=== PATIENT | female | born 1955 | race Caucasian/White ===

== ENCOUNTER → 2018-07-20 11:04 | Outpatient (CLI) | payer OTHER, SELFPAY ==
--- NOTE | 2018-07-20 11:16 | BI_ITS ---
MAMMOGRAPHY - BILATERAL SCREENING REASON FOR EXAM: Female, 63 years old. Routine annual screening examination. PERTINENT HISTORY: FM HX 2 MAT COUSINS 40 Tamp; 50, RT AV'S AND US DONE 03-05-17 TECHNIQUE: Digital bilateral breast ryan (3D mammographic acquisition) in the CC and MLO projections. 2-D mediolateral oblique (MLO) and craniocaudad (CC) views of both breasts were obtained. CAD: Full Field Digital Mammography with Computer Added Detection was performed. COMPARISON: 02/17/2017 and 03/05/2017 FINDINGS: Breast Composition: The breasts are heterogeneously dense, which may obscure small masses. There are no dominant masses or suspicious calcifications. No other significant abnormalities are identified. BI/SCREEN MAMM (CAD) W/RYAN BILAT IMPRESSION: Stable bilateral screening mammogram. Yearly follow-up mammogram recommended. (A) ASSESSMENT CATEGORY: BIRADS Category 2: Benign. A letter regarding these results will be sent to the patient by the facility within 30 days. Approximately 10% of breast cancers are not detected by mammography. A normal mammogram should not delay biopsy of a clinically suspicious abnormality. [id number] Electronically Signed: Mariam Klein, at 17:20 EDT Tel , Service support ,
== END ==
PROVIDERS: Family Provider Family Medicine; PCP Family Medicine; Visit Provider Obstetrics & Gynecology
DX: Z12.31 Encounter for screening mammogram for malignant neoplasm of breast (principal)
CPT/HCPCS: 77063; 77067

== ENCOUNTER → 2018-08-17 17:05 | Outpatient (CLI) | payer OTHER, SELFPAY ==
[2018-08-17 10:37] VITALS: BMI 36.2
[2018-08-20 16:29] LABS: HPV APTIMA, High Risk Negative (Negative)
== END ==
PROVIDERS: Family Provider Family Medicine; Referring Provider Obstetrics & Gynecology; Visit Provider Obstetrics & Gynecology
DX: Z12.4 Encounter for screening for malignant neoplasm of cervix (principal)
CPT/HCPCS: 87624; 88175; G0145

== ENCOUNTER → 2020-02-17 11:31 | Outpatient (CLI) | payer MEDICARE, OTHER, SELFPAY ==
[2020-01-31 14:38] VITALS: BMI 36.2
--- NOTE | 2020-02-17 11:34 | BI_ITS ---
MAMMOGRAPHY - BILATERAL SCREENING REASON FOR EXAM: Female, 65 years old. Routine annual screening examination. PERTINENT HISTORY: Non-contributory. TECHNIQUE: Digital bilateral breast ryan (3D mammographic acquisition) in the CC and MLO projections. 2-D mediolateral oblique (MLO) and craniocaudad (CC) views of both breasts were obtained. CAD: Full Field Digital Mammography with Computer Added Detection was performed. COMPARISON: Comparison is made with prior examination dated 07/20/2018. FINDINGS: Breast Composition: There are scattered areas of fibroglandular density. There are no dominant masses or suspicious calcifications. No other significant abnormalities are identified. There has been no significant change since the prior study. BI/SCREEN MAMM (CAD) W/RYAN BILAT IMPRESSION: Stable bilateral screening mammogram. Yearly follow-up mammogram recommended. (A) ASSESSMENT CATEGORY: BIRADS Category 1: Negative. A letter regarding these results will be sent to the patient by the facility within 30 days. Approximately 10% of breast cancers are not detected by mammography. A normal mammogram should not delay biopsy of a clinically suspicious abnormality. [id number] Electronically Signed: Dusty Bajwa, at 12:39 EDT , Service support ,
== END ==
PROVIDERS: PCP Family Medicine; Referring Provider Obstetrics & Gynecology; Visit Provider Obstetrics & Gynecology
CPT/HCPCS: 77063; 77067

== ENCOUNTER 2020-07-11 07:41 | Outpatient (RCR) | payer MEDICARE, OTHER, SELFPAY ==
[2020-01-31 14:38] VITALS: BMI 36.2
[2020-07-11] MEDS: COVID-19 VACC, MRNA(PFIZER)/PF 30 MCG/0.3 ML SYRINGE IM (17:02)
[2020-08-01] MEDS: COVID-19 VACC, MRNA(PFIZER)/PF 30 MCG/0.3 ML SYRINGE IM (16:45)
== END 2020-10-10 23:59 ==
LOC: IMMUN 07:41
PROVIDERS: PCP Family Medicine; Visit Provider Family Medicine
DX: Z23 Encounter for immunization (principal)
CPT/HCPCS: 0001A; 0002A; 91300

== ENCOUNTER → 2021-03-19 11:25 | Outpatient (CLI) | payer MEDICARE, OTHER, SELFPAY ==
--- NOTE | 2021-03-19 11:27 | BI_ITS ---
MAMMOGRAPHY - BILATERAL SCREENING REASON FOR EXAM: Female, 66 years old. Routine annual screening examination. PERTINENT HISTORY: Non-contributory. TECHNIQUE: Digital bilateral breast ryan (3D mammographic acquisition) in the CC and MLO projections. 2-D mediolateral oblique (MLO) and craniocaudad (CC) views of both breasts were obtained. CAD: Full Field Digital Mammography with Computer Added Detection was performed. COMPARISON: Comparison is made with prior study dated 02/17/2020 and 07/20/2018. FINDINGS: Breast Composition: There are scattered areas of fibroglandular density. There are no dominant masses or suspicious calcifications. Small benign-appearing bilateral axillary lymph nodes. No other significant abnormalities are identified. There has been no significant change since the prior study. BI/SCRN MAMM (CAD)W/RYAN BILAT IMPRESSION: Stable bilateral screening mammogram. Yearly follow-up mammogram recommended. (A) ASSESSMENT CATEGORY: BIRADS Category 2: Benign. A letter regarding these results will be sent to the patient by the facility within 30 days. Approximately 10% of breast cancers are not detected by mammography. A normal mammogram should not delay biopsy of a clinically suspicious abnormality. [id number] Electronically Signed: Dusty Bajwa MD at 13:07 EST , Service support ,
== END ==
PROVIDERS: PCP Family Medicine; Visit Provider Obstetrics & Gynecology
DX: Z12.31 Encounter for screening mammogram for malignant neoplasm of breast (principal)
CPT/HCPCS: 77063; 77067

== ENCOUNTER 2024-11-26 11:31 | Observation (INO) | payer MEDICARE, OTHER, SELFPAY ==
[2024-11-26] VITALS (13 sets, daily range): BP systolic 122–168; BP diastolic 58–105; PULSE 77–87; RESP 14–24; TEMP 36.6–37.1; O2SAT 93–99; BMI 37.8
--- NOTE | 2024-11-26 11:52 | CT_ITS ---
PROCEDURE: STROKE BRAIN/HEAD WITHOUT CONT 11/26/2024 REASON FOR EXAM: NEURO DEFICIT, ACUTE, STROKE SUSPECTED TECHNIQUE: STROKE BRAIN/HEAD WITHOUT CONT Coronal and Sagittal reconstruction series were provided. One or more dose reduction techniques were used (e.g., Automated exposure control, adjustment of the mA and/or kV according to patient size, use of iterative reconstruction technique. RADIATION DOSE SUMMARY: CTDlvol: 45 mGy DLP: 815 mGycm COMPARISON: None FINDINGS: Brain: There is no evidence of hemorrhage, acute ischemia or mass. No extra- axial fluid collection, midline shift or mass effect. CSF Spaces: Mild generalized cerebral atrophy Sinuses/Mastoids: Clear Bones: No fracture CT/STROKE Brain/Head without Cont IMPRESSION: No evidence of hemorrhage or acute stroke at this time. The findings and impression were called to the ordering physician, Dr. Sondra muñoz 12:07 PM Reading Location: [id number]
--- NOTE | 2024-11-26 11:52 | EKG12_ITS ---
Test Reason : STROKE TEAM Blood Pressure : */* mmHG Vent. Rate : 78 BPM Atrial Rate : 78 BPM P-R Int : 198 ms QRS Dur : 88 ms QT Int : 406 ms P-R-T Axes : 30 9 38 degrees QTcB Int : 462 ms Normal sinus rhythm with sinus arrhythmia Normal ECG Confirmed by MELISSA ALVAREZ, ALHAJI ([id number]), editor continuity and script CECILIA ROYAL ([id number]) on 11/29/2024 8:31:08 AM Referred By: Confirmed By: ALHAJI TORRES MD
--- NOTE | 2024-11-26 11:53 | CT_ITS ---
PROCEDURE: STROKE CTA HEAD AND NECK W/CON 11/26/2024 REASON FOR EXAM: NEURO DEFICIT, ACUTE, STROKE SUSPECTED TECHNIQUE: STROKE CTA HEAD AND NECK W/CON Multiplanar Sagittal and Coronal images were obtained. 3D post processing was performed CONTRAST: Isovue 370 VOLUME: 100 mL One or more dose reduction techniques were used (e.g., Automated exposure control, adjustment of the mA and/or kV according to patient size, use of iterative reconstruction technique). RADIATION DOSE SUMMARY: CTDlvol: 32 mGy DLP: 735 mGycm COMPARISON: Head CT of the same day FINDINGS: Aortic Arch: A bovine arch is present, a normal variant. Vessels are widely patent. Brachiocephalic and Subclavians: Unremarkable RIGHT Carotid: Right CCA: Minimal mural plaque at the carotid bulb. Right ICA: Unremarkable. Maximum stenosis (NASCET): 0 % Right ECA: Unremarkable. LEFT Carotid: Left CCA: Unremarkable. Left ICA: Unremarkable. Maximum stenosis (NASCET): 0 % Left ECA: Unremarkable. Vertebrals: Codominant. Arise from the subclavians. Both vertebrals form the basilar. RIGHT Vertebral: Unremarkable. LEFT Vertebral: Unremarkable. Anatomy: origin of the posterior cerebral arteries bilaterally. Aneurysm or avm: No intracranial aneurysms or large vascular malformations are identified. Anterior cerebral arteries: Unremarkable. Middle cerebral arteries: Unremarkable. Basilar artery: Small caliber but patent. Posterior cerebral arteries: Hypoplastic/aplastic P1 segments. 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 Other major branches of the posterior circulation: Unremarkable. Major venous structures: Unremarkable. Other findings: Neck: No lymphadenopathy. Lungs: Mosaic attenuation of the lung parenchyma at the lung apices. Bones: Bones are unremarkable. Heterogeneous thyroid nodule at the isthmus. CT/STROKE CTA Head AND Neck W/Con IMPRESSION: 1. No aneurysm or stenosis seen. 2. No large vessel occlusion. 3. Incidental thyroid nodule at the isthmus. Recommend nonemergent outpatient ultrasound of the thyroid gland. Reading Location: [id number]
--- NOTE | 2024-11-26 12:07 | EDS_ITS ---
HPI History of Present Illness Chief Complaint: Dizziness Narrative Narrative: Patient is a 69-year-old female with past medical history of aortic stenosis, vertigo who presents to the emergency department the chief complaint of dizziness nausea and not feeling well. Patient states that around 10:40 AM this morning she was at [employer] and noted that while in the store she became lightheaded and dizzy feeling very unwell. She states that she left the store and noted that by the time she was out to her car she was having to hold onto the car to move around. States that she had her granddaughter with her and attempted to call her to come get them as she felt unwell to drive. Patient notes that she does have a history of vertigo however she states that this feels different than her vertigo and she states that she has never gotten nauseous and had vomiting with her vertigo previously. Patient denies any blood thinning medications [facility] Medical History Aortic stenosis Vertigo Stress incontinence in female Lichen sclerosus Heart murmur Home Medications ?Medication ?Instructions ?Recorded ?Last Taken ?Type aspirin 81 mg tablet,delayed 81 mg PO DAILY 11/26/24 U nknown History release rosuvastatin 10 mg tablet 10 mg PO QHS 11/26/24 Unknow n History Allergy/AdvReac Type Severity Reaction Status Date / Time penicillin G Allergy Mild hives Verified 11/26/24 11:34 Family History Grandmother CAD (coronary artery disease) Father CAD (coronary artery disease) Grandmother Diabetes Surgical History History of section Social History Smoking Status: Never smoker alcohol intake: current details: social substance use type: does not use caffeine: Yes what type of physical activity do you participate in: walking seatbelt use: always do you feel safe at home: Yes additional social history: Samson- both are retired ROS ROS ED ROS Narrative Constitutional: Complains dizziness as noted above as well as lightheadedness denies any fevers or chills Eyes: Denies change in vision double vision blurry vision Cardiovascular: Denies chest pain Respiratory: Denies coughing wheezing shortness of breath Abdomen: Complains of nausea and vomiting as noted above denies abdominal pain : Denies any urinary symptoms Neurological: Denies any numbness, wheeze, tingling Musculoskeletal: Denies back pain Skin: Denies any rashes or lesions EXAM Physical Exam Narrative Exam Narrative: General: Patient was lying in bed did appear to be nauseous with emesis bag in hand Head: Atraumatic, normocephalic Eyes: PERRL bilaterally, EOMI bilaterally, no conjunctival injection noted Neck: Soft, supple, trachea midline Cardiovascular: Regular rate and rhythm no murmurs gallops rubs noted Respiratory: Clear to auscultation bilaterally no rales rhonchi or wheezes noted Abdomen: Soft, nondistended, nontender to palpation Extremities: +5/5 strength noted in the bilateral upper and lower extremities, radial pulses +2/4 in the bilateral extremities, no pedal edema exam Neurological: Patient follow commands knew that she was at [facility] the year is 2024. NIH of 0 GCS 15 Skin: Warm, dry, tact no rashes lesions noted Const Vital Signs: 11/26/24 11:32 11/26/24 11:52 11/26/24 11:52 Temperature 98 F Temperature Source Oral Pulse Rate 82 78 Pulse Rate [Lying] Pulse Rate [Sitting (for 1 minute prior to obtaining)] Pulse Rate [Standing (for 1 minute prior to obtaining)] Respiratory Rate 18 15 Blood Pressure 149/63 H 135/78 H Blood Pressure [Lying] Blood Pressure [Sitting (for 1 minute prior to obtaining)] Blood Pressure [Standing (for 1 minute prior to obtaining)] Blood Pressure Mean 91 97 Blood Pressure Mean [Lying] Blood Pressure Mean [Sitting (for 1 minute prior to obtaining)] Blood Pressure Mean [Standing (for 1 minute prior to obtaining)] Pulse Ox 95 97 98 Oxygen Delivery Method Room Air Room Air Room Air 11/26/24 12:22 11/26/24 12:30 11/26/24 12:49 Temperature Temperature Source Pulse Rate 84 77 Pulse Rate [Lying] 82 Pulse Rate [Sitting (for 1 minute prior to obtaining)] 81 Pulse Rate [Standing (for 1 minute prior to obtaining)] 80 Respiratory Rate 19 H 15 Blood Pressure 157/65 H 143/75 H Blood Pressure [Lying] 143/75 H Blood Pressure [Sitting (for 1 minute prior to obtaining)] 168/90 H Blood Pressure [Standing (for 1 minute prior to obtaining)] 160/89 H Blood Pressure Mean 95 97 Blood Pressure Mean [Lying] 97 Blood Pressure Mean [Sitting (for 1 minute prior to obtaining)] 116 Blood Pressure Mean [Standing (for 1 minute prior to obtaining)] 112 Pulse Ox 98 95 Oxygen Delivery Method Room Air Room Air 11/26/24 13:00 11/26/24 13:00 11/26/24 13:30 Temperature Temperature Source Pulse Rate 79 77 77 Pulse Rate [Lying] Pulse Rate [Sitting (for 1 minute prior to obtaining)] Pulse Rate [Standing (for 1 minute prior to obtaining)] Respiratory Rate 19 H 14 19 H Blood Pressure 122/58 H 122/58 H 136/105 H Blood Pressure [Lying] Blood Pressure [Sitting (for 1 minute prior to obtaining)] Blood Pressure [Standing (for 1 minute prior to obtaining)] Blood Pressure Mean 79 79 115 Blood Pressure Mean [Lying] Blood Pressure Mean [Sitting (for 1 minute prior to obtaining)] Blood Pressure Mean [Standing (for 1 minute prior to obtaining)] Pulse Ox 98 99 96 Oxygen Delivery Method Room Air Room Air 11/26/24 14:06 Temperature 98 F Temperature Source Pulse Rate 77 Pulse Rate [Lying] Pulse Rate [Sitting (for 1 minute prior to obtaining)] Pulse Rate [Standing (for 1 minute prior to obtaining)] Respiratory Rate 19 H Blood Pressure 136/105 H Blood Pressure [Lying] Blood Pressure [Sitting (for 1 minute prior to obtaining)] Blood Pressure [Standing (for 1 minute prior to obtaining)] Blood Pressure Mean 115 Blood Pressure Mean [Lying] Blood Pressure Mean [Sitting (for 1 minute prior to obtaining)] Blood Pressure Mean [Standing (for 1 minute prior to obtaining)] Pulse Ox 96 Oxygen Delivery Method MDM MDM MDM Narrative Medical decision making narrative: Patient is a 69-year-old female who presents to the emergency department chief complaint of dizziness, nausea vomiting. On the differential diagnosis includes but limited to posterior circulation stroke, ischemic stroke, hemorrhagic stroke, near syncope secondary to dehydration her aortic stenosis, electrolyte abnormality, hypoglycemia. Once workup is obtained reviewed she will be reevaluated. Patient be given Zofran for her nausea as well as meclizine. Patient CBC reviewed showed no evidence leukocytosis white blood count normal at 10, hemoglobin 13.7, platelet count was noted to be 240. Patient INR normal at 1, PT of 13.1. Patient sodium was 137, potassium normal at 4.3, creatinine was 0.90. Patient's troponin was noted to be normal at 7 patient's EKG reviewed showed sinus rhythm with a rate of [address] head and brain without contrast showed no evidence of hemorrhage or acute stroke at this point in time. Patient CTA head and neck reviewed showed no aneurysm or stenosis seen no large vessel occlusion there is an incidental thyroid nodule noted which is recommending nonemergent outpatient ultrasound of the thyroid gland. Patient's chest x-ray reviewed by myself official read per radiology pending however no acute cardiopulmonary processes noted. Patient was evaluated by teleneurologist Dr. Bland who recommends admission for MRI he states that this seems more presyncopal to him however I reiterated to him that the patient states that she was so dizzy and felt off balance that she had to hold onto her card to maneuver. She also notes that this is very different than her typical vertigo. Per teleneurology they indicate that the patient is not a tenecteplase candidate. Will discuss case with hospitalist for admission. Patient was given 243 mg aspirin as she already takes 81 mg aspirin daily and took this this morning. Discussed case with hospitalist Dr. Tierney who accept the patient for admission. Patient is notified as well as [facility] members they are agreeable with this plan all question concerns answered. Lab Data Labs: Laboratory Results - last 24 hr 11/26/24 13:10 WBC 10.0 RBC 4.76 Hgb 13.7 Hct 41.6 MCV 87.4 MCH 28.8 MCHC 32.9 RDW Std Deviation 39.8 RDW Coeff of Viktoria 12.4 Plt Count 240 MPV 8.6 Immature Gran % (Auto) 0.400 Neut % (Auto) 79.4 H Lymph % (Auto) 12.7 L Towns % (Auto) 5.2 Eos % (Auto) 1.8 Baso % (Auto) 0.5 Absolute Neuts (auto) 8.0 H Absolute Lymphs (auto) 1.27 Nucleated RBC % 0 PT 13.1 INR 1.0 APTT 24.3 Sodium 137 Potassium 4.3 Chloride 100 Carbon Dioxide 23.5 Anion Gap 14 BUN 21 H Creatinine 0.90 Estim Creat Clear Calc 60.57 Est GFR (MDRD) Non-Af 69 BUN/Creatinine Ratio 23.3 H Glucose 97 Calcium 9.9 Troponin T High Sens 7 Radiography Diagnostic Testing: Clinical Impression(s) from Imaging Studies Brain CT 11/26/24 11:52 IMPRESSION: No evidence of hemorrhage or acute stroke at this time. The findings and impression were called to the ordering physician, Dr. Amaro at 12:07 PM Reading Location: [facility] Head/Neck CTA 11/26/24 11:53 IMPRESSION: 1. No aneurysm or stenosis seen. 2. No large vessel occlusion. 3. Incidental thyroid nodule at the isthmus. Recommend nonemergent outpatient ultrasound of the thyroid gland. Reading Location: [facility] Discharge Plan Triage Chief Complaint: Dizziness ED Provider: Sebastian Amaro Dx/Rx/DC Orders Clinical Impression: Dizziness, Nausea & vomiting, History of aortic stenosis Prescriptions: No Action rosuvastatin 10 mg tablet 10 mg PO QHS aspirin 81 mg tablet,delayed release (DR/EC) 81 mg PO DAILY Primary Care Provider: Sterling Giles Referrals: Sterling Giles MD [Primary Care Provider] - Print Language: Latvian Disposition Disposition: Acute Care Hospital [facility]
[2024-11-26 13:22] LABS: Hematocrit 41.6 % (37-47); Hemoglobin 13.7 g/dL (12.0-15.0); Immature Granulocytes Count 0.040 X10^3/uL (0.0-0.0); Mean Corp Hgb Conc 32.9 g/dL (32-36); Mean Corpuscular Volume 87.4 fL (81-99); Mean Platelet Vol. 8.6 fl (6.2-12.0); NRBC Flagged by Analyzer 0 % (0-5); Platelet Count 240 K/mm3 (150-450); RBC Distribution Width CV 12.4 % (11.6-14.6); RBC Distribution Width SD 39.8 fl (35.1-43.9); Red Blood Count 4.76 M/mm3 (4.2-5.4); White Blood Count 10.0 K/mm3 (4.4-11.0)
[2024-11-26 13:31] LABS: Prothrombin Time (Protime)PT. 13.1 SECONDS (11.7-14.9)
[2024-11-26 13:32] LABS: Partial Thromboplast Time 24.3 Seconds (24.1-36.2)
[2024-11-26] MEDS: 0.9% Normal Saline (500mL Bag) 500 ML 999 ML IV (13:51)
--- NOTE | 2024-11-26 14:04 | RAD_ITS ---
PROCEDURE: CHEST PA AND LATERAL 11/26/2024 REASON FOR EXAM: DIZZY TECHNIQUE: CHEST PA AND LATERAL COMPARISON: None FINDINGS: Hardware: EKG leads are present. Heart: Normal Mediastinum: Normal Lungs: Clear Bones: Degenerative changes are identified within the thoracic spine. RAD/Chest PA and Lateral IMPRESSION: No acute abnormality Reading Location: [id number]
[2024-11-26 14:17] LABS: Anion Gap 14 (5-15); BUN 21 mg/dL (4-19); BUN/Creat Ratio 23.3 RATIO (10-20); Calcium,Total 9.9 mg/dL (7.6-11.0); Carbon Dioxide 23.5 mmol/L (21.0-32.0); Chloride 100 mmol/L (98-108); Estimated Creatinine Clearance 60.57 ml/min (50-250); Glucose 97 mg/dL (70-99); Potassium 4.3 mmol/L (3.3-5.1); Troponin T High Sensitivity 7 ng/L (<=14)
[2024-11-26 15:56] LABS: Troponin T High Sens 2 HR 6 ng/L (<=14)
--- NOTE | 2024-11-26 16:23 | PCM.HP.STD ---
HPI - General General Date of Admission: 11/26/24 Date of Service: 11/26/24 Chief Complaint: Dizziness, nausea vomiting, lightheadedness HPI Narrative CESIA FOUNTAIN, is a 69-year-old female history of vertigo and aortic stenosis presented to [facility] ED 11/26/2024 with episode of dizziness, nausea vomiting, lightheadedness. She had been in her usual health until earlier when she was at [employer] and she became dizzy and lightheaded and nauseous around 10:0 a.m., was able to get to her car but was very off balance and unsteady on her feet had multiple episodes of vomiting ultimately prompting her to come to the ED. She has a history of vertigo previously but this does not feel like that. In the ED patient vitally stable, orthostats negative, lab work overall unrevealing chest x-ray no acute process. Patient was a stroke alert as there was concern for posterior stroke. CT brain and CTA head and neck with no acute process. Teleneurology evaluated and suspected this could have been due to symptomatic aortic stenosis versus CVA and recommended admission for cardiac and stroke workup. Hospitalist contacted for mission. Patient evaluated bedside in reported history as above, nausea is improving, no longer feeling dizzy or off-balance. [facility] Medical History Aortic stenosis Vertigo Stress incontinence in female Lichen sclerosus Heart murmur Home Medications ?Medication ?Instructions ?Recorded ?Last Taken ?Type aspirin 81 mg tablet,delayed 81 mg PO DAILY 11/26/24 11/25/24 History release rosuvastatin 10 mg tablet 10 mg PO QHS 11/26/24 11/25/24 History Allergy/AdvReac Type Severity Reaction Status Date / Time penicillin G Allergy Mild hives Verified 11/26/24 11:34 Family History Grandmother CAD (coronary artery disease) Father CAD (coronary artery disease) Grandmother Diabetes Surgical History History of section Social History Smoking Status: Never smoker alcohol intake: current details: social substance use type: does not use caffeine: Yes what type of physical activity do you participate in: walking seatbelt use: always do you feel safe at home: Yes additional social history: Alejandra millan are retired ROS ROS Narrative General: Denies fever/chills HENT: Denies headache, denies stuffy nose, denies sore throat EYES: Denies changes in vision Resp: Denies cough, denies shortness of breath Cardiac: Denies chest pain GI: Denies abdominal pain, denies changes in bowel, nausea and vomiting : Denies changes in urination Extremity: Denies swelling MSK: Some generalized weakness Neuro: Denies any numbness/tingling had some dizzy and lightheaded feeling Heme: Denies any bleeding or bruising Skin: Denies rashes Psychiatric: No complaints voiced Vital Signs Vital Signs Vital Signs: 11/26/24 11:32 11/26/24 11:52 11/26/24 11:52 Temperature 98 F Temperature Source Oral Pulse Rate 82 78 Pulse Rate [Lying] Pulse Rate [Sitting (for 1 minute prior to obtaining)] Pulse Rate [Standing (for 1 minute prior to obtaining)] Respiratory Rate 18 15 Blood Pressure 149/63 H 135/78 H Blood Pressure [Lying] Blood Pressure [Sitting (for 1 minute prior to obtaining)] Blood Pressure [Standing (for 1 minute prior to obtaining)] Blood Pressure Mean 91 97 Blood Pressure Mean [Lying] Blood Pressure Mean [Sitting (for 1 minute prior to obtaining)] Blood Pressure Mean [Standing (for 1 minute prior to obtaining)] Pulse Ox 95 97 98 Oxygen Delivery Method Room Air Room Air Room Air 11/26/24 12:22 11/26/24 12:30 11/26/24 12:49 Temperature Temperature Source Pulse Rate 84 77 Pulse Rate [Lying] 82 Pulse Rate [Sitting (for 1 minute prior to obtaining)] 81 Pulse Rate [Standing (for 1 minute prior to obtaining)] 80 Respiratory Rate 19 H 15 Blood Pressure 157/65 H 143/75 H Blood Pressure [Lying] 143/75 H Blood Pressure [Sitting (for 1 minute prior to obtaining)] 168/90 H Blood Pressure [Standing (for 1 minute prior to obtaining)] 160/89 H Blood Pressure Mean 95 97 Blood Pressure Mean [Lying] 97 Blood Pressure Mean [Sitting (for 1 minute prior to obtaining)] 116 Blood Pressure Mean [Standing (for 1 minute prior to obtaining)] 112 Pulse Ox 98 95 Oxygen Delivery Method Room Air Room Air 11/26/24 13:00 11/26/24 13:00 11/26/24 13:30 Temperature Temperature Source Pulse Rate 79 77 77 Pulse Rate [Lying] Pulse Rate [Sitting (for 1 minute prior to obtaining)] Pulse Rate [Standing (for 1 minute prior to obtaining)] Respiratory Rate 19 H 14 19 H Blood Pressure 122/58 H 122/58 H 136/105 H Blood Pressure [Lying] Blood Pressure [Sitting (for 1 minute prior to obtaining)] Blood Pressure [Standing (for 1 minute prior to obtaining)] Blood Pressure Mean 79 79 115 Blood Pressure Mean [Lying] Blood Pressure Mean [Sitting (for 1 minute prior to obtaining)] Blood Pressure Mean [Standing (for 1 minute prior to obtaining)] Pulse Ox 98 99 96 Oxygen Delivery Method Room Air Room Air 11/26/24 14:06 11/26/24 15:00 Temperature 98 F Temperature Source Pulse Rate 77 87 Pulse Rate [Lying] Pulse Rate [Sitting (for 1 minute prior to obtaining)] Pulse Rate [Standing (for 1 minute prior to obtaining)] Respiratory Rate 19 H 24 H Blood Pressure 136/105 H 149/67 H Blood Pressure [Lying] Blood Pressure [Sitting (for 1 minute prior to obtaining)] Blood Pressure [Standing (for 1 minute prior to obtaining)] Blood Pressure Mean 115 94 Blood Pressure Mean [Lying] Blood Pressure Mean [Sitting (for 1 minute prior to obtaining)] Blood Pressure Mean [Standing (for 1 minute prior to obtaining)] Pulse Ox 96 94 Oxygen Delivery Method Room Air Weight Weight: 90.9 kg Body Mass Index (BMI) 37.8 Physical Exam Narrative General: Alert, oriented, no apparent distress HEENT: Atraumatic, normocephalic Eyes: Anicteric, normal conjunctiva, extraocular movements intact, pupils equal Neck: Supple Respiratory: Clear to auscultation bilaterally, normal respiratory effort Cardiovascular: Regular rate and rhythm, systolic ejection murmur noted GI: Soft, nontender, nondistended Extremities: No edema Musculoskeletal: Strength 5 out of 5 in right upper extremity, 5 out of 5 left upper extremity, 5 out of 5 right lower extremity, 5 out of 5 left lower extremity Neuro: No overt focal neurological deficits, cranial nerves II through XII intact, [id number] without significant difficulty bilaterally Skin: No rashes appreciated Psych: Cooperative Results Lab / Micro Data 11/26/24 13:10 11/26/24 13:10 Labs: Laboratory Results - last 24 hr 11/26/24 13:10: WBC 10.0, RBC 4.76, Hgb 13.7, Hct 41.6, MCV 87.4, MCH 28.8, MCHC 32.9, RDW Std Deviation 39.8, RDW Coeff of Viktoria 12.4, Plt Count 240, MPV 8.6, Immature Gran % (Auto) 0.400, Neut % (Auto) 79.4 H, Lymph % (Auto) 12.7 L, Colbert % (Auto) 5.2, Eos % (Auto) 1.8, Baso % (Auto) 0.5, Absolute Neuts (auto) 8.0 H, Absolute Lymphs (auto) 1.27, Nucleated RBC % 0, PT 13.1, INR 1.0, APTT 24.3, Sodium 137, Potassium 4.3, Chloride 100, Carbon Dioxide 23.5, Anion Gap 14, BUN 21 H, Creatinine 0.90, Estim Creat Clear Calc 60.57, Est GFR (MDRD) Non-Af 69, BUN/Creatinine Ratio 23.3 H, Glucose 97, Calcium 9.9, Troponin T High Sens 7 11/26/24 15:20: Troponin T Hi Sens 2 Hr 6 Imaging Radiology Impression Brain CT 11/26/24 11:52 IMPRESSION: No evidence of hemorrhage or acute stroke at this time. The findings and impression were called to the ordering physician, Dr. Amaro at 12:07 PM Reading Location: [facility] Head/Neck CTA 11/26/24 11:53 IMPRESSION: 1. No aneurysm or stenosis seen. 2. No large vessel occlusion. 3. Incidental thyroid nodule at the isthmus. Recommend nonemergent outpatient ultrasound of the thyroid gland. Reading Location: [facility] Chest X-Ray 11/26/24 14:04 IMPRESSION: No acute abnormality Reading Location: [facility] Assessment & Plan Assessment/Plan (1) Dizziness: (2) Nausea & vomiting: PLAN: Plan # Dizziness/lightheadedness/nausea and vomiting -Admit to tele -CT head w no acute process -CTA head and neck no acute process -MRI ordered -NIH q4hr -asa, statin -Echo w/ bubble study -PT/OT/Speech eval -Teleneuro consult ordered -Hold BP medications to allow for permissive hypertension for 24 hours unless SBP greater than 220 or DBP greater than 120 or until stroke is ruled out # Aortic stenosis -Does have murmur -Is possible but this was presyncope as patient has difficulty describing the symptoms however it was recommended to complete cardiac and stroke workup -Orthostats negative -Echo as above # Thyroid nodule - Seen on the isthmus, recommended nonemergent outpatient ultrasound #DVT ppx: SCDs Erika Tierney MD Charges/Coding Visit Charges Inpatient E&M: 93363 Init Hosp L2
--- NOTE | 2024-11-26 17:22 | MRI_ITS ---
PROCEDURE: BRAIN WITHOUT CONTRAST 11/26/2024 REASON FOR EXAM: CONCERN FOR TIA/STROKE TECHNIQUE: Multiplanar and multisequential MRI of the brain was performed without contrast. COMPARISON: CT head/angiography earlier today 11/26/2024. FINDINGS: No regions of abnormal restricted diffusion to indicate recent infarct. The ventricular and sulcal size and configuration appear within normal limits for age. No evidence of intracranial hemorrhage, extra-axial collection, mass effect, or other significant abnormality. Scant foci of leukoaraiosis in the cerebral white matter. Preserved major intracranial vascular flow voids. Absent king salmon ocular lenses. Well-aerated paranasal sinuses and mastoid air cells. MRI/Brain without Contrast IMPRESSION: No acute infarct or other significant abnormality. Normal brain MRI for patien t's age. Reading Location: [id number]
--- NOTE | 2024-11-26 17:23 | ECHOD_ITS ---
Reason For Study Reason For Study: TIA/Stroke Procedure This was a 2D Doppler, Color Flow transthoracic echocardiogram. Exam performed portable in patient room. Left Ventricle Normal LV size. The left ventricular ejection fraction is 70 %. Stage 1 diastolic dysfunction. Right Ventricle Normal RV size. Normal systolic function. Mitral Valve Mild-Moderate (1-2+) eccentric mitral valve insufficiency. Tricuspid Valve Normal tricuspid valve. Mild (1+) tricuspid valve insufficiency. Pulmonary artery systolic pressure is 34 mmHg. Aortic Valve Trisinus/trileaflet aortic valve. Mild focal aortic valve calcification. Peak aortic valve gradient 31 mmHg. Mean aortic valve gradient 19 mmHg. Mild to moderate aortic stenosis. MMode/2D Measurements & Calculations LVIDd: 3.9 cm IVSd: 1.1 cm LVOT diam: 2.0 cm LVIDs: 2.4 cm LVPWd: 1.0 cm RVDd: 2.8 cm FS: 38.1 % LVOT area: 3.0 cm2 Ao root diam: 2.5 cm LAV(MOD-bp): 36.9 ml ACS: 1.3 cm LVAd ap4: 19.3 cm2 LAV(MOD-bp) Indexed: 19.6 ml/m2 LVLd ap4: 7.2 cm LAV(MOD-sp2): 31.7 ml EDV(MOD-sp4): 43.1 ml LAV(MOD-sp4): 41.7 ml EDV(sp4-el): 44.1 ml LVAs ap4: 9.4 cm2 LVLs ap4: 5.6 cm ESV(MOD-sp4): 13.6 ml ESV(sp4-el): 13.5 ml EF(MOD-sp4): 68.4 % EF(sp4-el): 69.3 % SV(MOD-sp4): 29.5 ml SV(sp4-el): 30.6 ml LA A4 area: 17.4 cm2 SI(MOD-sp4): 15.6 ml/m2 LA dimension(2D): 3.6 cm RA A4 area: 8.4 cm2 TAPSE: 2.5 cm Time Measurements MV dec time: 0.19 sec Doppler Measurements & Calculations MV E max jonh: 93.9 cm/sec Lat Peak E' Jonh: 8.6 cm/sec Med Peak E' Jonh: 6.9 cm/sec MV A max jonh: 100.0 cm/sec E/E' lat: 11.0 E/E' med: 13.5 MV E/A: 0.94 MV dec slope: 503.1 cm/sec2 Ao V2 max: 278.1 cm/sec LV V1 max: 147.3 cm/sec Ao max P.0 mmHg LV V1 max P.7 mmHg Ao V2 mean: 210.6 cm/sec LV V1 mean P.1 mmHg Ao mean P.3 mmHg LV V1 mean: 121.1 cm/sec Ao V2 VTI: 60.0 cm LV V1 VTI: 33.3 cm AV (velocity ratio): 0.56 LARRY(I,D): 1.7 cm2 LARRY(V,D): 1.6 cm2 SV(LVOT): 101.5 ml PA V2 max: 96.8 cm/sec TR max jonh: 280.0 cm/sec TR max P.4 mmHg ECHO/Echo Complete Interpretation Summary Normal LV size. The left ventricular ejection fraction is 70 %. Stage 1 diastolic dysfunction. Mild focal aortic valve calcification. Mild to moderate aortic stenosis. Mean aortic valve gradient 19 mmHg. Ordering Physician: Erika Tierney Referring Physician: Sterling Giles Performed By: Maryan Nixon, [place]ANN[place], RVT
--- NOTE | 2024-11-26 19:05 | CM.ED ---
Social Work Reason for visit: Stroke Alert SW met with patients family, emotional support provided. No further needs at this time. Lenore Felix, STATIONARY ENGINEER APPRENTICE, LOCOMOTIVE SUPERVISOR
--- OUTSIDE RECORDS SUMMARY | 2024-11-26 20:22 | XMS RPT_ITS | CCD ---
Author Organization [facility] Care Team Providers Care Contract Implementation Analyst Name Role Phone Mela Albrecht MD Unavailable [phone] SENDY PALACIO Unavailable Unavailable STERLING COLEMAN Unavailable Unavailable [place] ALVAREZ, Sterling Mena Primary Care Provider Sterling Coleman MD Primary Care Provider Sterling Coleman MD Primary Care Provider Kathleen GAS SCRUBBER OPERATOR.PROPOSAL MANAGER, Elenita Unavailable Suppan GAS SCRUBBER OPERATOR.PROPOSAL MANAGER, Elaine A Unavailable [phone] ASMITA BHAGAT Referring Unavailable VIRGINIA, STERLING Mena Primary Care Unavailable ELLY DONAHUE Referring Unavailable VIRGINIA, STERLING Mena Primary Care Unavailable ELLY DONAHUE Attending Unavailable VIRGINIA, STERLING Mena Primary Care Unavailable ELAINE TREVINO Referring Unavailable VIR[place], STERLING Mena Primary Care Unavailable VIRGINIA, STERLING Mena Primary Care Unavailable VIKTORIA MARQUEZ Referring Unavail able ELLY DONAHUE Attending Unavailable STERLING COLEMAN Primary Care Unavailable STERLING COLEMAN Referring Unavailable VIRGINIA, STERLING Mena Primary Care Unavailable ELAINE TREVINO Attending Unavailable VIR[place], STERLING Mena Primary Care Unavailable VIRGINIA, STERLING Mena Primary Care Unavailable ELLY DONAHUE Referring Unavailable ROWANELLY CARRILLO Referring Unavailable VIRGINIA, STERLING Mena Primary Care Unavailable VIRGINIA, STERLING Mena Attending Unavailable VIRGINIA, STERLING Mena Primary Care Unavailable VIRGINIA, STERLING Mena Primary Care Unavailable ASMITA BHAGAT Referring Unavailable Virginia , Dr. Katz Primary Care Provider [phone] Dr. Sebastian Amaro DO Emergency Provider Niall ALVAREZ, Dr. James Admit Provider Niall ALVAREZ, Dr. James Attending Provider Allergies Allergy Classification Reported Allergen(s) Allergy Type Date of Onset Reaction(s) Facility (20 sources) Penicillins; Translations: [PENICILLINS] Drug Allergy 10-17-2015 Swelling [facility] (4 sources) Penicillins Drug Allergy 10-17-2015 Swelling [facility] (1 source) Penicillin G Drug Allergy 11-26-2024 [facility] Comment on above: [facility] Medications Current Medications Medication Drug Class(es) Dates Sig (Normalized) Sig (Original) [id number] 200 actuat albuterol 0.09 mg/actuat metered dose inhaler (20 sources) beta2-Adrenergic Agonist Start: 06-16-2023 take 2 puff(s) by inhalation every four hours as needed for wheezing albuterol HFA (VENTOLIN HFA) 90 mcg/actuation inhaler Inhale 2 Puffs as instructed every 4 hours as needed for wheezing/shortnes s of breath. 1 Each 1 06/16/2023 Active Start: 03-08-2019 End: 03-26-2022 take 2 puff(s) by inhalation every six hours as needed albuterol HFA (PROAIR HFA) 90 mcg/actuation inhaler Indications: Bronchitis , Wheezing Inhale 2 Puffs as instructed every 6 hours as needed. 1 Each 03/08/2019 03/26/2022 Discontinued (Other) Comment on above: Inhale 2 Puffs as in structed every 6 hours as needed. Inhale 2 Puffs as in structed every 4 hours as needed for wheezing/shortness of breath. aspirin 81 mg delayed release oral tablet (20 sources) Platelet Aggregation Inhibitor, Nonsteroidal Anti-inflammatory Drug Start: 11-26-2024 take 1 tablet by mouth once daily Aspirin 81 mg tablet,delayed release (DR/EC) Active 81 mg PO DAILY November 26, 2024 12:00am take 1 tablet by mouth every wee k aspirin, enteric coated (ASPIRIN, ENTERIC COATED) 81 mg EC tablet Take 81 mg by mouth once each week. Active Comment on above: Take 81 mg by mouth once each week. cholecalciferol 0.05 mg oral capsule (20 sources) Vitamin D Cholecalciferol, Vitamin D3, 50 mcg (2,000 unit) cap Take by mouth. Active Cholecalciferol, Vitamin D3, (VITAMIN D-3) 2,000 unit cap Take by mouth. 0 Active Comment on above: Take by mouth. clobetasol propionate 0.5 mg/ml topical cream (6 sources) Corticosteroid Start: 06-14-2024 clobetasol (TEMOVATE) 0.05 % cream Apply 0.5 % to affected area once daily as needed. 06/14/2024 Active Start: 02-03-2020 End: 11-26-2024 Clobetasol 0.05 % ointment D iscontinued 1 NMA TOPICAL AT BEDTIME 30 February 03, 2020 12:00am November 26, 2024 12:22pm apply thin layer; massage gently into affected area nightly x 6 weeks then 1-2x weekly Fish Oil-DHA-EPA 1,200-144-2 16 mg cap (20 sources) Fish Oil-DHA-EPA 1,200-144-216 mg cap Take 2 capsules by mouth once daily. Active Fish Oil-DHA-EPA 1,200-144-216 mg cap Take 2 capsules by mouth once daily. 0 Active Comment on above: Take 2 capsules by m outh once daily. iv contrast (will be provided with radiology test) (1 source) Start: End: inject 1 dose intravenously once iv contrast (will be provided with radiology test) Indications: Aortic ectasia (HCC) CTA CHEST - No IV access, insert saline lock prior to the sedation, infusion, injection for imaging exam. Discontinue saline lock post exam. If Pt. has a central line or IVAD, may access for administration according to line specific nursing protocol. Once exam is complete flush line and de-access according to line specific nursing protocol in the CT contrast administration guidelines link. 1 Each 02/23/2024 02/24/2024 Active methocarbamol 500 mg oral tablet (5 sources) Muscle Relaxant Start: 025 End: take 1 tablet by mouth three times daily as needed methocarbamol (ROBAXIN) 500 mg tablet Indications: Chest wall pain Take 1 tablet by mouth three times a day as needed for up to 20 days. 60 tablet 06/01/2024 06/21/2024 Active MULTIVITAMIN WITH MINERALS (MULTIVITAMIN & MINERAL FORMULA ORAL) (20 sources) MULTIVITAMIN WIT H MINERALS (MULTIVITAMIN & MINERAL FORMULA ORAL) Take by mouth. Active MULTIVITAMIN WIT H MINERALS (MULTIVITAMIN & MINERAL FORMULA ORAL) Take by mouth. 0 Active Comment on above: Take by mouth. perflutren lipid microspheres 1.3 mL in NaCl (PF) 0.9% 10 mL injection (DEFINITY) (20 sources) Start: 03-26-2022 End: 06-25-2023 perflutren lipid microspheres 1.3 mL in NaCl (PF) 0.9% 10 mL injection (DEFINITY) Start: 03-15-2021 End: 06-14-2022 perflutren lipid microsphere s 1.3 mL in NaCl (PF) 0.9% 10 mL injection (DEFINITY) rosuvastatin calcium 10 mg oral tablet (20 sources) HMG-CoA Reductase Inhibitor Start: 11-26-2024 take 1 tablet by mouth at bedtime Rosuvastatin 10 mg tablet Active 10 mg PO AT BEDTIME November 26, 2024 12:00am Start: 07-29-2022 End: 03-29-2024 take 1 tablet by mouth once daily at bedtime rosuvastatin (CRESTOR) 10 mg tablet Indications: Hyperlipidemia, mixed Take 1 tablet by mouth daily at bedtime. 90 tablet 3 03/29/2024 Active Comment on above: Take 1 tablet by jarret th daily at bedtime. Vitamin B Complex (20 sources) vitamin B comple x (B COMPLEX ORAL) Take by mouth. Active vitamin B comple x (B COMPLEX ORAL) Take by mouth. 0 Active Comment on above: Take by mouth. Completed/Discontinued Medications Medication Drug Class(es) Dates Sig (Normalized) Sig (Original) B Complex With L-Yiektavrg-Ei capsule (1 source) Start: 04-03-2021 End: 11-26-2024 B Complex With I-Ciuinvgxu-Tc capsule Discontinued NMA PO April 03, 2021 1:00am November 26, 2024 12:24pm biotin 1 mg oral capsule (20 sources) Start: 04-03-2021 End: 11-26-2024 take 1 capsule by mouth once daily Biotin 1 mg capsule Discontinued 1 mg PO DAILY April 03, 2021 1:00am November 26, 2024 12:22pm BIOTIN ORAL Take by mouth. Active BIOTIN ORAL Take by mouth. 0 Active Comment on above: Take by mouth. cyclobenzaprine hydrochloride 10 mg oral tablet (4 sources) Muscle Relaxant Start: 12-28-2 023 End: take 1 tablet by mouth three times daily as needed cyclobenzaprine (FLEXERIL) 10 mg tablet Indications: Left sided sciatica Take 1 tablet by mouth three times a day as needed. 30 tablet 0 05/01/2023 08/15/2023 Discontinued Comment on above: Take [address] [facility] three times a day as needed. estradiol 0.1 mg/ml vaginal cream (1 source) Estrogen Start: 017 End: Estradiol (Estrace) 0.01 % (0.1 mg/gram) cream Discontinued 0 VAGINAL .COMPLEX 42.5 30 3 April 14, 2017 1:00am August 11, 2017 12:00am August 12, 2017 12:06am fingertip amount VAGINAL nightly x 2 weeks, then 2-3x weekly for maintenance fluocinolone acetonide 0.04160 mg/mg topical ointment (20 sources) Corticosteroid Start: End: fluocinolone (SYNALAR) 0.025 % ointment Apply to affected area as directed. apply a pea-szed amount to vulva twice weekly, use 1-2 times daily for up to 2 weeks for flairs then return to twice weekly 60 g 12/05/2023 07/26/2024 Discontinued (Changing Therapy/Dosage Form) Start: 05-29-2023 End: 08-15-2023 fluocinolone (SYNALAR) 0.025 % ointment Apply to affected area as directed. APPLY TO AFFECTED AREA THREE TIMES DAILY FOR 2 WEEKS THEN TWICE A DAY FOR TWO WEEKS THEN ONCE A DAY FOR A MONTH THEN PRN 60 g 0 05/29/2023 08/15/2023 Discontinued Comment on above: Apply to affected ar ea as directed. APPLY TO AFFECTED AREA THREE TIMES DAILY FOR 2 WEEKS THEN TWICE A DAY FOR TWO WEEKS THEN ONCE A DAY FOR A MONTH THEN PRN Apply to affected ar ea as directed. apply a pea-szed amount to vulva twice weekly, use 1-2 times daily for up to 2 weeks for flairs then return to twice weekly hydroCHLOROthiazide 25 mg oral tablet (19 sources) Thiazide Diuretic Start: 2021 End: 2022 take 1 tablet by mouth once daily as needed for edema hydroCHLOROthiazide 25 mg tablet Indications: Hyperlipidemia, mixed Take 1 tablet by mouth once daily. As needed for edema 30 tablet 5 10/30/2022 Active Start: 04-14-2017 End: 11-26-2024 take 1 tablet by mouth once daily as needed for edema hydroCHLOROthiazide (HYDRODIURIL, ESIDRIX) 25 mg tablet Indications: Hyperlipidemia, mixed Take 1 tablet by mouth once daily. As needed for edema 30 tablet 03/15/2021 05/26/2021 Discontinued Comment on above: Take 1 tablet by jarret once daily. As needed for edema meclizine hydrochloride 12.5 mg oral tablet (3 sources) Antiemetic Start: 03-15-20 End: 03-26-20 take 2 tablets by mouth every six hours as needed for dizziness meclizine (ANTIVERT) 12.5 mg tab Indications: Vertigo Take 2 tablets by mouth every 6 hours as needed (dizziness). Take 25 mg every six hours as needed for dizziness 30 tablet 03/15/2021 03/26/2022 Discontinued (Other) Comment on above: Take 2 tablets by mo [facility] every 6 hours as needed (dizziness). Take 25 mg every six hours as needed for dizziness mecobalamin 1 mg sublingual tablet (1 source) Start: 04-03-20 End: 05-14-19 Mecobalamin (Vitamin B12) 1,000 mcg tablet,disintegrati ng Discontinued 1000 ug SL DAILY April 03, 2021 1:00am May 14, 2021 11:30am place tablet under tongue and allow to dissolve for at least30 secs before swallowing meloxicam 15 mg oral tablet (2 sources) Nonsteroidal Anti-inflammatory Drug Start: 05-14-19 End: 11-27-19 take 1 tablet by mouth once daily at mealtime meloxicam (MOBIC) 15 mg tablet Indications: Left sided sciatica Take 1 tablet by mouth once daily. With food. 10 tablet 0 03/20/2023 Active Comment on above: Take 1 tablet by jarret once daily. With food. Multivitamin tablet (1 source) Start: 04-03-20 End: 05-14-19 Multivitamin tablet Discontinued 1 {tbl} PO DAILY April 03, 2021 1:00am May 14, 2021 11:30am Multivitamin,Tx-Iron- Minerals (Complete Multivitamin) tablet (1 source) Start: 08-18-19 End: 11-27-19 Multivitamin,Tx-Iro n-Minerals (Complete Multivitamin) tablet Discontinued 1 {tbl} PO DAILY August 17, 2018 12:00am November 26, 2024 12:22pm Drug Treatment Unknown - unknown (1 source) No information available. Nystatin (1 source) Polyene Antifungal Start: 04-14-20 End: 04-03-20 Nystatin (Nystop) 100,000 unit/gram powder Discontinued 1 NMA TOPICAL TWICE A DAY 45 April 14, 2017 1:00am April 03, 2021 2:10pm Radiant-3 Fatty Acids (Fish Oil Concentrate) 1,000 mg capsule (1 source) Start: 04-03-20 End: 11-27-19 take 1 capsule by mouth once daily Radiant-3 Fatty Acids (Fish Oil Concentrate) 1,000 mg capsule Discontinued 1000 mg PO DAILY April 03, 2021 1:00am November 26, 2024 12:22pm OTC NUTRITIONAL SUPPLEMENT (3 sources) End: 03-26-20 OTC NUTRITIONAL SUPPLEMENT [facility] 03/26/2022 Discontinued (Other) End: 03-26-2022 OTC NUTRITIONAL SUPPLEMENT c [facility] 0 03/26/2022 Discontinued (Other) OTC NUTRITIONAL SUPPLEMENT [facility] 0 Active Comment on above: [facility] sertraline 50 mg oral tablet (13 sources) Serotonin Reuptake Inhibitor Start: End: take 1 tablet by mouth once daily sertraline (ZOLOFT) 50 mg tablet Indications: Adjustment disorder, unspecified type Take 1 tablet by mouth once daily. 30 tablet 5 10/30/2022 11/18/2022 Discontinued Start: 03-15-2021 End: 06-21-2021 take 0.5 tablet by mouth once daily, then take 1 tablet by mouth once daily sertraline (ZOLOFT) 50 mg tablet Indications: Adjustment disorder, unspecified type Take 1/2 tab once a day orally for one week then 1 tab once a day 30 tablet 2 03/15/2021 06/21/2021 Discontinued Comment on above: Take 1 tablet by jarret once daily. 125 ml sodium chloride 9 mg/ml prefilled syringe (20 sources) Start: 03-15-20 End: 06-25-19 sodium chloride 0.9 % (flush) 10 mL (BD POSIFLUSH) tirzepatide (MOUNJARO) 2.5 mg/0.5 mL pen injector (8 sources) Start: 09-15-19 End: 06-01-19 inject 2.5 mg by subcutaneous injection every week tirzepatide (MOUNJARO) 2.5 mg/0.5 mL pen injector Indications: Elevated fasting glucose , Hyperinsulinemia , Insulin resistance Inject 2.5 mg subcutaneously one time a week. 2 mL 09/15/2023 06/01/2024 Discontinued (Cost of medication) Start: 09-15-2023 inject 2.5 mg by sub cutaneous injection every week tirzepatide (MOUNJARO) 2.5 mg/0.5 mL pen injector Indications: Elevated fasting glucose , Hyperinsulinemia , Insulin resistance Inject 2.5 mg subcutaneously one time a week. 2 mL 09/15/2023 Active Start: 09-15-2023 inject 2.5 mg by sub cutaneous injection every week tirzepatide (MOUNJARO) 2.5 mg/0.5 mL pen injector Indications: Elevated fasting glucose , Hyperinsulinemia , Insulin resistance Inject 2.5 mg subcutaneously one time a week. 2 mL 0 09/15/2023 Active Start: 09-15-2023 End: 10-15-2023 inject 2.5 mg by subcutaneous injection every week tirzepatide (MOUNJARO) 2.5 mg/0.5 mL pen injector Indications: Elevated fasting glucose , Hyperinsulinemia , Insulin resistance Inject 2.5 mg subcutaneously one time a week. 2 mL 0 09/15/2023 10/15/2023 Active Problems Active Problems Problem Classification Problem Date Documented Date Episodic/Chronic Abdominal pain (1 source) Left lower quadrant pain; Translations: [Left lower quadrant pain] 03-22-2023 Episodic Adjustment disorders (2 sources) Adjustment disorder; Translations: [Adjustment disorder, unspecified] Chronic Allergic reactions (1 source) Eczema; Translations: [Dermatitis, unspecified] 06-16-2023 Episodic Aortic; peripheral; and visceral artery aneurysms (20 sources) Ectasia of thoracic aorta; Translations: [Thoracic aortic ectasia] Onset: 11-02-2018 Resolved: 03-26-2022 05-02-2021 Chronic Cardiac dysrhythmias (3 sources) Cardiac arrhythmia; Translations: [Cardiac arrhythmia, unspecified] Onset: 08-04-2024 07-26-2024 Chronic Conditions associated with dizziness or vertigo (1 source) Dizziness; Translations: [Dizziness and giddiness] 11-26-2024 Episodic Diabetes mellitus without complication (1 source) Hyperglycemia; Translations: [Impaired fasting glucose] 09-15-2023 Episodic Disorders of lipid metabolism (20 sources) Mixed hyperlipidemia; Translations: [Mixed hyperlipidemia] Onset: 09-17-2017 Chronic Genitourinary symptoms and ill-defined conditions (20 sources) Female stress incontinence; Translations: [Stress incontinence (female) (male)] Onset: 03-26-2022 03-26-2022 Chronic Heart valve disorders (20 sources) Aortic stenosis, non-rheumatic ; Translations: [Nonrheumatic aortic (valve) stenosis] Onset: 05-02-2021 05-02-2021 Chronic Mood disorders (20 sources) Reactive depression (situational); Translations: [Major depressive disorder, single episode, unspecified] Onset: 05-02-2021 05-02-2021 Chronic Nausea and vomiting (1 source) Nausea and vomiting; Translations: [Nausea with vomiting, unspecified] 11-26-2024 Episodic Nonspecific chest pain (1 source) Chest wall pain; Translations: [Other chest pain] 06-01-2024 Episodic Osteoarthritis (1 source) Osteoarthritis of right knee joint; Translations: [Unilateral primary osteoarthritis, right knee] 05-14-2021 Chronic Other circulatory disease (1 source) H/O: heart disorder; Translations: [Personal history of other diseases of the circulatory system] 11-26-2024 Episodic Other connective tissue disease (1 source) Pes anserinus bursitis of right knee; Translations: [Other bursitis of knee, right knee] 05-14-2021 Episodic Other diseases of kidney and ureters (1 source) Abnormal renal function; Translations: [Disorder of kidney and ureter, unspecified] 06-16-2023 Episodic Other endocrine disorders (1 source) Hyperinsulinism; Translations: [Other hypoglycemia] 09-15-2023 Chronic Other female genital disorders (20 sources) Dyspareunia; Translations: [Dyspareunia] Onset: 03-26-2022 Resolved: 03-26-2022 03-26-2022 Chronic Other female genital disorders (1 source) Vaginal irritation; Translations: [Other specified noninflammatory disorders of vagina] 08-15-2023 Episodic Other female genital disorders (20 sources) Disorder of female genital system; Translations: [Unspecified condition associated with female genital organs and menstrual cycle] Onset: 03-26-2022 Resolved: 03-26-2022 03-26-2022 Episodic Other inflammatory condition of skin (20 sources) Psoriasis; Translations: [Psoriasis, unspecified] 01-09-2017 Chronic Other lower respiratory disease (1 source) Dyspnea on exertion; Translations: [Other forms of dyspnea] 01-17-2023 Episodic Other lower respiratory disease (1 source) Snoring; Translations: [Snoring] 09-10-2023 Episodic Other non-traumatic joint disorders (1 source) Joint pain; Translations: [Pain in unspecified joint] 09-10-2023 Episodic Other non-traumatic joint disorders (1 source) Pain in right knee; Translations: [Pain in joint, lower leg] 04-20-2021 Episodic Other nutritional; endocrine; and metabolic disorders (1 source) Severe obesity; Translations: [Morbid (severe) obesity due to excess calories] 09-10-2023 Chronic Other nutritional; endocrine; and metabolic disorders (1 source) Body mass index 30+ - obesity; Translations: [Body mass index (BMI) 36.0-36.9, adult] 09-10-2023 Chronic Other nutritional; endocrine; and metabolic disorders (1 source) Insulin resistance; Translations: [Insulin resistance] 09-15-2023 Chronic Other nutritional; endocrine; and metabolic disorders (6 sources) Obese class II; Translations: [Obesity, Class II, BMI 35-39.9] Onset: 07-26-2024 07-26-2024 Chronic Other nutritional; endocrine; and metabolic disorders (1 source) Morbid (severe) obesity due to excess calories; Translations: [Class 2 severe obesity with serious comorbidity and body mass index (BMI) of 36.0 to 36.9 in adult, unspecified obesity type (HCC)] Onset: 12-25-2023 Chronic Other nutritional; endocrine; and metabolic disorders (1 source) Body mass index (BMI) 36.0-36.9, adult; Translations: [Class 2 severe obesity with serious comorbidity and body mass index (BMI) of 36.0 to 36.9 in adult, unspecified obesity type (HCC)] Onset: 12-25-2023 Chronic Other skin disorders (2 sources) Lichen sclerosus et atrophicus; Translations: [Circumscribed scleroderma] 08-15-2023 Chronic Comment on above: clobetasol, biopsy a t previous physican, fu 3-4 weeks if persistent right lesion recommend biopsy. Other skin disorders (1 source) Hyperhidrosis; Translations: [Generalized hyperhidrosis] 11-18-2022 Episodic Other upper respiratory infections (2 sources) Acute upper respiratory infection, unspecified; Translations: [Acute upper respiratory infection] Onset: 07-19-2017 06-16-2023 Episodic Residual codes; unclassified (1 source) Hypersomnia; Translations: [Hypersomnia, unspecified] 09-10-2023 Chronic Residual codes; unclassified (1 source) Hypersomnia, unspecified; Translations: [Hypersomnia, unspecified] Onset: 12-25-2023 Chronic Residual codes; unclassified (1 source) Menopause present; Translations: [Asymptomatic menopausal state] Episodic Residual codes; unclassified (1 source) Edema of lower extremity; Translations: [Localized edema] 01-09-2017 Episodic Residual codes; unclassified (20 sources) Bilateral lower limb edema; Translations: [Localized edema] Episodic Unclassified (1 source) No current problems or disability 04-17-2017 Unclassified (1 source) Acute upper respiratory infection, unspecified / J06.9(ICD-10) Onset: 07-19-2017 Unclassified (1 source) Elevated blood-pressure reading, without diagnosis of hypertension / R03.0(ICD-10) Onset: 07-19-2017 Past or Other Problems Problem Classification Problem Date Documented Da te Episodic/Chronic Genitourinary symptoms and ill-defined conditions (2 sources) Dysuria; Translations: [Dysuria] Onset: 06-01-2024 06-01-2024 Episodic Malaise and fatigue (3 sources) Malaise and fatigue; Translations: [Other malaise] Onset: 12-25-2023 09-10-2023 Episodic Other circulatory disease (1 source) Elevated blood-pressure reading without diagnosis of hypertension; Translations: [Elevated blood-pressure reading, without diagnosis of hypertension] Onset: 07-19-2017 Episodic Other connective tissue disease (20 sources) Dupuytren's contracture; Translations: [Palmar fascial fibromatosis [Dupuytren]] Onset: 01-09-2017 01-09-2017 Episodic Other lower respiratory disease (1 source) Snoring; Translations: [Snoring] Onset: 12-25-2023 Episodic Other screening for suspected conditions (not mental disorders or infectious disease) (20 sources) Patient encounter status; Translations: [Encounter for screening for osteoporosis] Onset: 06-07-2024 Episodic Other skin disorders (20 sources) Excessive sweating; Translations: [Generalized hyperhidrosis] Onset: 08-03-2022 04-30-2023 Episodic Monica-; endo-; and myocarditis; cardiomyopathy (except that caused by tuberculosis or sexually transmitted disease) (20 sources) Heart valve disorder; Translations: [Endocarditis, valve unspecified] Onset: 01-09-2017 Resolved: 05-02-2021 05-02-2021 Chronic Spondylosis; intervertebral disc disorders; other back problems (20 sources) Sciatica; Translations: [Sciatica, left side] Onset: 05-07-2023 05-07-2023 Episodic Sprains and strains (3 sources) Strain of muscle of chest wall; Translations: [Strain of muscle and tendon of front wall of thorax, initial encounter] Onset: 06-01-2024 06-01-2024 Episodic Results Test Name Value Interpretation Reference Range Facility Absolute lymphocyte countOrd ered By: Sebastian Amaro on 11-26-2024 Lymphocytes Auto (Unsp spec) [#/Vol] 1.27 10*3/uL 0.83-4.51 [facility] Absolute neutrophil countOrd ered By: Sebastian Amaro on 11-26-2024 Neutrophils (Bld) [#/Vol] 8.0 10*3/uL High 2.0-7.7 [facility] Activated partial thrombopla stin time (aPTT) in platelet poor plasma by coagulation aOrdered By: Sebastian Amaro on 11-26-2024 aPTT Coag (PPP) [Time] 24.3 s 24.1-36.2 [facility] Anion gap in Serum or Plasma Ordered By: Sebastian Amaro on 11-26-2024 Anion gap [Moles/Vol] 14 mmol/L 5-15 [facility] Automated lymphocyte count a s percentage of total leukocytesOrdered By: Sebastian Amaro on 11-26-2024 Lymphocytes/100 WBC Auto (Unsp spec) 12.7 % Low 19-41 [facility] BUN/creatinine ratioOrdered By: Sebastian Amaro on 11-26-2024 Urea nitrogen/Creatinine [Mass ratio] 23.3 mg/mg High 10-20 [facility] Basophil percentageOrdered B y: Sebastian Amaro on 11-26-2024 Basophils/100 WBC (Bld) 0.5 % 0-1 [facility] Carbon dioxide, total [Moles /volume] in Central venous bloodOrdered By: Sebastian Amaro on 11-26-2024 CO2 [Moles/Vol] 23.5 mmol/L 21.0-32.0 [facility] Chloride assayOrdered By: Rolando Amaro on 11-26-2024 Chloride [Moles/Vol] 100 mmol/L 98-108 [facility] Eosinophil percentageOrdered By: Sebastian Amaro on 11-26-2024 Eosinophils/100 WBC (Bld) 1.8 % 0-5 [facility] Erythrocyte distribution wid th ratioOrdered By: Sebastian Amaro on 11-26-2024 Erythrocyte distribution width (RBC) [Ratio] 12.4 % 11.6-14.6 [facility] Erythrocyte distribution wid th standard deviationOrdered By: Sebastian Amaro on 11-26-2024 Erythrocyte distribution width (RBC) [Ratio] 39.8 fl 35.1-43.9 [facility] Glomerular filtration rate ( GFR) estimation/1.73 sq m using serum, plasma, or whole bOrdered By: Sebastian Amaro on 11-26-2024 GFR/1.73 sq M.predicted among non-blacks MDRD (S/P/Bld) [Vol rate/Area] 69 mL/min/{1.73_m2} >60 [facility] Comment on above: mL/min/1.73m2 CKD-EP I Creatinine Equation (2020) Hematocrit Auto (Bld) [Volum e fraction]Ordered By: Sebastian Amaro on 11-26-2024 Hematocrit (Bld) [Volume fraction] 41.6 % 37-47 [facility] Hemoglobin measurementOrdere d By: Sebastian Amaro on 11-26-2024 Hemoglobin (Bld) [Mass/Vol] 13.7 g/dL 12.0-15.0 [facility] Immature granulocytes/100 WB C Auto (Bld)Ordered By: Sebastian Amaro on 11-26-2024 Immature granulocytes/100 WBC (Bld) 0.400 % 0.0-0.9 [facility] Comment on above: IG% - Immature Granu locytes (promyelocytes, myelocytes and metamyelocytes) > 1% indicates that a LEFT SHIFT is Present. International normalized rat io (INR) calculationOrdered By: Sebastian Amaro on 11-26-2024 INR Coag (Bld) [Relative time] 1.0 {INR} [facility] MCV (mean corpuscular volume ) determinationOrdered By: Sebastian Amaro on 11-26-2024 MCV (RBC) [Entitic vol] 87.4 fL 81-99 [facility] Mean corpuscular hemoglobin (MCH) determinationOrdered By: Sebastian Amaro on 11-26-2024 MCH (RBC) [Entitic mass] 28.8 pg 27.0-32.0 [facility] Mean corpuscular hemoglobin concentration (MCHC) determinationOrdered By: Sebastian Amaro on 11-26-2024 MCHC (RBC) [Mass/Vol] 32.9 g/dL 32-36 [facility] Mean platelet volume determi nationOrdered By: Sebastian Amaro on 11-26-2024 Platelet mean volume (Bld) [Entitic vol] 8.6 fL 6.2-12.0 [facility] Monocyte percentageOrdered B y: Sebastian Amaro on 11-26-2024 Monocytes/100 WBC (Bld) 5.2 % 0-10 [facility] Neutrophil percentageOrdered By: Sebastian Amaro on 11-26-2024 Neutrophils/100 WBC (Bld) 79.4 % High 47-70 [facility] Nucleated red blood cell per centageOrdered By: Sebastian Amaro on 11-26-2024 Nucleated RBC/100 WBC (Bld) [Ratio] 0 % 0-5 [facility] Platelet countOrdered By: Rolando Amaro on 11-26-2024 Platelets (Bld) [#/Vol] 240 10*3/uL 150-450 [facility] Potassium measurement (mass/ volume)Ordered By: Sebastian Amaro on 11-26-2024 Potassium (Unsp spec) [Mass/Vol] 4.3 mmol/L 3.3-5.1 [facility] Prothrombin timeOrdered By: Sebastian Amaro on 11-26-2024 PT Coag (PPP) [Time] 13.1 s 11.7-14.9 [facility] RBC Auto (Bld) [#/Vol]Ordere d By: Sebastian Amaro on 11-26-2024 RBC (Bld) [#/Vol] 4.76 10*6/uL 4.2-5.4 [facility] Serum creatinine measurement (mass/volume)Ordered By: Sebastian Amaro on 11-26-2024 Creatinine [Mass/Vol] 0.90 mg/dL 0.70-1.20 [facility] Serum glucose measurement (m ass/volume)Ordered By: Sebastian Amaro on 11-26-2024 Glucose [Mass/Vol] 97 mg/dL 70-99 [facility] Serum or plasma calcium jose urement (mass/volume)Ordered By: Sebastian Amaro on 11-26-2024 Calcium [Mass/Vol] 9.9 mg/dL 7.6-11.0 [facility] Serum or plasma urea nitroge n measurement (mass/volume)Ordered By: Sebastian Amaro on 11-26-2024 Urea nitrogen [Mass/Vol] 21 mg/dL High 4-19 [facility] Sodium levelOrdered By: Rody Amaro on 11-26-2024 Sodium [Moles/Vol] 137 mmol/L 133-145 [facility] Troponin T.cardiac [Mass/vol ume] in Serum or Plasma by High sensitivity methodOrdered By: Sebastian Amaro on 11-26-2024 Troponin T.cardiac High sensitivity method [Mass/Vol] 6 ng/L <14 [facility] Troponin T.cardiac High sensitivity method [Mass/Vol] 7 ng/L <14 [facility] White blood cell (WBC) count Ordered By: Sebastian Amaro on 11-26-2024 WBC (Bld) [#/Vol] 10.0 10*3/uL 4.4-[facility].0 [facility] M[facility]HE FOUNTAIN ([id number]) 1955 F Date Time Provider Department 11/01/24 STERLING COLEMAN [facility] During your visit today, we recorded the following information about you: Ariana Lennon LPN 11/01/2024 8:40 AM Signed Patient/Family calling with additional questions regarding financials and billing. Patient/Family directed in the following manner: For financial questions about an upcoming service, contact Patient Public Events Facilities Rental Manager by calling toll-free at [phone] and request to speak with a paint roller covers supervisor. For questions regarding a medical bill for a past / post service, contact a Private Duty Aide by calling toll-free at [phone] and request to speak with a paint roller covers supervisor. Patient/Family verbalized understanding. Allergies As of Date: 11/01/2024 Noted Allergy Reaction PENICILLINS 10/17/2015 7 - Swelling Date Reviewed: 09/20/2024 Reviewed by: Elly Donahue MD - Fully Assessed Reason for Visit: billing issues from July 26/2025 visit [Other] Prescriptions as of 11/01/2024 - clobetasol (TEMOVATE) 0.05 % cream Apply 0.5 % to affected area once daily as needed. - rosuvastatin (CRESTOR) 10 mg tablet Take 1 tablet by mouth daily at bedtime. - albuterol HFA (VENTOLIN HFA) 90 mcg/actuation inhaler Inhale 2 Puffs as instructed every 4 hours as needed for wheezing/shortness of breath. - Fish Oil-DHA-EPA 1,200-144-216 mg cap Take 2 capsules by mouth once daily. - Cholecalciferol, Vitamin D3, 50 mcg (2,000 unit) cap Take by mouth. - BIOTIN ORAL Take by mouth. - vitamin B complex (B COMPLEX ORAL) Take by mouth. - MULTIVITAMIN WITH MINERALS (MULTIVITAMIN AND MINERAL FORMULA ORAL) Take by mouth. - aspirin, enteric coated (ASPIRIN, ENTERIC COATED) 81 mg EC tablet Take 81 mg by mouth once each week. 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] 11/02/2018 Nonrheumatic aortic valve stenosis [I35.0] 05/02/2021 Reactive depression [F32.9] 05/02/2021 Dyspareunia [EYH4153] 03/26/2022 03/26/2022 Gynecological disease [N94.9] 03/26/2022 03/26/2022 Stress incontinence in female [N39.3] 03/26/2022 Perspiration-excessi ve [R61] 08/03/2022 Diagnosed: 04/30/2023 Left sided sciatica [M54.32] 05/07/2023 Obesity, Class II, BMI 35-39.9 [E66.812] 07/26/2024 Encounter Status:Closed by ARIANA LENNON on 11/01/24 [facility] CNOVon 09-20-2024 CNOV Office Visit ([facility]) MECHE FOUNTAIN ([id number]) 1955 F Date Time Provider Department 09/20/24 10:40 AM ELLY DONAHUE During your visit today, we recorded the following information about you: Pulse Respiration Blood pressure Weight 81/minute 14/minute 138/60 89.9 kg Height 1.549 m Elly Donahue MD 09/20/2024 12:06 PM Signed [facility] Cardiology (Melchor Guerrerotowconstanza Riley) [address] [facility] [id number] OUTPATIENT VISIT DATE 09/19/2024 PRIMARY CARE PHYSICIAN: Sterling Coleman [address] [place] [address] REFERRING PHYSICIAN: Sterling Coleman [address] [facility] [address] HISTORY OF PRESENT ILLNESS: Ms. Fountain is a 69 year old woman moderately severe aortic valve stenosis who presents for follow-up. Patient has noticed a slight increase in her shortness of breath. She only is symptomatic with higher levels of exertion such as working in her garden or running up a flight of stairs. She has not had resting symptoms. She denies symptoms of chest pain or chest pressure. She has not had symptoms concerning for congestive heart failure including PND, orthopnea, or lower extremity edema. PAST MEDICAL HISTORY Diagnosis Date Bronchitis Diverticulitis Edema leg Heart murmur Psoriasis Snoring Vertigo PAST SURGICAL HISTORY Procedure Laterality Date CHG DELIVERY x 3 COLONOSCOPY 2007 COLONOSCOPY FLX DX W/COLLJ SPEC WHEN PFRMD 07/24/2018 Colonoscopy TONSILLECTOMY HX SOCIAL HISTORY Social History Tobacco Use Smoking status: Never Smokeless tobacco: Never Vaping Use Vaping status: Never Used Substance Use Topics Alcohol use: Yes Comment: occasional Drug use: No FAMILY HISTORY Problem Relation Age of Onset Clotting Disorder Mother age 88 COPD Father smoker, age 80 No Known Problems Brother Heart Failure Maternal Grandmother No Known Problems Maternal Grandfather Diabetes Paternal Grandmother No Known Problems Paternal Grandfather Colon Cancer Maternal Aunt ALLERGIES: ALLERGIES Allergen Reactions Penicillins Swelling MEDICATIONS: clobetasol (TEMOVATE) 0.05 % cream Apply 0.5 % to affected area once daily as needed. rosuvastatin (CRESTOR) 10 mg tablet Take 1 tablet by mouth daily at bedtime. Fish Oil-DHA-EPA 1,200-144-216 mg cap Take 2 capsules by mouth once daily. Cholecalciferol, Vitamin D3, 50 mcg (2,000 unit) cap Take by mouth. BIOTIN ORAL Take by mouth. vitamin B complex (B COMPLEX ORAL) Take by mouth. MULTIVITAMIN WITH MINERALS (MULTIVITAMIN AND MINERAL FORMULA ORAL) Take by mouth. aspirin, enteric coated (ASPIRIN, ENTERIC COATED) 81 mg EC tablet Take 81 mg by mouth once each week. albuterol HFA (VENTOLIN HFA) 90 mcg/actuation inhaler Inhale 2 Puffs as instructed every 4 hours as needed for wheezing/shortness of breath. (Patient not taking: Reported on 07/26/2024) REVIEW OF SYSTEMS: Review of Systems Constitutional: Negative for chills, fever, malaise/fatigue and weight loss. HENT: Negative for hearing loss and sore throat. Eyes: Negative for blurred vision and double vision. Respiratory: Negative. Cardiovascular: Negative. Genitourinary: Negative for dysuria, frequency, hematuria and urgency. Musculoskeletal: Negative. Skin: Negative. Neurological: Negative for dizziness, seizures, loss of consciousness, weakness and headaches. Endo/Heme/Allergies: Negative for environmental allergies. Does not bruise/bleed easily. Psychiatric/Behavior al: Negative for depression. PHYSICAL EXAMINATION: BP 138/60 Pulse 81 Resp 14 Ht 5' 1 (1.55m) Wt 198 lb 3.2 oz (89.9kg) SpO2 98% BMI 37.47 kg/(m2). General: Pleasant woman sitting appears comfortable no apparent distress. She is alert and oriented x3 HEENT: Carotid upstrokes are brisk bilaterally without bruits. No JVD Pulmonary: Lungs are clear no rales, wheezes, rhonchi Cardiovascular: Normal S1, S2 with regular rate and rhythm. Mid to late peaking crescendo decrescendo murmur right sternal border 3/6. A2 component second heart sound is well appreciated. Extremities: Warm, well-perfused, no lower extremity edema. 2+ distal pulses CARDIOVASCULAR MEDICINE TESTING: ECG in the office July 29, 2022: Normal sinus rhythm normal axis and intervals. No significant ST or T wave changes Coronary Artery Calcium Score 11/02/2018 LM: 0 LAD: 0 LCx: 0 RCA: 0 Echocardiogram 02/09/2024: - Technically difficult exam due to body habitus. - Exam indication: Routine surveillance of moderate or severe valvular stenosis (>1yr) - The left ventricle is normal in size. Left ventricular systolic function is normal. EF = 65 ? 5% (2D biplane) Grade I left ventricular diastolic dysfunction. - The right ventricle (more content not included)... [facility] MECHE FOUNTAIN ([id number]) 1955 F Date Time Provider Department 08/30/24 [facility] During your visit today, we recorded the following information about you: Allergies As of Date: 08/30/2024 Noted Allergy Reaction PENICILLINS 10/17/2015 7 - Swelling Date Reviewed: 07/26/2024 Reviewed by: Sterling Coleman MD - Fully Assessed Reason for Visit: Results [95] Prescriptions as of 09/02/2024 - clobetasol (TEMOVATE) 0.05 % cream Apply 0.5 % to affected area once daily as needed. - rosuvastatin (CRESTOR) 10 mg tablet Take 1 tablet by mouth daily at bedtime. - albuterol HFA (VENTOLIN HFA) 90 mcg/actuation inhaler Inhale 2 Puffs as instructed every 4 hours as needed for wheezing/shortness of breath. - Fish Oil-DHA-EPA 1,200-144-216 mg cap Take 2 capsules by mouth once daily. - Cholecalciferol, Vitamin D3, 50 mcg (2,000 unit) cap Take by mouth. - BIOTIN ORAL Take by mouth. - vitamin B complex (B COMPLEX ORAL) Take by mouth. - MULTIVITAMIN WITH MINERALS (MULTIVITAMIN AND MINERAL FORMULA ORAL) Take by mouth. - aspirin, enteric coated (ASPIRIN, ENTERIC COATED) 81 mg EC tablet Take 81 mg by mouth once each week. 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] 11/02/2018 Nonrheumatic aortic valve stenosis [I35.0] 05/02/2021 Reactive depression [F32.9] 05/02/2021 Dyspareunia [GAA1473] 03/26/2022 03/26/2022 Gynecological disease [N94.9] 03/26/2022 03/26/2022 Stress incontinence in female [N39.3] 03/26/2022 Perspiration-excessi ve [R61] 08/03/2022 Diagnosed: 04/30/2023 Left sided sciatica [M54.32] 05/07/2023 Obesity, Class II, BMI 35-39.9 [E66.812] 07/26/2024 Encounter Status:Closed by STERLING COLEMAN on 09/02/24 Normal [place] CBC W Auto Differential pane l (Bld)on 08-04-2024 Basophils (Bld) [#/Vol] 0.11 10*3/uL High <0.11 [facility] Comment on above: Order Comment: Speci men Type: BLOOD SPECIMENOrdering Facility: [facility] Address: [address] [place] [address] Performed By: #### 5 7021-8 ####[facility] LABIA [id number] [place] [address] [place] Basophils/100 WBC (Bld) 1.3 % Normal C [facility] Comment on above: Order Comment: Speci men Type: BLOOD SPECIMENOrdering Facility: [facility] Address: [address] [place] [address] Performed By: #### 5 7021-8 ####[facility] LABIA [id number] [place] [address] [place] Differential cell count method Nom (Bld) Auto Normal [facility] Comment on above: Order Comment: Speci men Type: BLOOD SPECIMENOrdering Facility: [facility] Address: [address] [place] [address] Performed By: #### 5 7021-8 ####[facility] LABCLIA [id number] [address], [facility] [place] Eosinophils (Bld) [#/Vol] 0.26 10*3/uL Normal <0.46 [facility] Comment on above: Order Comment: Speci men Type: BLOOD SPECIMENOrdering Facility: [facility] Address: [address] [place] [address] Performed By: #### 5 7021-8 ####[facility] LABCLIA [id number] [facility] [address], [place] [address] [place] Eosinophils/100 WBC (Bld) 3.1 % Normal [place] Comment on above: Order Comment: Speci men Type: BLOOD SPECIMENOrdering Facility: [facility] Address: [address] [place] [address] Performed By: #### 5 7021-8 ####[facility] LABCLIA [id number] [facility] [address], [facility] [place] Erythrocyte distribution width (RBC) [Ratio] 12.5 % Normal 11.5-15.0 [place] Comment on above: Order Comment: Speci men Type: BLOOD SPECIMENOrdering Facility: [facility] Address: [address] [place] [address] Performed By: #### 5 7021-8 ####[facility] LABCLIA [id number] [facility] [address] [place] [address] [place] Hematocrit (Bld) [Volume fraction] 43.6 % Normal 36.0-46.0 [place] Comment on above: Order Comment: Speci men Type: BLOOD SPECIMENOrdering Facility: [facility] Address: [address] [place] [address] Performed By: #### 5 7021-8 ####[facility] LABCLIA [id number] [place] [address] [place] Hemoglobin (Bld) [Mass/Vol] 14.4 g/dL Normal 11.5-15.5 [place] Comment on above: Order Comment: Speci men Type: BLOOD SPECIMENOrdering Facility: [facility] Address: [address] [place] [address] Performed By: #### 5 7021-8 ####[facility] LABCLIA [id number] [place] [address] [place] Immature granulocytes (Bld) [#/Vol] 0.03 10*3/uL Normal <0.10 [place] Comment on above: Order Comment: Speci men Type: BLOOD SPECIMENOrdering Facility: [facility] Address: [address] [place] [address] Performed By: #### 5 7021-8 ####[facility] LABCLIA [id number] [place] [address] [place] Immature granulocytes/100 WBC (Bld) 0.4 % Normal [place] Comment on above: Order Comment: Speci men Type: BLOOD SPECIMENOrdering Facility: [facility] Address: [address] [place] [address] Performed By: #### 5 7021-8 ####[facility] LABCLIA [id number] [place] [address] [place] Lymphocytes (Bld) [#/Vol] 2.34 10*3/uL Normal 1.00-4.00 [place] Comment on above: Order Comment: Speci men Type: BLOOD SPECIMENOrdering Facility: [facility] Address: [address] [place] [address] Performed By: #### 5 7021-8 ####[facility] LABCLIA [id number] [place] [address] [place] Lymphocytes/100 WBC (Bld) 28.1 % Normal [place] Comment on above: Order Comment: Speci men Type: BLOOD SPECIMENOrdering Facility: [facility] Address: [address] [place] [address] Performed By: #### 5 7021-8 ####[facility] LABCLIA [id number] [place] [address] [place] [facility] MCH (RBC) [Entitic mass] 29.6 pg Normal 26.0-34.0 [place] Comment on above: Order Comment: Speci men Type: BLOOD SPECIMENOrdering Facility: [facility] Address: [address] [place] [address] Performed By: #### 5 7021-8 ####[facility] LABIA [id number] [place] [address] [place] MCHC (RBC) [Mass/Vol] 33.0 g/dL Normal 30.5-36.0 [facility] Comment on above: Order Comment: Speci men Type: BLOOD SPECIMENOrdering Facility: [facility] Address: [address] [place] [address] Performed By: #### 5 7021-8 ####[facility] LABIA [id number] [place] [address] [place] MCV (RBC) [Entitic vol] 89.7 fL Normal 80.0-100.0 C [facility] Comment on above: Order Comment: Speci men Type: BLOOD SPECIMENOrdering Facility: [facility] Address: [address] [place] [address] Performed By: #### 5 7021-8 ####[facility] LABCLIA [id number] [place] [address] [place] Monocytes (Bld) [#/Vol] 0.56 10*3/uL Normal <0.87 [place] Comment on above: Order Comment: Speci men Type: BLOOD SPECIMENOrdering Facility: [facility] Address: [address] [place] [address] Performed By: #### 5 7021-8 ####[facility] LABCLIA [id number] [place] [address] [place] Monocytes/100 WBC (Bld) 6.7 % Normal [facility] Comment on above: Order Comment: Speci men Type: BLOOD SPECIMENOrdering Facility: [facility] Address: [address] [place] [address] Performed By: #### 5 7021-8 ####[facility] LABCLIA [id number] [place] [address] [place] Neutrophils (Bld) [#/Vol] 5.02 10*3/uL Normal 1.45-7.50 [place] Comment on above: Order Comment: Speci men Type: BLOOD SPECIMENOrdering Facility: [facility] Address: [address] [place] [address] Performed By: #### 5 7021-8 ####[facility] LABCLIA [id number] [place] [address] [place] Neutrophils/100 WBC (Bld) 60.4 % Normal [place] Comment on above: Order Comment: Speci men Type: BLOOD SPECIMENOrdering Facility: [facility] Address: [address] [place] [address] Performed By: #### 5 7021-8 ####[facility] LABCLIA [id number] [place] [address] [place] Nucleated RBC (Bld) [#/Vol] 10*3/uL Normal <0.01 [place] Comment on above: Order Comment: Speci men Type: BLOOD SPECIMENOrdering Facility: [facility] Address: [address] [place] [address] Performed By: #### 5 7021-8 ####[facility] LABCLIA [id number] [place] [address] [place] Nucleated RBC/100 WBC (Bld) [Ratio] 0.0 /100 WBC Normal [place] Comment on above: Order Comment: Speci men Type: BLOOD SPECIMENOrdering Facility: [facility] Address: [address] [place] [address] Performed By: #### 5 7021-8 ####[facility] LABIA [id number] [address] [address] [place] Platelet mean volume (Bld) [Entitic vol] 9.2 fL Normal 9.0-12.7 [place] Comment on above: Order Comment: Speci men Type: BLOOD SPECIMENOrdering Facility: [facility] Address: [address] [place] [address] Performed By: #### 5 7021-8 ####[facility] LABIA [id number] [place] [address] [place] Platelets (Bld) [#/Vol] 297 10*3/uL Normal 150-400 [place] Comment on above: Order Comment: Speci men Type: BLOOD SPECIMENOrdering Facility: [facility] Address: [address] [place] [address] Performed By: #### 5 7021-8 ####[facility] LABIA [id number] [place] [address] [place] RBC (Bld) [#/Vol] 4.86 10*6/uL Normal 3.90-5.20 [facility] Comment on above: Order Comment: Speci men Type: BLOOD SPECIMENOrdering Facility: [facility] Address: [address] [place] [address] Performed By: #### 5 7021-8 ####[facility] LABIA [id number] [address] [address] [place] WBC (Bld) [#/Vol] 8.32 10*3/uL Normal 3.70-11.00 [facility] Comment on above: Order Comment: Speci men Type: BLOOD SPECIMENOrdering Facility: [facility] Address: [address] [place] [address] Performed By: #### 5 7021-8 ####[facility] LABCLIA [id number] [address] [address] [place] Comprehensive metabolic 2000 panelon 08-04-2024 Albumin [Mass/Vol] 4.6 g/dL Normal 3.9-4.9 [facility] Comment on above: Order Comment: Speci men Type: BLOOD SPECIMENOrdering Facility: [facility] Address: [address] [place] [address] Performed By: #### 3 016-3, 05524-4, 41922-2 ####[facility] LABCLIA [id number] [place] [id number] [place] ALP [Catalytic activity/Vol] 75 U/L Normal 34-123 [place] Comment on above: Order Comment: Speci men Type: BLOOD SPECIMENOrdering Facility: [facility] Address: [address] [place] [address] Performed By: #### 3 016-3, 91054-2, 23280-5 ####[facility] LABCLIA [id number] [place] [id number] [place] ALT [Catalytic activity/Vol] 17 U/L Normal 7-38 [place] Comment on above: Order Comment: Speci men Type: BLOOD SPECIMENOrdering Facility: [facility] Address: [address] [place] [address] Performed By: #### 3 016-3, 53998-3, 16530-6 ####[facility] LABCLIA [id number] [address] [address] [place] Anion gap [Moles/Vol] 10 mmol/L Normal 8-15 [facility] Comment on above: Order Comment: Speci men Type: BLOOD SPECIMENOrdering Facility: [facility] Address: [address] [place], [place] [address] Performed By: #### 3 016-3, 48744-3, 70788-7 ####[facility] LABCLIA [id number] [address] [place] [address] [place] AST [Catalytic activity/Vol] 22 U/L Normal 13-35 [place] Comment on above: Order Comment: Speci men Type: BLOOD SPECIMENOrdering Facility: [facility] Address: [address] [place] [address] Performed By: #### 3 016-3, 85902-3, 69745-7 ####[facility] LABCLIA [id number] [address] [address] [place] Bilirubin [Mass/Vol] 0.5 mg/dL Normal 0.2-1.3 [facility] Comment on above: Order Comment: Speci men Type: BLOOD SPECIMENOrdering Facility: [facility] Address: [address] [place] [address] Performed By: #### 3 016-3, 28140-7, 86515-1 ####[facility] LABCLIA [id number] [place] [id number] [place] Calcium [Mass/Vol] 9.8 mg/dL Normal 8.5-10.2 [facility] Comment on above: Order Comment: Speci men Type: BLOOD SPECIMENOrdering Facility: [facility] Address: [address] [place] [address] Performed By: #### 3 016-3, 07233-9, 57043-8 ####[facility] LABCLIA [id number] [address] [address] [place] Chloride [Moles/Vol] 104 mmol/L Normal 98-107 [facility] Comment on above: Order Comment: Speci men Type: BLOOD SPECIMENOrdering Facility: [facility] Address: [address] [place] [address] Performed By: #### 3 016-3, 75888-4, 69893-9 ####[facility] LABCLIA [id number] [place] [address] [place] CO2 [Moles/Vol] 26 mmol/L Normal 22-30 [place] Comment on above: Order Comment: Tachoi men Type: BLOOD SPECIMENOrdering Facility: [facility] Address: [address] [place] [address] Performed By: #### 3 016-3, 20994-5, 70607-4 ####[facility] LABCLIA [id number] [place] [id number] [place] Creatinine [Mass/Vol] 0.90 mg/dL Normal 0.58-0.96 [facility] Comment on above: Order Comment: Speci men Type: BLOOD SPECIMENOrdering Facility: [facility] Address: [address] [place] [address] Performed By: #### 3 016-3, 24083-6, ####[facility]IA [id number] [place] [address] [place] [facility] Creatinine and Glomerular filtration rate.predicted panel (S/P/Bld) 69 mL/min/1.73m??? Normal >=60 [place] Comment on above: Order Comment: Bhakti lim Type: BLOOD SPECIMENOrdering Facility: [facility] Address: [address] [place] [address] Result Comment: Latisha mated Glomerular Filtration Rate (eGFR) is calculated using the 2020 CKD-EPI creatinine equation. This equation utilizes serum creatinine, sex, and age as parameters. The creatinine assay has traceable calibration to isotope dilution-mass spectrometry. Refer to KDIGO guidelines for clinical interpretation. In patients with unstable renal function, e.g. those with acute kidney injury, the eGFR may not accurately reflect actual GFR. Performed By: #### 3 016-3, 22143-2, ####[facility] LABCLIA [id number] [place] [id number] [place] Glucose [Mass/Vol] 92 mg/dL Normal 74-99 [facility] Comment on above: Order Comment: Speci men Type: BLOOD SPECIMENOrdering Facility: [facility] Address: [address] [place] [address] Result Comment: The [place] Diabetes Association (ADA) provides guidance for cutoff values for fasting glucose and random glucose. The ADA defines fasting as no caloric intake for at least 8 hours. Fasting plasma glucose results between 100 to 125 mg/dL indicate increased risk for diabetes (prediabetes). Fasting plasma glucose results greater than or equal to 126 mg/dL meet the criteria for diagnosis of diabetes. In the absence of unequivocal hyperglycemia, results should be confirmed by repeat testing. In a patient with classic symptoms of hyperglycemia or hyperglycemic crisis, random plasma glucose results greater than or equal to 200 mg/dL meet the criteria for diagnosis of diabetes. Reference: Standards of Medical Care in Diabetes 2016, [place] Diabetes Association. Diabetes Care. 2016.39(Suppl 1). Performed By: #### 3 016-3, 06064-9, 62056-8 ####[facility] LABCLIA [id number] [place] [address] [place] Potassium [Moles/Vol] 4.8 mmol/L Normal 3.7-5.1 [facility] Comment on above: Order Comment: Bhakti lim Type: BLOOD SPECIMENOrdering Facility: [facility] Address: [address] [place] [address] Performed By: #### 3 016-3, 53416-3, ####[facility] LABCLIA [id number] [place] [id number] [place] Protein [Mass/Vol] 7.4 g/dL Normal 6.3-8.0 [facility] Comment on above: Order Comment: Bhakti carina Type: BLOOD SPECIMENOrdering Facility: [facility] Address: [address] [place] [address] Performed By: #### 3 016-3, 01697-1, 19106-2 ####[facility] LABCLIA [id number] [address] [address] [place] Sodium [Moles/Vol] 140 mmol/L Normal 136-144 [facility] Comment on above: Order Comment: Speci men Type: BLOOD SPECIMENOrdering Facility: [facility] Address: [address] [place] [address] Performed By: #### 3 016-3, 38590-1, 24449-5 ####[facility] LABCLIA [id number] [address] [address] [place] Urea nitrogen [Mass/Vol] 17 mg/dL Normal 7-21 [place] Comment on above: Order Comment: Speci men Type: BLOOD SPECIMENOrdering Facility: [facility] Address: [address] [place] [address] Performed By: #### 3 016-3, 00083-6, 94120-4 ####[facility] LABCLIA [id number] [address] [address] [place] Lipid 1996 panelon 5 Cholesterol [Mass/Vol] 175 mg/dL Normal <200 [facility] Comment on above: Order Comment: Speci men Type: BLOOD SPECIMENOrdering Facility: [facility] Address: [address] [place] [address] Result Comment: <200 mg/dL, Desirable 200-239 mg/dL, Borderline high >239 mg/dL, High Performed By: #### 3 016-3, 48874-3, 49773-7 ####[facility] LABCLIA [id number] [address] [address] [place] Cholesterol in HDL [Mass/Vol] 51 mg/dL Normal >39 [place] Comment on above: Order Comment: Speci men Type: BLOOD SPECIMENOrdering Facility: [facility] Address: [address] [place] [address] Result Comment: 40-5 9 mg/dL, Acceptable >59 mg/dL, High: Negative risk factor for coronary heart disease <40 mg/dL, Low: Positive risk factor for coronary heart disease Performed By: #### 3 016-3, 88934-6, 83660-4 ####[facility] LABCLIA [id number] [place] [address] [place] Cholesterol in LDL [Mass/Vol] 99 mg/dL Normal <100 [place] Comment on above: Order Comment: Speci men Type: BLOOD SPECIMENOrdering Facility: [facility] Address: [address] [place] [address] Result Comment: <100 mg/dL, Optimal 100-129 mg/dL, Near optimal/above optimal 130-159 mg/dL, Borderline high 160-189 mg/dL, High >189 mg/dL, Very high Secondary prevention optimal LDL Cholesterol levels are recommended to be < 70 mg/dL Performed By: #### 3 016-3, 99296-3, 36467-3 ####[facility] LABIA [id number] [address] [place] Cholesterol in LDL/Cholesterol in HDL [Mass ratio] 1.94 {ratio} Normal <2.54 [place] Comment on above: Order Comment: Speci men Type: BLOOD SPECIMENOrdering Facility: [facility] Address: [address] [place] [address] Result Comment: Refe rence: 1. National Cholesterol Education Program ATP III Guideline At-A-Glance Quick Desk Reference: National Heart, Lung, and Blood [place]. National Institutes of Health. 2001: NIH Publication No. 01-3305. 2. An International Atherosclerosis Society position paper: global recommendations for the management of dyslipidemia: executive summary, Atherosclerosis. 2014: 232(2):410-413. Performed By: #### 3 016-3, 60115-9, 83915-9 ####[facility] LABIA [id number] [place] [address] [place] Cholesterol in VLDL [Mass/Vol] 25 mg/dL Normal <30 [place] Comment on above: Order Comment: Tachoi men Type: BLOOD SPECIMENOrdering Facility: [facility] Address: [address] [place] [address] Performed By: #### 3 016-3, 27307-6, 08206-5 ####[facility] LABCLIA [id number] [place] [id number] [place] Cholesterol non HDL [Mass/Vol] 124 mg/dL Normal <130 [place] Comment on above: Order Comment: Speci men Type: BLOOD SPECIMENOrdering Facility: [facility] Address: [address] [place] [address] Result Comment: <130 mg/dL, Optimal 130-159 mg/dL, Near optimal/above optimal 160-189 mg/dL, Borderline high 190-219 mg/dL, High >219 mg/dL, Very high Secondary prevention optimal non HDL Cholesterol levels are recommended to be <100 mg/dL Performed By: #### 3 016-3, 39385-6, 75052-5 ####[facility] LABCLIA [id number] [place] [address] [place] Cholesterol.total/Choles terol in HDL [Mass ratio] 3.43 {ratio} Normal <5.10 [place] Comment on above: Order Comment: Speci men Type: BLOOD SPECIMENOrdering Facility: [facility] Address: [address] [place] [address] Performed By: #### 3 016-3, 73776-5, 81047-8 ####[facility] LABCLIA [id number] [address] [place] FASTING TIME 13 hrs Normal [place] Comment on above: Order Comment: Speci men Type: BLOOD SPECIMENOrdering Facility: [facility] Address: [address] [place] [address] Performed By: #### 3 016-3, 50482-7, 54836-8 ####[facility] LABIA [id number] [place] [address] [place] Triglyceride [Mass/Vol] 126 mg/dL Normal <150 [facility] Comment on above: Order Comment: Speci men Type: BLOOD SPECIMENOrdering Facility: [facility] Address: [address] [place] [address] Result Comment: <150 mg/dL, Normal 150-199 mg/dL, Borderline high 200-499 mg/dL, High >499 mg/dL, Very high Performed By: #### 3 016-3, 03603-0, 08051-5 ####[facility] LABCLIA [id number] [place] [id number] [facility] TSH SerPl-aCncon 08-04-2024 TSH Qn 2.410 m[IU]/L Normal 0.270-4.200 [place] Comment on above: Order Comment: Speci men Type: BLOOD SPECIMENOrdering Facility: [facility] Address: [address] [place] [address] Performed By: #### 3 016-3, 92352-3, 69693-2 ####[facility] LABCLIA [id number] [address] CNOVon 07-26-2024 CNOV Office Visit (FAMPWS) MECHE FOUNTAIN ([id number]) 1955 Date Time Provider Department 07/26/24 1:00 PM STERLING COLEMAN FAMPWS During your visit today, we recorded the following information about you: Pulse Blood pressure Weight 87/minute 122/60 89.8 kg Sterling Coleman MD 07/26/2024 4:19 PM Signed Meche Fountain is a 69 year old female here for a Medicare wellness visit. Medicare Health Risk Assessment General Health Good Exercise: Minutes/Day 30 min-walk her dogs. Exercise: Days/Week 2 days Alcohol: Daily Use Monthly or less Alcohol: Drinks/Day 1 or 2 Alcohol: 6 or more drinks Never Feel off balance No Concerns: Teeth/Dentures No Concerns: Sexual function No Troubled by feelings Anxious; Stressed-worries about her 's angiosarcoma and treatment. Feels she is doing ok with things. Red flags for re-assessment reviewed with patient in detail. Frequency: Eating healthy diet Nearly every day ADLs requiring help None of the above Safety precautions in home/vehicle Yes. Smoke, vape, chews tobacco No Difficulty hearing No Difficulty seeing No, wears readers. Current Providers Specialists: I have reviewed specialist-related care of the patient in the medical record. Current care team: Patient Care Team: Sterling Coleman MD as PCP - General (Family Medicine) Elenita Wang APRN.ALISA as Leather Roller (Family Medicine) Elaine Trevino APRN.ALISA as Leather Roller (Family Medicine) Outside specialists seen: Dr Donahue, cardiology. [facility]. Luciano Oneill, Dermatology Dr Holley, can pusher. Medical/Family history review Reviewed and updated problem list, medical/surgical/fam zeyad/social history, medications, and allergies. Opioid use review Opioid Medications (last 90 days) No data to display Anxiety/Depression screening PHQ-9 Score: 8 (Mild Depression) YONY-7 Score: 11 (Moderate Anxiety) Recommendation: continuing current treatment plan Cognitive screening Mini Cog Score: 5 Cognitive screening reviewed and No further action needed (score 3-5). Functional Observation Was the patient's Timed Up AND Go test unsteady or >= 12 seconds? No Advance Care Planning Surrogate decision maker and/or advance care plan documented REVIEW OF SYSTEMS PAIN ASSESSMENT: Negative for pain, history of chronic pain, or current treatment for a chronic pain condition. HEENT: Negative for frequent or significant headaches, No changes in hearing or vision, no nose bleeds or other nasal problems NECK: Negative for lumps, goiter, pain and significant neck swelling RESPIRATORY: Negative for cough, hemoptysis, wheezing, COPD, dyspnea or shortness of breath CARDIOVASCULAR: no syncope. As above. GI: No nausea, vomiting, or diarrhea : No history of dysuria, frequency or incontinence SKIN: Negative for lesions, rash, and itching HEMATOLOGY/LYMPHOLOG Y: Negative for prolonged bleeding, bruising easily or swollen nodes NEURO: No history of headaches, syncope, paralysis, seizures or tremors Measurements BP 122/60 Pulse 87 Wt 89.8 kg (198 lb) SpO2 98% BMI 37.41 kg/m? Vision Screening: Follows with optometry/ophthalmol ogy Assessment/Plan Medicare annual wellness visit, subsequent (Z00.00) - Counseled on healthy diet and regular exercise - Fall avoidance information provided - Personalized prevention plan provided MD Virginia So William J, MD 07/26/2024 1:18 PM Signed Screening schedule The following prevention plan is recommended: Anxiety Screening Never done Advance Directive Discussion due on 05/05/2024 WHAT YOU CAN DO TO PREVENT FALLS Many falls can be prevented. By making some changes, you can lower your chances of falling. Four things YOU can do to prevent falls for you* and your caregiver 1. Begin a regular exercise program Exercise is one of the most important ways to lower your chances of falling. It makes you stronger and helps you feel better. Exercises that improve balance and coordination (like Samm Chi) are the most helpful. Lack of exercise leads to weakness and increases your chances of falling. Ask your doctor or health care provider about the best type of exercise program for you. 2. Have your health care provider review your medicines Have your doctor or pharmacist review all the medicines you take, even fiju-eno-wjiohsp medicines. As you get older, the way medicines work in your body can change. Some medicines, or combinations of medicines, can make you sleepy or dizzy and can cause you to fall. 3. Have your vision checked Have your eyes checked by an eye doctor at least once a year. You may be wearing the wrong glasses or have a condition like glaucoma or cataracts that limits your vision. Poor vision can increase your chances of falling. 4. Make your home safer About half of all falls happen at home. To make yo (more content not included)... Normal [place] ECG COMPLETEon 07-26-2024 ECG COMPLETE Ventricular Rate : 79 BPM Atrial Rate : 79 BPM P-R Interval : 192 ms QRS Duration : 88 ms Q-T Interval : 394 ms QTC Calculation(Bazett) : 451 ms Calculated P Bristol : 54 degrees Calculated R Bristol : 16 degrees Calculated T Bristol : 31 degrees NORMAL SINUS RHYTHM NORMAL ECG Confirmed by FARHANA EVANS M.D. ([id number]) on 07/27/2024 12:53:30 PM NAME : MECHE FOUNTAIN PID : [id number] : 1955 Gender : Female Race : ORD : [id number] Procedure Date : Jul 26 2024 13:51:01 Edit Date : Jul 27 2024 12:53:32 Diagnosis: NORMAL SINUS RHYTHM NORMAL ECG Confirmed by FARHANA EVANS M.D. ([id number]) on 07/27/2024 12:53:30 PM Test Reason : I49.9 Cardiac arrhythmia, unspecified cardiac arrhythmia type Location : 185 : [facility] Overread By : FARHANA EVANS M.D. Edited By : FARHANA EVANS M.D. Referred By : , Acquired by : Edy CAMPO [place] DBT Breast - left diagnostic for implanton 06-12-2024 IMPRESSION: There is no mammographic or sonographic evidence of malignancy. Return to annual screening mammogram is recommended. Annual mammogram will be due in 1 year. BI-RADS Category 2: Benign RISK: Based on the Tyrer-Cuzick (TC) risk assessment model, this patient has a 5.3% lifetime risk of developing breast cancer, meaning they are at average risk for developing breast cancer. However, this is only an estimate based on available history provided on the patient's questionnaire. We encourage all patients to talk with their providers about these results, further recommendations for managing breast health, and appropriate supplemental screening options if the patient has dense breast tissue. Interpreting Radiologist: Keila Rea M.D. Electronically signed on: 06/12/2024 Wool Spotter: SURESH Transcribe Date/Time: Jun 12 2024 8:12A Dictated by : KEILA REA MD This examination was interpreted and the report reviewed and electronically signed by: KEILA REA MD on Jun 12 2024 9:26AM [facility] * * *Final Report* * * DATE OF EXAM: Jun 12 2024 8:20AM [facility] 0628 - RADHA JOSÉ MIGUEL W RYAN LT / PROCEDURE REASON: R92.8-Abnormal mammogram * * * * Physician Interpretation * * * * [place] [address] [place] [id number] #[id number] - [facility] BRIANNAG W RYAN LT #[id number] - [facility] US BREAST LTD LT HISTORY: 69-year-old woman recalled from screening mammogram for further evaluation of possible architectural distortion in the left breast best seen in the cc view. Patient states no personal history of breast cancer. Patient states no personal history of ovarian cancer. COMPARISON STUDIES: The present examination has been compared to prior imaging studies dated 02/17/2017 (mammogram), 04/18/2022 (mammogram), 05/22/2023 (mammogram) and 06/07/2024 (mammogram). MAMMOGRAM TECHNIQUE: The study was acquired using full field digital technology and interpreted from soft copy. Digital Breast Tomosynthesis (DBT) images were obtained and used to assist in the interpretation of this examination. MAMMOGRAM FINDINGS: There are scattered areas of fibroglandular density. Additional views including spot Tomosynthesis imaging demonstrate the questioned area of distortion to efface indicating it is most consistent with superimposition of breast tissue. Incidentally noted in the upper outer quadrant is an oval asymmetry which is mammographically stable dating back to 2017 exam. No suspicious masses, calcifications or other abnormalities are seen in the left breast. ULTRASOUND TECHNIQUE: Targeted ultrasound of the indicated area was performed. Jones scale images were saved. ULTRASOUND FINDINGS: Targeted sonographic evaluation performed of the upper outer and upper central left breast demonstrates no suspicious sonographic findings. Small cyst is noted in the 2:00 position. There are no suspicious findings in the imaged area. [facility] Provider, [facility] [place] - 06/12/2024 * * *Final Report* * * DATE OF EXAM: Jun 12 2024 8:20AM [facility] 0628 - [facility] DIAG W RYAN LT / PROCEDURE REASON: R92.8-Abnormal mammogram * * * * Physician Interpretation * * * * [place] [address] #[id number] - [facility] DIAG W RYAN LT #[id number] - [facility] US BREAST LTD LT HISTORY: 69-year-old woman recalled from screening mammogram for further evaluation of possible architectural distortion in the left breast best seen in the cc view. Patient states no personal history of breast cancer. Patient states no personal history of ovarian cancer. COMPARISON STUDIES: The present examination has been compared to prior imaging studies dated 02/17/2017 (mammogram), 04/18/2022 (mammogram), 05/22/2023 (mammogram) and 06/07/2024 (mammogram). MAMMOGRAM TECHNIQUE: The study was acquired using full field digital technology and interpreted from soft copy. Digital Breast Tomosynthesis (DBT) images were obtained and used to assist in the interpretation of this examination. MAMMOGRAM FINDINGS: There are scattered areas of fibroglandular density. Additional views including spot Tomosynthesis imaging demonstrate the questioned area of distortion to efface indicating it is most consistent with superimposition of breast tissue. Incidentally noted in the upper outer quadrant is an oval asymmetry which is mammographically stable dating back to 2017 exam. No suspicious masses, calcifications or other abnormalities are seen in the left breast. ULTRASOUND TECHNIQUE: Targeted ultrasound of the indicated area was performed. Jones scale images were saved. ULTRASOUND FINDINGS: Targeted sonographic evaluation performed of the upper outer and upper central left breast demonstrates no suspicious sonographic findings. Small cyst is noted in the 2:00 position. There are no suspicious findings in the imaged area. IMPRESSION IMPRESSION: There is no mammographic or sonographic evidence of malignancy. Return to annual screening mammogram is recommended. Annual mammogram will be due in 1 year. BI-RADS Category 2: Benign RISK: Based on the Tyrer-Cuzick (TC) risk assessment model, this patient has a 5.3% lifetime risk of developing breast cancer, meaning they are at average risk for developing breast cancer. However, this is only an estimate based on available history provided on the patient's questionnaire. We encourage all patients to talk with their providers about these results, further recommendations for managing breast health, and appropriate supplemental screening options if the patient has dense breast tissue. Interpreting Radiologist: Keila Rea M.D. Electronically signed on: 06/12/2024 Wool Spotter: SURESH Transcriluis Date/Time: Jun 12 2024 8:12A Dictated by : KEILA REA MD This examination was interpreted and the report reviewed and electronically signed by: KEILA REA MD on Jun 12 2024 9:26AM [facility] Study observation (narrative) [facility] RADHA DAVIS LTon 025 RADHA DAVIS LT * * *Final Report* * * DATE OF EXAM: Jun 12 2024 8:20AM V[facility] 0628 - RADHA DAVIS LT / PROCEDURE REASON: R92.8-Abnormal mammogram * * * * Physician Interpretation * * * * [place] [address] #[id number] - [facility] JOSÉ MIGUEL DAVIS LT #[id number] - [facility] US BREAST LTD LT HISTORY: 69-year-old woman recalled from screening mammogram for further evaluation of possible architectural distortion in the left breast best seen in the cc view. Patient states no personal history of breast cancer. Patient states no personal history of ovarian cancer. COMPARISON STUDIES: The present examination has been compared to prior imaging studies dated 02/17/2017 (mammogram), 04/18/2022 (mammogram), 05/22/2023 (mammogram) and 06/07/2024 (mammogram). MAMMOGRAM TECHNIQUE: The study was acquired using full field digital technology and interpreted from soft copy. Digital Breast Tomosynthesis (DBT) images were obtained and used to assist in the interpretation of this examination. MAMMOGRAM FINDINGS: There are scattered areas of fibroglandular density. Additional views including spot Tomosynthesis imaging demonstrate the questioned area of distortion to efface indicating it is most consistent with superimposition of breast tissue. Incidentally noted in the upper outer quadrant is an oval asymmetry which is mammographically stable dating back to 2017 exam. No suspicious masses, calcifications or other abnormalities are seen in the left breast. ULTRASOUND TECHNIQUE: Targeted ultrasound of the indicated area was performed. Jones scale images were saved. ULTRASOUND FINDINGS: Targeted sonographic evaluation performed of the upper outer and upper central left breast demonstrates no suspicious sonographic findings. Small cyst is noted in the 2:00 position. There are no suspicious findings in the imaged area. IMPRESSION: There is no mammographic or sonographic evidence of malignancy. Return to annual screening mammogram is recommended. Annual mammogram will be due in 1 year. BI-RADS Category 2: Benign RISK: Based on the Tyrer-Cuzick (TC) risk assessment model, this patient has a 5.3% lifetime risk of developing breast cancer, meaning they are at average risk for developing breast cancer. However, this is only an estimate based on available history provided on the patient's questionnaire. We encourage all patients to talk with their providers about these results, further recommendations for managing breast health, and appropriate supplemental screening options if the patient has dense breast tissue. Interpreting Radiologist: Keila Rea M.D. Electronically signed on: 06/12/2024 Wool Spotter: SURESH Transcribe Date/Time: Jun 12 2024 8:12A Dictated by : KEILA REA MD This examination was interpreted and the report reviewed and electronically signed by: KEILA REA MD on Jun 12 2024 9:26AM EST [id number] CN Normal [facility] US BREAST LTD LTon 06-12 [facility] US BREAST LTD LT * * *Final Report* * * DATE OF EXAM: Jun 12 2024 8:57AM MDU 0593 - [facility] US BREAST LTD LT / PROCEDURE REASON: R92.8-Abnormal mammogram * * * * Physician Interpretation * * * * [place] [id number] #[id number] - [facility] DIAG W RYAN LT #[id number] - [facility] [employer] BREAST LTD LT HISTORY: 69-year-old woman recalled from screening mammogram for further evaluation of possible architectural distortion in the left breast best seen in the cc view. Patient states no personal history of breast cancer. Patient states no personal history of ovarian cancer. COMPARISON STUDIES: The present examination has been compared to prior imaging studies dated 02/17/2017 (mammogram), 04/18/2022 (mammogram), 05/22/2023 (mammogram) and 06/07/2024 (mammogram). MAMMOGRAM TECHNIQUE: The study was acquired using full field digital technology and interpreted from soft copy. Digital Breast Tomosynthesis (DBT) images were obtained and used to assist in the interpretation of this examination. MAMMOGRAM FINDINGS: There are scattered areas of fibroglandular density. Additional views including spot Tomosynthesis imaging demonstrate the questioned area of distortion to efface indicating it is most consistent with superimposition of breast tissue. Incidentally noted in the upper outer quadrant is an oval asymmetry which is mammographically stable dating back to 2017 exam. No suspicious masses, calcifications or other abnormalities are seen in the left breast. ULTRASOUND TECHNIQUE: Targeted ultrasound of the indicated area was performed. Jones scale images were saved. ULTRASOUND FINDINGS: Targeted sonographic evaluation performed of the upper outer and upper central left breast demonstrates no suspicious sonographic findings. Small cyst is noted in the 2:00 position. There are no suspicious findings in the imaged area. IMPRESSION: There is no mammographic or sonographic evidence of malignancy. Return to annual screening mammogram is recommended. Annual mammogram will be due in 1 year. BI-RADS Category 2: Benign RISK: Based on the Tyrer-Cuzick (TC) risk assessment model, this patient has a 5.3% lifetime risk of developing breast cancer, meaning they are at average risk for developing breast cancer. However, this is only an estimate based on available history provided on the patient's questionnaire. We encourage all patients to talk with their providers about these results, further recommendations for managing breast health, and appropriate supplemental screening options if the patient has dense breast tissue. Interpreting Radiologist: Keila Rea M.D. Electronically signed on: 06/12/2024 Wool Spotter: SURESH Transcriluis Date/Time: Jun 12 2024 8:47A Dictated by : KEILA REA MD This examination was interpreted and the report reviewed and electronically signed by: KEILA REA MD on Jun 12 2024 9:26AM EST [id number] [facility] No Panel InformationOrdered By: Cc Provider on 06-12-2024 [facility] Breast - left limitedon 0 06-12-2024 IMPRESSION: There is no mammographic or sonographic evidence of malignancy. Return to annual screening mammogram is recommended. Annual mammogram will be due in 1 year. BI-RADS Category 2: Benign RISK: Based on the Tyrer-Cuzick (TC) risk assessment model, this patient has a 5.3% lifetime risk of developing breast cancer, meaning they are at average risk for developing breast cancer. However, this is only an estimate based on available history provided on the patient's questionnaire. We encourage all patients to talk with their providers about these results, further recommendations for managing breast health, and appropriate supplemental screening options if the patient has dense breast tissue. Interpreting Radiologist: Keila Rea M.D. Electronically signed on: 06/12/2024 Wool Spotter: SURESH Transcriluis Date/Time: Jun 12 2024 8:47A Dictated by : KEILA REA MD This examination was interpreted and the report reviewed and electronically signed by: KEILA REA MD on Jun 12 2024 9:26AM [facility] * * *Final Report* * * DATE OF EXAM: Jun 12 2024 8:57AM 0593 - [facility] [employer] BREAST LTD LT / PROCEDURE REASON: R92.8-Abnormal mammogram * * * * Physician Interpretation * * * * [place] [address] #[id number] - [facility] JOSÉ MIGUEL DAVIS LT #[id number] - [facility] [employer] BREAST LTD LT HISTORY: 69-year-old woman recalled from screening mammogram for further evaluation of possible architectural distortion in the left breast best seen in the cc view. Patient states no personal history of breast cancer. Patient states no personal history of ovarian cancer. COMPARISON STUDIES: The present examination has been compared to prior imaging studies dated 02/17/2017 (mammogram), 04/18/2022 (mammogram), 05/22/2023 (mammogram) and 06/07/2024 (mammogram). MAMMOGRAM TECHNIQUE: The study was acquired using full field digital technology and interpreted from soft copy. Digital Breast Tomosynthesis (DBT) images were obtained and used to assist in the interpretation of this examination. MAMMOGRAM FINDINGS: There are scattered areas of fibroglandular density. Additional views including spot Tomosynthesis imaging demonstrate the questioned area of distortion to efface indicating it is most consistent with superimposition of breast tissue. Incidentally noted in the upper outer quadrant is an oval asymmetry which is mammographically stable dating back to 2017 exam. No suspicious masses, calcifications or other abnormalities are seen in the left breast. ULTRASOUND TECHNIQUE: Targeted ultrasound of the indicated area was performed. Jones scale images were saved. ULTRASOUND FINDINGS: Targeted sonographic evaluation performed of the upper outer and upper central left breast demonstrates no suspicious sonographic findings. Small cyst is noted in the 2:00 position. There are no suspicious findings in the imaged area. [facility] Provider, [facility] [place] - 06/12/2024 * * *Final Report* * * DATE OF EXAM: Jun 12 2024 8:57AM [facility] [place] [place] - [facility] [employer] BREAST LTD LT / PROCEDURE REASON: R92.8-Abnormal mammogram * * * * Physician Interpretation * * * * [place] [id number] #[id number] - [facility] JOSÉ MIGUEL MARTINO LT #[id number] - [facility] US BREAST LTD LT HISTORY: 69-year-old woman recalled from screening mammogram for further evaluation of possible architectural distortion in the left breast best seen in the cc view. Patient states no personal history of breast cancer. Patient states no personal history of ovarian cancer. COMPARISON STUDIES: The present examination has been compared to prior imaging studies dated 02/17/2017 (mammogram), 04/18/2022 (mammogram), 05/22/2023 (mammogram) and 06/07/2024 (mammogram). MAMMOGRAM TECHNIQUE: The study was acquired using full field digital technology and interpreted from soft copy. Digital Breast Tomosynthesis (DBT) images were obtained and used to assist in the interpretation of this examination. MAMMOGRAM FINDINGS: There are scattered areas of fibroglandular density. Additional views including spot Tomosynthesis imaging demonstrate the questioned area of distortion to efface indicating it is most consistent with superimposition of breast tissue. Incidentally noted in the upper outer quadrant is an oval asymmetry which is mammographically stable dating back to 2017 exam. No suspicious masses, calcifications or other abnormalities are seen in the left breast. ULTRASOUND TECHNIQUE: Targeted ultrasound of the indicated area was performed. Jones scale images were saved. ULTRASOUND FINDINGS: Targeted sonographic evaluation performed of the upper outer and upper central left breast demonstrates no suspicious sonographic findings. Small cyst is noted in the 2:00 position. There are no suspicious findings in the imaged area. IMPRESSION IMPRESSION: There is no mammographic or sonographic evidence of malignancy. Return to annual screening mammogram is recommended. Annual mammogram will be due in 1 year. BI-RADS Category 2: Benign RISK: Based on the Tyrer-Cuzick (TC) risk assessment model, this patient has a 5.3% lifetime risk of developing breast cancer, meaning they are at average risk for developing breast cancer. However, this is only an estimate based on available history provided on the patient's questionnaire. We encourage all patients to talk with their providers about these results, further recommendations for managing breast health, and appropriate supplemental screening options if the patient has dense breast tissue. Interpreting Radiologist: Keila Rea M.D. Electronically signed on: 06/12/2024 Wool Spotter: SURESH Transcribe Date/Time: Jun 12 2024 8:47A Dictated by : KEILA REA MD This examination was interpreted and the report reviewed and electronically signed by: KEILA REA MD on Jun 12 2024 9:26AM [facility] Rad[facility]narrative[facility] - bilateral scree berenicen [facility]-07-2024 IMPRESSION: The possible architectural distortion in the left breast requires additional evaluation. Diagnostic mammogram is recommended. BI-RADS Category 0: Incomplete: Needs Additional Imaging Evaluation RISK: Based on the Tyrer-Cuzick (TC) risk assessment model, this patient has a 5.3% lifetime risk of developing breast cancer, meaning they are at average risk for developing breast cancer. However, this is only an estimate based on available history provided on the patient's questionnaire. We encourage all patients to talk with their providers about these results, further recommendations for managing breast health, and appropriate supplemental screening options if the patient has dense breast tissue. Interpreting Radiologist: Lizzy Crum M.D. Electronically signed on: 06/07/2024 Wool Spotter: SURESH Transcriluis Date/Time: Jun 07 2024 8:23A Dictated by: LIZZY CRUM MD This examination was interpreted and the report reviewed and electronically signed by: LIZZY CRUM MD on Jun 07 2024 12:55PM [facility] DIVISION OF RADIOLOGY * * *Final Report* * * DATE OF EXAM: Jun 07 2024 8:50AM [facility] 0582 - RADHA SCREENING W RYAN / PROCEDURE REASON: Encounter for screening mammogram for breast cancer * * * * Physician Interpretation * * * * RESULT: [place] [address] [place] [address] #[id number] - [facility] SCREENING W RYAN HISTORY: 69 year-old patient seen for screening and is asymptomatic in both breasts. Patient states no personal history of breast cancer. Patient states no personal history of other cancers. COMPARISON STUDIES: The present examination has been compared to prior imaging studies dated 02/17/2017 (mammogram), 03/05/2017 (ultrasound), 03/05/2017 (mammogram), 04/18/2022 (mammogram), 05/01/2022 (mammogram) and 05/22/2023 (mammogram). MAMMOGRAM TECHNIQUE: The study was acquired using full field digital technology and interpreted from soft copy. Digital Breast Tomosynthesis (DBT) images were obtained and used to assist in the interpretation of this examination. MAMMOGRAM FINDINGS: There are scattered areas of fibroglandular density. There is possible architectural distortion in the left breast. This is best visualized on tomosynthesis CC view slice # 30. No suspicious masses, calcifications or other abnormalities are seen in the right breast. DIVISION OF RADIOLOGY Provider, [facility] [place] - 06/07/2024 * * *Final Report* * * DATE OF EXAM: Jun 07 2024 8:50AM [facility]W 0582 - [facility] SCREENING W RYAN / PROCEDURE REASON: Encounter for screening mammogram for breast cancer * * * * Physician Interpretation * * * * RESULT: [place] [address] #[id number] - [facility] SCREENING W RYAN HISTORY: 69 year-old patient seen for screening and is asymptomatic in both breasts. Patient states no personal history of breast cancer. Patient states no personal history of other cancers. COMPARISON STUDIES: The present examination has been compared to prior imaging studies dated 02/17/2017 (mammogram), 03/05/2017 (ultrasound), 03/05/2017 (mammogram), 04/18/2022 (mammogram), 05/01/2022 (mammogram) and 05/22/2023 (mammogram). MAMMOGRAM TECHNIQUE: The study was acquired using full field digital technology and interpreted from soft copy. Digital Breast Tomosynthesis (DBT) images were obtained and used to assist in the interpretation of this examination. MAMMOGRAM FINDINGS: There are scattered areas of fibroglandular density. There is possible architectural distortion in the left breast. This is best visualized on tomosynthesis CC view slice # 30. No suspicious masses, calcifications or other abnormalities are seen in the right breast. IMPRESSION IMPRESSION: The possible architectural distortion in the left breast requires additional evaluation. Diagnostic mammogram is recommended. BI-RADS Category 0: Incomplete: Needs Additional Imaging Evaluation RISK: Based on the Tyrer-Cuzick (TC) risk assessment model, this patient has a 5.3% lifetime risk of developing breast cancer, meaning they are at average risk for developing breast cancer. However, this is only an estimate based on available history provided on the patient's questionnaire. We encourage all patients to talk with their providers about these results, further recommendations for managing breast health, and appropriate supplemental screening options if the patient has dense breast tissue. Interpreting Radiologist: Lizzy Crum M.D. Electronically signed on: 06/07/2024 Wool Spotter: SURESH Transcribe Date/Time: Jun 07 2024 8:23A Dictated by: LIZZY CRUM MD This examination was interpreted and the report reviewed and electronically signed by: LIZZY CRUM MD on Jun 07 2024 12:55PM EST [facility] Radiology Study observation (narrative) [facility] DBT Breast - bilateral scree ningOrdered By: Ccf Provider on 06-07-2024 [facility] RADHA SCREENING W TOMOon 06-07 RAD[facility] SCREENING W RYAN * * *Final Report* * * DATE OF EXAM: Jun 07 2024 8:50AM WRW 0582 - RADHA SCREENING W RYAN / PROCEDURE REASON: Encounter for screening mammogram for breast cancer * * * * Physician Interpretation * * * * RESULT: [place] [address] #[id number] - [facility] SCREENING W RYAN HISTORY: 69 year-old patient seen for screening and is asymptomatic in both breasts. Patient states no personal history of breast cancer. Patient states no personal history of other cancers. COMPARISON STUDIES: The present examination has been compared to prior imaging studies dated 02/17/2017 (mammogram), 03/05/2017 (ultrasound), 03/05/2017 (mammogram), 04/18/2022 (mammogram), 05/01/2022 (mammogram) and 05/22/2023 (mammogram). MAMMOGRAM TECHNIQUE: The study was acquired using full field digital technology and interpreted from soft copy. Digital Breast Tomosynthesis (DBT) images were obtained and used to assist in the interpretation of this examination. MAMMOGRAM FINDINGS: There are scattered areas of fibroglandular density. There is possible architectural distortion in the left breast. This is best visualized on tomosynthesis CC view slice # 30. No suspicious masses, calcifications or other abnormalities are seen in the right breast. IMPRESSION: The possible architectural distortion in the left breast requires additional evaluation. Diagnostic mammogram is recommended. BI-RADS Category 0: Incomplete: Needs Additional Imaging Evaluation RISK: Based on the Tyrer-Cuzick (TC) risk assessment model, this patient has a 5.3% lifetime risk of developing breast cancer, meaning they are at average risk for developing breast cancer. However, this is only an estimate based on available history provided on the patient's questionnaire. We encourage all patients to talk with their providers about these results, further recommendations for managing breast health, and appropriate supplemental screening options if the patient has dense breast tissue. Interpreting Radiologist: Lizzy Crum M.D. Electronically signed on: 06/07/2024 Wool Spotter: SURESH Transcribe Date/Time: Jun 07 2024 8:23A Dictated by: LIZZY CRUM MD This examination was interpreted and the report reviewed and electronically signed by: LIZZY CRUM MD on Jun 07 2024 12:55PM EST [id number] CN Normal [place] CNOVon 06-01-2024 CNOV Office Visit (FAMPWS) MECHE FOUNTAIN ([id number]) 1955 F Date Time Provider Department 06/01/24 1:20 PM [facility] During your visit today, we recorded the following information about you: Pulse Blood pressure Weight 94/minute 122/68 89.4 kg Elaine Trevino APRN.CNP 06/01/2024 2:55 PM Addendum This is a 69 year old female who presents today with: Patient presents with: Back Pain HISTORY OF PRESENT ILLNESS: Meche Fountain is a 69 year old female. Patient presents with: Back Pain Did get alerted that she had Afib on 05/25/24. Cannot see rhythm. Asymptomatic Hx of low back pain. A week ago, she felt a knot in low back. Using heat and massager. Biofreeze Moved up her back and got better. Then in left scapula. Now knot has moved around under left breast. Hurts to move. Can get SOB but that is from aortic stenosis. Hurts to move. Hurts a little to take a deep breath. In chest now for 3 days No fever or chills Tendency to cough, no change PAST MEDICAL HISTORY: PAST MEDICAL HISTORY Diagnosis Date Bronchitis Diverticulitis Edema leg Heart murmur Psoriasis Snoring Vertigo PAST SURGICAL HISTORY Procedure Laterality Date CHG DELIVERY x 3 COLONOSCOPY 2006 COLONOSCOPY FLX DX W/COLLJ SPEC WHEN PFRMD 07/24/2018 Colonoscopy TONSILLECTOMY HX ALLERGIES Penicillins MEDICATIONS Current Outpatient Medications Medication Sig rosuvastatin (CRESTOR) 10 mg tablet Take 1 tablet by mouth daily at bedtime. fluocinolone (SYNALAR) 0.025 % ointment Apply to affected area as directed. apply a pea-szed amount to vulva twice weekly, use 1-2 times daily for up to 2 weeks for flairs then return to twice weekly albuterol HFA (VENTOLIN HFA) 90 mcg/actuation inhaler Inhale 2 Puffs as instructed every 4 hours as needed for wheezing/shortness of breath. Fish Oil-DHA-EPA 1,200-144-216 mg cap Take 2 capsules by mouth once daily. Cholecalciferol, Vitamin D3, 50 mcg (2,000 unit) cap Take by mouth. BIOTIN ORAL Take by mouth. vitamin B complex (B COMPLEX ORAL) Take by mouth. MULTIVITAMIN WITH MINERALS (MULTIVITAMIN AND MINERAL FORMULA ORAL) Take by mouth. aspirin, enteric coated (ASPIRIN, ENTERIC COATED) 81 mg EC tablet Take 81 mg by mouth once each week. tirzepatide (MOUNJARO) 2.5 mg/0.5 mL pen injector Inject 2.5 mg subcutaneously one time a week. (Patient not taking: Reported on 02/23/2024) No current facility-administere d medications for this visit. FAMILY HISTORY Problem Relation Age of Onset Clotting Disorder Mother age 88 COPD Father smoker, age 80 No Known Problems Brother Heart Failure Maternal Grandmother No Known Problems Maternal Grandfather Diabetes Paternal Grandmother No Known Problems Paternal Grandfather Colon Cancer Maternal Aunt Social History Tobacco Use Smoking status: Never Smokeless tobacco: Never Vaping Use Vaping status: Never Used Substance Use Topics Alcohol use: Yes Comment: occasional Drug use: No EXAM: BP 122/68 Pulse 94 Wt 89.4 kg (197 lb) SpO2 95% BMI 37.22 kg/m? PHYSICAL EXAM: Physical Exam Vitals reviewed. Constitutional: Appearance: Normal appearance. HENT: Head: Normocephalic. Cardiovascular: Rate and Rhythm: Normal rate and regular rhythm. Pulses: Normal pulses. Heart sounds: Murmur heard. Pulmonary: Effort: Pulmonary effort is normal. Breath sounds: Normal breath sounds. Abdominal: General: Bowel sounds are normal. Palpations: Abdomen is soft. Tenderness: There is no abdominal tenderness. There is no guarding. Musculoskeletal: General: Normal range of motion. Comments: Walks w/o assistive device No palpable chest wall nodules, tender as stated Skin: General: Skin is warm and dry. Neurological: Mental Status: She is alert and oriented to person, place, and time. Psychiatric: Mood and Affect: Mood normal. Behavior: Behavior normal. LABS: ASSESSMENT/PLAN: 1. Muscle strain of chest wall, initial encounter - ICD9: 848.8, ICD10: S29.011A Uncertain of etiology - XR CHEST 2V FRONTAL/LAT stat 2. Dysuria - ICD9: 788.1, ICD10: R30.0 recurrent - Patient education for prevention given - URINALYSIS, WITH MICROSCOPIC- DIP negative nitrates and leukocytes Discussed treatment plan and patient voices understanding. Patient's questions answered appropriately. Medications and potential side effects were discussed and patient voices understanding. Return to the office as scheduled or as needed for worsening/no improvement. DARÍO Acevedo Jacqueline A, APRN.CNP 06/01/2024 1:46 PM Addendum 1) Urinalysis today- Provider collect 2) Chest xray 3) Follow up in 2 weeks Eliane Trevino APRN.CNP 06/01/2024 2:42 PM Signed Addended by: ELAINE TREVINO on: 06/01/2024 02:42 PM Modules accepted: Orders Allergies As of (more content not included)... Normal [facility] 06-01-2024 CNPN Telephone ([facility]) MECHE FOUNTAIN ([id number]) 1955 F Date Time Provider Department 06/01/24 [facility] During your visit today, we recorded the following information about you: Elaine Trevino, KESHA.PROPOSAL MANAGER 06/01/2024 2:54 PM Signed Please let pt. Know that chest xray was normal.. I am sending methocarbamol (mild muscle relaxant) in to her pharmacy to help with the knots. May take up to 3 x day as needed. Sandra Love MA 06/01/2024 3:11 PM Signed Pt informed Sandra Love MA Allergies As of Date: 06/01/2024 Noted Allergy Reaction PENICILLINS 10/17/2015 7 - Swelling Date Reviewed: 02/23/2024 Reviewed by: Elly Donahue MD - Fully Assessed Primary Visit Diagnosis:Chest wall pain [R07.89] Order(s):methocarbam ol (ROBAXIN) 500 mg tabletTake 1 tablet by mouth three times a day as needed for up to 20 days.Disp: 60 tabletRfl: 0 Prescriptions as of 06/01/2024 - methocarbamol (ROBAXIN) 500 mg tablet Take 1 tablet by mouth three times a day as needed for up to 20 days. - rosuvastatin (CRESTOR) 10 mg tablet Take 1 tablet by mouth daily at bedtime. - fluocinolone (SYNALAR) 0.025 % ointment Apply to affected area as directed. apply a pea-szed amount to vulva twice weekly, use 1-2 times daily for up to 2 weeks for flairs then return to twice weekly - albuterol HFA (VENTOLIN HFA) 90 mcg/actuation inhaler Inhale 2 Puffs as instructed every 4 hours as needed for wheezing/shortness of breath. - Fish Oil-DHA-EPA 1,200-144-216 mg cap Take 2 capsules by mouth once daily. - Cholecalciferol, Vitamin D3, 50 mcg (2,000 unit) cap Take by mouth. - BIOTIN ORAL Take by mouth. - vitamin B complex (B COMPLEX ORAL) Take by mouth. - MULTIVITAMIN WITH MINERALS (MULTIVITAMIN AND MINERAL FORMULA ORAL) Take by mouth. - aspirin, enteric coated (ASPIRIN, ENTERIC COATED) 81 mg EC tablet Take 81 mg by mouth once each week. 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 Encounter Status:Closed by SANDRA LOVE on 06/01/24 Normal [place] UA DIP, URINE (POC)on 2024 BILIRUBIN UA (POCT) Negative Negative [facility] CLARITY UA (POCT) Clear [facility] COLOR UA (POCT) Yellow [facility] GLUCOSE UA (POCT) Negative Negative mg/dL [facility] Hemoglobin Ql (U) Negative Negative [facility] KETONE UA (POCT) Negative Negative mg/dL [facility] LEUKOCYTES UA (POCT) Negative Negative [facility] NITRITE UA (POCT) Negative Negative [facility] PH UA (POCT) 5.0 4.5 - 8.0 [facility] Protein Ql (U) Negative Negative mg/dL [facility] SPECIFIC GRAVITY UA (POCT) >=1.030 1.005 - 1.030 [facility] UROBILINOGEN UA (POCT) 0.2 Hillary l E.U./dL [facility] Location:[facility], [address] [place] [address], [place], [place], [id number] [place] [address] POINT OF CARE [facility] XR CHEST 2V FRONTAL/LATon XR CHEST 2V FRONTAL/LAT * * *Final Repor t* * * DATE OF EXAM: Jun 01 2024 2:12PM WOX [id number] - XR CHEST 2V FRONTAL/LAT / PROCEDURE REASON: Muscle strain of chest wall, initial encounter * * * * Physician Interpretation * * * * EXAMINATION: CHEST RADIOGRAPH (2 VIEW FRONTAL and LATERAL) CLINICAL HISTORY: Muscle strain of chest wall, initial encounter MQ: XC2_6 EXAM DATE/TIME: 06/01/2024 2:12 PM COMPARISON: Chest x-ray on 03/08/2019 RESULT: Lines, tubes, and devices: None. Lungs and pleura: No consolidation. No lung mass. No pleural effusion. No pneumothorax. Cardiomediastinal silhouette: Normal cardiomediastinal silhouette. Bones and soft tissues: Unremarkable. IMPRESSION: No acute radiographic abnormality. Wool Spotter: [employer] Transcribe Date/Time: Jun 01 2024 2:14P Dictated by : JUAN FERNANDEZ MD This examination was interpreted and the report reviewed and electronically signed by: JUAN FERNANDEZ MD on Jun 01 2024 2:14PM EST [id number] Normal [place] XR Chest PA and Lateralon IMPRESSION: No acute radiographic abnormality. Wool Spotter: CHAGO Transcribe Date/Time: Jun 01 2024 2:14P Dictated by : JUAN FERNANDEZ MD This examination was interpreted and the report reviewed and electronically signed by: JUAN FERNANDEZ MD on Jun 01 2024 2:14PM [facility] DIVISION OF RADIOLOGY * * *Final Report* * * DATE OF EXAM: Jun 01 2024 2:12PM WOX [id number] - XR CHEST 2V FRONTAL/LAT / PROCEDURE REASON: Muscle strain of chest wall, initial encounter * * * * Physician Interpretation * * * * EXAMINATION: CHEST RADIOGRAPH (2 VIEW FRONTAL & LATERAL) CLINICAL HISTORY: Muscle strain of chest wall, initial encounter MQ: XC2_6 EXAM DATE/TIME: 06/01/2024 2:12 PM COMPARISON: Chest x-ray on 03/08/2019 RESULT: Lines, tubes, and devices: None. Lungs and pleura: No consolidation. No lung mass. No pleural effusion. No pneumothorax. Cardiomediastinal silhouette: Normal cardiomediastinal silhouette. Bones and soft tissues: Unremarkable. DIVISION OF RADIOLOGY Provider, [employer] [place] - 06/01/2024 * * *Final Report* * * DATE OF EXAM: Jun 01 2024 2:12PM WOX [id number] - XR CHEST 2V FRONTAL/LAT / PROCEDURE REASON: Muscle strain of chest wall, initial encounter * * * * Physician Interpretation * * * * EXAMINATION: CHEST RADIOGRAPH (2 VIEW FRONTAL & LATERAL) CLINICAL HISTORY: Muscle strain of chest wall, initial encounter MQ: XC2_6 EXAM DATE/TIME: 06/01/2024 2:12 PM COMPARISON: Chest x-ray on 03/08/2019 RESULT: Lines, tubes, and devices: None. Lungs and pleura: No consolidation. No lung mass. No pleural effusion. No pneumothorax. Cardiomediastinal silhouette: Normal cardiomediastinal silhouette. Bones and soft tissues: Unremarkable. IMPRESSION IMPRESSION: No acute radiographic abnormality. Wool Spotter: [employer] Transcribe Date/Time: Jun 01 2024 2:14P Dictated by : JUAN FERNANDEZ MD This examination was interpreted and the report reviewed and electronically signed by: JUAN FERNANDEZ MD on Jun 01 2024 2:14PM EST [facility] Radiology Study observation (narrative) Cal white [facility] XR Chest PA and LateralOrder ed By: Ccf Provider on 06-01-2024 [facility] CTA CHEST (GATED) W IVCONon 11-08-2024 CTA CHEST (GATED) W IVCON * * *Final Report* * * DATE OF EXAM: Mar 12 2024 4:23PM [facility] 0125 - CTA CHEST (GATED) W IVCON / PROCEDURE REASON: I77.819-Aortic ectasia (HCC) * * * * Physician Interpretation * * * * CTA Aorta chest Direct Image Comparison: None HISTORY: 69 years old Female with h/o suspected aortic disease Evaluation for interval change. There is request to define thoracic and aortic anatomy TECHNIQUE: SCANNER: Multi-detector scanner PROTOCOL: Prospectively triggered helical high-pitch acquisitions (triggered Flash-mode) was performed following the intravenous administration of contrast material. Scan Range: thoracic inlet to the diaphragm CT Dose-Length Product (DLP): 263 mGy*cm CT Dose Reduction Employed: Automated exposure control(AEC) and iterative recon CONTRAST: IV administration of 90 ml Omnipaque 350 Scan acquisition: uncomplicated Macro Version: [id number]:CCTW_5 For optimization of anatomic evaluation, advanced 3-D off-line postprocessing was performed on a dedicated workstation by the interpreting physician. STUDY LIMITATIONS: Step artifact.. RESULT: LINES, TUBES and DEVICES: None CHEST: Chest wall anatomy: unremarkable. LUNGS: unremarkable. MEDIASTINUM: unremarkable. PERICARDIUM: unremarkable CENTRAL PULMONARY ARTERY: normal dimensions. Assessment is limited due to limited contrast enhancement. CARDIAC CHAMBERS: LEFT VENTRICLE: normal size. RIGHT VENTRICLE: normal size Left atrium: normal size. DANIELLE: normal Right atrium: normal size CENTRAL VENOUS and PULMONARY VENOUS RETURN: normal. Coronary Sinus: normal size MITRAL VALVE: assessment is limited in the current study - no leaflet calcification. No annular calcification TRICUSPID and PULMONIC VALVE: appear unremarkable. CORONARY ANATOMY: normal origin of the coronary arteries. No definitive evidence of calcified atherosclerotic changes of the coronary arteries. AORTIC VALVE: appears trileaflet. Mild calcification at the commissures. AORTA: Pathology: No acute aortic pathology. Intervention: None Complications: n/a Aortic Size: Normal size thoracic aorta. STJ: maintained. Minimal calcification. Wall Changes: no evidence of wall changes. Arch Branch Vessels: Common origin of the innominate and left carotid artery. AORTIC DIMENSIONS: AORTIC ROOT: 2.6 cm measured [id number] mid ASCENDING THORACIC AORTA: 3.2 cm mid AORTIC ARCH: 2.7 cm mid DESCENDING THORACIC AORTA: 2.3 cm limited upper ABDOMEN: unremarkable BONES and SOFT TISSUES: unremarkable, within limitations of the current study Relay Associate (topogram) images: No additional findings. IMPRESSION: STUDY LIMITATIONS: Step artifact.. The thoracic aorta is normal in course, caliber, and contours. Wool Spotter: CHAGO Transcribe Date/Time: Mar 12 2024 4:29P Dictated by : MARINO PEREZ, This examination was interpreted and the report reviewed and electronically signed by: MARINO PEREZ, on Mar 12 2024 4:42PM EST [id number] CN Normal [facility] CTA Chest vessels W contrast Briana 03-12-2024 IMPRESSION: STUDY LIMITATIONS: Step artifact.. The thoracic aorta is normal in course, caliber, and contours. 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 There is request to define thoracic and aortic anatomy TECHNIQUE: SCANNER: Multi-detector scanner PROTOCOL: Prospectively triggered helical high-pitch acquisitions (triggered Flash-mode) was performed following the intravenous administration of contrast material. Scan Range: thoracic inlet to the diaphragm CT Dose-Length Product (DLP): 263 mGy*cm CT Dose Reduction Employed: Automated exposure control(AEC) and iterative recon CONTRAST: IV administration of 90 ml Omnipaque 350 Scan acquisition: uncomplicated Macro Version: [id number]:CCTW_5 For optimization of anatomic evaluation, advanced 3-D off-line postprocessing was performed on a dedicated workstation by the interpreting physician. STUDY LIMITATIONS: Step artifact.. RESULT: LINES, TUBES and DEVICES: None CHEST: Chest wall anatomy: unremarkable. LUNGS: unremarkable. MEDIASTINUM: unremarkable. PERICARDIUM: unremarkable CENTRAL PULMONARY ARTERY: normal dimensions. Assessment is limited due to limited contrast enhancement. CARDIAC CHAMBERS: LEFT VENTRICLE: normal size. RIGHT VENTRICLE: normal size Left atrium: normal size. DANIELLE: normal Right atrium: normal size CENTRAL VENOUS and PULMONARY VENOUS RETURN: normal. Coronary Sinus: normal size MITRAL VALVE: assessment is limited in the current study - no leaflet calcification. No annular calcification TRICUSPID and PULMONIC VALVE: appear unremarkable. CORONARY ANATOMY: normal origin of the coronary arteries. No definitive evidence of calcified atherosclerotic changes of the coronary arteries. AORTIC VALVE: appears trileaflet. Mild calcification at the commissures. AORTA: Pathology: No acute aortic pathology. Intervention: None Complications: n/a Aortic Size: Normal size thoracic aorta. STJ: maintained. Minimal calcification. Wall Changes: no evidence of wall changes. Arch Branch Vessels: Common origin of the innominate and left carotid artery. AORTIC DIMENSIONS: AORTIC ROOT: 2.6 cm measured [id number]-ej-jaeim mid ASCENDING THORACIC AORTA: 3.2 cm mid AORTIC ARCH: 2.7 cm mid DESCENDING THORACIC AORTA: 2.3 cm limited upper ABDOMEN: unremarkable BONES and SOFT TISSUES: unremarkable, within limitations of the current study Relay Associate (topogram) images: No additional findings. 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 There is request to define thoracic and aortic anatomy TECHNIQUE: SCANNER: Multi-detector scanner PROTOCOL: Prospectively triggered helical high-pitch acquisitions (triggered Flash-mode) was performed following the intravenous administration of contrast material. Scan Range: thoracic inlet to the diaphragm CT Dose-Length Product (DLP): 263 mGy*cm CT Dose Reduction Employed: Automated exposure control(AEC) and iterative recon CONTRAST: IV administration of 90 ml Omnipaque 350 Scan acquisition: uncomplicated Macro Version: [id number]:CCTW_5 For optimization of anatomic evaluation, advanced 3-D off-line postprocessing was performed on a dedicated workstation by the interpreting physician. STUDY LIMITATIONS: Step artifact.. RESULT: LINES, TUBES and DEVICES: None CHEST: Chest wall anatomy: unremarkable. LUNGS: unremarkable. MEDIASTINUM: unremarkable. PERICARDIUM: unremarkable CENTRAL PULMONARY ARTERY: normal dimensions. Assessment is limited due to limited contrast enhancement. CARDIAC CHAMBERS: LEFT VENTRICLE: normal size. RIGHT VENTRICLE: normal size Left atrium: normal size. DANIELLE: normal Right atrium: normal size CENTRAL VENOUS and PULMONARY VENOUS RETURN: normal. Coronary Sinus: normal size MITRAL VALVE: assessment is limited in the current study - no leaflet calcification. No annular calcification TRICUSPID and PULMONIC VALVE: appear unremarkable. CORONARY ANATOMY: normal origin of the coronary arteries. No definitive evidence of calcified atherosclerotic changes of the coronary arteries. AORTIC VALVE: appears trileaflet. Mild calcification at the commissures. AORTA: Pathology: No acute aortic pathology. Intervention: None Complications: n/a Aortic Size: Normal size thoracic aorta. STJ: maintained. Minimal calcification. Wall Changes: no evidence of wall changes. Arch Branch Vessels: Common origin of the innominate and left carotid artery. AORTIC DIMENSIONS: AORTIC ROOT: 2.6 cm measured [id number] mid ASCENDING THORACIC AORTA: 3.2 cm mid AORTIC ARCH: 2.7 cm mid DESCENDING THORACIC AORTA: 2.3 cm limited upper ABDOMEN: unremarkable BONES and SOFT TISSUES: unremarkable, within limitations of the current study Relay Associate (topogram) images: No additional findings. IMPRESSION IMPRESSION: STUDY LIMITATIONS: Step artifact.. The thoracic aorta is normal in course, caliber, and contours. Wool Spotter: CH[place]O Transcribe Date/Time: Mar 12 2024 4:29P Dictated by : MARINO PEREZ, This examination was interpreted and the report reviewed and electronically signed by: MARINO PEREZ, on Mar 12 2024 4:42PM [facility] Radiology Study observation (narrative) Cal white [facility] CTA Chest vessels W contrast IVOrdered By: Ccf Provider on 03-12-2024 [facility] NURSING PROGon 03-12-2024 NURSING PROG HNO ID: [id number] Author: LUCAS MARR RN Service: Nursing Author Type: Registered Nurse Type: Nursing Progress Note Filed: 03/12/2024 16:08 Note Text: Radiology Service Progress Note DATE OF SERVICE: March 12, 2024 TIME: 4:08 PM PATIENT WEIGHT: 198 LBS PATIENT IDENTITY VERIFICATION COMPLETED USING TWO (2) STANDARD IDENTIFIERS: Name and Date of confirmed by patient verbally and Name and Date of confirmed by identification band. FALL SCREENING: Has the patient had 2 falls in the last year or 1 fall with injury or currently using an Ambulatory Assistive Device (Walker, Cane, Wheelchair, Crutches, etc.)? No PATIENT GENDER DATA: Female. status: : No status: NO. ALLERGIES: Reviewed and unchanged CONTRAST ALLERGY: No EXAM: CT -CONTRAST INDUCED NEPHROPATHY RISK FACTORS: Patient age > 60 years CREATININE: Creatinine Date Value Ref Range Status 03/01/2024 0.85 0.58 - 0.96 mg/dL Final 09/12/2023 0.80 0.58 - 0.96 mg/dL Final 05/22/2023 0.90 0.58 - 0.96 mg/dL Final Estimated Glomerular Filtration Rate Date Value Ref Range Status 03/01/2024 74 >=60 mL/min/1.73m? Final Comment: Estimated Glomerular Filtration Rate (eGFR) is calculated using the 2020 CKD-EPI creatinine equation. This equation utilizes serum creatinine, sex, and age as parameters. The creatinine assay has traceable calibration to isotope dilution-mass spectrometry. Refer to KDIGO guidelines for clinical interpretation. In patients with unstable renal function, e.g. those with acute kidney injury, the eGFR may not accurately reflect actual GFR. eGFR- Date Value Ref Range Status 03/16/2021 >60 Final P.O.C.T. RESULTS: N/A March 12, 2024 TREATMENT: N/A IV SITE: Ambulatory: A peripheral IV was started in the Left with a Angio cath: 20 gauge. IV SITE APPEARANCE: Clean,Dry and Intact SIGNATURE: Lucas Marr RN PATIENT NAME: Meche Fountain DATE: March 12, 2024 TIME: 4:08 PM Normal [facility] CREATININE BLDon 03-01-2024 Creatinine [Mass/Vol] 0.85 mg/dL Normal 0.58-0.96 [facility] Comment on above: Order Comment: Speci men Type: BLOOD SPECIMENOrdering Facility: [facility] Address: [address] [place] [address] Performed By: #### C RET1 ####[facility] LABCLIA [id number] [place] [address] [place] Creatinine and Glomerular filtration rate.predicted panel (S/P/Bld) 74 mL/min/1.73m??? Normal >=60 [place] Comment on above: Order Comment: Speci men Type: BLOOD SPECIMENOrdering Facility: [facility] Address: [address] [place] [address] Result Comment: Latisha mated Glomerular Filtration Rate (eGFR) is calculated using the 2020 CKD-EPI creatinine equation. This equation utilizes serum creatinine, sex, and age as parameters. The creatinine assay has traceable calibration to isotope dilution-mass spectrometry. Refer to KDIGO guidelines for clinical interpretation. In patients with unstable renal function, e.g. those with acute kidney injury, the eGFR may not accurately reflect actual GFR. Performed By: #### C RET1 ####[facility] LABCLIA [id number] [facility] [id number] [place] [address] [place] CNOVon 02-23-2024 CNOV Office Visit (CAWSTR) MECHE FOUNTAIN ([id number]) 1955 F Date Time Provider Department 02/23/24 11:00 AM ELLY DONAHUE During your visit today, we recorded the following information about you: Temperature Pulse Blood pressure Weight 98.1 degrees 88/minute 122/77 89.8 kg Elly Donahue MD 02/23/2024 11:37 AM Signed [facility] Cardiology ([address]) [address] [facility] [id number] OUTPATIENT VISIT DATE 06/16/2023 PRIMARY CARE PHYSICIAN: [place] [address] REFERRING PHYSICIAN: Sterling Roca [facility] [address] HISTORY OF PRESENT ILLNESS: Ms. Fountain is a 69 year old woman moderately severe aortic valve stenosis who presents for follow-up. Patient continues to have episodes of shortness of breath after prolonged exertion. She has had no escalation symptoms since her last visit. She did have 1 episode of dizziness that occurred when she was sitting. Lasted a few seconds and resolved. She has not had symptoms concerning for congestive heart failure including PND, orthopnea, or lower extremity edema. She denies palpitations, near-syncope, or syncope. PAST MEDICAL HISTORY Diagnosis Date Bronchitis Diverticulitis Edema leg Heart murmur Psoriasis Snoring Vertigo PAST SURGICAL HISTORY Procedure Laterality Date CHG DELIVERY x 3 COLONOSCOPY 2006 COLONOSCOPY FLX DX W/COLLJ SPEC WHEN PFRMD 07/24/2018 Colonoscopy TONSILLECTOMY HX SOCIAL HISTORY Social History Tobacco Use Smoking status: Never Smokeless tobacco: Never Vaping Use Vaping status: Never Used Substance Use Topics Alcohol use: Yes Comment: occasional Drug use: No FAMILY HISTORY Problem Relation Age of Onset Clotting Disorder Mother age 88 COPD Father smoker, age 80 No Known Problems Brother Heart Failure Maternal Grandmother No Known Problems Maternal Grandfather Diabetes Paternal Grandmother No Known Problems Paternal Grandfather Colon Cancer Maternal Aunt ALLERGIES: ALLERGIES Allergen Reactions Penicillins Swelling MEDICATIONS: iv contrast (will be provided with radiology test) CTA CHEST - No IV access, insert saline lock prior to the sedation, infusion, injection for imaging exam. Discontinue saline lock post exam. If Pt. has a central line or IVAD, may access for administration according to line specific nursing protocol. Once exam is complete flush line and de-access according to line specific nursing protocol in the CT contrast administration guidelines link. fluocinolone (SYNALAR) 0.025 % ointment Apply to affected area as directed. apply a pea-szed amount to vulva twice weekly, use 1-2 times daily for up to 2 weeks for flairs then return to twice weekly albuterol HFA (VENTOLIN HFA) 90 mcg/actuation inhaler Inhale 2 Puffs as instructed every 4 hours as needed for wheezing/shortness of breath. rosuvastatin (CRESTOR) 10 mg tablet Take 1 tablet by mouth daily at bedtime. Fish Oil-DHA-EPA 1,200-144-216 mg cap Take 2 capsules by mouth once daily. Cholecalciferol, Vitamin D3, 50 mcg (2,000 unit) cap Take by mouth. BIOTIN ORAL Take by mouth. vitamin B complex (B COMPLEX ORAL) Take by mouth. MULTIVITAMIN WITH MINERALS (MULTIVITAMIN AND MINERAL FORMULA ORAL) Take by mouth. aspirin, enteric coated (ASPIRIN, ENTERIC COATED) 81 mg EC tablet Take 81 mg by mouth once each week. tirzepatide (MOUNJARO) 2.5 mg/0.5 mL pen injector Inject 2.5 mg subcutaneously one time a week. (Patient not taking: Reported on 02/23/2024) REVIEW OF SYSTEMS: Review of Systems Constitutional: Negative for chills, fever, malaise/fatigue and weight loss. HENT: Negative for hearing loss and sore throat. Eyes: Negative for blurred vision and double vision. Respiratory: Negative. Cardiovascular: Negative. Genitourinary: Negative for dysuria, frequency, hematuria and urgency. Musculoskeletal: Negative. Skin: Negative. Neurological: Negative for dizziness, seizures, loss of consciousness, weakness and headaches. Endo/Heme/Allergies: Negative for environmental allergies. Does not bruise/bleed easily. Psychiatric/Behavior al: Negative for depression. PHYSICAL EXAMINATION: BP 122/77 Pulse 88 Temp (Src) 98.1 (Oral) SpO2 100% General: Pleasant woman sitting appears comfortable no apparent distress. She is alert and oriented x3 HEENT: Carotid upstrokes are brisk bilaterally without bruits. No JVD Pulmonary: Lungs are clear no rales, wheezes, rhonchi Cardiovascular: Normal S1, S2 with regular rate and rhythm. Mid to late peaking crescendo decrescendo murmur right sternal border 3/6. A2 component second heart sound is well appreciated. Extremities: Warm, well-perfused, no lo (more content not included)... Normal [place] ECHOon 02-09-2024 Echocardiography Echocardiography Report: Transthoracic Echo [facility] Date of service: 02/09/2024 1:03:31 PM COLOR TESTER Ordering physician: ELLY DONAHUE Indication: Routine surveillance of moderate or severe valvular stenosis (>1yr) Technologist: Liya Benavides [facility] Interpreting physician: Malcolm Valdes DO PATIENT: Name: MRS. MECHE FOUNTAIN : 1955 Age: 69 years Gender: F History of dyslipidemia and valvular heart disease. Primary rhythm: sinus. Height: 154.90 cm BSA: 1.95 m Weight: 88.45 kg BMI: 36.9 kg/m Heart rate 88 bpm Technically difficult exam due to body habitus. Color Doppler was utilized to interrogate the cardiac valves assessed and spectral Doppler was utilized to determine the flow velocities and pressure gradients reported in this exam. Myocardial strain analysis was performed in this exam to aid in the assessment of cardiac function. MEASUREMENTS: Value Indexed Normal Max aortic dimension 3.4 cm Ao < 3.8 Left atrial volume 46 ml (biplane A-L) 24 ml/m Bernardo <= 34 LV ID (diastole) 3.2 cm (2D) 1.62 cm/m LV ID (systole) 2.5 cm (2D) 1.29 cm/m IVS, leaflet tips 1.0 cm (2D) Posterior wall thickness 1.1 cm (2D) Left ventricular mass 96 g (2D) 49 g/m Global peak long strain -20.8 % LV stroke volume 40 ml (2D biplane) LVOT stroke volume 64 ml 34 ml/m LV end diastolic volume 62 ml (2D biplane) 31.8 ml/m 29<=EDVi<62 LV end systolic volume 22 ml (2D biplane) 11.2 ml/m Ejection Fraction 65 % (2D biplane) EF > 54 FINDINGS: LEFT VENTRICLE The left ventricle is normal in size. Left ventricular systolic function is normal. Global LV myocardial strain is normal. Grade I left ventricular diastolic dysfunction. Mitral annular lateral E/e': 10.0. Mitral annular septal E/e': 11.3. Wall Motion: All scored segments are normal. RIGHT VENTRICLE The right ventricle is normal in size. Right ventricular systolic function is normal. RV systolic tissue Doppler velocity is 12.0 cm/s. Tricuspid annular displacement is 1.7 cm. Estimated right ventricular systolic pressure is likely underestimated due to a weak or incomplete tricuspid regurgitation signal and is, at least, 28 mmHg consistent with normal pulmonary artery pressures. Estimated right atrial pressure is 3 mmHg (although IVC not seen). LEFT ATRIUM The left atrial cavity is normal in size. RIGHT ATRIUM The right atrial cavity is normal in size. Inferior Vena Cava: The inferior vena cava appears normal measuring 1.0 cm. MITRAL VALVE The mitral valve leaflets are structurally normal. There is trace (trace - 1+) mitral valve regurgitation. The pressure half time is 36 msec. The peak mitral E/A ratio is 0.80. The average mitral E/e' ratio is 10.6. The mitral flow deceleration time is 126 msec. TRICUSPID VALVE The tricuspid valve leaflets are structurally normal. There is trace tricuspid valve regurgitation. AORTIC VALVE There is moderate aortic valve stenosis. There is no aortic valve regurgitation. There is moderate thickening. The peak gradient is 38 mmHg (peak velocity = 309.3 cm/s). The mean gradient is 22 mmHg. The LVOT mean velocity is 88.4 cm/s. The LVOT diameter is 1.9 cm. The aortic VTI is 59.0 cm. The mean velocity in the aortic valve is 222.9 cm/s. The dimensionless valve index is 0.40. AV area is 1.08 cm (0.55 cm /m ) by continuity, VTI. The LVOT stroke volume index is 34 ml/m . PULMONIC VALVE The pulmonic valve cusps are structurally normal. There is no pulmonic valve regurgitation. AORTA The visualized aorta is normal in size. Measurements - Mid ascending aorta 3.0 cm. Distal ascending aorta 3.4 cm. PERICARDIUM There is no pericardial effusion. There is an epicardial fat pad. CONCLUSIONS: - Technically difficult exam due to body habitus. - Exam indication: Routine surveillance of moderate or severe valvular stenosis (>1yr) - The left ventricle is normal in size. Left ventricular systolic function is normal. EF = 65 5% (2D biplane) Grade I left ventricular diastolic dysfunction. - The right ventricle is normal in size. Right ventricular systolic function is normal. - There is moderate aortic valve stenosis. AV area is 1.08 cm (0.55 cm /m ) by continuity, VTI. The peak gradient is 38 mmHg, the mean gradient is 22 mmHg and the dimensionless valve index is 0.40. Prior pk/mn gradients were 38/21 mmHg. - Exam was compared with the prior CC echocardiographic exam performed on 01/21/2023, no significant change. * * * Final * * * CC [facility] : [id number]. [id number] DynamicsSISUID Normal [place] POLYSOMNOGRAM (PSG)/HOME SLE EP APNEA TEST (HSAT)on 12-26-2023 POLYSOMNOGRAM (PSG)/HOME SLEEP APNEA TEST (HSAT) [facility] at [address], [address], [place] [address] ; Home Sleep Apnea Test (HSAT) Study Report Name: MECHE FOUNTAIN Date of Study: 12/26/2023 CC#: [id number] Age: 68 (: 1955) ESS: 10/26 Neck Circ. (cm): 36.0 Height (cm): 154.9 Weight (kg): 88.5 BMI: 36.9 Referring Provider: VIKTORIA GUDINO Mailcode: Sleep history: The patient is a 68 year old female with a history of fatigue, daytime napping, snoring, snorting, and waking up with dry mouth/sore throat. The patient is here for assessment of obstructive sleep apnea. The patient endorses being a habitual side sleeper. Pertinent medical history: Obesity, Heart murmur, Bronchitis Medications: Crestor Sleep procedure: PSG unattended Type III, minimum of 4 parameters ([id number]) Procedure: This study was performed using a Type III ambulatory PSG device and was unattended. The patient was instructed on proper use of the device by a registered vascular ultrasound technologist. The monitored parameters included heart rate, oxygen saturation, continuous airflow with thermistor and nasal pressure transducer, snoring via nasal pressure transducer, chest and abdominal effort, and body position. KAYA definition: Respiratory event index (KAYA), calculated as respiratory events x 60 / TRT (total recording time in minutes). Note: the apnea hypopnea index has been replaced by the respiratory event index for home sleep apnea test. Since the home sleep apnea test does not measure sleep, the KAYA is most accurate index of respiratory events. The KAYA is a surrogate of the AHI per the AASM Manual for Scoring of Sleep and Associated Events version 3. Apnea definition: The peak signal excursions drop by >90% of pre-event baseline using an oronasal thermal sensor (diagnostic study), PAP device flow (titration study) or an alternative apnea sensor (diagnostic study). The duration of the >90% drop in signal excursion is >=10 seconds. Hypopnea definition: The peak signal excursions drop by >= 30% of pre-event baseline using nasal pressure (diagnostic study), PAP device flow (titration study) or an alternative hypopnea sensor (diagnostic study). The duration of the >= 30% drop in signal excursion is >=10 seconds. There is a greater than or equal to 4% oxygen desaturation from pre-event baseline. RESPIRATORY DATA: The study started at 00:04:42 and ended at 04:59:38 and the total recording time was 294 minutes. By convention, sleep is assumed for the whole recording. Snoring was noted. There was a total of 27 respiratory events. Of these events, the total number of apneas was 0 (0 obstructive, 0 mixed, and 0 central (0.0%)) and 27 hypopneas. The central apnea index (FREDDY) was 0.0. The respiratory event index (KAYA) was 5.5 events per hour of study time. The mean oxygen saturation during the study was 94.0%, with a minimum oxygen saturation of 88.0%. The patient spent 1.1 minutes at oxygen saturation measured less than 90% (0.4% of recording time) and 0.3 minutes at oxygen saturation measured at or less than 88% (0.1% of recording time). Time KAYA/AHI Supine 53.5 min 14.6 Off-Supine 241.0 min 3.5 Total 294.5 min 5.5 ECG DATA: The average heart rate was 72 bpm with a range of 65 bpm to 86 bpm. ICSD DIAGNOSIS: Obstructive Sleep Apnea Syndrome [G47.33] IMPRESSION/RECOMMEND ATIONS: 1. This study confirms a diagnosis of at least mild obstructive sleep apnea. 2. The results of this study may represent an underestimation of the degree of obstructive sleep apnea, especially hypopneas, because of the known limitations of HSAT, such as inability to record arousals because EEG is not recorded. 3. Treatment of mild sleep apnea can include weight loss, positional therapy, treatment of allergies, oral appliance therapy or ENT evaluation of any airway abnormalities. PAP therapy may be considered in patients with documented symptoms of daytime sleepiness, impaired cognition, mood disorder, insomnia, or documented hypertension, ischemic heart disease, or history of stroke. INTERPRETING PHYSICIAN: MG Floyd DO, JOSEPHM ABSM I attest that I have performed epoch by epoch review of the entire raw data and find this study to be technically adequate. Report Digitally Signed By: Darvin Barrientos (01/01/2024 3:04:49 PM) Normal [place] RADHA SCREENINGon 05-22-2023 [facility] XR Lumbar spine 3 Viewson IMPRESSION: 1. Mild to moderate lumbar spondylosis. Wool Spotter: PSCB Transcribe Date/Time: Mar 22 2023 11:51A Dictated by : FABIAN THOMPSON MD This examination was interpreted and the report reviewed and electronically signed by: FABIAN THOMPSON MD on Mar 22 2023 11:51AM [facility] DIVISION OF RADIOLOGY * * *Final Report* * * DATE OF EXAM: Mar 20 2023 1:02PM WOX 5228 - XR LUMBAR 3V AP/LAT/L5-S1 / PROCEDURE REASON: Left sided sciatica * * * * Physician Interpretation * * * * LUMBAR SPINE RADIOGRAPHS HISTORY: Left sided sciatica TECHNOLOGIST PROVIDED HISTORY (if applicable): Left sided low back pain with left sided sciatica TECHNIQUE: XR LUMBAR 3V AP/LAT/L5-S1 COMPARISON: None available RESULT: Counting reference: Lumbosacral junction. For the purposes of this report, L5-S1 is considered the last lumbar type disc space and L4-L5 is considered the level of the iliac crest. S1 appears transitional Vertebral bodies have normal height and contour. There is no compression deformity or acute bony abnormality identified. No scoliosis. The is grade I retrolisthesis at L2-3 and L3-4. The is grade I anterolisthesis at L5-S1. Mild to moderate multilevel lumbar disc space narrowing Moderate multilevel lumbar facet arthrosis . DIVISION OF RADIOLOGY Provider, [facility] [place] - 03/22/2023 * * *Final Report* * * DATE OF EXAM: Mar 20 2023 1:02PM WOX 5228 - XR LUMBAR 3V AP/LAT/L5-S1 / PROCEDURE REASON: Left sided sciatica * * * * Physician Interpretation * * * * LUMBAR SPINE RADIOGRAPHS HISTORY: Left sided sciatica TECHNOLOGIST PROVIDED HISTORY (if applicable): Left sided low back pain with left sided sciatica TECHNIQUE: XR LUMBAR 3V AP/LAT/L5-S1 COMPARISON: None available RESULT: Counting reference: Lumbosacral junction. For the purposes of this report, L5-S1 is considered the last lumbar type disc space and L4-L5 is considered the level of the iliac crest. S1 appears transitional Vertebral bodies have normal height and contour. There is no compression deformity or acute bony abnormality identified. No scoliosis. The is grade I retrolisthesis at L2-3 and L3-4. The is grade I anterolisthesis at L5-S1. Mild to moderate multilevel lumbar disc space narrowing Moderate multilevel lumbar facet arthrosis . IMPRESSION IMPRESSION: 1. Mild to moderate lumbar spondylosis. Wool Spotter: CHAGO Transcribe Date/Time: Mar 22 2023 11:51A Dictated by : FABIAN THOMPSON MD This examination was interpreted and the report reviewed and electronically signed by: FABIAN THOMPSON MD on Mar 22 2023 11:51AM EST [facility] XR Lumbar spine 3 ViewsOrder ed By: [facility] Provider on 03-22-2023 [facility] XR Lumbar spine 3 Viewson Radiology Study observation (narrative) [facility] ECHOon 01-21-2023 [facility] Orthopedic Visit Reporton Orthopedic Visit Report [facility] Orthopaedics Sports Medicine [address] [place] [address] OFFICE VISIT Date of Service: 05/14/21 MR#: [id number] Acct: [id number] Name: АЛЕКСАНДРMECHE Shelbie Rep #: [id number] : 1955 Provider: ANA Merirtt Age/Sex: 66/F Location: [facility] [place].LUIS FERNANDO Status: Signed Intake Intake Visit Reasons: RIGHT KNEE Chief Complaint: est annual Allergies penicillin G Allergy (Mild, Verified 04/03/21 13:10) hives Medications hydrochlorothiazide 25 mg tablet 25 mg PO QDAY 04/14/17 [History Confirmed 05/14/21] multivitamin,tx-iron -minerals 1 tab PO DAILY 08/17/18 [History Confirmed 05/14/21] clobetasol 0.05 % topical ointment 1 applic TOPICAL QHS #30 g 02/03/20 [Rx Confirmed 05/14/21] B complex with vitamin X-ahszgfwct-bhiy capsule cap PO 04/03/21 [History Confirmed 05/14/21] biotin 1 mg capsule 1 mg PO DAILY 04/03/21 [History Confirmed 05/14/21] omega-3 fatty acids 1,000 mg capsule 1,000 mg PO DAILY 04/03/21 [History Confirmed 05/14/21] sertraline 50 mg tablet 50 mg PO DAILY 04/03/21 [History Confirmed 05/14/21] meloxicam 15 mg tablet 15 mg PO DAILY #21 tab 05/14/21 [Rx Confirmed 05/14/21] [facility] Medical History (Updated 05/14/21 @ 13:01 by Justin PEREZ, PA) Heart murmur Lichen sclerosus Stress incontinence in female Surgical History History of section Family History Grandmother CAD (coronary artery disease) Father CAD (coronary artery disease) Grandmother Diabetes Social History Smoking Status: Never smoker alcohol intake: current details: social substance use type: does not use caffeine: Yes what type of physical activity do you participate in: walking seatbelt use: always do you feel safe at home: Yes additional social history: Samson- both are retired HPI RIGHT KNEE Details: Parts of this documentation were recorded by a scribe, this documentation accurately reflects the service provided and the decisions made by me, ANA Slater 05/14/21 1021. MECHE FOUNTAIN is a 66 year old F NEW patient here today for right knee pain that she has had since 03/2021. She states that she was doing yard work at her sons house and was kneeling and had some increased pain after this and then a few days later she did some work at her house and then has increased knee pain and swelling. She was then seen at urgent care and had xrays and was given prednisone which was effective and after this treatment the pain returned. SHe states that most of her pain is posterior lateral knee pain. She has increased pain with asending stairs. SHe does report having some clicking in the knee which was painful but none recently. Denies any injections or surgery of the right knee in the past. She does occasionally take OTC NSAIDs for the pain. Denies any PT. She larry shave a knee sleeve that she wears. She also uses ice and heat as needed. Ortho Exam General General: Yes no acute distress Right Knee Skin/Wound: No erythema, No ecchymosis and No swelling Contralateral Normal: Yes Homans Sign: No Knee ROM: Yes ROM-Extension -20 to 0 and No ROM-Flexion 0-140 Examination: Yes Med jt line tenderness, Yes Lat jt line tenderness, No TTP inf pole patella, Yes Crepitus, No Pain with flexion, No Pain with extention, No Hola's Test, No TTP Patellar tendon, Yes TTP Pes Anserine and No Illiotibial band tenderness Stability: NML: Anterior Drawer, NML: Posterior Drawer and NML: Varus 0 and 1+: Valgus 0 (veyr minor gapping likely secondary to joint space narrowing) KNEE: Inspection of the right knee shows no acute abnormalities. She has no localized or generalized swelling and no evident effusions. There is no ecchymosis/bruising, erythema, or other skin changes. Patient has some minor decrease 5 maybe 10 degrees of flexion compared to left. This is not mechanical but rather she is just hesitant as it did cause some discomfort previously. Normal extension. She is a very minor medial lateral joint line tenderness. Some more moderate localized tenderness to the Pez anserine which is where she states she experiences most pain. Ligamentous structures appear intact with only very minimal medial joint line gapping with valgus stress. ACL and PCL appear intact without laxity or discomfort. No acute signs of meniscal involvement today. She has soft compartments of the lower extremity and no calf tenderness. Normal sensation to light touch. Coding Level of Care Code Off vis,new,level 3 Diagnoses Pes anserinus bursitis of right knee M70.51 Osteoarthritis of right knee M17.11 Assessment and Plan Assessment and Plan (1) Pes anserinus bursitis of right knee: Status: Acute (2) Osteoarthritis of right knee: Sta (more content not included)... Normal [facility] XR Knee - right 4 Viewson * * *Final Report* * * DATE OF EXAM: Apr 20 2021 2:30PM WOX 5203 - XR KNEE 4V AP/PA BOTH+LAT/ANIRUDH RT / PROCEDURE REASON: Right knee pain, unspecified chronicity * * * * Physician Interpretation * * * * Indication: Right knee pain Comparison: None AP, PA, lateral and merchant views of the right knee are obtained. AP, PA and merchant views of the left knee are included. There is no acute fracture or dislocation. Joint spaces are maintained. Impression: 1. No acute fracture or dislocation. Wool Spotter: [facility] Transcribe Date/Time: Apr 20 2021 2:33P Dictated by : USMAN TAYLOR MD This examination was interpreted and the report reviewed and electronically signed by: USMAN TAYLOR MD on Apr 20 2021 2:35PM EST DIVISION OF RADIOLOGY Provider, [facility] [place] - 04/20/2021 * * *Final Report* * * DATE OF EXAM: Apr 20 2021 2:30PM WOX 5203 - XR KNEE 4V AP/PA BOTH+LAT/ANIRUDH RT / PROCEDURE REASON: Right knee pain, unspecified chronicity * * * * Physician Interpretation * * * * Indication: Right knee pain Comparison: None AP, PA, lateral and merchant views of the right knee are obtained. AP, PA and merchant views of the left knee are included. There is no acute fracture or dislocation. Joint spaces are maintained. Impression: 1. No acute fracture or dislocation. Wool Spotter: [facility] Transcribe Date/Time: Apr 20 2021 2:33P Dictated by : USMAN TAYLOR MD This examination was interpreted and the report reviewed and electronically signed by: USMAN TAYLOR MD on Apr 20 2021 2:35PM EST [facility] Radiology Study observation (narrative) [facility] XR Knee - right 4 ViewsOrder ed By: [facility] Provider on 04-20-2021 [facility] Sales Representative Meats Office Visit Reporton 04-03-2021 Sales Representative Meats Office Visit Report [facility] [address] [place] [address] OFFICE VISIT Date of Service: 04/03/21 MR#: [id number] Acct: [id number] Name: MECHE FOUNTAIN Rep #: [id number] : 1955 Provider: Dr. 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 Writing Instructor Required: No Is patient in pain?: No Allergies penicillin G Allergy (Mild, Verified 04/03/21 13:10) hives Medications hydrochlorothiazide 25 mg tablet 25 mg PO QDAY 04/14/17 [History Confirmed 04/03/21] multivitamin,tx-iron -minerals 1 tab PO DAILY 08/17/18 [History Confirmed 04/03/21] clobetasol 0.05 % topical ointment 1 applic TOPICAL QHS #30 g 02/03/20 [Rx Confirmed 04/03/21] B complex with vitamin O-yxegbaqha-nftg capsule cap PO 04/03/21 [History Confirmed 04/03/21] biotin 1 mg capsule 1 mg PO DAILY 04/03/21 [History Confirmed 04/03/21] mecobalamin (vitamin B12) 1,000 mcg disintegrating tablet,sublingual 1,000 mcg SUBLINGUAL DAILY 04/03/21 [History Confirmed 04/03/21] multivitamin 1 tab PO DAILY 04/03/21 [History Confirmed 04/03/21] omega-3 fatty acids 1,000 mg capsule 1,000 mg PO DAILY 04/03/21 [History Confirmed 04/03/21] sertraline 50 mg tablet 50 mg PO DAILY 04/03/21 [History Confirmed 04/03/21] Is last menstrual period known: No Post menopausal: Yes Patient : No : No PFSH Medical History Heart murmur Lichen sclerosus Stress incontinence in female Surgical History History of section Family History Grandmother CAD (coronary artery disease) Father CAD (coronary artery disease) Grandmother Diabetes Social History Smoking Status: Never smoker alcohol intake: current details: social substance use type: does not use caffeine: Yes what type of physical activity do you participate in: walking seatbelt use: always do you feel safe at home: Yes additional social history: Samson- both are retired Pregancy History 3 Elective abortions Hx Para 3 Spontaneous abortions Hx # Term Pregnancies Ectopic pregnancies Hx # Pregnancies Multiple births # of living children Past Pregnancies Del. Date Name GA/Weeks Outcome Route Bth Weight Gen Labor Lgth Anesthesia Del Locatn Provider FOB Unknown Donnell 1979 Unknown Mamadou 1981 Unknown javi 1984 HPI Encounter for routine gynecological examination: Details: MECHE FOUNTAIN is a 66 year old who presents for annual exam. Last PAP: 2018- normal with neg hpv History of abnormal PAP: none Last mammogram: march- bilateral lymphadenopathy (mild) History of abnormal mammogram: none Colon cancer screening: up to date Other preventative health care screenings: dexa due Details: MECHE FOUNTAIN is a 66 year old who presents for annual exam. Last PAP: [] History of abnormal PAP: [] Last mammogram: [] History of abnormal mammogram: [] Colon cancer screening: [] Other preventative health care screenings: [] Female Reproductive History Questions: metorrhagia: No, sexually active: Yes, dyspareunia: No and PCB: No Menopausal Symptoms: No hot flashes, No night sweats, No weight change, No mood changes, No difficulty concentrating, No sleep problems and No change in libido ROS Const Constitutional: Reports as per HPI; Denies fatigue, increased appetite, poor appetite, night sweats, weight gain or weight loss Cardio Card: Denies chest pain Resp Resp: Denies cough or dyspnea GI GI: Reports as per HPI; Denies abdominal pain, bloating, constipation, nausea or vomiting : Reports as per HPI and other; Denies difficulty voiding, dysuria, hematuria, hot flashes, nipple discharge, pelvic pain, prolapse symptoms, urinary frequency, urinary incontinence, urinary urgency, vaginal discharge, vaginal dryness, vaginal odor or vaginal pruritus Skin Skin/Breast: Denies changing lesions, breast mass, breast pain, breast skin changes or nipple discharge Psych Psych: Denies anxiety, change in libido, depression or difficulty concentrating Exam Const General: cooperative, healthy appearing, comfortable, no acute distress, well developed and well groomed HENAK Head: normal to inspection and normocephalic Ears: hearing grossly normal bilaterally and external ears normal Nose: external nose normal Face and sinus: normal facial exam Neck Neck: normal visual inspection, full ROM and no lymphadenopathy Thyroid: thyroid normal Chest Chest palpat (more content not included)... Normal [facility] SCRN MAMM (CAD)W/RYAN BILATo n 03-19-2021 SCRN MAMM (CAD)W/RYAN BILAT [facility] Imaging Services [address] [place] [address] SCRN MAMM (CAD)W/RYAN BILAT MR#: [id number] Acct: [id number] Name: MECHE FOUNTAIN Rep #: [id number] : 1955 F 66 From: Dusty olivier MD PCP: Dr. Sterling Coleman MD Status: REG [facility] Study: SCRN MAMM (CAD)W/RYAN BILAT Date of Exam: 03/05 09/22 Exam# [id number] Ordering Dr: Mela Albrecht MAMMOGRAPHY - BILATERAL SCREENING REASON FOR EXAM: Female, 66 years old. Routine annual screening examination. PERTINENT HISTORY: Non-contributory. TECHNIQUE: Digital bilateral breast ryan (3D mammographic acquisition) in the CC and MLO projections. 2-D mediolateral oblique (MLO) and craniocaudad (CC) views of both breasts were obtained. CAD: Full Field Digital Mammography with Computer Added Detection was performed. COMPARISON: Comparison is made with prior study dated 02/17/2020 and 07/20/2018. FINDINGS: Breast Composition: There are scattered areas of fibroglandular density. There are no dominant masses or suspicious calcifications. Small benign-appearing bilateral axillary lymph nodes. No other significant abnormalities are identified. There has been no significant change since the prior study. BI/SCRN MAMM (CAD)W/RYAN BILAT IMPRESSION: Stable bilateral screening mammogram. Yearly follow-up mammogram recommended. (A) ASSESSMENT CATEGORY: BIRADS Category 2: Benign. A letter regarding these results will be sent to the patient by the facility within 30 days. Approximately 10% of breast cancers are not detected by mammography. A normal mammogram should not delay biopsy of a clinically suspicious abnormality. [id number] Electronically Signed: Dusty Bajwa MD at 13:07 EST , Service support , CC: Dr. Mela Albrecht MD; Dr. Sterling Coleman MD Wool Spotter: Signed [facility] ED PROVIDERon 07-19-2017 [facility] Coding OP/ED Report Normal [facility] 07-19-2017 [facility] HIM CAC Encounter Summary Report [facility] Microbiology: Culture, Urine on 04-16-2017 GE use only - for LinkLogic import when terms are not otherwise specified . Invalid Interpretation Code [facility] Vital Signs Date Time Vital Sign Value Performing Clinician Odalys rowley 11-26-2024 15:00-0400 Diastolic blood pressure 67 mm[Hg] Dr. Sterling Coleman MD Work Phone: [facility] 11-26-2024 15:00-0400 Heart rate 87 /min Dr. Sterling Coleman MD Work Phone: [facility] 11-26-2024 15:00-0400 Respiratory rate 24 /min Dr. Sterling Coleman MD Work Phone: [facility] 11-26-2024 15:00-0400 SaO2% (BldA) [Mass fraction] 94 % Dr. Sterling Coleman MD Work Phone: [facility] 11-26-2024 15:00-0400 Systolic blood pressure 149 mm[Hg] Dr. Sterling Coleman MD Work Phone: [facility] [facility] 11-26-2024 14:06-0400 Body temperature 98 [degF] Dr. Sterling Coleman MD Work Phone: [facility] 11-26-2024 11:52-0400 Body mass index (BMI) [Ratio] 37.8 kg/m2 Dr. Sterling Coleman MD Work Phone: [facility] 11-26-2024 11:34-0400 Body weight 90.[address] Sterling Coleman MD Work Phone: [facility] 11-26-2024 11:32-0400 Body height 154.[address] Sterling Coleman MD Work Phone: [facility] 09-20-2024 10:42-0400 Body height 154.9 cm Elly Donahue MD Work Phone: [facility] 09-20-2024 10:42-0400 Body mass index (BMI) [Ratio] 37.45 kg/m2 Elly Donahue MD Work Phone: [facility] 09-20-2024 10:42-0400 Body weight 89.9 kg Elly Donahue MD Work Phone: [facility] 09-20-2024 10:42-0400 Diastolic blood pressure 60 mm[Hg] Elly Donahue MD Work Phone: [facility] 09-20-2024 10:42-0400 Heart rate 81 /min Elly Donahue MD Work Phone: [facility] 09-20-2024 10:42-0400 Respiratory rate 14 /min Elly Donahue MD Work Phone: [facility] 09-20-2024 10:42-0400 SaO2% (BldA) [Mass fraction] 98 % Elly Donahue MD Work Phone: [facility] 09-20-2024 10:42-0400 Systolic blood pressure 138 mm[Hg] Elly Donahue MD Work Phone: [facility] 07-26-2024 13:13-0400 Body mass index (BMI) [Ratio] 37.41 kg/m2 Sterling Coleman MD Work Phone: [facility] 07-26-2024 13:13-0400 Body weight 89.81 kg Sterling Coleman MD Work Phone: [facility] 07-26-2024 13:13-0400 Diastolic blood pressure 60 mm[Hg] Sterling Coleman MD Work Phone: [facility] 07-26-2024 13:13-0400 Heart rate 87 /min Sterling Coleman MD Work Phone: [facility] 07-26-2024 13:13-0400 SaO2% (BldA) [Mass fraction] 98 % Sterling Coleman MD Work Phone: [facility] 07-26-2024 13:13-0400 Systolic blood pressure 122 mm[Hg] Sterling Coleman MD Work Phone: [facility] 06-01-2024 13:16-0500 Body mass index (BMI) [Ratio] 37.22 kg/m2 Elanie Suppan GAS SCRUBBER OPERATOR.PROPOSAL MANAGER Work Phone: [facility] 06-01-2024 13:16-0500 Body weight 89.36 kg Elaine Suppan GAS SCRUBBER OPERATOR.PROPOSAL MANAGER Work Phone: [facility] 06-01-2024 13:16-0500 Diastolic blood pressure 68 mm[Hg] Elaine Suppan GAS SCRUBBER OPERATOR.PROPOSAL MANAGER Work Phone: [facility] 06-01-2024 13:16-0500 Heart rate 94 /min Elaine Suppan GAS SCRUBBER OPERATOR.PROPOSAL MANAGER Work Phone: [facility] 06-01-2024 13:16-0500 SaO2% (BldA) [Mass fraction] 95 % Elaine Suppan GAS SCRUBBER OPERATOR.PROPOSAL MANAGER Work Phone: [facility] 06-01-2024 13:16-0500 Systolic blood pressure 122 mm[Hg] Elaine Suppan GAS SCRUBBER OPERATOR.PROPOSAL MANAGER Work Phone: [facility] 02-23-2024 11:29-0400 Body mass index (BMI) [Ratio] 37.41 kg/m2 Elly Donahue MD Work Phone: [facility] 02-23-2024 11:29-0400 Body temperature 98.1 [degF] Elly Donahue MD Work Phone: [facility] 02-23-2024 11:290400 Body weight 89.81 kg Elly Donahue MD Work Phone: [facility] 02-23-2024 11:290400 Diastolic blood pressure 77 mm[Hg] Elly Donahue MD Work Phone: [facility] 02-23-2024 11:29-0400 Heart rate 88 /min Elly Donahue MD Work Phone: [facility] 02-23-2024 11:29-0400 SaO2% (BldA) [Mass fraction] 100 % Elly Donahue MD Work Phone: [facility] 02-23-2024 11:290400 Systolic blood pressure 122 mm[Hg] Elly Donahue MD Work Phone: [facility] 09-10-2023 10:06-0400 Body height 154.9 cm Viktoria Gudino MD Work Phone: [facility] 09-10-2023 10:06-0400 Body mass index (BMI) [Ratio] 36.84 kg/m2 Viktoria Gudino MD Work Phone: [facility] 09-10-2023 10:06-0400 Body weight 88.45 kg Viktoria Gudino MD Work Phone: [facility] 09-10-2023 10:06-0400 Diastolic blood pressure 72 mm[Hg] Viktoria Gudino MD Work Phone: [facility] 09-10-2023 10:06-0400 Heart rate 84 /min Viktoria Gudino MD Work Phone: [facility] 09-10-2023 10:06-0400 SaO2% (BldA) [Mass fraction] 96 % Viktoria Gudino MD Work Phone: [facility] 09-10-2023 10:06-0400 Systolic blood pressure 124 mm[Hg] Viktoria Gudino MD Work Phone: [facility] 08-15-2023 11:10-0400 Body weight 89.36 kg Asmita Bhagat MD Work Phone: [facility] 08-15-2023 11:10-0400 Diastolic blood pressure 68 mm[Hg] Asmita Bhagat MD Work Phone: [facility] 08-15-2023 11:10-0400 Systolic blood pressure 122 mm[Hg] Amsita Bhagat MD Work Phone: [facility] 06-16-2023 16:27-0500 Body weight 89.81 kg Elly Donahue MD Work Phone: [facility] 06-16-2023 16:27-0500 Diastolic blood pressure 82 mm[Hg] Elly Donahue MD Work Phone: [facility] 06-16-2023 16:27-0500 Heart rate 85 /min Elly Donahue MD Work Phone: [facility] 06-16-2023 16:27-0500 Respiratory rate 16 /min Elly Donahue MD Work Phone: [facility] 06-16-2023 16:27-0500 SaO2% (BldA) [Mass fraction] 95 % Elly Donahue MD Work Phone: [facility] 06-16-2023 16:27-0500 Systolic blood pressure 128 mm[Hg] Elly Donahue MD Work Phone: [facility] 06-16-2023 10:40-0500 Diastolic blood pressure 82 mm[Hg] Elenita Wang GAS SCRUBBER OPERATOR.PROPOSAL MANAGER Work Phone: [facility] 06-16-2023 10:40-0500 Heart rate 85 /min Elenita Wang GAS SCRUBBER OPERATOR.PROPOSAL MANAGER Work Phone: [facility] 06-16-2023 10:40-0500 Respiratory rate 16 /min Elenita Wang GAS SCRUBBER OPERATOR.PROPOSAL MANAGER Work Phone: [facility] 06-16-2023 10:40-0500 SaO2% (BldA) [Mass fraction] 95 % Elenita Wang GAS SCRUBBER OPERATOR.PROPOSAL MANAGER Work Phone: [facility] 06-16-2023 10:40-0500 Systolic blood pressure 128 mm[Hg] Elenita Wang GAS SCRUBBER OPERATOR.PROPOSAL MANAGER Work Phone: [facility] 03-22-2023 14:58-0500 Body temperature 97.7 [degF] Lexie Emmanuel APRN.PROPOSAL MANAGER Work Phone: [facility] 03-22-2023 14:58-0500 Body weight 89.81 kg Lexie Emmanuel APRN.PROPOSAL MANAGER Work Phone: [facility] 03-22-2023 14:58-0500 Diastolic blood pressure 80 mm[Hg] Lexie Emmanuel APRN.PROPOSAL MANAGER Work Phone: [facility] 03-22-2023 14:58-0500 Heart rate 87 /min Lexie Emmanuel APRN.PROPOSAL MANAGER Work Phone: [facility] 03-22-2023 14:58-0500 Respiratory rate 18 /min Lexie Emmanuel APRN.PROPOSAL MANAGER Work Phone: [facility] 03-22-2023 14:58-0500 SaO2% (BldA) [Mass fraction] 96 % Lexie Emmanuel APRN.PROPOSAL MANAGER Work Phone: [facility] 03-22-2023 14:58-0500 Systolic blood pressure 142 mm[Hg] Lexie Emmanuel APRN.PROPOSAL MANAGER Work Phone: [facility] 07-29-2022 10:40-0400 Body weight 87.54 kg Elly Donahue MD Work Phone: [facility] 07-29-2022 10:40-0400 Diastolic blood pressure 70 mm[Hg] Elly Donahue MD Work Phone: [facility] 07-29-2022 10:40-0400 Heart rate 86 /min Elly Donahue MD Work Phone: [facility] 07-29-2022 10:40-0400 SaO2% (BldA) [Mass fraction] 94 % Elly Donahue MD Work Phone: [facility] 07-29-2022 10:40-0400 Systolic blood pressure 120 mm[Hg] Elly Donahue MD Work Phone: [facility] 03-26-2022 13:01-0500 Body height 154.9 cm Sterling Coleman MD Work Phone: [facility] 03-26-2022 13:01-0500 Body weight 88.72 kg Sterling Coleman MD Work Phone: [facility] 03-26-2022 13:01-0500 Diastolic blood pressure 86 mm[Hg] Sterling Coleman MD Work Phone: [facility] 03-26-2022 13:01-0500 Heart rate 82 /min Sterling Coleman MD Work Phone: [facility] 03-26-2022 13:01-0500 SaO2% (BldA) [Mass fraction] 97 % Sterling Coleman MD Work Phone: [facility] 03-26-2022 13:01-0500 Systolic blood pressure 138 mm[Hg] Sterling Coleman MD Work Phone: [facility] Encounters Encounter Date Encounter Type Care Provider Facility Start: 11-26-2024 Evaluation and management of inpatient Dr. Erika Tierney MD -Progressive Care Unit Work Phone: Start: 11-26-[address] Manjinder Coleman MD Work Phone: -[facility] Start: 11-01-2024 End: 11-01-2024 Telephone encounter Sterling Coleman MD Work Phone: [facility] Comment on above: billing issues from July 26/2025 visit Start: 09-20-2024 End: 09-20-2024 Patient encounter procedure Elly Donahue MD Work Phone: Cardiology Comment on above: Nonrheumatic aortic valve stenosis (Primary Dx); Hyperlipidemia, mixed Start: 09-20-2024 End: 09-20-2024 ambulatory ELLY DONAHUE Facility:[facility] Start: 08-30-2024 End: 09-02-2024 Telephone encounter Sterling Coleman MD Work Phone: [facility] Comment on above: Results Start: 08-05-2024 End: 10-05-2024 Follow-up encounter Sterling Coleman MD Work Phone: Pulmonology [facility] Start: 08-04-2024 End: 08-04-2024 ambulatory STERLING COLEMAN Facility:[facility] Start: 07-26-2024 End: 07-26-2024 ambulatory STERLING COLEMAN Facility:[facility] Start: 07-26-2024 End: 07-26-2024 Patient encounter procedure Sterling Coleman MD Work Phone: [facility] Comment on above: Medicare annual well ness visit, subsequent (Primary Dx); Cardiac arrhythmia, unspecified cardiac arrhythmia type; Obesity, Class II, BMI 35-39.9; Hyperlipidemia, mixed; Aortic ectasia (HCC); Nonrheumatic aortic valve stenosis; Psoriasis; Reactive depression; Encounter for screening examination for other mental health and behavioral disorders Start: 06-16-2024 End: 06-16-2024 ambulatory Taylor Mendiola MA [facility] [employer] Start: 06-16-2024 End: 06-16-2024 Patient encounter procedure [facility] Comment on above: Population Health Na vigation Outreach (BRENDON ROCHE [facility]) Start: 06-12-2024 ambulatory ASMITA Mckenzie ity:[facility] Start: 06-12-2024 End: 06-12-2024 Subsequent hospital visit by physician Screen/Diagnostic Mammo [facility] Work Phone: Mammography Comment on above: Abnormal mammogram [ R92.8] Start: 06-07-2024 End: 06-07-2024 Orders Only Asmita Bhagat MD Work Phone: Mammogram Comment on above: Abnormal mammogram ( Primary Dx) Encounter for screen ing mammogram for breast cancer [Z12.31] Start: 06-01-2024 End: 06-01-2024 ambulatory ELAINE A SUPPAN Facility:[facility] Start: 06-01-2024 End: 06-01-2024 Subsequent hospital visit by physician Xr [facility] Work Phone: Radiology Comment on above: Muscle strain of elida st wall, initial encounter [S29.011A] Start: 06-01-2024 End: 06-01-2024 Telephone encounter Elaine A Suppan GAS SCRUBBER OPERATOR.PROPOSAL MANAGER Work Phone: [facility] [place] Start: 06-01-2024 End: 06-01-2024 Office outpatient visit 15 minutes Elaine A Suppan GAS SCRUBBER OPERATOR.PROPOSAL MANAGER Work Phone: [facility] Comment on above: Muscle strain of elida st wall, initial encounter (Primary Dx); Dysuria Start: 06-01-2024 End: 06-01-2024 ambulatory ELAINE A SUPPAN Facility:[facility] Start: 03-29-2024 End: 03-29-2024 Refill Elly Donahue MD Work Phone: Cardiology Comment on above: Refill Request Start: 03-12-2024 ambulatory ELLY DONAHUE [facility] Start: 03-12-2024 End: 03-12-2024 Subsequent hospital visit by physician Ct [facility] Radiology Start: 03-01-2024 End: 03-01-2024 ambulatory STERLING COLEMAN Facility:[facility] Start: 02-23-2024 End: 02-23-2024 ambulatory ELLY DONAHUE Facility:[facility] Start: 02-23-2024 End: 02-23-2024 Patient encounter procedure Elly Donahue MD Work Phone: Cardiology Comment on above: Nonrheumatic aortic valve stenosis (Primary Dx); Hyperlipidemia, mixed; Aortic ectasia (HCC) Start: 02-09-2024 End: 02-09-2024 ambulatory ELLY DONAHUE Facility:[facility] Start: 12-25-2023 End: 12-26-2023 ambulatory STERLING COLEMAN Facility:[facility] Start: 12-05-2023 Refill Asmita bose MD Work Phone: OB/Gynecology Comment on above: Refill Request Start: 09-19-2023 [facility] Work Phone: Neurology Start: 09-16-2023 ambulatory Viktoria (Hist) Tracey Work Phone: OB/Gynecology Comment on above: Mounjaro prior autho rization Start: 09-16-2023 E-mail encounter fro m caregiver Viktoria (Hist) Tracey Work Phone: OB/Gynecology Start: 09-15-2023 Telephone encounter Viktoria Gudino MD Work Phone: OB/Gynecology Start: 09-10-2023 End: 09-10-2023 Patient encounter procedure Viktoria Gudino MD Work Phone: OB/Gynecology Comment on above: Malaise and fatigue (Primary Dx); Hypersomnia, unspecified; Hyperlipidemia, mixed; Arthralgia, unspecified joint; Snoring; Nonrheumatic aortic valve stenosis; Class 2 severe obesity with serious comorbidity and body mass index (BMI) of 36.0 to 36.9 in adult, unspecified obesity type (HCC); Body mass index (BMI) 36.0-36.9, adult; Screening cholesterol level; Screening for deficiency anemia; Screening for diabetes mellitus; Screening for metabolic disorder; Screening for thyroid disorder; Encounter for vitamin deficiency screening Start: 08-15-2023 End: 08-15-2023 Patient encounter procedure Asmita Bhagat MD Work Phone: OB/Gynecology Comment on above: Vaginal irritation ( Primary Dx); Lichen sclerosus et atrophicus Start: 06-16-2023 End: 06-16-2023 Patient encounter procedure Elly Donahue MD Work Phone: Cardiology Comment on above: Nonrheumatic aortic valve stenosis (Primary Dx); Hyperlipidemia, mixed Start: 06-16-2023 End: 02-12-2024 Office outpatient visit 15 minutes Elenita Wang APRN.PROPOSAL MANAGER Work Phone: [facility] [place] Comment on above: Function kidney decr eased (Primary Dx); Eczema, unspecified type; URI, acute Start: 05-21-2023 ambulatory Sterling Coleman MD Work Phone: Internal Medicine [facility] [place] Start: 03-22-2023 End: 03-22-2023 Patient encounter procedure Lexie Emmanuel APRN.PROPOSAL MANAGER Work Phone: [facility] Comment on above: Left lower quadrant abdominal pain (Primary Dx) Start: 03-20-2023 Telephone encounter Sterling Coleman MD Work Phone: [facility] Comment on above: Appointment Start: 03-20-2023 End: 03-20-2023 Subsequent hospital visit by physician Xr [facility] Work Phone: Radiology Comment on above: Left sided sciatica [M54.32] Start: 01-22-2023 Telephone encounter Tatum Dotson APRN.PROPOSAL MANAGER Work Phone: Cardiology Comment on above: Results Start: 01-21-2023 End: 01-21-2023 Patient encounter procedure Echocardiogram [facility] Work Phone: Cardiology Comment on above: Nonrheumatic aortic valve stenosis Start: 01-17-2023 Telephone encounter Tatum Dotson APRN.PROPOSAL MANAGER Work Phone: Cardiology Comment on above: Orders Start: 01-15-2023 ambulatory Elly carrillo MD Work Phone: Cardiology Comment on above: Shortness of breath Start: 11-18-2022 End: 11-18-2022 ambulatory Sterling Coleman MD Work Phone: [facility] [place] Comment on above: Hyperhidrosis (Prima ry Dx); Hyperlipidemia, mixed; Reactive depression Start: 11-18-2022 End: 11-18-2022 Telemedicine consultation with patient Sterling Coleman MD Work Phone: [facility] Start: 10-30-2022 Refill Sterling Coleman MD Work Phone: [facility] Comment on above: Refill Request Start: 07-29-2022 End: 07-29-2022 Patient encounter procedure Elly Donahue MD Work Phone: Cardiology Comment on above: Screening for ischem ic heart disease (Primary Dx); Nonrheumatic aortic valve stenosis; Hyperlipidemia, mixed Start: 04-20-2022 Telephone encounter M Malcolm Lin PA-C Work Phone: [facility] [place] Comment on above: Results Start: 04-02-2022 Telephone encounter Sterling Coleman MD Work Phone: [facility] [place] Comment on above: Results Start: 03-29-2022 Telephone encounter Sterling Coleman MD Work Phone: [facility] Comment on above: Results Start: 03-27-2022 ambulatory Sterling Coleman MD Work Phone: [facility] Comment on above: labs Start: 03-27-2022 E-mail encounter fro m caregiver Sterling Coleman MD Work Phone: [facility] Start: 03-26-2022 End: 03-26-2022 Patient encounter procedure Sterling Coleman MD Work Phone: [facility] Comment on above: Nonrheumatic aortic valve stenosis (Primary Dx); Encounter for immunization; Bilateral leg edema; Hyperlipidemia, mixed; Ectatic thoracic aorta (HCC); Psoriasis; Reactive depression; Adjustment disorder, unspecified type Start: 02-28-2022 Patient encounter status Sterling Coleman MD Work Phone: [facility] Start: 02-28-2022 Telephone encounter Sterling Coleman MD Work Phone: [address] [place] [address] Comment on above: Orders Start: 04-20-2021 End: 04-20-2021 Subsequent hospital visit by physician [facility] Work Phone: Radiology Comment on above: Right knee pain, uns pecified chronicity [M25.561] Start: 07-19-2017 End: 07-19-2017 [facility] Date Procedure Procedure Detail Performing Clinician Start: 11-26-2024 X-ray of chest, PA a nd lateral views Dr. Sterling Coleman MD Work Phone: Start: 11-26-[address] Sterling Coleman MD Work Phone: Start: 11-26-2024 CT angiography of he ad and neck Dr. Sterling Coleman MD Work Phone: Start: 11-26-2024 CT of head without contrast Dr. Sterling Coleman MD Work Phone: Start: 08-04-2024 Lipid 1996 panel - S jg or Plasma Sterling Coleman MD Work Phone: Start: 07-26-2024 Ecg routine ecg w/le ast 12 lds i&r only Sterling Coleman MD Work Phone: Start: 06-12-2024 Us breast uni real t barrett with image limited Asmita Bhagat MD Work Phone: Start: 06-12-2024 Digital breast tomosynthesis unilateral Asmita Bhagat MD Work Phone: Start: 06-07-2024 Screening digital br east tomosynthesis bi Asmita Bhagat MD Work Phone: Start: 06-01-2024 Radiologic exam ches t 2 views Elaine Trevino GAS SCRUBBER OPERATOR.PROPOSAL MANAGER Work Phone: Start: 06-01-2024 Urnls dip stick/tabl et rgnt auto w/o microscopy Elaine Trevino GAS SCRUBBER OPERATOR.PROPOSAL MANAGER Work Phone: Start: 03-12-2024 Ct angiography chest w/contrast/noncontrast Elly Donahue MD Work Phone: Start: 09-12-2023 Lipid 1996 panel - S jg or Plasma Viktoria Gudino MD Work Phone: Start: 03-20-2023 Radex spine lumbosac ral 2/3 views Sterling Coleman MD Work Phone: Start: 01-21-2023 Echo tthrc r-t 2d w/wom-mode compl spec&colr d Tatum E Nila GAS SCRUBBER OPERATOR.PROPOSAL MANAGER Work Phone: Start: 01-17-2023 Lipid 1996 panel - S jg or Plasma Echocardiogram [facility] Work Phone: Start: 04-18-2022 Mammography RAFY Lin PA-C Work Phone: Start: 03-26-2022 INFLUENZA SEASONAL QUADRIVALENT HIGH DOSE AGE 65+ Sterling Coleman MD Work Phone: Start: 03-26-2022 Lipid 1996 panel - S jg or Plasma Elly Donahue MD Work Phone: Start: 04-20-2021 Radiologic exam knee complete 4/more views Lexie Emmanuel APRN.PROPOSAL MANAGER Work Phone: Start: 03-19-2021 Mammography Sterling Cameron MD Work Phone: Start: 07-24-2018 Colonoscopy Sterling Cameron MD Work Phone: Plan of Treatment Date Care Activity Detail Author Start: 2030 RSV Vaccine (1 - 1-d ose 75+ series) RSV Vaccine (1 - 1-dose 75+ series) [facility] Start: 08-04-2029 Lipid panel Lipid Screening [facility] Start: 09-11-2028 Lipid panel Lipid Screening [facility] Start: 07-24-2028 Colonoscopy COLONOSCOPY [facility] Start: 07-24-2028 COLORECTAL CANCER SCREENING COLORECTAL CANCER SCREENING [facility] Start: 07-24-2028 Screening for malign ant neoplasm of colon [facility] Start: 01-18-2028 Lipid 1996 panel - S jg or Plasma Lipid Screening [facility] Start: 01-18-2028 Lipid panel Lipid Screening [facility] Start: 08-05-2027 Diabetes Screening Diabetes Screenin [facility] Start: 03-26-2027 Lipid 1996 panel - S jg or Plasma Lipid Screening [facility] Start: 03-26-2027 LIPID SCREEN LIPID SCREEN [facility] Start: 09-11-2026 Diabetes Screening Diabetes Screenin g [facility] Start: 08-29-2026 Urine microalbumin profile [facility] Start: 05-22-2026 Diabetes Screening Diabetes Screenin g [facility] Start: 03-16-2026 LIPID SCREEN LIPID SCREEN [facility] Start: 12-16-2025 Diabetes Screening Diabetes Screenin g [facility] Start: 08-01-2025 End: 08-01-2025 Patient encounter procedure 08/01/2025 10:00 AM EDT Office Visit [facility] [place] [address] [place] [address] Sterling Coleman MD [address] [place] [address] wellness [facility] Comment on above: wellness Start: 07-26-2025 Anxiety Screening Anxiety Screening [facility] Start: 07-26-2025 Covid-19 Vaccine () Covid-19 Vaccine () [facility] Comment on above: Postponed from 01/03 (Declined at this time) Start: 07-26-2025 Medicare Annual Well ness Visit Medicare Annual Wellness Visit [facility] Start: 06-12-2025 Pneumococcal Vaccine : 50+ (3 of 3 - PCV20 or PCV21) Pneumococcal Vaccine: 50+ (3 of 3 - PCV20 or PCV21) [facility] Start: 06-12-2025 Pneumococcal Vaccine : 65+ (3 - PPSV23 or PCV20) Pneumococcal Vaccine: 65+ (3 - PPSV23 or PCV20) [facility] Start: 06-12-2025 Pneumococcal Vaccine : 65+ (3 of 3 - PPSV23 or PCV20) Pneumococcal Vaccine: 65+ (3 of 3 - PPSV23 or PCV20) [facility] Start: 06-07-2025 Screening for malign ant neoplasm of breast Mammogram Screening [facility] Start: 05-16-2025 End: 05-16-2025 Patient encounter procedure 05/16/2025 10:40 AM EST Office Visit Cardiology [address] [place] [address] Elly Donahue MD [address] [place] [address] 6 month follow up Cardiology Comment on above: 6 month follow up Start: 03-26-2025 DIABETES SCREEN DIABETES SCREEN [facility] Start: 01-28-2025 End: 01-28-2025 Patient encounter procedure 01/28/2025 9:40 AM EDT Office Visit Cardiology [address] [place] [address] Nonrheumatic aortic valve stenosis [I35.0] Cardiology Comment on above: Nonrheumatic aortic valve stenosis [I35.0] Start: 01-03-2025 End: 09-20-2025 Echocardiography ECHO Cardiology Routine Nonrheumatic aortic valve stenosis Expected: 01/03/2025, Expires: 09/20/2025 [facility] Work Phone: Comment on above: Expected: 01/03/2025 , Expires: 09/20/2025 Start: 01-03-2025 Influenza vaccination Influenz a Vaccine (Season Ended) [facility] Start: 11-26-2024 Admission procedure [facility] Start: 11-26-2024 Hospital admission, emergency, from emergency room, medical nature [facility] Start: 11-26-2024 Oxygen therapy [facility] Start: 11-26-2024 [facility] Start: 11-16-2024 Pneumococcal Vaccine : 65+ (3 - PPSV23 or PCV20) Pneumococcal Vaccine: 65+ (3 - PPSV23 or PCV20) [facility] Start: 11-16-2024 PNEUMOCOCCAL: 65+ (#3) PNEUMOCOCCAL: 65+ (#3) [facility] Start: 11-16-2024 PNEUMOCOCCAL: 65+ (3 - PPSV23 if available, else PCV20) PNEUMOCOCCAL: 65+ (3 - PPSV23 if available, else PCV20) [facility] Start: 11-16-2024 PNEUMOCOCCAL: 65+ (3 - PPSV23 or PCV20) PNEUMOCOCCAL: 65+ (3 - PPSV23 or PCV20) [facility] Start: 11-01-2024 Influenza vaccination Influenza Vacc ine (#1) [facility] Comment on above: Postponed from 01/03 (Declined at this time) Start: 09-20-2024 End: 09-20-2024 Patient encounter procedure Cardiology Comment on above: Follow up Start: 07-26-2024 End: 10-25-2024 CBC W Auto Differential panel - Blood COMPLETE BLOOD COUNT AND DIFFERENTIAL Lab Routine Hyperlipidemia, mixed Cardiac arrhythmia, unspecified cardiac arrhythmia type Expected: 07/26/2024, Expires: 10/25/2024 [facility] Comment on above: Expected: 07/26/2024 , Expires: 10/25/2024 Start: 07-26-2024 End: 10-25-2024 Comprehensive metabolic 2000 panel - Serum or Plasma COMPREHENSIVE METABOLIC PANEL Lab Routine Hyperlipidemia, mixed Cardiac arrhythmia, unspecified cardiac arrhythmia type Expected: 07/26/2024, Expires: 10/25/2024 [facility] Comment on above: Expected: 07/26/2024 , Expires: 10/25/2024 Start: 07-26-2024 End: 10-25-2024 Lipid 1996 panel - Serum or Plasma LIPID PANEL, FASTING Lab Routine Hyperlipidemia, mixed Expected: 07/26/2024, Expires: 10/25/2024 [facility] Comment on above: Expected: 07/26/2024 , Expires: 10/25/2024 Start: 07-26-2024 End: 10-25-2024 Thyrotropin [Units/volume] in Serum or Plasma THYROID STIMULATING HORMONE Lab Routine Hyperlipidemia, mixed Cardiac arrhythmia, unspecified cardiac arrhythmia type Expected: 07/26/2024, Expires: 10/25/2024 [facility] Comment on above: Expected: 07/26/2024 , Expires: 10/25/2024 Start: 07-26-2024 End: 07-26-2024 Patient encounter procedure 07/26/2024 1:00 PM EDT Office Visit Family [facility] [place] [address] [facility] [place] [id number] Sterling Coleman MD [address] [facility] [place] [id number] MEDICARE WELLNESS Family [facility] [place] Comment on above: MEDICARE WELLNESS Start: 06-15-2024 End: 06-15-2024 Patient encounter procedure 06/15/2024 3:20 PM EST Office Visit Family [facility] [place] [address] [facility] [place] [id number] Elaine Trevino APRN.PROPOSAL MANAGER [address] [facility] [place] [id number] 2 week chest pain f/u [facility] [place] Comment on above: 2 week chest pain f/ u Start: 06-07-2024 End: 06-07-2024 Patient encounter procedure 06/07/2024 8:30 AM EST Appointment Mammogram [address] [place] [address] MAMMO W RYAN Mammogram Comment on above: MAMMO W RYAN Start: 05-31-2024 End: 05-31-2024 Patient encounter procedure 05/31/2024 11:10 AM EST Office Visit OB/Gynecology [address] [place] [address] Asmita Bhagat MD [address] [place] [address] F/ u Lichen Sclerosis OB/Gynecology Comment on above: F/ u Lichen Sclerosi s Start: 05-31-2024 End: 05-31-2024 Patient encounter procedure 05/31/2024 9:10 AM EST Appointment Mammogram [address] [place] [address] MAMMO W RYAN Mammogram Comment on above: MAMMO W RYAN Start: 05-22-2024 Screening for malign ant neoplasm of breast Mammogram Screening [facility] Start: 05-05-2024 Advance Directive Discussion Advance Directive Discussion [facility] Start: 04-30-2024 Screening for malign ant neoplasm of colon Fecal Occult Blood [facility] Start: 03-16-2024 DIABETES SCREEN DIABETES SCREEN [facility] Start: 03-08-2024 End: 03-08-2024 Patient encounter procedure 03/08/2024 3:00 PM EST Appointment Cat Scan [address] [place] [address] Aortic ectasia (HCC) [I77.819] Cat Scan Comment on above: Aortic ectasia (HCC) [I77.819] Start: 03-01-2024 End: 03-01-2024 ambulatory 03/01/2024 9:00 AM EDT Results Only [place] [facility] Draw Station [address] [place] [address] [facility] Start: 02-23-2024 End: 05-24-2024 CREATININE BLD CREATININE BLD Lab Routine Aortic ectasia (HCC) Expected: 02/23/2024, Expires: 05/24/2024 [facility] Comment on above: Expected: 02/23/2024 , Expires: 05/24/2024 Start: 02-23-2024 End: 02-23-2024 Patient encounter procedure 02/23/2024 11:00 AM EDT Office Visit Cardiology [address] [place] [id number] Elly Donahue MD [address] [place], [place] [id number] Follow up Cardiology Comment on above: Follow up Start: 02-09-2024 End: 02-09-2024 Patient encounter procedure 02/09/2024 1:00 PM EDT Office Visit Cardiology [address] [place], [place] [id number] echo Cardiology Comment on above: echo Start: 01-26-2024 End: 06-16-2024 Echocardiography ECHO Cardiology Routine Nonrheumatic aortic valve stenosis Expected: 01/26/2024, Expires: 06/16/2024 [facility] Work Phone: Comment on above: Expected: 01/26/2024 , Expires: 06/16/2024 Start: 01-04-2024 Covid-19 Vaccine ( season) Covid-19 Vaccine () [facility] Start: 01-04-2024 Covid-19 Vaccine ( season) Covid-19 Vaccine ( season) [facility] Start: 01-04-2024 Influenza vaccination [facility] Start: 12-12-2023 End: 12-12-2023 Patient encounter procedure 12/12/2023 10:00 AM EDT Office Visit Neurology [address] [place] [address] [employer] - Redeployment confirmed 10/29 [facility] Comment on above: [employer] - Redeployment confirmed 10/29 [facility] Start: 10-20-2023 End: 10-20-2023 Patient encounter procedure 10/20/2023 8:10 AM EDT Office Visit OB/Gynecology [address] [place] [address] Viktoria Marquez MD [address] [place] [address] weight management follow up OB/Gynecology Comment on above: weight management fo llow up Start: 09-26-2023 End: 09-26-2023 Patient encounter procedure 09/26/2023 10:00 AM EDT Office Visit Neurology [address] [place] [address] [facility] Neurology Comment on above: hsat Start: 09-12-2023 End: 09-12-2023 ambulatory 09/12/2023 9:15 AM EDT Results Only [place] [facility] Draw Station [address] [place] [address] Encounter for vitamin deficiency screening [Z13.21] [facility] Comment on above: Encounter for vitami n deficiency screening [Z13.21] Start: 09-10-2023 End: 12-10-2023 25-hydroxyvitamin D3 [Mass/volume] in Serum or Plasma VITAMIN D 25 HYDROXY Lab Routine Encounter for vitamin deficiency screening Body mass index (BMI) 36.0-36.9, adult Expected: 09/10/2023, Expires: 12/10/2023 [facility] Work Phone: Comment on above: Expected: 09/10/2023 , Expires: 12/10/2023 Start: 09-10-2023 End: 12-10-2023 CBC panel - Blood by Automated count COMPLETE BLOOD COUNT Lab Routine Screening for deficiency anemia Expected: 09/10/2023, Expires: 12/10/2023 [facility] Comment on above: Expected: 09/10/2023 , Expires: 12/10/2023 Start: 09-10-2023 End: 12-10-2023 Comprehensive metabolic 2000 panel - Serum or Plasma COMPREHENSIVE METABOLIC PANEL Lab Routine Screening for diabetes mellitus Screening for metabolic disorder Expected: 09/10/2023, Expires: 12/10/2023 [facility] Comment on above: Expected: 09/10/2023 , Expires: 12/10/2023 Start: 09-10-2023 End: 12-10-2023 Hemoglobin A1c in Blood HEMOGLOBIN A1C Lab Routine Screening for diabetes mellitus Expected: 09/10/2023, Expires: 12/10/2023 [facility] Comment on above: Expected: 09/10/2023 , Expires: 12/10/2023 Start: 09-10-2023 End: 12-10-2023 Insulin [Units/volume] in Serum or Plasma INSULIN ASSAY BLOOD Lab Routine Screening for diabetes mellitus Expected: 09/10/2023, Expires: 12/10/2023 [facility] Comment on above: Expected: 09/10/2023 , Expires: 12/10/2023 Start: 09-10-2023 End: 12-10-2023 Lipid 1996 panel - Serum or Plasma LIPID PANEL BASIC Lab Routine Screening cholesterol level Expected: 09/10/2023, Expires: 12/10/2023 [facility] Comment on above: Expected: 09/10/2023 , Expires: 12/10/2023 Start: 09-10-2023 End: 12-10-2023 Thyrotropin [Units/volume] in Serum or Plasma THYROID STIMULATING HORMONE Lab Routine Screening for thyroid disorder Expected: 09/10/2023, Expires: 12/10/2023 [facility] Comment on above: Expected: 09/10/2023 , Expires: 12/10/2023 Start: 05-21-2023 End: 07-21-2023 Lipid 1996 panel - Serum or Plasma LIPID PANEL BASIC Lab Routine Hyperlipidemia, mixed Expected: 05/21/2023, Expires: 07/21/2023 [facility] Work Phone: Comment on above: Expected: 05/21/2023 , Expires: 07/21/2023 Start: 05-05-2023 Advance Directive Discussion Advance Directive Discussion [facility] Start: 04-18-2023 Mammography [facility] Start: 01-17-2023 End: 03-19-2023 Natriuretic peptide.B prohormone N-Terminal [Mass/volume] in Serum or Plasma [facility] Work Phone: Comment on above: Expected: 01/17/2023 , Expires: 03/19/2023 Start: 01-03-2023 Covid-19 Vaccine () Covid-19 Vaccine () [facility] Start: 01-03-2023 Influenza vaccination [facility] Start: 11-18-2022 End: 01-18-2023 CBC W Auto Differential panel - Blood CBC + DIFF Lab Routine Reactive depression Expected: 11/18/2022, Expires: 01/18/2023 [facility] Work Phone: Comment on above: Expected: 11/18/2022 , Expires: 01/18/2023 Start: 11-18-2022 End: 01-18-2023 Comprehensive metabolic 2000 panel - Serum or Plasma COMP METABOLIC PANEL Lab Routine Reactive depression Expected: 11/18/2022, Expires: 01/18/2023 [facility] Work Phone: Comment on above: Expected: 11/18/2022 , Expires: 01/18/2023 Start: 11-18-2022 End: 01-18-2023 T4/FTI/T4U T4/FTI/T4U Lab Routine Hyperhidrosis Expected: 11/18/2022, Expires: 01/18/2023 [facility] Work Phone: Comment on above: Expected: 11/18/2022 , Expires: 01/18/2023 Start: 11-18-2022 End: 01-18-2023 Thyrotropin [Units/volume] in Serum or Plasma TSH BLD Lab Routine Hyperhidrosis Expected: 11/18/2022, Expires: 01/18/2023 [facility] Work Phone: Comment on above: Expected: 11/18/2022 , Expires: 01/18/2023 Start: 06-29-2022 End: 08-29-2022 Lipid 1996 panel - Serum or Plasma LIPID PANEL BASIC Lab Routine Hyperlipidemia, mixed Expected: 06/29/2022, Expires: 08/29/2022 [facility] Work Phone: Comment on above: Expected: 06/29/2022 , Expires: 08/29/2022 Start: 05-05-2022 ADVANCE DIRECTIVE DISCUSSION ADVANCE DIRECTIVE DISCUSSION [facility] Start: 03-19-2022 Mammography MAMMOGRAM [facility] Start: 03-04-2022 End: 03-04-2023 CBC W Auto Differential panel - Blood CBC + DIFF Lab Routine Hyperlipidemia, mixed Expected: 03/04/2022, Expires: 03/04/2023 [facility] Work Phone: Comment on above: Expected: 03/04/2022 , Expires: 03/04/2023 Start: 03-04-2022 End: 03-04-2023 Comprehensive metabolic 2000 panel - Serum or Plasma COMP METABOLIC PANEL Lab Routine Hyperlipidemia, mixed Expected: 03/04/2022, Expires: 03/04/2023 [facility] Work Phone: Comment on above: Expected: 03/04/2022 , Expires: 03/04/2023 Start: 03-04-2022 End: 03-04-2023 Lipid 1996 panel - Serum or Plasma LIPID PANEL BASIC Lab Routine Hyperlipidemia, mixed Expected: 03/04/2022, Expires: 03/04/2023 [facility] Work Phone: Comment on above: Expected: 03/04/2022 , Expires: 03/04/2023 Start: 01-03-2022 Influenza vaccination INFLUENZA (#1) [facility] Start: 05-05-2021 ADVANCE DIRECTIVE DISCUSSION ADVANCE DIRECTIVE DISCUSSION [facility] Start: 04-17-2021 COVID-19 VACCINE (4 - Booster for Pfizer series) COVID-19 VACCINE (4 - Booster for Pfizer series) [facility] Start: 04-17-2021 COVID-19 VACCINE (4 - Pfizer series) COVID-19 VACCINE (4 - Pfizer series) [facility] Start: 01-24-2020 BONE DENSITY BONE DENSITY [facility] Start: 2015 RSV Vaccine (1 - 1-d ose 60+ series) RSV Vaccine (1 - 1-dose 60+ series) [facility] Start: 01-24-2000 COLOGUARD (FIT-DNA) COLOGUARD (FIT-D NA) [facility] Start: 01-24-[address] COLONOGRAPHY [facility] Start: 01-24-2000 FECAL OCCULT BLOOD FECAL OCCULT BLOO D [facility] Start: 01-24-2000 Screening for malign ant neoplasm of colon [facility] Start: 01-24-2000 SIGMOIDOSCOPY SIGMOIDOSCOPY [facility] Start: 1973 Anxiety Screening Anxiety Screening [facility] End: 03-24-2025 CTA Chest vessels W contrast IV CTA CHEST (NONGATED) W IVCON Radiology Routine Aortic ectasia (HCC) 1 Occurrences starting 02/23/2024 until 03/24/2025 [facility] Work Phone: Comment on above: 1 Occurrences starti ng 02/23/2024 until 03/24/2025 End: 05-20-2023 Diagnostic mammography computer-aided detcj uni RADHA DIAGNOSTIC RT Radiology Routine Inconclusive mammography 1 Occurrences starting 04/20/2022 until 05/20/2023 [facility] Work Phone: Comment on above: 1 Occurrences starti ng 04/20/2022 until 05/20/2023 End: 03-30-2023 Dxa bone density study 1/> sites axial skel DXA-AXIAL SKELETON Radiology Routine Screening for osteoporosis Asymptomatic menopause 1 Occurrences starting 03/01/2022 until 03/30/2023 [facility] Work Phone: Comment on above: 1 Occurrences starti ng 03/01/2022 until 03/30/2023 End: 07-25-2023 ECG COMPLETE ECG COMPLETE ECG Routine Screening for ischemic heart disease 1 Occurrences starting 07/24/2022 until 07/25/2023 [facility] Work Phone: Comment on above: 1 Occurrences starti ng 07/24/2022 until 07/25/2023 ECG COMPLETE ECG COMPLETE ECG Routine Cardiac arrhythmia, unspecified cardiac arrhythmia type 07/26/2024 1:51 PM EDT [facility] End: 03-26-2023 Echocardiography ECHO Cardiology Routine Ectatic thoracic aorta (HCC) Nonrheumatic aortic valve stenosis 1 Occurrences starting 03/26/2022 until 03/26/2023 [facility] Work Phone: Comment on above: 1 Occurrences starti ng 03/26/2022 until 03/26/2023 End: 01-18-2024 Echocardiography ECHO Cardiology Routine Nonrheumatic aortic valve stenosis 1 Occurrences starting 01/17/2023 until 01/18/2024 [facility] Work Phone: Comment on above: 1 Occurrences starti ng 01/17/2023 until 01/18/2024 End: 09-09-2024 HOME SLEEP APNEA TEST (HSAT) HOME SLEEP APNEA TEST (HSAT) Procedures Routine Malaise and fatigue Snoring Class 2 severe obesity with serious comorbidity and body mass index (BMI) of 36.0 to 36.9 in adult, unspecified obesity type (HCC) Hypersomnia, unspecified 1 Occurrences starting 09/10/2023 until 09/09/2024 [facility] Comment on above: 1 Occurrences starti ng 09/10/2023 until 09/09/2024 End: 03-30-2023 RADHA SCREENING W RYAN RADHA SCREENING W RYAN Radiology Routine Screening for osteoporosis Asymptomatic menopause Encounter for screening for osteoporosis Encounter for screening mammogram for malignant neoplasm of breast 1 Occurrences starting 03/01/2022 until 03/30/2023 [facility] Work Phone: Comment on above: 1 Occurrences starti ng 03/01/2022 until 03/30/2023 End: 07-07-2025 MG Breast - left Diagnostic for implant RADHA DIAGNOSTIC LEFT Radiology Routine Abnormal mammogram 1 Occurrences starting 06/07/2024 until 07/07/2025 [facility] Work Phone: Comment on above: 1 Occurrences starti ng 06/07/2024 until 07/07/2025 OUTSIDE VENDOR CARDI AC OUTPATIENT EXTENDED RHYTHM RECORDING (WITHOUT TELEMETRY) OUTSIDE VENDOR CARDIAC OUTPATIENT EXTENDED RHYTHM RECORDING (WITHOUT TELEMETRY) Holter Routine Cardiac arrhythmia, unspecified cardiac arrhythmia type Ordered: 07/26/2024 [facility] Work Phone: Comment on above: Ordered: 07/26/2024 Troponin T.cardiac [Mass/volume] in Serum or Plasma by High sensitivity method [facility] UA DIP, URINE (POC) UA DIP, URIN E (POC) Lab Routine Dysuria Ordered: 06/01/2024 [facility] Comment on above: Ordered: 06/01/2024 Urinalysis complete panel - Urine URINALYSIS, WITH MICROSCOPIC Lab Routine Dysuria Ordered: 06/01/2024 [facility] Work Phone: Comment on above: Ordered: 06/01/2024 End: 07-07-2025 US Breast - left limited US BREAST LTD LEFT Radiology Routine Abnormal mammogram 1 Occurrences starting 06/07/2024 until 07/07/2025 [facility] Comment on above: 1 Occurrences starti ng 06/07/2024 until 07/07/2025 End: 05-20-2023 Us breast uni real time with image limited US BREAST LTD RT Radiology Routine Inconclusive mammography 1 Occurrences starting 04/20/2022 until 05/20/2023 [facility] Work Phone: Comment on above: 1 Occurrences starti ng 04/20/2022 until 05/20/2023 [facility] Immunizations Immunization Date Immunization Notes Care Provider [facility] 03-26-2022 influenza, high-dose , quadrivalent vaccine (FLUZONE HIGH DOSE QUADRIVALENT) Sterling Coleman MD Work Phone: [facility] 03-26-2022 influenza virus vacc ine, unspecified formulation Elly Donahue MD Work Phone: [facility] 03-15-2021 influenza, high-dose , quadrivalent vaccine (FLUZONE HIGH DOSE QUADRIVALENT) Sterling Coleman MD Work Phone: [facility] 02-20-2021 COVID-19 original vaccine, age 12+ yr, monovalent (QuantaSol-sabio labsNTEd4U - PURPLE TOP) Sterling Coleman MD Work Phone: [facility] 08-01-2020 Covid (Pfizer) Dr. Sterling winter MD Work Phone: [facility] 07-11-2020 Covid (Pfizer) Dr. Sterling winter MD Work Phone: [facility] 06-12-2020 pneumococcal conjuga te vaccine, 13 valent Sterling Coleman MD Work Phone: [facility] 06-12-2020 zoster vaccine recombinant Sterling Coleman MD Work Phone: [facility] 01-03-2020 influenza, injectabl e, quadrivalent, preservative free Sterling Coleman MD Work Phone: [facility] 01-03-2020 influenza, seasonal, injectable Sterling Coleman MD Work Phone: [facility] Work Phone: 01-03-2020 zoster vaccine recombinant Sterling Coleman MD Work Phone: [facility] Work Phone: 11-17-2019 pneumococcal polysaccharide vaccine, 23 valent Sterling Coleman MD Work Phone: [facility] 11-17-2019 zoster vaccine recombinant Sterling Coleman MD Work Phone: [facility] 12-28-2016 influenza, injectabl e, quadrivalent, contains preservative Sterling Coleman MD Work Phone: [facility] 12-28-2016 influenza, injectabl e, quadrivalent, preservative free Sterling Coleman MD Work Phone: [facility] 12-28-2016 zoster vaccine, live Sterling Coleman MD Work Phone: [facility] 08-29-2016 tetanus toxoid, redu jason diphtheria toxoid, and acellular pertussis vaccine, adsorbed Sterling Coleman MD Work Phone: [facility] Work Phone: 03-23-2015 influenza, seasonal, injectable Sterling Coleman MD Work Phone: [facility] 09-07-2008 tetanus toxoid, redu jason diphtheria toxoid, and acellular pertussis vaccine, adsorbed Sterling Coleman MD Work Phone: [facility] Work Phone: Payers Date Payer Category Payer Medicare [id number] 2020 Private Health Insurance MMO MED ICARE SUPPLEMENT [id number] 2020 Unknown MMO MMO MEDICARE SUPPLEMENT [id number] 2020-Present [phone] [address] [place] [address] Indemnity [id number] 2020 Medicare [id number] 2020 Unknown [id number] Social History Date Type Detail Facility Start: 10-17-2015 End: 11-26-2024 Tobacco smoking status NHIS Never smoked tobacco [facility] Start: 10-17-2015 End: 03-26-2022 Tobacco use and exposure Smokeless tobacco non-user [facility] Start: 04-20-2021 End: 09-20-2024 Alcohol intake Current drinker of alcohol (finding) [facility] Start: 01-09-2017 Alcohol Comment [facility] Start: 1955 Sex Assigned At Female [facility] Start: 03-21-2021 End: 03-26-2022 Exposure to SARS-CoV-2 (event) Not sure [facility] Start: 11-18-2022 End: 07-26-2024 History of Social function [facility] Start: 11-18-2022 End: 07-26-2024 Social connection and isolation panel [facility] Do you belong to any clubs or organizations such as adventism groups, unions, fraternal or athletic groups, or school groups? No [facility] Are you now , , , , never or living with a partner? [facility] How often to you hav e a drink containing alcohol? Monthly or less [facility] How many standard dr inks containing alcohol do you have on a typical day? 1 or 2 [facility] How often do you hav e 6 or more drinks on 1 occasion? Never [facility] How hard is it for y ou to pay for the very basics like food, housing, medical care, and heating Not hard at all [facility] Do you feel stress - tense, restless, nervous, or anxious, or unable to sleep at night because your mind is troubled all the time - these days [OSQ] To some extent [facility] (I/We) worried wheth er (my/our) food would run out before (I/we) got money to buy more. Never true [facility] Start: 05-10-2021 Gender identity Identifies as female gender (finding) [facility] Do you feel stress - tense, restless, nervous, or anxious, or unable to sleep at night because your mind is troubled all the time - these days [OSQ] Rather much [facility] Functional Status Date Assessment Result Facility 07-26-2024 Total score [AUDIT-C] 1 07/27/19 11:10 AM EDT UserKelly [facility] 07-26-2024 Within the last year , have you been humiliated or emotionally abused in other ways by your partner or ex-partner? No 07/26/2024 11:10 AM EDT [facility] 07-26-2024 Within the last year , have you been afraid of your partner or ex-partner? No 07/26/2024 11:10 AM EDT [facility] 07-26-2024 Within the last year , have you been raped or forced to have any kind of sexual activity by your partner or ex-partner? No 07/26/2024 11:10 AM EDT [facility] 07-26-2024 Within the last year , have you been kicked, hit, slapped, or otherwise physically hurt by your partner or ex-partner? No 07/26/2024 11:10 AM EDT User, Mychart No [facility] 07-26-2024 How often to you hav e a drink containing alcohol? Monthly or less 07/26/2024 11:10 AM EDT User, Mychart Monthly or less [facility] 07-26-[address] inks containing alcohol do you have on a typical day? 1 or 2 07/26/2024 11:10 AM EDT User, Mychart 1 or 2 [facility] 07-26-2024 How often do you hav e 6 or more drinks on 1 occasion? Never 07/26/2024 11:10 AM EDT User, Mychart Never [facility] Mental Status Date Assessment Result Facility 11-26-2024 Cognitive function Voice/Name [facility] Work Phone: Clinical Notes 01-09-2017 to 11-26-2024 Note Date & Type Note Facility 11-26-2024 Radiology Diagnostic study note [facility] Imaging Services [address] [place] [address] Chest PA and Lateral MR#: [id number] Acct: [id number] Name: MECHE FOUNTAIN Rep #: [id number] : 1955 F 69 From: Melia Poe MD PCP: Dr. Sterling Coleman MD Status: REG E R Study:Chest PA and Lateral Date of Exam: 11/26/24 Exam# [id number] Ordering Dr: Cristo Amaro DO PROCEDURE: CHEST PA AND LATERAL 11/26/2024 REASON FOR EXAM: DIZZY TECHNIQUE: CHEST PA AND LATERAL COMPARISON: None FINDINGS: Hardware: EKG leads are present. Heart: Normal Mediastinum: Normal Lungs: Clear Bones: Degenerative changes are identified within the thoracic spine. RAD/Chest PA and Lateral IMPRESSION: No acute abnormality Reading Location: [id number] CC: Dr. Sebastian Amaro DO; Dr. Sterling Coleman MD ~ [employer]: Signed [facility] 11-26-2024 Discharge summary [facility] 11-26-2024 Discharge summary Note Date/Time November 26, 2024 2:57pm [facility] Medical Records Department [address] [place] [address] Emergency Department Summary 11/26/24 MR#: [id number] Acct: [id number] Name: MECHE FOUNTAIN Rep #:[id number] : [id number] 69 From: Sebastian Amaro DO PCP: Dr. Sterling Coleman MD Status:REG E R Location: ED HPI History of Present Illness Chief Complaint: Dizziness Narrative Narrative: Patient is a 69-year-old female with past medical history of aortic stenosis, vertigo who presents to the emergency department the chief complaint of dizziness nausea and not feeling well. Patient states that around 10:40 AM thismorning she was at [employer] and noted that while in the store she became lightheaded and dizzy feeling very unwell. She states that she left the store and noted that by the time she was out to her car she was having to hold onto the car to move around. States that she had her granddaughter with her and attempted to call her to come get them as she felt unwell to drive. Patient notes that she does have a history of vertigo however she states that this feels different than her vertigo and she states that she has never gotten nauseous and had vomiting with her vertigo previously. Patient denies any bloodthinning medications PFSH PFS Medical History Aortic stenosis Vertigo Stress incontinence in female Lichen sclerosus Heart murmur Home Medications ?Medication ?Instructions ?Recorded ?Last Taken ?Type aspirin 81 mg tablet,delayed 81 mg PO DAILY 11/26/24 U nknown History release rosuvastatin 10 mg tablet 10 mg PO QHS 11/26/24 Unknow n History Allergy/AdvReac Type Severity Reaction Status Date / Time penicillin G Allergy Mild hives Verified 11/26/24 11:34 Family History Grandmother CAD (coronary artery disease) Father CAD (coronary artery disease) Grandmother Diabetes Surgical History History of section Social History Smoking Status: Never smoker alcohol intake: current details: social substance use type: does not use caffeine: Yes what type of physical activity do you participate in: walking seatbelt use: always do you feel safe at home: Yes additional social history: Samson- both are retired ROS ROS ED ROS Narrative Constitutional: Complains dizziness as noted above as well as lightheadedness denies any fevers or chills Eyes: Denies change in vision double vision blurry vision Cardiovascular: Denies chest pain Respiratory: Denies coughing wheezing shortness of breath Abdomen: Complains of nausea and vomiting as noted above denies abdominal pain : Denies any urinary symptoms Neurological: Denies any numbness, wheeze, tingling Musculoskeletal: Denies back pain Skin: Denies any rashes or lesions EXAM Physical Exam Narrative Exam Narrative: General: Patient was lying in bed did appear to be nauseous with emesis bag in hand Head: Atraumatic, normocephalic Eyes: PERRL bilaterally, EOMI bilaterally, no conjunctival injection noted Neck: Soft, supple, trachea midline Cardiovascular: Regular rate and rhythm no murmurs gallops rubs noted Respiratory: Clear to auscultation bilaterally no rales rhonchi or wheezes noted Abdomen: Soft, nondistended, nontender to palpation Extremities: +5/5 strength noted in the bilateral upper and lower extremities, radial pulses +2/4 in the bilateral extremities, no pedal edema exam Neurological: Patient follow commands knew that she was at [facility] the year is 2024. NIH of 0 GCS 15 Skin: Warm, dry, tact no rashes lesions noted Const Vital Signs: 11/26/24 11:32 11/26/24 11:52 11/26/24 11:52 Temperature 98 F Temperature Source Oral Pulse Rate 82 78 Pulse Rate [Lying] Pulse Rate [Sitting (for 1 minute prior to obtaining)] Pulse Rate [Standing (for 1 minute prior to obtaining)] Respiratory Rate 18 15 Blood Pressure 149/63 H 135/78 H Blood Pressure [Lying] Blood Pressure [Sitting (for 1 minute prior to obtaining)] Blood Pressure [Standing (for 1 minute prior to obtaining)] Blood Pressure Mean 91 97 Blood Pressure Mean [Lying] Blood Pressure Mean [Sitting (for 1 minute prior to obtaining)] Blood Pressure Mean [Standing (for 1 minute prior to obtaining)] Pulse Ox 95 97 98 Oxygen Delivery Method Room Air Room Air Room Air 11/26/24 12:22 11/26/24 12:30 11/26/24 12:49 Temperature Temperature Source Pulse Rate 84 77 Pulse Rate [Lying] 82 Pulse Rate [Sitting (for 1 minute prior to obtaining)] 81 Pulse Rate [Standing (for 1 minute prior to obtaining)] 80 Respiratory Rate 19 H 15 Blood Pressure 157/65 H 143/75 H Blood Pressure [Lying] 143/75 H Blood Pressure [Sitting (for 1 minute prior to obtaining)] 168/90 H Blood Pressure [Standing (for 1 minute prior to obtaining)] 160/89 H Blood Pressure Mean 95 97 Blood Pressure Mean [Lying] 97 Blood Pressure Mean [Sitting (for 1 minute prior to obtaining)] 116 Blood Pressure Mean [Standing (for 1 minute prior to obtaining)] 112 Pulse Ox 98 95 Oxygen Delivery Method Room Air Room Air 11/26/24 13:00 11/26/24 13:00 11/26/24 13:30 Temperature Temperature Source Pulse Rate 79 77 77 Pulse Rate [Lying] Pulse Rate [Sitting (for 1 minute prior to obtaining)] Pulse Rate [Standing (for 1 minute prior to obtaining)] Respiratory Rate 19 H 14 19 H Blood Pressure 122/58 H 122/58 H 136/105 H Blood Pressure [Lying] Blood Pressure [Sitting (for 1 minute prior to obtaining)] Blood Pressure [Standing (for 1 minute prior to obtaining)] Blood Pressure Mean 79 79 115 Blood Pressure Mean [Lying] Blood Pressure Mean [Sitting (for 1 minute prior to obtaining)] Blood Pressure Mean [Standing (for 1 minute prior to obtaining)] Pulse Ox 98 99 96 Oxygen Delivery Method Room Air Room Air 11/26/24 14:06 Temperature 98 F Temperature Source Pulse Rate 77 Pulse Rate [Lying] Pulse Rate [Sitting (for 1 minute prior to obtaining)] Pulse Rate [Standing (for 1 minute prior to obtaining)] Respiratory Rate 19 H Blood Pressure 136/105 H Blood Pressure [Lying] Blood Pressure [Sitting (for 1 minute prior to obtaining)] Blood Pressure [Standing (for 1 minute prior to obtaining)] Blood Pressure Mean 115 Blood Pressure Mean [Lying] Blood Pressure Mean [Sitting (for 1 minute prior to obtaining)] Blood Pressure Mean [Standing (for 1 minute prior to obtaining)] Pulse Ox 96 Oxygen Delivery Method MDM MDM MDM Narrative Medical decision making narrative: Patient is a 69-year-old female who presents to the emergency department chief complaint of dizziness, nausea vomiting. On the differential diagnosis includesbut limited to posterior circulation stroke, ischemic stroke, hemorrhagic stroke, near syncope secondary to dehydration her aortic stenosis, electrolyte abnormality, hypoglycemia. Once workup is obtained reviewed she will be reevaluated. Patient be given Zofran for her nausea as well as meclizine. Patient CBC reviewed showed no evidence leukocytosis white blood count normal at10, hemoglobin 13.7, platelet count was noted to be 240. Patient INR normal at 1, PT of 13.1. Patient sodium was 137, potassium normal at 4.3, creatinine was 0.90. Patient's troponin was noted to be normal at 7 patient's EKG reviewed showed sinus rhythm with a rate of [address] head and brain without contrast showed no evidence of hemorrhage or acute stroke at this point in time. Patient CTA head and neck reviewed showed no aneurysm or stenosis seen no largevessel occlusion there is an incidental thyroid nodule noted which is recommending nonemergent outpatient ultrasound of the thyroid gland. Patient's chest x-ray reviewed by myself official read per radiology pending however no acute cardiopulmonary processes noted. Patient was evaluated by teleneurologist Dr. Bland who recommends admission for MRI he states that this seems more presyncopal to him however I reiterated to him that the patient states that she was so dizzy and felt off balance that she had to hold onto her card to maneuver. She also notes that this is very different than her typical vertigo. Per teleneurology they indicate that the patient is not a tenecteplase candidate. Will discuss case with hospitalist for admission. Patient was given 243 mg aspirin as she already takes 81 mg aspirin daily and took this this morning. Discussed case with hospitalist Dr. Tierney who accept the patient for admission. Patient is notified as well as [facility] members they are agreeable with this plan all question concerns answered. Lab Data Labs: Laboratory Results - last 24 hr 11/26/24 13:10 WBC 10.0 RBC 4.76 Hgb 13.7 Hct 41.6 MCV 87.4 MCH 28.8 MCHC 32.9 RDW Std Deviation 39.8 RDW Coeff of Viktoria 12.4 Plt Count 240 MPV 8.6 Immature Gran % (Auto) 0.400 Neut % (Auto) 79.4 H Lymph % (Auto) 12.7 L [place] % (Auto) 5.2 Eos % (Auto) 1.8 Baso % (Auto) 0.5 Absolute Neuts (auto) 8.0 H Absolute Lymphs (auto) 1.27 Nucleated RBC % 0 PT 13.1 INR 1.0 APTT 24.3 Sodium 137 Potassium 4.3 Chloride 100 Carbon Dioxide 23.5 Anion Gap 14 BUN 21 H Creatinine 0.90 Estim Creat Clear Calc 60.57 Est GFR (MDRD) Non-Af 69 BUN/Creatinine Ratio 23.3 H Glucose 97 Calcium 9.9 Troponin T High Sens 7 Radiography Diagnostic Testing: Clinical Impression(s) from Imaging Studies Brain CT 11/26/24 11:52 IMPRESSION: No evidence of hemorrhage or acute stroke at this time. The findings and impression were called to the ordering physician, Dr. Amaro at12:07 PM Reading Location: [facility] Head/Neck CTA 11/26/24 11:53 IMPRESSION: 1. No aneurysm or stenosis seen. 2. No large vessel occlusion. 3. Incidental thyroid nodule at the isthmus. Recommend nonemergent outpatient ultrasound of the thyroid gland. Reading Location: [facility] Discharge Plan Triage Chief Complaint: Dizziness ED Provider: Sebastian Amaro Dx/Rx/DC Orders Clinical Impression: Dizziness, Nausea & vomiting, History of aortic stenosis Prescriptions: No Action rosuvastatin 10 mg tablet 10 mg PO QHS aspirin 81 mg tablet,delayed release (DR/EC) 81 mg PO DAILY Primary Care Provider: Sterling Coleman Referrals: Sterling Coleman MD [Primary Care Provider] - Print Language: Eritrean Disposition Disposition: Acute Care Hospital [facility] What to do if you have Problems For any increased pain, shortness of breath, bleeding, nausea or vomiting, chestpain, or any unexpected problems, contact your Primary Care Provider. Call [facility] ([phone]) or report to the closest Emergency Room. Call 911 if necessary. 11/26/24 1508 <Electronically signed by Sebastian Amaro DO> Cosigner Signature (if applicable): CC: Dr. Sterling Coleman MD ~ Signed [facility] Work Phone: [phone] 358-927307-25-2025 Radiology Diagnostic study note [facility] Imaging Services [address] [address] STROKE CTA Head AND Neck W/Con MR#: [id number] Acct: [id number] Name: MECHE FOUNTAIN Rep #: [id number] : 1955 F 69 From: Melia Poe MD PCP: Dr. Sterling Coleman MD Status: REG E R Study:STROKE CTA Head AND Neck W/Con Date of Exam: 11/26/24 Exam# [id number] Ordering Dr: Cristo Amaro DO PROCEDURE: STROKE CTA HEAD AND NECK W/CON 11/26/2024 REASON FOR EXAM: NEURO DEFICIT, ACUTE, STROKE SUSPECTED TECHNIQUE: STROKE CTA HEAD AND NECK W/CON Multiplanar Sagittal and Coronal images were obtained. 3D post processing was performed CONTRAST: Isovue 370 VOLUME: 100 mL One or more dose reduction techniques were used (e.g., Automated exposure control, adjustment of the mA and/or kV according to patient size, use of iterative reconstruction technique). RADIATION DOSE SUMMARY: CTDlvol: 32 mGy DLP: 735 mGycm COMPARISON: Head CT of the same day FINDINGS: Aortic Arch: A bovine arch is present, a normal variant. Vessels are widely patent. Brachiocephalic and Subclavians: Unremarkable RIGHT Carotid: Right CCA: Minimal mural plaque at the carotid bulb. Right ICA: Unremarkable. Maximum stenosis (NASCET): 0 % Right ECA: Unremarkable. LEFT Carotid: Left CCA: Unremarkable. Left ICA: Unremarkable. Maximum stenosis (NASCET): 0 % Left ECA: Unremarkable. Vertebrals: Codominant. Arise from the subclavians. Both vertebrals form the basilar. RIGHT Vertebral: Unremarkable. LEFT Vertebral: Unremarkable. Anatomy: origin of the posterior cerebral arteries bilaterally. Aneurysm or avm: No intracranial aneurysms or large vascular malformations are identified. Anterior cerebral arteries: Unremarkable. Middle cerebral arteries: Unremarkable. Basilar artery: Small caliber but patent. Posterior cerebral arteries: Hypoplastic/aplastic P1 segments. origin outsole rounder. Other major branches of the posterior circulation: Unremarkable. Major venous structures: Unremarkable. Other findings: Neck: No lymphadenopathy. Lungs: Mosaic attenuation of the lung parenchyma at the lung apices. Bones: Bones are unremarkable. Heterogeneous thyroid nodule at the isthmus. CT/STROKE CTA Head AND Neck W/Con IMPRESSION: 1. No aneurysm or stenosis seen. 2. No large vessel occlusion. 3. Incidental thyroid nodule at the isthmus. Recommend nonemergent outpatient ultrasound of the thyroid gland. Reading Location: [id number] CC: Dr. Sebastian Amaro DO; Dr. Sterling Coleman MD ~ Wool Spotter: Signed [facility]07-25-2025 Radiology Diagnostic study note [facility] Imaging Services [address] [place] [address] [id number] STROKE Brain/Head without Cont MR#: [id number] Acct: [id number] Name: MECHE FOUNTAIN Rep #: [id number] : 1955 F 69 From: Melia Poe MD PCP: Dr. Sterling Coleman MD Status: REG E R Study:STROKE Brain/Head without Cont Date of Exam: 11/26/24 Exam# [id number] Ordering Dr: Cristo Amaro DO PROCEDURE: STROKE BRAIN/HEAD WITHOUT CONT 11/26/2024 REASON FOR EXAM: NEURO DEFICIT, ACUTE, STROKE SUSPECTED TECHNIQUE: STROKE BRAIN/HEAD WITHOUT CONT Coronal and Sagittal reconstruction series were provided. One or more dose reduction techniques were used (e.g., Automated exposure control, adjustment of the mA and/or kV according to patient size, use of iterative reconstruction technique. RADIATION DOSE SUMMARY: CTDlvol: 45 mGy DLP: 815 mGycm COMPARISON: None FINDINGS: Brain: There is no evidence of hemorrhage, acute ischemia or mass. No extra- axial fluid collection,midline shift or mass effect. CSF Spaces: Mild generalized cerebral atrophy Sinuses/Mastoids: Clear Bones: No fracture CT/STROKE Brain/Head without Cont IMPRESSION: No evidence of hemorrhage or acute stroke at this time. The findings and impression were called to the ordering physician, Dr. Amaro at12:07 PM Reading Location: [id number] CC: Dr. Sebastian Amaro DO; Dr. Sterling Coleman MD ~ Wool Spotter: Signed [facility]06-30-2025 Telephone encounter Note* Telephone Encounter - Ariana Lennon LPN - 11/01/2024 8:36 AM EDT Patient/Family calling with additional questions regarding financials and billing. Patient/Family directed in the following manner: For financial questions about an upcoming service, contact Patient Public Events Facilities Rental Manager by calling toll-free at [phone] and request to speak with a paint roller covers supervisor. For questions regarding a medical bill for a past / post service, contact a Private Duty Aide by calling toll-free at [phone] and request to speak with a paint roller covers supervisor. Patient/Family verbalized understanding. [facility]06-30-2025 Miscellaneous Notes* Telephone Encounter - Ariana Lennon LPN - 11/01/2024 8:36 AM EDT Patient/Family calling with additional questions regarding financials and billing. Patient/Family directed in the following manner: For financial questions about an upcoming service, contact Patient Public Events Facilities Rental Manager by calling toll-free at [phone] and request to speak with a paint roller covers supervisor. For questions regarding a medical bill for a past / post service, contact a Private Duty Aide by calling toll-free at [phone] and request to speak with a paint roller covers supervisor. Patient/Family verbalized understanding. documented in this encounterAden[facility]05-[facility] Instructions* Patient Instructions* Elly Donahue MD - 09/20/2024 11:00 AM EDT We will repeat an echocardiogram in Sept documented in this encounterAdena [facility]05-[facility] History of Present illness Narrative* Elly Donahue MD - 09/20/2024 10:40 AM EDT Images from the original note were not included. [facility] SECTION [facility] REGIONAL CARDIOLOGY Cardiology ([facility]) [address] [facility] [id number] OUTPATIENT VISIT DATE 09/19/2024 PRIMARY CARE PHYSICIAN: [place] [address] REFERRING PHYSICIAN: Sterling Roca [facility] [address] HISTORY OF PRESENT ILLNESS: Ms. Fountain is a 69 year old woman moderately severe aortic valve stenosis who presents for follow-up. Patient has noticed a slight increase in her shortness of breath. She only is symptomatic with higher levels of exertion such as working in her garden or running up a flight of stairs. She has nothad resting symptoms. She denies symptoms of chest pain or chest pressure. She has not had symptomsconcerning for congestive heart failure including PND, orthopnea, or lower extremity edema. PAST MEDICAL HISTORY Diagnosis Date Bronchitis Diverticulitis Edema leg Heart murmur Psoriasis Snoring Vertigo PAST SURGICAL HISTORY Procedure Laterality Date CHG DELIVERY x 3 COLONOSCOPY 2006 COLONOSCOPY FLX DX W/COLLJ SPEC WHEN PFRMD 07/24/2018 Colonoscopy TONSILLECTOMY HX SOCIAL HISTORY Social History Tobacco Use Smoking status: Never Smokeless tobacco: Never Vaping Use Vaping status: Never Used Substance Use Topics Alcohol use: Yes Comment: occasional Drug use: No FAMILY HISTORY Problem Relation Age of Onset Clotting Disorder Mother age 88 COPD Father smoker, age 80 No Known Problems Brother Heart Failure Maternal Grandmother No Known Problems Maternal Grandfather Diabetes Paternal Grandmother No Known Problems Paternal Grandfather Colon Cancer Maternal Aunt ALLERGIES: ALLERGIES Allergen Reactions Penicillins Swelling MEDICATIONS: clobetasol (TEMOVATE) 0.05 % cream Apply 0.5 % to affected area once daily as needed. rosuvastatin (CRESTOR) 10 mg tablet Take 1 tablet by mouth daily at bedtime. Fish Oil-DHA-EPA 1,200-651-216 mg cap Take 2 capsules by mouth once daily. Cholecalciferol, Vitamin D3, 50 mcg (2,000 unit) cap Take by mouth. BIOTIN ORAL Take by mouth. vitamin B complex (B COMPLEX ORAL) Take by mouth. MULTIVITAMIN WITH MINERALS (MULTIVITAMIN & MINERAL FORMULA ORAL) Take by mouth. aspirin, enteric coated (ASPIRIN, ENTERIC COATED) 81 mg EC tablet Take 81 mg by mouth once each week. albuterol HFA (VENTOLIN HFA) 90 mcg/actuation inhaler Inhale 2 Puffs as instructed every 4 hours asneeded for wheezing/shortness of breath. (Patient not taking: Reported on 07/26/2024) REVIEW OF SYSTEMS: Review of Systems Constitutional: Negative for chills, fever, malaise/fatigue and weight loss. HENT: Negative for hearing loss and sore throat. Eyes: Negative for blurred vision and double vision. Respiratory: Negative. Cardiovascular: Negative. Genitourinary: Negative for dysuria, frequency, hematuria and urgency. Musculoskeletal: Negative. Skin: Negative. Neurological: Negative for dizziness, seizures, loss of consciousness, weakness and headaches. Endo/Heme/Allergies: Negative for environmental allergies. Does not bruise/bleed easily. Psychiatric/Behavioral: Negative for depression. PHYSICAL EXAMINATION: BP 138/60 Pulse 81 Resp 14 Ht 5' 1 (1.55m) Wt 198 lb 3.2 oz (89.9kg) SpO2 98% BMI 37.47 kg/(m^2). General: Pleasant woman sitting appears comfortable no apparent distress. She is alert and orientedx3 HEENT: Carotid upstrokes are brisk bilaterally without bruits. No JVD Pulmonary: Lungs are clear no rales, wheezes, rhonchi Cardiovascular: Normal S1, S2 with regular rate and rhythm. Mid to late peaking crescendo decrescendo murmur right sternal border 3/6. A2 component second heart sound is well appreciated. Extremities: Warm, well-perfused, no lower extremity edema. 2+ distal pulses CARDIOVASCULAR MEDICINE TESTING: ECG in the office July 29, 2022: Normal sinus rhythm normal axis and intervals. No significant ST or T wave changes Coronary Artery Calcium Score 11/02/2018 LM: 0 LAD: 0 LCx: 0 RCA: 0 Echocardiogram 02/09/2024: - Technically difficult exam due to body habitus. - Exam indication: Routine surveillance of moderate or severe valvular stenosis (>1yr) - The left ventricle is normal in size. Left ventricular systolic function is normal. EF = 65 5% (2D biplane) Grade I left ventricular diastolic dysfunction. - The right ventricle is normal in size. Right ventricular systolic function is normal. - There is moderate aortic valve stenosis. AV area is 1.08 cm (0.55 cm /m ) by continuity, VTI. Thepeak gradient is 38 mmHg, the mean gradient is 22 mmHg and the dimensionless valve index is 0.40. Prior pk/mn gradients were 38/21 mmHg. - Exam was compared with the prior CC echocardiographic exam performed on 01/21/2023, no significant change. Echocardiogram 01/21/2023: - The left ventricle is normal in size. Left ventricular systolic function is normal. EF = 70 5% (2D biplane) Grade I left ventricular diastolic dysfunction. - The right ventricle is normal in size. Right ventricular systolic function is normal. - There is moderate aortic valve stenosis. AV area is 1.03 cm (0.54 cm /m ) by continuity, VTI. Thepeak gradient is 38 mmHg, the mean gradient is 21 mmHg and the dimensionless valve index is 0.38. Prior pk/mn gradients were 30/17 mmHg. - Exam was compared with the prior CC echocardiographic exam performed on 04/02/2022, the peak Aortic valve gradient has increased from 30 mm Hg to 38 mm Hg now. Echocardiogram 04/02/2022 - The left ventricle is small. Left ventricular systolic function is normal. EF = 71 5% (2D biplane) Normal left ventricular diastolic function. - The right ventricle is normal in size. Right ventricular systolic function is normal. - There is moderate aortic valve stenosis. AV area is 0.87 cm (0.44 cm /m ) by continuity, VTI. Thepeak gradient is 30 mmHg, the mean gradient is 17 mmHg and the dimensionless valve index is 0.32. Prior pk/mn gradients were 28/16 mmHg. - Exam was compared with the prior CC echocardiographic exam performed on 04/17/2021, no significant change. CTA Chest 03/12/2024: IMPRESSION: STUDY LIMITATIONS: Step artifact.. The thoracic aorta is normal in course, caliber, and contours. Extended Monitoring-[employer] Patch Enrollment Dates: 07/31/2024-08/14/2024 IRHYTHM FINDINGS: Patient had a min HR of 27 bpm, max HR of 150 bpm, and avg HR of 80 bpm. Predominant underlying rhythm was Sinus Rhythm. First Degree AV Block was present. 1 run of Ventricular Tachycardia occurred lasting 5 beats with a max rate of 150 bpm (avg 114 bpm). 17 Supraventricular Tachycardia runs occurred, the run with the fastest interval lasting 5 beats with a max rate of 143 bpm, the longest lasting 11 beats with an avg rate of 100 bpm. Second Degree AVBlock-Mobitz I (Wenckebach) was present. Isolated SVEs were rare (<1.0%), SVE Couplets were rare (<1.0%), and SVE Triplets were rare (<1.0%). Isolated VEs were rare (<1.0%), VE Couplets were rare (<1.0%), and no VE Triplets were present. Ventricular Bigeminy and Trigeminy were present. I have personally reviewed the Electrocardiogram, Laboratory Testing, and Echocardiogram. IMPRESSION: Ms. Fountain is a 69 year old woman with a history of hyperlipidemia and moderate aortic stenosis who presents for routine follow-up PLAN AND RECOMMENDATIONS: 1. Nonrheumatic aortic valve stenosis - ICD9: 424.1, ICD10: I35.0 (primary diagnosis) Gradual worsening of her gradients noted on echocardiogram. Applied to repeat echocardiogram beforenext office visit. If symptoms worsen may consider a sooner appointment for echocardiogram. - ECHO 2. Hyperlipidemia, mixed - ICD9: 272.2, ICD10: E78.2 Maintained on rosuvastatin 10 mg daily. Fasting blood work from August 2024 was reviewed. LDL cholesterol 99 mg/dL Elly Donahue MD documented in this encounterAdena [facility]05-[facility] NoteHNO ID: [id number] Author: ELLY DONAHUE MD Service: ? Author Type: Physician Type: Progress Notes Filed: 09/20/2024 12:06 Note Text: [facility] SECTION [facility] REGIONAL CARDIOLOGY Cardiology ([address]) [address] [facility] [address] OUTPATIENT VISIT DATE 09/19/2024 PRIMARY CARE PHYSICIAN: [place] [address] REFERRING PHYSICIAN: Sterling Roca [place] [facility] [address] HISTORY OF PRESENT ILLNESS: Ms. Fountain is a 69 year old woman moderately severe aortic valve stenosis who presents for follow-up. Patient has noticed a slight increase in her shortness of breath. She only is symptomatic with higher levels of exertion such as working in her garden or running up a flight of stairs. She has not had resting symptoms. She denies symptoms of chest pain or chest pressure. She has not had symptoms concerning for congestive heart failure including PND, orthopnea, or lower extremity edema. PAST MEDICAL HISTORY Diagnosis Date Bronchitis Diverticulitis Edema leg Heart murmur Psoriasis Snoring Vertigo PAST SURGICAL HISTORY Procedure Laterality Date CHG DELIVERY x 3 COLONOSCOPY 2006 COLONOSCOPY FLX DX W/COLLJ SPEC WHEN PFRMD 07/24/2018 Colonoscopy TONSILLECTOMY HX SOCIAL HISTORY Social History Tobacco Use Smoking status: Never Smokeless tobacco: Never Vaping Use Vaping status: Never Used Substance Use Topics Alcohol use: Yes Comment: occasional Drug use: No FAMILY HISTORY Problem Relation Age of Onset Clotting Disorder Mother age 88 COPD Father smoker, age 80 No Known Problems Brother Heart Failure Maternal Grandmother No Known Problems Maternal Grandfather Diabetes Paternal Grandmother No Known Problems Paternal Grandfather Colon Cancer Maternal Aunt ALLERGIES: ALLERGIES Allergen Reactions Penicillins Swelling MEDICATIONS: clobetasol (TEMOVATE) 0.05 % cream Apply 0.5 % to affected area once daily as needed. rosuvastatin (CRESTOR) 10 mg tablet Take 1 tablet by mouth daily at bedtime. Fish Oil-DHA-EPA 1,200-144-216 mg cap Take 2 capsules by mouth once daily. Cholecalciferol, Vitamin D3, 50 mcg (2,000 unit) cap Take by mouth. BIOTIN ORAL Take by mouth. vitamin B complex (B COMPLEX ORAL) Take by mouth. MULTIVITAMIN WITH MINERALS (MULTIVITAMIN AND MINERAL FORMULA ORAL) Take by mouth. aspirin, enteric coated (ASPIRIN, ENTERIC COATED) 81 mg EC tablet Take 81 mg by mouth once each week. albuterol HFA (VENTOLIN HFA) 90 mcg/actuation inhaler Inhale 2 Puffs as instructed every 4 hours as needed for wheezing/shortness of breath. (Patient not taking: Reported on 07/26/2024) REVIEW OF SYSTEMS: Review of Systems Constitutional: Negative for chills, fever, malaise/fatigue and weight loss. HENT: Negative for hearing loss and sore throat. Eyes: Negative for blurred vision and double vision. Respiratory: Negative. Cardiovascular: Negative. Genitourinary: Negative for dysuria, frequency, hematuria and urgency. Musculoskeletal: Negative. Skin: Negative. Neurological: Negative for dizziness, seizures, loss of consciousness, weakness and headaches. Endo/Heme/Allergies: Negative for environmental allergies. Does not bruise/bleed easily. Psychiatric/Behavioral: Negative for depression. PHYSICAL EXAMINATION: BP 138/60 Pulse 81 Resp 14 Ht 5' 1 (1.55m) Wt 198 lb 3.2 oz (89.9kg) SpO2 98% BMI 37.47 kg/(m2). General: Pleasant woman sitting appears comfortable no apparent distress. She is alert and oriented x3 HEENT: Carotid upstrokes are brisk bilaterally without bruits. No JVD Pulmonary: Lungs are clear no rales, wheezes, rhonchi Cardiovascular: Normal S1, S2 with regular rate and rhythm. Mid to late peaking crescendo decrescendo murmur right sternal border 3/6. A2 component second heart sound is well appreciated. Extremities: Warm, well-perfused, no lower extremity edema. 2+ distal pulses CARDIOVASCULAR MEDICINE TESTING: ECG in the office July 29, 2022: Normal sinus rhythm normal axis and intervals. No significant ST or T wave changes Coronary Artery Calcium Score 11/02/2018 LM: 0 LAD: 0 LCx: 0 RCA: 0 Echocardiogram 02/09/2024: - Technically difficult exam due to body habitus. - Exam indication: Routine surveillance of moderate or severe valvular stenosis (>1yr) - The left ventricle is normal in size. Left ventricular systolic function is normal. EF = 65 ? 5% (2D biplane) Grade I left ventricular diastolic dysfunction. - The right ventricle is normal in size. Right ventricular systolic function is normal. - There is moderate aortic valve stenosis. AV area is 1.08 cm? (0.55 cm?/m?) by continuity, VTI. The peak gradient is 38 mmHg, the mean gradient is 22 mmHg and the dimensionless valve index is 0.40. Prior pk/mn gradients were (more content not included)...[place]03-24-2025 NoteHNO ID: [id number] Author: STERLING COLEMAN MD Service: ? Author Type: Physician Type: Progress Notes Filed: 07/26/2024 16:19 Note Text: Has had two dates in May and Jun with her apple watch showing multiple episodes of a fib. No chest pain or new shortness of breath. No dizziness. No palpitaitons. No edema. PHYSICAL EXAM: GEN: pleasant, no acute distress, alert HEENT: PERRL, EOMI, MMM NECK: supple, no lymphadenopathy, no thyromegaly HEART: regular rate, regular rhythm, no murmurs LUNGS: clear to auscultation, no wheezes or crackles, no increased WOB ABD: soft, non-distended, no masses palpated, non-tender EXT: no clubbing, no cyanosis, no edema 1. Cardiac arrhythmia, unspecified cardiac arrhythmia type - ICD9: 427.9, ICD10: I49.9 - Red flags for re-assessment reviewed with patient in detail. - ECG COMPLETE-nsr - OUTSIDE VENDOR CARDIAC OUTPATIENT EXTENDED RHYTHM RECORDING (WITHOUT TELEMETRY) - COMPLETE BLOOD COUNT AND DIFFERENTIAL - COMPREHENSIVE METABOLIC PANEL - THYROID STIMULATING HORMONE 2. Obesity, Class II, BMI 35-39.9 - ICD9: 278.00, ICD10: E66.812 - work on diet. 3. Hyperlipidemia, mixed - ICD9: 272.2, ICD10: E78.2 - Control undetermined, due for labs - Counseled on healthy diet and regular exercise - COMPLETE BLOOD COUNT AND DIFFERENTIAL - COMPREHENSIVE METABOLIC PANEL - LIPID PANEL, FASTING - THYROID STIMULATING HORMONE 4. 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 Nonrheumatic aortic valve stenosis - ICD9: 424.1, ICD10: I35.0 - per cardiology 6. Psoriasis - ICD9: 696.1, ICD10: L40.9 - per derm. 7. Reactive depression - ICD9: 300.4, ICD10: F32.9 - call if worsens. 8. Encounter for screening examination for other mental health and behavioral disorders - ICD9: V79.8, ICD10: Z13.39 - ANXIETY SCREENING Sterling Coleman, [facility]03-24-2025 History of Present illness Narrative* Sterling Coleman MD - 07/26/2024 1:30 PM EDT Has had two dates in May and Jun with her apple watch showing multiple episodes of a fib. No chest pain or new shortness of breath. No dizziness. No palpitaitons. No edema. PHYSICAL EXAM: GEN: pleasant, no acute distress, alert HEENT: PERRL, EOMI, MMM NECK: supple, no lymphadenopathy, no thyromegaly HEART: regular rate, regular rhythm, no murmurs LUNGS: clear to auscultation, no wheezes or crackles, no increased WOB ABD: soft, non-distended, no masses palpated, non-tender EXT: no clubbing, no cyanosis, no edema 1. Cardiac arrhythmia, unspecified cardiac arrhythmia type - ICD9: 427.9, ICD10: I49.9 - Red flags for re-assessment reviewed with patient in detail. - ECG COMPLETE-nsr - OUTSIDE VENDOR CARDIAC OUTPATIENT EXTENDED RHYTHM RECORDING (WITHOUT TELEMETRY) - COMPLETE BLOOD COUNT AND DIFFERENTIAL - COMPREHENSIVE METABOLIC PANEL - THYROID STIMULATING HORMONE 2. Obesity, Class II, BMI 35-39.9 - ICD9: 278.00, ICD10: E66.812 - work on diet. 3. Hyperlipidemia, mixed - ICD9: 272.2, ICD10: E78.2 - Control undetermined, due for labs - Counseled on healthy diet and regular exercise - COMPLETE BLOOD COUNT AND DIFFERENTIAL - COMPREHENSIVE METABOLIC PANEL - LIPID PANEL, FASTING - THYROID STIMULATING HORMONE 4. 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 Nonrheumatic aortic valve stenosis - ICD9: 424.1, ICD10: I35.0 - per cardiology 6. Psoriasis - ICD9: 696.1, ICD10: L40.9 - per derm. 7. Reactive depression - ICD9: 300.4, ICD10: F32.9 - call if worsens. 8. Encounter for screening examination for other mental health and behavioral disorders - ICD9: V79.8, ICD10: Z13.39 - ANXIETY SCREENING Sterling Coleman MD * Sterling Coleman MD - 07/26/2024 1:18 PM EDT Images from the original note were not included. Meche Fountain is a 69 year old female here for a Medicare wellness visit. Medicare Health Risk Assessment General Health Good Exercise: Minutes/Day 30 min-walk her dogs. Exercise: Days/Week 2 days Alcohol: Daily Use Monthly or less Alcohol: Drinks/Day 1 or 2 Alcohol: 6 or more drinks Never Feel off balance No Concerns: Teeth/Dentures No Concerns: Sexual function No Troubled by feelings Anxious; Stressed-worries about her 's angiosarcoma and treatment. Feels she is doing ok with things. Red flags for re-assessment reviewed with patient in detail. Frequency: Eating healthy diet Nearly every day ADLs requiring help None of the above Safety precautions in home/vehicle Yes. Smoke, vape, chews tobacco No Difficulty hearing No Difficulty seeing No, wears readers. Current Providers Specialists: I have reviewed specialist-related care of the patient in the medical record. Current care team: Patient Care Team: Sterling Coleman MD as PCP - General (Family Medicine) Elenita Wang APRN.PROPOSAL MANAGER as Leather Roller (Family Medicine) Elaine Trevino APRN.CNP as Leather Roller (Family Medicine) Outside specialists seen: Dr Donahue, cardiology. [facility]. [facility] Dermatology Dr Holley, can pusher. Medical/Family history review Reviewed and updated problem list, medical/surgical/family/social history, medications, and allergies. Opioid use review Opioid Medications (last 90 days) No data to display Anxiety/Depression screening PHQ-9 Score: 8 (Mild Depression) YONY-7 Score: 11 (Moderate Anxiety) Recommendation: continuing current treatment plan Cognitive screening Mini Cog Score: 5 Cognitive screening reviewed and No further action needed (score 3-5). Functional Observation Was the patient's Timed Up & Go test unsteady or >= 12 seconds? No Advance Care Planning Surrogate decision maker and/or advance care plan documented REVIEW OF SYSTEMS PAIN ASSESSMENT: Negative for pain, history of chronic pain, or current treatment for a chronic pain condition. HEENT: Negative for frequent or significant headaches, No changes in hearing or vision, no nose bleeds or other nasal problems NECK: Negative for lumps, goiter, pain and significant neck swelling RESPIRATORY: Negative for cough, hemoptysis, wheezing, COPD, dyspnea or shortness of breath CARDIOVASCULAR: no syncope. As above. GI: No nausea, vomiting, or diarrhea : No history of dysuria, frequency or incontinence SKIN: Negative for lesions, rash, and itching HEMATOLOGY/LYMPHOLOGY: Negative for prolonged bleeding, bruising easily or swollen nodes NEURO: No history of headaches, syncope, paralysis, seizures or tremors Measurements BP 122/60 Pulse 87 Wt 89.8 kg (198 lb) SpO2 98% BMI 37.41 kg/m Vision Screening: Follows with optometry/ophthalmology Assessment/Plan Medicare annual wellness visit, subsequent (Z00.00) - Counseled on healthy diet and regular exercise - Fall avoidance information provided - Personalized prevention plan provided Sterling Coleman MD [facility] NoteHNO ID: [id number] Author: STERLING COLEMAN MD Service: ? Author Type: Physician Type: Progress Notes Filed: 07/26/2024 16:19 Note Text: Meche Fountain is a 69 year old female here for a Medicare wellness visit. Medicare Health Risk Assessment General Health Good Exercise: Minutes/Day 30 min-walk her dogs. Exercise: Days/Week 2 days Alcohol: Daily Use Monthly or less Alcohol: Drinks/Day 1 or 2 Alcohol: 6 or more drinks Never Feel off balance No Concerns: Teeth/Dentures No Concerns: Sexual function No Troubled by feelings Anxious; Stressed-worries about her 's angiosarcoma and treatment. Feels she is doing ok with things. Red flags for re-assessment reviewed with patient in detail. Frequency: Eating healthy diet Nearly every day ADLs requiring help None of the above Safety precautions in home/vehicle Yes. Smoke, vape, chews tobacco No Difficulty hearing No Difficulty seeing No, wears readers. Current Providers Specialists: I have reviewed specialist-related care of the patient in the medical record. Current care team: Patient Care Team: Sterling Coleman MD as PCP - General (Family Medicine) Elenita Wang, KESHA.PROPOSAL MANAGER as Leather Roller (Family Medicine) Elaine Trevino APRN.CNP as Leather Roller (Family Medicine) Outside specialists seen: Dr Donahue, cardiology. [facility]. Luciano Oneill, Dermatology Dr Holley, can pusher. Medical/Family history review Reviewed and updated problem list, medical/surgical/family/social history, medications, and allergies. Opioid use review Opioid Medications (last 90 days) No data to display Anxiety/Depression screening PHQ-9 Score: 8 (Mild Depression) YONY-7 Score: 11 (Moderate Anxiety) Recommendation: continuing current treatment plan Cognitive screening Mini Cog Score: 5 Cognitive screening reviewed and No further action needed (score 3-5). Functional Observation Was the patient's Timed Up AND Go test unsteady or >= 12 seconds? No Advance Care Planning Surrogate decision maker and/or advance care plan documented REVIEW OF SYSTEMS PAIN ASSESSMENT: Negative for pain, history of chronic pain, or current treatment for a chronic pain condition. HEENT: Negative for frequent or significant headaches, No changes in hearing or vision, no nose bleeds or other nasal problems NECK: Negative for lumps, goiter, pain and significant neck swelling RESPIRATORY: Negative for cough, hemoptysis, wheezing, COPD, dyspnea or shortness of breath CARDIOVASCULAR: no syncope. As above. GI: No nausea, vomiting, or diarrhea : No history of dysuria, frequency or incontinence SKIN: Negative for lesions, rash, and itching HEMATOLOGY/LYMPHOLOGY: Negative for prolonged bleeding, bruising easily or swollen nodes NEURO: No history of headaches, syncope, paralysis, seizures or tremors Measurements BP 122/60 Pulse 87 Wt 89.8 kg (198 lb) SpO2 98% BMI 37.41 kg/m? Vision Screening: Follows with optometry/ophthalmology Assessment/Plan Medicare annual wellness visit, subsequent (Z00.00) - Counseled on healthy diet and regular exercise - Fall avoidance information provided - Personalized prevention plan provided Sterling Coleman [facility]03-24-2025 Instructions* Patient Instructions* Sterling Coleman MD - 07/26/2024 1:18 PM EDT Screening schedule The following prevention plan is recommended: Anxiety Screening Never done Advance Directive Discussion due on 05/05/2024 WHAT YOU CAN DO TO PREVENT FALLS Many falls can be prevented. By making some changes, you can lower your chances of falling. Four things YOU can do to prevent falls for you* and your caregiver 1. Begin a regular exercise program Exercise is one of the most important ways to lower your chances of falling. It makes you stronger and helps you feel better. Exercises that improve balance and coordination (like Samm Chi) are the most helpful. Lack of exercise leads to weakness and increases your chances of falling. Ask your doctor or health care provider about the best type of exercise program for you. 2. Have your health care provider review your medicines Have your doctor or pharmacist review all the medicines you take, even [id number] medicines. As you get older, the way medicines work in your body can change. Some medicines, or combinations of medicines, can make you sleepy or dizzy andcan cause you to fall. 3. Have your vision checked Have your eyes checked by an eye doctor at least once a year. You may be wearing the wrong glasses or have a condition like glaucoma or cataracts that limits your vision. Poor vision can increase your chances of falling. 4. Make your home safer About half of all falls happen at home. To make your home safer: Remove things you can trip over (like papers, books, clothes, and shoes) from stairs and places where you walk. Remove small throw rugs or use double-sided tape to keep the rugs from slipping. Keep items you use often in cabinets you can reach easily without using a step stool. Have grab bars put in next to your toilet and in the tub or shower. Use non-slip mats in the bathtub and on shower floors. Improve the lighting in your home. As you get older, you need brighter lights to see well. Hang light-weight curtains or shades to reduce glare. Have handrails and lights put in on all staircases. Wear shoes both inside and outside the house. Avoid going barefoot or wearing slippers. For more information, contact: Centers for Disease Control and Prevention www.cdc.gov/injury * This information may not apply if you have certain medical conditions. documented in this encounterAdena [facility]03-24-2025 NoteHNO ID: [id number] Author: LIBORIO WILSON MD Service: ? Author Type: Physician Type: Procedures Filed: 08/28/2024 09:31 Note Text: Patient Name: Meche Fountain : 1955 Ordering Provider: Sterling Coleman Indication: I49.9 Cardiac arrhythmia, unspecified Type of Monitor: Extended Monitoring-Zio Patch Enrollment Dates: 07/31/2024-08/14/2024 IRHYTHM FINDINGS: Patient had a min HR of 27 bpm, max HR of 150 bpm, and avg HR of 80 bpm. Predominant underlying rhythm was Sinus Rhythm. First Degree AV Block was present. 1 run of Ventricular Tachycardia occurred lasting 5 beats with a max rate of 150 bpm (avg 114 bpm). 17 Supraventricular Tachycardia runs occurred, the run with the fastest interval lasting 5 beats with a max rate of 143 bpm, the longest lasting 11 beats with an avg rate of 100 bpm. Second Degree AV Block-Mobitz I (Wenckebach) was present. Isolated SVEs were rare (<1.0%), SVE Couplets were rare (<1.0%), and SVE Triplets were rare (<1.0%). Isolated VEs were rare (<1.0%), VE Couplets were rare (<1.0%), and no VE Triplets were present. Ventricular Bigeminy and Trigeminy were present.[place]02-12-2025 NoteHNO ID: [id number] Author: TAYLOR MENDIOLA MA Service: ? Author Type: Manager Market Development Type: Progress Notes Filed: 06/16/2024 13:03 Note Text: POPULATION HEALTH NAVIGATION OUTREACH Action/FYI Spoke with Meche. Scheduled appt HCC Topic Due (Y or N) Comments Medicare Wellness Y PCP Follow up Colorectal Cancer Screening Controlling Blood Pressure A1C HCC Y Flu Vaccine Y Care Everywhere Reviewed MyChart Activation Updated Appointment Note Reason for Outreach Care Gap/HCC or Scheduling Wellness Visits Care Gaps due: Medicare Annual Wellness Visit Flu Vaccine Patient Contacted: Spoke to patient/parent/or legal guardian Patient identified by name and : Yes Care Gap/HCC/Scheduling Wellness actions taken: Patient scheduled/pended orders: Medicare Annual Wellness Visit Flu Vaccine 07/26/2024 in [facility] with [place], STERLING J - MEDICARE WELLNESS 09/20/2024 in [facility] with ELLY DONAHUE - Follow up HCC related Navigation Signature: Taylor Mendiola MA June 16, 2024 12:56 [facility]02-12-2025 History of Present illness Narrative* Taylor Mendiola MA - 06/16/2024 12:56 PM EST POPULATION HEALTH NAVIGATION OUTREACH Action/FYI Spoke with Meche. Scheduled appt HCC Topic Due (Y or N) Comments Medicare Wellness Y PCP Follow up Colorectal Cancer Screening Controlling Blood Pressure A1C HCC Y Flu Vaccine Y Care Everywhere Reviewed MyChart Activation Updated Appointment Note Reason for Outreach Care Gap/HCC or Scheduling Wellness Visits Care Gaps due: Medicare Annual Wellness Visit Flu Vaccine Patient Contacted: Spoke to patient/parent/or legal guardian Patient identified by name and : Yes Care Gap/HCC/Scheduling Wellness actions taken: Patient scheduled/pended orders: Medicare Annual Wellness Visit Flu Vaccine 07/26/2024 in [facility] with STERLING COLEMAN - MEDICARE WELLNESS 09/20/2024 in [facility] with ELLY DONAHUE - Follow up HCC related Navigation Signature: Taylor Mendiola MA June 16, 2024 12:56 PM documented in this encounterAdena [facility]02-12-2025 NotePatient Outreach (NETNAV) MECHE FOUNTAIN ([id number]) 1955 F Date Time Provider Department 06/16/24 TAYLOR MENDIOLA NETYAMILKA During your visit today, we recorded the following information about you: Taylor Mendiola MA 06/16/2024 1:03 PM Signed POPULATION HEALTH NAVIGATION OUTREACH Action/FYI Spoke with Meche. Scheduled appt HCC Topic Due (Y or N) Comments Medicare Wellness Y PCP Follow up Colorectal Cancer Screening Controlling Blood Pressure A1C HCC Y Flu Vaccine Y Care Everywhere Reviewed MyChart Activation Updated Appointment Note Reason for Outreach Care Gap/HCC or Scheduling Wellness Visits Care Gaps due: Medicare Annual Wellness Visit Flu Vaccine Patient Contacted: Spoke to patient/parent/or legal guardian Patient identified by name and : Yes Care Gap/HCC/Scheduling Wellness actions taken: Patient scheduled/pended orders: Medicare Annual Wellness Visit Flu Vaccine 07/26/2024 in [facility] with STERLING COLEMAN - MEDICARE WELLNESS 09/20/2024 in [facility] with ELLY DONAHUE - Follow up HCC related Navigation Signature: Taylor Mendiola MA June 16, 2024 12:56 PM Allergies As of Date: 06/16/2024 Noted Allergy Reaction PENICILLINS 10/17/2015 7 - Swelling Date Reviewed: 02/23/2024 Reviewed by: Elly Donahue MD - Fully Assessed Reason for Visit: Population Health Navigation Outreach [3910] Cmt: BRENDON ROCHE PCSA Prescriptions as of 06/16/2024 - methocarbamol (ROBAXIN) 500 mg tablet Take 1 tablet by mouth three times a day as needed for up to 20 days. - rosuvastatin (CRESTOR) 10 mg tablet Take 1 tablet by mouth daily at bedtime. - fluocinolone (SYNALAR) 0.025 % ointment Apply to affected area as directed. apply a pea-szed amount to vulva twice weekly, use 1-2 times daily for up to 2 weeks for flairs then return to twice weekly - albuterol HFA (VENTOLIN HFA) 90 mcg/actuation inhaler Inhale 2 Puffs as instructed every 4 hours as needed for wheezing/shortness of breath. - Fish Oil-DHA-EPA 1,200-144-216 mg cap Take 2 capsules by mouth once daily. - Cholecalciferol, Vitamin D3, 50 mcg (2,000 unit) cap Take by mouth. - BIOTIN ORAL Take by mouth. - vitamin B complex (B COMPLEX ORAL) Take by mouth. - MULTIVITAMIN WITH MINERALS (MULTIVITAMIN AND MINERAL FORMULA ORAL) Take by mouth. - aspirin, enteric coated (ASPIRIN, ENTERIC COATED) 81 mg EC tablet Take 81 mg by mouth once each week. 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] 11/02/2018 Nonrheumatic aortic valve stenosis [I35.0] 05/02/2021 Reactive depression [F32.9] 05/02/2021 Dyspareunia [KAR1400] 03/26/2022 03/26/2022 Gynecological disease [N94.9] 03/26/2022 03/26/2022 Stress incontinence in female [N39.3] 03/26/2022 Perspiration-excessive [R61] 08/03/2022 Diagnosed: 04/30/2023 Left sided sciatica [M54.32] 05/07/2023 Encounter Status:Closed by TAYLOR MENDIOLA on 06/16/24[place]02-08-2025 History of Present illness Narrative* Raymond Mckeon RT(R) - 06/12/2024 8:00 AM EST Radiology Service Progress Note PATIENT NAME: Meche Fountain DATE OF SERVICE: June 12, 2024 TIME: 8:21 AM PATIENT IDENTITY VERIFICATION COMPLETED USING TWO (2) IDENTIFIERS: Name and Date of confirmedby patient verbally. FALL SCREENING: Has the patient had 2 falls in the last year or 1 fall with injury or currently using an Ambulatory Assistive Device (Walker, Cane, Wheelchair, Crutches, etc.)? No PATIENT GENDER DATA: Assigned female at . status: : No status:NO. PATIENT RELEVANT IMPLANT DATA REVIEWED: Not Applicable PATIENT PRESENTS WITH AN IMPLANTABLE OR ATTACHED TIRE REPAIR MECHANIC: No RADIOLOGY DEPARTMENT: Mammography PERIPHERAL IV DATA: Not applicable SIGNED BY: Yeu CAICEDO June 12, 2024 8:21 AM * Chase Romeo CT - 06/12/2024 8:00 AM EST Radiology Service Progress Note PATIENT NAME: Meche Fountain DATE OF SERVICE: June 12, 2024 TIME: 8:57 AM PATIENT IDENTITY VERIFICATION COMPLETED USING TWO (2) IDENTIFIERS: Name and Date of confirmedby patient verbally and Name and Date of confirmed by identification band. FALL SCREENING: Has the patient had 2 falls in the last year or 1 fall with injury or currently using an Ambulatory Assistive Device (Walker, Cane, Wheelchair, Crutches, etc.)? No PATIENT GENDER DATA: Assigned female at . status: : No status:NO. PATIENT RELEVANT IMPLANT DATA REVIEWED: Not Applicable PATIENT PRESENTS WITH AN IMPLANTABLE OR ATTACHED TIRE REPAIR MECHANIC: No RADIOLOGY DEPARTMENT: Ultrasound PERIPHERAL IV DATA: Not applicable SIGNED BY: FRANCIA Mendoza June 12, 2024 8:57 AM documented in this encounterAdena [facility]02-08-2025 NoteHNO ID: [id number] Author: CHASE ROMEO CT Service: Radiology Author Type: Technologist Type: Progress Notes Filed: 06/12/2024 08:57 Note Text: Radiology Service Progress Note PATIENT NAME: Meche Fountain DATE OF SERVICE: June 12, 2024 TIME: 8:57 AM PATIENT IDENTITY VERIFICATION COMPLETED USING TWO (2) IDENTIFIERS: Name and Date of confirmed by patient verbally and Name and Date of confirmed by identification band. FALL SCREENING: Has the patient had 2 falls in the last year or 1 fall with injury or currently using an Ambulatory Assistive Device (Walker, Cane, Wheelchair, Crutches, etc.)? No PATIENT GENDER DATA: Assigned female at . status: : No status: NO. PATIENT RELEVANT IMPLANT DATA REVIEWED: Not Applicable PATIENT PRESENTS WITH AN IMPLANTABLE OR ATTACHED TIRE REPAIR MECHANIC: No RADIOLOGY DEPARTMENT: Ultrasound PERIPHERAL IV DATA: Not applicable SIGNED BY: FRANCIA Mendoza June 12, 2024 8:57 AMSelect [facility], [id number] NoteHNO ID: [id number] Author: RAYMOND MCKEON RT(R) Service: Radiology Author Type: Technologist Type: Progress Notes Filed: 06/12/2024 08:21 Note Text: Radiology Service Progress Note PATIENT NAME: Meche Fountain DATE OF SERVICE: June 12, 2024 TIME: 8:21 AM PATIENT IDENTITY VERIFICATION COMPLETED USING TWO (2) IDENTIFIERS: Name and Date of confirmed by patient verbally. FALL SCREENING: Has the patient had 2 falls in the last year or 1 fall with injury or currently using an Ambulatory Assistive Device (Walker, Cane, Wheelchair, Crutches, etc.)? No PATIENT GENDER DATA: Assigned female at . status: : No status: NO. PATIENT RELEVANT IMPLANT DATA REVIEWED: Not Applicable PATIENT PRESENTS WITH AN IMPLANTABLE OR ATTACHED TIRE REPAIR MECHANIC: No RADIOLOGY DEPARTMENT: Mammography PERIPHERAL IV DATA: Not applicable SIGNED BY: Yue CAICEDO June 12, 2024 8:21 AMSelect [facility], [id number] History of Present illness Narrative* Eliseo Campos Mammo Tech - 06/07/2024 8:30 AM EST Radiology Service Progress Note PATIENT NAME: Meche Fountain DATE OF SERVICE: June 07, 2024 TIME: 8:51 AM PATIENT IDENTITY VERIFICATION COMPLETED USING TWO (2) IDENTIFIERS: Name and Date of confirmedby patient verbally. FALL SCREENING: Has the patient had 2 falls in the last year or 1 fall with injury or currently using an Ambulatory Assistive Device (Walker, Cane, Wheelchair, Crutches, etc.)? No PATIENT GENDER DATA: Assigned female at . status: : No status:NO. PATIENT RELEVANT IMPLANT DATA REVIEWED: Not Applicable PATIENT PRESENTS WITH AN IMPLANTABLE OR ATTACHED TIRE REPAIR MECHANIC: No RADIOLOGY DEPARTMENT: Mammography PERIPHERAL IV DATA: Not applicable SIGNED BY: Judd Lynch June 07, 2024 8:51 AM documented in this encounterAdena [facility]02-03-2025 NoteHNO ID: [id number] Author: ELISEO CAMPOS Mammo Tech Service: ? Author Type: Technologist Type: Progress Notes Filed: 06/07/2024 08:51 Note Text: Radiology Service Progress Note PATIENT NAME: Meche Fountain DATE OF SERVICE: June 07, 2024 TIME: 8:51 AM PATIENT IDENTITY VERIFICATION COMPLETED USING TWO (2) IDENTIFIERS: Name and Date of confirmed by patient verbally. FALL SCREENING: Has the patient had 2 falls in the last year or 1 fall with injury or currently using an Ambulatory Assistive Device (Walker, Cane, Wheelchair, Crutches, etc.)? No PATIENT GENDER DATA: Assigned female at . status: : No status: NO. PATIENT RELEVANT IMPLANT DATA REVIEWED: Not Applicable PATIENT PRESENTS WITH AN IMPLANTABLE OR ATTACHED TIRE REPAIR MECHANIC: No RADIOLOGY DEPARTMENT: Mammography PERIPHERAL IV DATA: Not applicable SIGNED BY: Judd Lynch Pinger June 07, 2024 8:51 [facility]01-28-2025 Telephone encounter Note* Telephone Encounter - Sandra Love MA - 06/01/2024 3:10 PM EST Pt informed Sandra Love MA [facility]01-28-2025 Miscellaneous Notes* Telephone Encounter - Sandra Love MA - 06/01/2024 3:10 PM EST Pt informed Sandra Love MA * Telephone Encounter - Elaine Trevino APRN.CNP - 06/01/2024 2:52 PM EST Please let pt. Know that chest xray was normal.. I am sending methocarbamol (mild muscle relaxant) in to her pharmacy to help with the knots. May take up to 3 x day as needed. documented in this encounterAdena [facility]01-28-2025 Telephone encounter Note * Telephone Encounter - Elaine Trevino APRN.CNP - 06/01/2024 2:52 PM EST Please let pt. Know that chest xray was normal.. I am sending methocarbamol (mild muscle relaxant) in to her pharmacy to help with the knots. May take up to 3 x day as needed. [facility]01-28-2025 Note* Addendum Note - Elaine Trevino APRN.CNP - 06/01/2024 2:42 PM ESTAddended by: ELAINE TREVINO on: 06/01/2024 02:42 PM Modules accepted: Orders [facility]01-28-2025 Miscellaneous Notes* Addendum Note - Elaine Trevino APRN.CNP - 06/01/2024 2:42 PM ESTAddended by: ELAINE TREVINO on: 06/01/2024 02:42 PM Modules accepted: Orders documented in this encounterAdena Fayette [facility] Center01-28-2025 History of Present illness Narrative* Eunice Amador Tech - 06/01/2024 2:10 PM EST Radiology Service Progress Note PATIENT NAME: Meche Fountain DATE OF SERVICE: June 01, 2024 TIME: 2:04 PM PATIENT IDENTITY VERIFICATION COMPLETED USING TWO (2) IDENTIFIERS: Name and Date of confirmedby patient verbally. FALL SCREENING: Has the patient had 2 falls in the last year or 1 fall with injury or currently using an Ambulatory Assistive Device (Walker, Cane, Wheelchair, Crutches, etc.)? No PATIENT GENDER DATA: Assigned female at . status: : No status:NO. PATIENT RELEVANT IMPLANT DATA REVIEWED: Not Applicable PATIENT PRESENTS WITH AN IMPLANTABLE OR ATTACHED TIRE REPAIR MECHANIC: No RADIOLOGY DEPARTMENT: General X-ray: Exam(s) Completed: Chest X-Ray PERIPHERAL IV DATA: Not applicable SIGNED BY: Chitra Dupree June 01, 2024 2:04 PM documented in this encounterAdena Fayette [facility] Center01-28-2025 NoteHNO ID: [id number] Author: EUNICE AMADOR Tech Service: ? Author Type: Technologist Type: Progress Notes Filed: 06/01/2024 14:13 Note Text: Radiology Service Progress Note PATIENT NAME: Meche Fountain DATE OF SERVICE: June 01, 2024 TIME: 2:04 PM PATIENT IDENTITY VERIFICATION COMPLETED USING TWO (2) IDENTIFIERS: Name and Date of confirmed by patient verbally. FALL SCREENING: Has the patient had 2 falls in the last year or 1 fall with injury or currently using an Ambulatory Assistive Device (Walker, Cane, Wheelchair, Crutches, etc.)? No PATIENT GENDER DATA: Assigned female at . status: : No status: NO. PATIENT RELEVANT IMPLANT DATA REVIEWED: Not Applicable PATIENT PRESENTS WITH AN IMPLANTABLE OR ATTACHED TIRE REPAIR MECHANIC: No RADIOLOGY DEPARTMENT: General X-ray: Exam(s) Completed: Chest X-Ray PERIPHERAL IV DATA: Not applicable SIGNED BY: Chitra Dupree June 01, 2024 2:04 [facility]01-28-2025 Instructions* Patient Instructions* Elaine Trevino APRN.CNP - 06/01/2024 1:45 PM EST 1) Urinalysis today- Provider collect 2) Chest xray 3) Follow up in 2 weeks documented in this encounterAdena Fayette Medical Center01-28-2025 NoteHNO ID: [id number] Author: ELAINE TREVINO APRN.CNP Service: ? Author Type: Nurse Practitioner Type: Progress Notes Filed: 06/01/2024 14:55 Note Text: This is a 69 year old female who presents today with: Patient presents with: Back Pain HISTORY OF PRESENT ILLNESS: Meche Fountain is a 69 year old female. Patient presents with: Back Pain Did get alerted that she had Afib on 05/25/24. Cannot see rhythm. Asymptomatic Hx of low back pain. A week ago, she felt a knot in low back. Using heat and massager. Biofreeze Moved up her back and got better. Then in left scapula. Now knot has moved around under left breast. Hurts to move. Can get SOB but that is from aortic stenosis. Hurts to move. Hurts a little to take a deep breath. In chest now for 3 days No fever or chills Tendency to cough, no change PAST MEDICAL HISTORY: PAST MEDICAL HISTORY Diagnosis Date Bronchitis Diverticulitis Edema leg Heart murmur Psoriasis Snoring Vertigo PAST SURGICAL HISTORY Procedure Laterality Date CHG DELIVERY x 3 COLONOSCOPY 2006 COLONOSCOPY FLX DX W/COLLJ SPEC WHEN PFRMD 07/24/2018 Colonoscopy TONSILLECTOMY HX ALLERGIES Penicillins MEDICATIONS Current Outpatient Medications Medication Sig rosuvastatin (CRESTOR) 10 mg tablet Take 1 tablet by mouth daily at bedtime. fluocinolone (SYNALAR) 0.025 % ointment Apply to affected area as directed. apply a pea-szed amount to vulva twice weekly, use 1-2 times daily for up to 2 weeks for flairs then return to twice weekly albuterol HFA (VENTOLIN HFA) 90 mcg/actuation inhaler Inhale 2 Puffs as instructed every 4 hours as needed for wheezing/shortness of breath. Fish Oil-DHA-EPA 1,200-144-216 mg cap Take 2 capsules by mouth once daily. Cholecalciferol, Vitamin D3, 50 mcg (2,000 unit) cap Take by mouth. BIOTIN ORAL Take by mouth. vitamin B complex (B COMPLEX ORAL) Take by mouth. MULTIVITAMIN WITH MINERALS (MULTIVITAMIN AND MINERAL FORMULA ORAL) Take by mouth. aspirin, enteric coated (ASPIRIN, ENTERIC COATED) 81 mg EC tablet Take 81 mg by mouth once each week. tirzepatide (MOUNJARO) 2.5 mg/0.5 mL pen injector Inject 2.5 mg subcutaneously one time a week. (Patient not taking: Reported on 02/23/2024) No current facility-administered medications for this visit. FAMILY HISTORY Problem Relation Age of Onset Clotting Disorder Mother age 88 COPD Father smoker, age 80 No Known Problems Brother Heart Failure Maternal Grandmother No Known Problems Maternal Grandfather Diabetes Paternal Grandmother No Known Problems Paternal Grandfather Colon Cancer Maternal Aunt Social History Tobacco Use Smoking status: Never Smokeless tobacco: Never Vaping Use Vaping status: Never Used Substance Use Topics Alcohol use: Yes Comment: occasional Drug use: No EXAM: BP 122/68 Pulse 94 Wt 89.4 kg (197 lb) SpO2 95% BMI 37.22 kg/m? PHYSICAL EXAM: Physical Exam Vitals reviewed. Constitutional: Appearance: Normal appearance. HENT: Head: Normocephalic. Cardiovascular: Rate and Rhythm: Normal rate and regular rhythm. Pulses: Normal pulses. Heart sounds: Murmur heard. Pulmonary: Effort: Pulmonary effort is normal. Breath sounds: Normal breath sounds. Abdominal: General: Bowel sounds are normal. Palpations: Abdomen is soft. Tenderness: There is no abdominal tenderness. There is no guarding. Musculoskeletal: General: Normal range of motion. Comments: Walks w/o assistive device No palpable chest wall nodules, tender as stated Skin: General: Skin is warm and dry. Neurological: Mental Status: She is alert and oriented to person, place, and time. Psychiatric: Mood and Affect: Mood normal. Behavior: Behavior normal. LABS: ASSESSMENT/PLAN: 1. Muscle strain of chest wall, initial encounter - ICD9: 848.8, ICD10: S29.011A Uncertain of etiology - XR CHEST 2V FRONTAL/LAT stat 2. Dysuria - ICD9: 788.1, ICD10: R30.0 recurrent - Patient education for prevention given - URINALYSIS, WITH MICROSCOPIC- DIP negative nitrates and leukocytes Discussed treatment plan and patient voices understanding. Patient's questions answered appropriately. Medications and potential side effects were discussed and patient voices understanding. Return to the office as scheduled or as needed for worsening/no improvement. Elaine Trevino APRN.[place]ISACenterville01-28-2025 History of Present illness Narrative* Elaine Trevino APRN.ALISA - 06/01/2024 1:22 PM EST This is a 69 year old female who presents today with: Patient presents with: Back Pain HISTORY OF PRESENT ILLNESS: Meche Fountain is a 69 year old female. Patient presents with: Back Pain Did get alerted that she had Afib on 05/25/24. Cannot see rhythm. Asymptomatic Hx of low back pain. A week ago, she felt a knot in low back. Using heat and massager. Biofreeze Moved up her back and got better. Then in left scapula. Now knot has moved around under left breast. Hurts to move. Can get SOB but that is from aortic stenosis. Hurts to move. Hurts a little to take a deep breath. In chest now for 3 days No fever or chills Tendency to cough, no change PAST MEDICAL HISTORY: PAST MEDICAL HISTORY Diagnosis Date Bronchitis Diverticulitis Edema leg Heart murmur Psoriasis Snoring Vertigo PAST SURGICAL HISTORY Procedure Laterality Date CHG DELIVERY x 3 COLONOSCOPY 2006 COLONOSCOPY FLX DX W/COLLJ SPEC WHEN PFRMD 07/24/2018 Colonoscopy TONSILLECTOMY HX ALLERGIES Penicillins MEDICATIONS Current Outpatient Medications Medication Sig rosuvastatin (CRESTOR) 10 mg tablet Take 1 tablet by mouth daily at bedtime. fluocinolone (SYNALAR) 0.025 % ointment Apply to affected area as directed. apply a pea-szed amountto vulva twice weekly, use 1-2 times daily for up to 2 weeks for flairs then return to twice weekly albuterol HFA (VENTOLIN HFA) 90 mcg/actuation inhaler Inhale 2 Puffs as instructed every 4 hours asneeded for wheezing/shortness of breath. Fish Oil-DHA-EPA 1,200-144-216 mg cap Take 2 capsules by mouth once daily. Cholecalciferol, Vitamin D3, 50 mcg (2,000 unit) cap Take by mouth. BIOTIN ORAL Take by mouth. vitamin B complex (B COMPLEX ORAL) Take by mouth. MULTIVITAMIN WITH MINERALS (MULTIVITAMIN & MINERAL FORMULA ORAL) Take by mouth. aspirin, enteric coated (ASPIRIN, ENTERIC COATED) 81 mg EC tablet Take 81 mg by mouth once each week. tirzepatide (MOUNJARO) 2.5 mg/0.5 mL pen injector Inject 2.5 mg subcutaneously one time a week. (Patient not taking: Reported on 02/23/2024) No current facility-administered medications for this visit. FAMILY HISTORY Problem Relation Age of Onset Clotting Disorder Mother age 88 COPD Father smoker, age 80 No Known Problems Brother Heart Failure Maternal Grandmother No Known Problems Maternal Grandfather Diabetes Paternal Grandmother No Known Problems Paternal Grandfather Colon Cancer Maternal Aunt Social History Tobacco Use Smoking status: Never Smokeless tobacco: Never Vaping Use Vaping status: Never Used Substance Use Topics Alcohol use: Yes Comment: occasional Drug use: No EXAM: BP 122/68 Pulse 94 Wt 89.4 kg (197 lb) SpO2 95% BMI 37.22 kg/m PHYSICAL EXAM: Physical Exam Vitals reviewed. Constitutional: Appearance: Normal appearance. HENT: Head: Normocephalic. Cardiovascular: Rate and Rhythm: Normal rate and regular rhythm. Pulses: Normal pulses. Heart sounds: Murmur heard. Pulmonary: Effort: Pulmonary effort is normal. Breath sounds: Normal breath sounds. Abdominal: General: Bowel sounds are normal. Palpations: Abdomen is soft. Tenderness: There is no abdominal tenderness. There is no guarding. Musculoskeletal: General: Normal range of motion. Comments: Walks w/o assistive device No palpable chest wall nodules, tender as stated Skin: General: Skin is warm and dry. Neurological: Mental Status: She is alert and oriented to person, place, and time. Psychiatric: Mood and Affect: Mood normal. Behavior: Behavior normal. LABS: ASSESSMENT/PLAN: 1. Muscle strain of chest wall, initial encounter - ICD9: 848.8, ICD10: S29.011A Uncertain of etiology - XR CHEST 2V FRONTAL/LAT stat 2. Dysuria - ICD9: 788.1, ICD10: R30.0 recurrent - Patient education for prevention given - URINALYSIS, WITH MICROSCOPIC- DIP negative nitrates and leukocytes Discussed treatment plan and patient voices understanding. Patient's questions answered appropriately. Medications and potential side effects were discussed and patient voices understanding. Return to the office as scheduled or as needed for worsening/no improvement. Elaine Trevino APRN.ALISA documented in this encounterAdena [facility]11-08-2024 History of Present illness Narrative* Laurence Drew, TECHNOLOGIST - 03/12/2024 4:00 PM EST Radiology Service Progress Note PATIENT NAME: Meche Fountain DATE OF SERVICE: March 12, 2024 TIME: 4:19 PM PATIENT IDENTITY VERIFICATION COMPLETED USING TWO (2) IDENTIFIERS: Name and Date of confirmedby patient verbally and Name and Date of confirmed by identification band. FALL SCREENING: Has the patient had 2 falls in the last year or 1 fall with injury or currently using an Ambulatory Assistive Device (Walker, Cane, Wheelchair, Crutches, etc.)? No PATIENT GENDER DATA: Female. status: : No status: NO. PATIENT RELEVANT IMPLANT DATA REVIEWED: Yes PATIENT PRESENTS WITH AN IMPLANTABLE OR ATTACHED TIRE REPAIR MECHANIC: No RADIOLOGY DEPARTMENT: CT; Exam(s) Completed: Cardiac PERIPHERAL IV DATA: Site assessment: Clean,Dry and Intact, Site disposition Discontinued SIGNED BY: TECHNOLOGIST Dinorah March 12, 2024 4:19 PM documented in this encounterAdena Fayette [facility] Center11-08-2024 NoteHNO ID: [id number] Author: LAURENCE DREW TECHNOLOGIST Service: Radiology Author Type: Technologist Type: Progress Notes Filed: 03/12/2024 16:20 Note Text: Radiology Service Progress Note PATIENT NAME: Meche Fountain DATE OF SERVICE: March 12, 2024 TIME: 4:19 PM PATIENT IDENTITY VERIFICATION COMPLETED USING TWO (2) IDENTIFIERS: Name and Date of confirmed by patient verbally and Name and Date of confirmed by identification band. FALL SCREENING: Has the patient had 2 falls in the last year or 1 fall with injury or currently using an Ambulatory Assistive Device (Walker, Cane, Wheelchair, Crutches, etc.)? No PATIENT GENDER DATA: Female. status: : No status: NO. PATIENT RELEVANT IMPLANT DATA REVIEWED: Yes PATIENT PRESENTS WITH AN IMPLANTABLE OR ATTACHED TIRE REPAIR MECHANIC: No RADIOLOGY DEPARTMENT: CT; Exam(s) Completed: Cardiac PERIPHERAL IV DATA: Site assessment: Clean,Dry and Intact, Site disposition Discontinued SIGNED BY: TECHNOLOGIST Dinorah March 12, 2024 4:19 PMSelect [facility], [id number] Nurse Note* Lucas Marr RN - 03/12/2024 4:00 PM EST Radiology Service Progress Note DATE OF SERVICE: March 12, 2024 TIME: 4:08 PM PATIENT WEIGHT: 198 LBS PATIENT IDENTITY VERIFICATION COMPLETED USING TWO (2) STANDARD IDENTIFIERS: Name and Date of confirmed by patient verbally and Name and Date of confirmed by identification band. FALL SCREENING: Has the patient had 2 falls in the last year or 1 fall with injury or currently using an Ambulatory Assistive Device (Walker, Cane, Wheelchair, Crutches, etc.)? No PATIENT GENDER DATA: Female. status: : No status: NO. ALLERGIES: Reviewed and unchanged CONTRAST ALLERGY: No EXAM: CT -CONTRAST INDUCED NEPHROPATHY RISK FACTORS: Patient age > 60 years CREATININE: Creatinine Date Value Ref Range Status 03/01/2024 0.85 0.58 - 0.96 mg/dL Final 09/12/2023 0.80 0.58 - 0.96 mg/dL Final 05/22/2023 0.90 0.58 - 0.96 mg/dL Final Estimated Glomerular Filtration Rate Date Value Ref Range Status 03/01/2024 74 >=60 mL/min/1.73m Final Comment: Estimated Glomerular Filtration Rate (eGFR) is calculated using the 2020 CKD-EPI creatinine equation. This equation utilizes serum creatinine, sex, and age as parameters. The creatinine assay has traceable calibration to isotope dilution- mass spectrometry. Refer to KDIGO guidelines for clinical interpretation. In patients with unstable renal function, e.g. those with acute kidney injury, the eGFRmay not accurately reflect actual GFR. eGFR- Date Value Ref Range Status 03/16/2021 >60 Final P.O.C.T. RESULTS: N/A March 12, 2024 TREATMENT: N/A IV SITE: Ambulatory: A peripheral IV was started in the Left with a Angio cath: 20 gauge. IV SITE APPEARANCE: Clean,Dry and Intact SIGNATURE: Lucas Marr RN PATIENT NAME: Meche Fountain DATE: March 12, 2024 TIME: 4:08 PM [facility]11-08-[facility] Nurse Note* Lucas Marr RN - 03/12/2024 4:00 PM EST Radiology Service Progress Note DATE OF SERVICE: March 12, 2024 TIME: 4:08 PM PATIENT WEIGHT: 198 LBS PATIENT IDENTITY VERIFICATION COMPLETED USING TWO (2) STANDARD IDENTIFIERS: Name and Date of confirmed by patient verbally and Name and Date of confirmed by identification band. FALL SCREENING: Has the patient had 2 falls in the last year or 1 fall with injury or currently using an Ambulatory Assistive Device (Walker, Cane, Wheelchair, Crutches, etc.)? No PATIENT GENDER DATA: Female. status: : No status: NO. ALLERGIES: Reviewed and unchanged CONTRAST ALLERGY: No EXAM: CT -CONTRAST INDUCED NEPHROPATHY RISK FACTORS: Patient age > 60 years CREATININE: Creatinine Date Value Ref Range Status 03/01/2024 0.85 0.58 - 0.96 mg/dL Final 09/12/2023 0.80 0.58 - 0.96 mg/dL Final 05/22/2023 0.90 0.58 - 0.96 mg/dL Final Estimated Glomerular Filtration Rate Date Value Ref Range Status 03/01/2024 74 >=60 mL/min/1.73m Final Comment: Estimated Glomerular Filtration Rate (eGFR) is calculated using the 2020 CKD-EPI creatinine equation. This equation utilizes serum creatinine, sex, and age as parameters. The creatinine assay has traceable calibration to isotope dilution- mass spectrometry. Refer to KDIGO guidelines for clinical interpretation. In patients with unstable renal function, e.g. those with acute kidney injury, the eGFRmay not accurately reflect actual GFR. eGFR- Date Value Ref Range Status 03/16/2021 >60 Final P.O.C.T. RESULTS: N/A March 12, 2024 TREATMENT: N/A IV SITE: Ambulatory: A peripheral IV was started in the Left with a Angio cath: 20 gauge. IV SITE APPEARANCE: Clean,Dry and Intact SIGNATURE: Lucas Marr RN PATIENT NAME: Meche Fountain DATE: March 12, 2024 TIME: 4:08 PM documented in this encounterAdena Fayette [facility] Center10-21-2024 Instructions* Patient Instructions* Elly Donahue MD - 02/23/2024 11:24 AM EDT We are going to repeat a CT scan You need blood work the week prior documented in this encounterAdena Fayette [facility] Center10-21-2024 History of Present illness Narrative* Elly Donahue MD - 02/23/2024 11:00 AM EDT Images from the original note were not included. [facility] Cardiology ([place] ) [address] [facility] [id number] OUTPATIENT VISIT DATE 06/16/2023 PRIMARY CARE PHYSICIAN: Sterling Coleman [address] [place] [address] REFERRING PHYSICIAN: Sterling Coleman [address] [facility] [id number] HISTORY OF PRESENT ILLNESS: Ms. Fountain is a 69 year old woman moderately severe aortic valve stenosis who presents for follow-up. Patient continues to have episodes of shortness of breath after prolonged exertion. She has had no escalation symptoms since her last visit. She did have 1 episode of dizziness that occurred when she was sitting. Lasted a few seconds and resolved. She has not had symptoms concerning for congestive heart failure including PND, orthopnea, or lower extremity edema. She denies palpitations, near-syncope, or syncope. PAST MEDICAL HISTORY Diagnosis Date Bronchitis Diverticulitis Edema leg Heart murmur Psoriasis Snoring Vertigo PAST SURGICAL HISTORY Procedure Laterality Date CHG DELIVERY x 3 COLONOSCOPY 2006 COLONOSCOPY FLX DX W/COLLJ SPEC WHEN PFRMD 07/24/2018 Colonoscopy TONSILLECTOMY HX SOCIAL HISTORY Social History Tobacco Use Smoking status: Never Smokeless tobacco: Never Vaping Use Vaping status: Never Used Substance Use Topics Alcohol use: Yes Comment: occasional Drug use: No FAMILY HISTORY Problem Relation Age of Onset Clotting Disorder Mother age 88 COPD Father smoker, age 80 No Known Problems Brother Heart Failure Maternal Grandmother No Known Problems Maternal Grandfather Diabetes Paternal Grandmother No Known Problems Paternal Grandfather Colon Cancer Maternal Aunt ALLERGIES: ALLERGIES Allergen Reactions Penicillins Swelling MEDICATIONS: iv contrast (will be provided with radiology test) CTA CHEST - No IV access, insert saline lock prior to the sedation, infusion, injection for imaging exam. Discontinue saline lock post exam. If Pt. has a central line or IVAD, may access for administration according to line specific nursing protocol. Once exam is complete flush line and de-access according to line specific nursing protocol in theCT contrast administration guidelines link. fluocinolone (SYNALAR) 0.025 % ointment Apply to affected area as directed. apply a pea-szed amountto vulva twice weekly, use 1-2 times daily for up to 2 weeks for flairs then return to twice weekly albuterol HFA (VENTOLIN HFA) 90 mcg/actuation inhaler Inhale 2 Puffs as instructed every 4 hours asneeded for wheezing/shortness of breath. rosuvastatin (CRESTOR) 10 mg tablet Take 1 tablet by mouth daily at bedtime. Fish Oil-DHA-EPA 1,200-144-216 mg cap Take 2 capsules by mouth once daily. Cholecalciferol, Vitamin D3, 50 mcg (2,000 unit) cap Take by mouth. BIOTIN ORAL Take by mouth. vitamin B complex (B COMPLEX ORAL) Take by mouth. MULTIVITAMIN WITH MINERALS (MULTIVITAMIN & MINERAL FORMULA ORAL) Take by mouth. aspirin, enteric coated (ASPIRIN, ENTERIC COATED) 81 mg EC tablet Take 81 mg by mouth once each week. tirzepatide (MOUNJARO) 2.5 mg/0.5 mL pen injector Inject 2.5 mg subcutaneously one time a week. (Patient not taking: Reported on 02/23/2024) REVIEW OF SYSTEMS: Review of Systems Constitutional: Negative for chills, fever, malaise/fatigue and weight loss. HENT: Negative for hearing loss and sore throat. Eyes: Negative for blurred vision and double vision. Respiratory: Negative. Cardiovascular: Negative. Genitourinary: Negative for dysuria, frequency, hematuria and urgency. Musculoskeletal: Negative. Skin: Negative. Neurological: Negative for dizziness, seizures, loss of consciousness, weakness and headaches. Endo/Heme/Allergies: Negative for environmental allergies. Does not bruise/bleed easily. Psychiatric/Behavioral: Negative for depression. PHYSICAL EXAMINATION: BP 122/77 Pulse 88 Temp (Src) 98.1 (Oral) SpO2 100% General: Pleasant woman sitting appears comfortable no apparent distress. She is alert and orientedx3 HEENT: Carotid upstrokes are brisk bilaterally without bruits. No JVD Pulmonary: Lungs are clear no rales, wheezes, rhonchi Cardiovascular: Normal S1, S2 with regular rate and rhythm. Mid to late peaking crescendo decrescendo murmur right sternal border 3/6. A2 component second heart sound is well appreciated. Extremities: Warm, well-perfused, no lower extremity edema. 2+ distal pulses CARDIOVASCULAR MEDICINE TESTING: ECG in the office July 29, 2022: Normal sinus rhythm normal axis and intervals. No significant ST or T wave changes Coronary Artery Calcium Score 11/02/2018 LM: 0 LAD: 0 LCx: 0 RCA: 0 Echocardiogram 02/09/2024: - Technically difficult exam due to body habitus. - Exam indication: Routine surveillance of moderate or severe valvular stenosis (>1yr) - The left ventricle is normal in size. Left ventricular systolic function is normal. EF = 65 5% (2D biplane) Grade I left ventricular diastolic dysfunction. - The right ventricle is normal in size. Right ventricular systolic function is normal. - There is moderate aortic valve stenosis. AV area is 1.08 cm (0.55 cm /m ) by continuity, VTI. Thepeak gradient is 38 mmHg, the mean gradient is 22 mmHg and the dimensionless valve index is 0.40. Prior pk/mn gradients were 38/21 mmHg. - Exam was compared with the prior CC echocardiographic exam performed on 01/21/2023, no significant change. Echocardiogram 01/21/2023: - The left ventricle is normal in size. Left ventricular systolic function is normal. EF = 70 5% (2D biplane) Grade I left ventricular diastolic dysfunction. - The right ventricle is normal in size. Right ventricular systolic function is normal. - There is moderate aortic valve stenosis. AV area is 1.03 cm (0.54 cm /m ) by continuity, VTI. Thepeak gradient is 38 mmHg, the mean gradient is 21 mmHg and the dimensionless valve index is 0.38. Prior pk/mn gradients were 30/17 mmHg. - Exam was compared with the prior CC echocardiographic exam performed on 04/02/2022, the peak Aortic valve gradient has increased from 30 mm Hg to 38 mm Hg now. Echocardiogram 04/02/2022 - The left ventricle is small. Left ventricular systolic function is normal. EF = 71 5% (2D biplane) Normal left ventricular diastolic function. - The right ventricle is normal in size. Right ventricular systolic function is normal. - There is moderate aortic valve stenosis. AV area is 0.87 cm (0.44 cm /m ) by continuity, VTI. Thepeak gradient is 30 mmHg, the mean gradient is 17 mmHg and the dimensionless valve index is 0.32. Prior pk/mn gradients were 28/16 mmHg. - Exam was compared with the prior CC echocardiographic exam performed on 04/17/2021, no significant change. I have personally reviewed the Electrocardiogram, Laboratory Testing, and Echocardiogram. IMPRESSION: Ms. Fountain is a 69 year old woman with a history of hyperlipidemia and moderate aortic stenosis who presents for routine follow-up PLAN AND RECOMMENDATIONS: 1. Nonrheumatic aortic valve stenosis - ICD9: 424.1, ICD10: I35.0 (primary diagnosis) I reviewed her echocardiogram with her during the office visit. Indices are unchanged from last year. Will continue yearly screening. 2. Hyperlipidemia, mixed - ICD9: 272.2, ICD10: E78.2 Maintained on Crestor 10 mg daily. Fasting blood work from September 2023 was reviewed. LDL cholesterol 102 mg/dL. Could consider increasing the dose of her statin therapy. 3. 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 Will repeat CT angiogram - CTA CHEST (NONGATED) W IVCON - IV CONTRAST (RADIOLOGY PROCEDURE) - CREATININE BLD Elly Donahue MD documented in this encounterA[facility] NoteHNO ID: [id number] Author: ELLY DONAHUE MD Service: ? Author Type: Physician Type: Progress Notes Filed: 02/23/2024 11:37 Note Text: [facility] Cardiology ([address]) [address] [facility] [id number] OUTPATIENT VISIT DATE 06/16/2023 PRIMARY CARE PHYSICIAN: [place] [address] REFERRING PHYSICIAN: Sterling Roca [facility] [id number] HISTORY OF PRESENT ILLNESS: Ms. Fountain is a 69 year old woman moderately severe aortic valve stenosis who presents for follow-up. Patient continues to have episodes of shortness of breath after prolonged exertion. She has had no escalation symptoms since her last visit. She did have 1 episode of dizziness that occurred when she was sitting. Lasted a few seconds and resolved. She has not had symptoms concerning for congestive heart failure including PND, orthopnea, or lower extremity edema. She denies palpitations, near-syncope, or syncope. PAST MEDICAL HISTORY Diagnosis Date Bronchitis Diverticulitis Edema leg Heart murmur Psoriasis Snoring Vertigo PAST SURGICAL HISTORY Procedure Laterality Date CHG DELIVERY x 3 COLONOSCOPY 2006 COLONOSCOPY FLX DX W/COLLJ SPEC WHEN PFRMD 07/24/2018 Colonoscopy TONSILLECTOMY HX SOCIAL HISTORY Social History Tobacco Use Smoking status: Never Smokeless tobacco: Never Vaping Use Vaping status: Never Used Substance Use Topics Alcohol use: Yes Comment: occasional Drug use: No FAMILY HISTORY Problem Relation Age of Onset Clotting Disorder Mother age 88 COPD Father smoker, age 80 No Known Problems Brother Heart Failure Maternal Grandmother No Known Problems Maternal Grandfather Diabetes Paternal Grandmother No Known Problems Paternal Grandfather Colon Cancer Maternal Aunt ALLERGIES: ALLERGIES Allergen Reactions Penicillins Swelling MEDICATIONS: iv contrast (will be provided with radiology test) CTA CHEST - No IV access, insert saline lock prior to the sedation, infusion, injection for imaging exam. Discontinue saline lock post exam. If Pt. has a central line or IVAD, may access for administration according to line specific nursing protocol. Once exam is complete flush line and de-access according to line specific nursing protocol in the CT contrast administration guidelines link. fluocinolone (SYNALAR) 0.025 % ointment Apply to affected area as directed. apply a pea-szed amount to vulva twice weekly, use 1-2 times daily for up to 2 weeks for flairs then return to twice weekly albuterol HFA (VENTOLIN HFA) 90 mcg/actuation inhaler Inhale 2 Puffs as instructed every 4 hours as needed for wheezing/shortness of breath. rosuvastatin (CRESTOR) 10 mg tablet Take 1 tablet by mouth daily at bedtime. Fish Oil-DHA-EPA 1,200-144-216 mg cap Take 2 capsules by mouth once daily. Cholecalciferol, Vitamin D3, 50 mcg (2,000 unit) cap Take by mouth. BIOTIN ORAL Take by mouth. vitamin B complex (B COMPLEX ORAL) Take by mouth. MULTIVITAMIN WITH MINERALS (MULTIVITAMIN AND MINERAL FORMULA ORAL) Take by mouth. aspirin, enteric coated (ASPIRIN, ENTERIC COATED) 81 mg EC tablet Take 81 mg by mouth once each week. tirzepatide (MOUNJARO) 2.5 mg/0.5 mL pen injector Inject 2.5 mg subcutaneously one time a week. (Patient not taking: Reported on 02/23/2024) REVIEW OF SYSTEMS: Review of Systems Constitutional: Negative for chills, fever, malaise/fatigue and weight loss. HENT: Negative for hearing loss and sore throat. Eyes: Negative for blurred vision and double vision. Respiratory: Negative. Cardiovascular: Negative. Genitourinary: Negative for dysuria, frequency, hematuria and urgency. Musculoskeletal: Negative. Skin: Negative. Neurological: Negative for dizziness, seizures, loss of consciousness, weakness and headaches. Endo/Heme/Allergies: Negative for environmental allergies. Does not bruise/bleed easily. Psychiatric/Behavioral: Negative for depression. PHYSICAL EXAMINATION: BP 122/77 Pulse 88 Temp (Src) 98.1 (Oral) SpO2 100% General: Pleasant woman sitting appears comfortable no apparent distress. She is alert and oriented x3 HEENT: Carotid upstrokes are brisk bilaterally without bruits. No JVD Pulmonary: Lungs are clear no rales, wheezes, rhonchi Cardiovascular: Normal S1, S2 with regular rate and rhythm. Mid to late peaking crescendo decrescendo murmur right sternal border 3/6. A2 component second heart sound is well appreciated. Extremities: Warm, well-perfused, no lower extremity edema. 2+ distal pulses CARDIOVASCULAR MEDICINE TESTING: ECG in the office July 29, 2022: Normal sinus rhythm normal axis and intervals. No significant ST or T wave changes Coronary Artery Calcium Score 11/02/2018 LM: 0 LAD: 0 LCx: 0 RCA: 0 Echocardiogram (more content not included)...[place] 12-29-2023 NoteHNO ID: [id number] Author: ?, ?, ? Service: ? Author Type: ? Type: Progress Notes Filed: 12/29/2023 09:50 Note Text: Sleep Study Check-In Documentation Date: December 29, 2023 Name: Meche Fountain Comments: HST was returned in working order with all sleep questionnaires Leila EliCenterville08-22-2024 NoteHNO ID: [id number] Author: ?, ?, ? Service: ? Author Type: ? Type: Progress Notes Filed: 12/25/2023 17:18 Note Text: Nomad# , date shipped out 12/25/23 [employer] Tracking mailout: [id number] Tracking return: [id number] Telephone encounter Note* Telephone Encounter - Beverley Archer RN - 12/05/2023 9:41 AM EDT Last annual 05/29/23. Upcoming annual 05/31/24. Requested Prescriptions Pending Prescriptions Disp Refills fluocinolone (SYNALAR) 0.025 % ointment 60 g 0 Sig: Apply to affected area as directed. apply a pea-szed amount to vulva twice weekly, use 1-2 times daily for up to 2 weeks for flairs then return to twice weekly Beverley Archer RN [facility]08-02-2024 Miscellaneous Notes* Telephone Encounter - Beverley Archer RN - 12/05/2023 9:41 AM EDT Last annual 05/29/23. Upcoming annual 05/31/24. Requested Prescriptions Pending Prescriptions Disp Refills fluocinolone (SYNALAR) 0.025 % ointment 60 g 0 Sig: Apply to affected area as directed. apply a pea-szed amount to vulva twice weekly, use 1-2 times daily for up to 2 weeks for flairs then return to twice weekly Beverley Archer RN documented in this encounterAdena [facility]05-28-2024 History of Present illness Narrative* Betty Akins - 09/30/2023 4:27 PM EDT Sleep Study Check-In Documentation Date: September 30, 2023 Name: Meche Fountain Comments: HST was returned in working order with all sleep questionnaires Betty Akins * Betty Akins - 09/25/2023 4:45 PM EDT Nomad # [id number] , date shipped out 09-25-23 [employer] only Tracking mailout: [id number] Tracking return: [id number] * Vikas Humphries III, PhD - 09/19/2023 3:02 PM EDT September 19, 2023 Standing PSG Orders signed in the last 90 days None Future PSG Orders signed in the last 90 days Ordered Auth. provider CONSULT TO SLEEP MEDICINE - ADULT [[id number]] 09/10/23 Viktoria Marquez MD Assoc. diagnoses: Malaise and fatigue [R53.81, R53.83], Snoring [R06.83], Body mass index (BMI) 36.0-36.9, adult [Z68.36], Class 2 severe obesity with serious comorbidity and body mass index (BMI) of36.0 to 36.9 in adult, unspecified obesity type (HCC) [E66.01, Z68.36] Q: Does consulting provider have [facility] access?: A: Yes HOME SLEEP APNEA TEST (HSAT) [[id number]] 09/10/23 Viktoria Marquez MD Assoc. diagnoses: Malaise and fatigue [R53.81, R53.83], Snoring [R06.83], Class 2 severe obesity with serious comorbidity and body mass index (BMI) of 36.0 to 36.9 in adult, unspecified obesity type (HCC) [E66.01, Z68.36], Hypersomnia, unspecified [G47.10] Q: Indications: A: Obstructive sleep apnea Q: STOP-BANG conditions - Select All That Apply: A: BMI > 35 kg/m2 A2: AGE > 50 A3: SNORING that is loud or disruptive A4: TIREDNESS, fatigue or sleepiness during the day A5: OBSERVED sleep apnea Q: Current use of supplemental oxygen during sleep period?: A: No All Prior Sleep Studies (past 365 days) 09/10/2023 Sleep Studies HOME SLEEP APNEA TEST (HSAT) HOME SLEEP APNEA TEST (HSAT) Order Status: Ordered, Future Expires: 09/09/24 CONSULT TO SLEEP MEDICINE - ADULT CONSULT TO SLEEP MEDICINE - ADULT Order Status: Ordered, Future Expires: 09/09/24 BMI Readings from Last 2 Encounters: 09/10/23 : 36.84 kg/m 08/15/23 : 37.22 kg/m PAST MEDICAL HISTORY Diagnosis Date Bronchitis Diverticulitis Edema leg Heart murmur Psoriasis Snoring Vertigo The medical record was reviewed to determine if the proposed sleep study conforms to the [facility] Practice Parameters for the Indications for Polysomnography and Related Procedures, or if the sleep studyis indicated for other reasons. Indications for study: BOOGIE suspected without comorbid medical or sleep disorders Sleep study to be performed: Home Sleep Apnea Test (HSAT) Special instructions: None-follow laboratory protocol [facility] Staff Note: I have read the above protocol, edited as needed, and agree to the plan. Vikas Humphries III, PhD 7:48 PM, 09/19/2023 * Luli Barraza - 09/19/2023 12:29 PM EDT September 19, 2023 An order has been received for Home Sleep Apnea Test (HSAT) from Viktoria Price MD , a B. [facility] Staff. Visit prep complete. Comments :No The sleep study is scheduled for 09/24. Insurance: Payor: MEDICARE / Plan: MEDICARE A AND B / Product Type: Medicare / Payer/Plan Subscr Sex Relation Sub. Ins. ID Effective Group Num 1. MEDICARE - ID* MECHE FOUNTAIN 1955 Female Self [id number] 01/04/20 [address] [address] 2. MMO - MMO MED* MECHE FOUNTAIN 1955 Female Self [id number] 01/04/20 [address] Luli Barraza documented in this encounterAdena [facility]05-14-2024 Telephone encounter Note * Telephone Encounter - Savi Geiger LPN - 09/16/2023 4:46 PM EDT Pt sent Storwize message re: current insurance information to submit PA for Mounjaro. Will await further response from pt. Savi Geiger LPN' [facility]05-14-2024 Miscellaneous Notes* Telephone Encounter - Savi Geiger LPN - 09/16/2023 4:46 PM EDT Pt sent Storw[employer] message re: current insurance information to submit PA for Mounjaro. Will await further response from pt. Savi Geiger LPN' documented in this encounterAdena [facility]05-13-2024 Telephone encounter Note * Telephone Encounter - Heide Meléndez RN - 09/15/2023 9:51 AM EDT Patient notified. Heide Meléndez RN [facility]05-13-2024 Miscellaneous Notes* Telephone Encounter - Heide Meléndez RN - 09/15/2023 9:51 AM EDT Patient notified. Heide Meléndez RN * Telephone Encounter - NeViktoria Mora MD - 09/15/2023 8:05 AM EDT Please call and notify patient that she has elevated fasting glucose as well as significantly elevate insulin level. I would like to try to get Injectable medication covered- will try mounjaro. Very important that she decrease her carbohydrates as we discussed at appointment. Sent to rosemarie documented in this encounterAdena [facility]05-13-2024 Telephone encounter Note * Telephone Encounter - Viktoria Marquez MD - 09/15/2023 8:05 AM EDT Please call and notify patient that she has elevated fasting glucose as well as significantly elevate insulin level. I would like to try to get Injectable medication covered- will try mounjaro. Very important that she decrease her carbohydrates as we discussed at appointment. Sent to rosemarie [facility]05-08-2024 History of Present illness Narrative* Viktoria Marquez MD - 09/10/2023 10:06 AM EDT Images from the original note were not included. Patient Summary: Meche Fountain is a 68 year old female with obesity who presents for an initial evaluation of overweight/obesity to treat and prevent co-morbidities and is interested in combination of behavioral and pharmacological. Motivation for seeking treatment for the disease of overweight/obesity : wants to overall feel better and wants to be healthier Goal weight: 140 lb Lowest recall weight: 117 lb Highest recall weight: 198 lb Patient identified barriers to weight loss: emotional eating Weight History: She reports no family history of obesity and late adulthood weight gain. 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 - Last Wt 09/10/23 : 195 lb (88.5 kg) 5% weight loss = 185 lbs, 10% weight loss = 176 lbs WEIGHT GRAPH: Wakes up 8am 2 cups Coffee- black B- Protein shake- 30g 150cal, almost everymorning- if not then light and fit yogurt with almonds and blueberries S- Banana L- Leftovers- chicken strips, steamed cauliflower, klondik bars D- hamburgers, always steamed vegetables or salad, mashed potato, pork chop, baked potato S- oatmeal cookies, lemon cakes, pretzels, Diet/Nutrition overview: Fluids: coffee, water (80oz), 2-3 diet soda per day stopped last year. , occasional wine or OJ , occasional Milk Quality of diet: 24hr recall suggests in between diet. Characterization of diet:unhealthy snacking, excessive cravings, and evening snacking. Wire Inserter of impaired eating habits:mindlessness , emotion, and stress Eating Disorder no Preferred foods: likes healthy foods but has sweet tooth Cravings: sweet Sleep: Duration: 6-7 hours pretty solid sleep- to sleep by 11pm. BOOGIE NO ; CPAP NO but states she snores loudly and has apnea episodes Stress: Stress:yes , Cause:Personal - health and brother Obesity Related Comorbidities: Prior Weight Loss Surgery:No PAST MEDICAL HISTORY Diagnosis Date Bronchitis Diverticulitis Edema leg Heart murmur Psoriasis Snoring Vertigo PAST SURGICAL HISTORY Procedure Laterality Date CHG DELIVERY x 3 COLONOSCOPY 2006 COLONOSCOPY FLX DX W/COLLJ SPEC WHEN PFRMD 07/24/2018 Colonoscopy TONSILLECTOMY HX FAMILY HISTORY Problem Relation Age of Onset Clotting Disorder Mother age 88 COPD Father smoker, age 80 No Known Problems Brother Heart Failure Maternal Grandmother No Known Problems Maternal Grandfather Diabetes Paternal Grandmother No Known Problems Paternal Grandfather Colon Cancer Maternal Aunt Social History Tobacco Use Smoking status: Never Smokeless tobacco: Never Vaping Use Vaping Use: Never used Substance Use Topics Alcohol use: Yes Comment: occasional Drug use: No Medications: Weight Promoting Medications: Diet/weight loss History: Past weight loss attempts? anti-obesity medications phen? It was 2 pillls . Low Carbohydrate diet, Weight watchers, and the diet workshop, dexatrim - under 20lbs, low carb 15lbs- kept weight off for a little bit but was also walking. Exercise: Regular exercise: no Strength/resistance exercise:no Barriers to regular exercise? no Work-related activity:Active. 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5 Neck Circumference: 14.75 GENERAL: Female in NAD. Mixed central and gluteofemoral adiposity. SKIN: acanthosis nigricans no, Skin tags: no Hirsutism: no HEENT: PERRL, No supraclavicular adiposity. No dorsal adiposity. ABDOMEN: Large pannus; EXTREMITIES: peripheral edema: no Results: reviewed with the patient No visits with results within 3 Month(s) from this visit. Latest known visit with results is: Appointment on 05/22/2023 Component Date Value Ref Range Status Glucose 05/22/2023 89 74 - 99 mg/dL Final BUN 05/22/2023 15 7 - 21 mg/dL Final Creatinine 05/22/2023 0.90 0.58 - 0.96 mg/dL Final Sodium 05/22/2023 141 136 - 144 mmol/L Final Potassium 05/22/2023 4.3 3.7 - 5.1 mmol/L Final Chloride 05/22/2023 104 97 - 105 mmol/L Final CO2 05/22/2023 23 22 - 30 mmol/L Final Anion Gap 05/22/2023 14 9 - 18 mmol/L Final Calcium, Total 05/22/2023 9.6 8.5 - 10.2 mg/dL Final Estimated Glomerular Filtration Ra* 05/22/2023 70 >=60 mL/min/1.73m Final Impression: Meche Fountain is a 68 year old Female with Class II obesity (Body mass index is 36.84 kg/m .) who has adult onset obesity with several periods of weight loss followed by weight gain . The causes of her obesity are multifactorial, biological, psychological and social and environmental. Specific factors include increased consumption of high calorie/process foods, suboptimal physical activity, onsetof menopause, and inadequate sleep duration. She has few weight-related medical comorbidities which increase her cardiovascular mortality risk. There are additional metabolic obesity complications including dyslipidemia . Other medical conditions as above. Regarding her lifestyle, as above, she has several behavioral contributors; her physical activity is non-existent. Overall, it is clear that her quality of life is moderately compromised by her weight. It is likelya combination of weight loss therapies will be needed. She appears motivated today. Plan: -- Based on the severity and resistance of the obesity/overweight with co- morbidities, I believe a combination of behavioral and pharmacological intervention is the best and most appropriate nursing home therapeutic option. -- We discussed several strategies to track food intake and increase mindfulness around eating while will decrease calorie intake. She was counseled on the following: Eating primarily whole foods. Limit carbs, especially processed carbs. Do not drink your calories 30 grams of protein for breakfast decreases your hunger during the day by up to 40 % Premier Protein or generic 30 gm protein 1 gm sugar Walk for 15 minutes immediately a meal. -- Encouraged the patient to improve her physical activity. Although cardiovascular exercise is most beneficial for weight loss initially, we discussed healthy muscle from a combination of resistancetraining and cardiovascular exercise is the best intermediate teacher plan. An overall goal of 150-200 minutesper week of exercise has been effective in weight loss and maintenance. -- Reviewed that monitoring weight daily and food intake can have a positive impact on overall weight loss and maintenance of weight loss. Activity tracking can be used to stay on target for exercisehowever should not be used to reward oneself She understands that there can be limitations of pharmacotherapy due to contraindications, side effects and cost. Patient was told to contact her insurance company to see what AOMs and supervised behavioral medical appointments are currently covered. Patient understands she will have more success when following a healthy lifestyle. We reviewed continued use of online tracking of daily weights, food journal and if desired physical activity. We reviewed that during management she is to report any concerning side effects of any pharmacotherapy she is placed on. She understands that she will need routine follow up in the office. Prior to any virtual visits in the future she will need to check her Blood pressure, weight, and pulse. -reviewed possible combination of topiramate & metformin vs GLP-1 will await labs results. Pt has elevated fasting glucose and h/o Aortic valve stenosis with Hyperlipidemia- would be good candidate for GLP-1. Pt is not best candidate for stimulant medication. - Whole foods reviewed, low CHO, Higher protein- kidney function improved after stopping Diuretic per patient. - sleep study ordered and consult to sleep medicine - will call with lab results and decide on pharmacotherapy options . (R53.81, R53.83) Malaise and fatigue (primary encounter diagnosis) (G47.10) Hypersomnia, unspecified (E78.2) Hyperlipidemia, mixed (M25.50) Arthralgia, unspecified joint (R06.83) Snoring (I35.0) Nonrheumatic aortic valve stenosis (E66.01, Z68.36) Class 2 severe obesity with serious comorbidity and body mass index (BMI) of 36.0 to 36.9 in adult, unspecified obesity type (HCC) (Z68.36) Body mass index (BMI) 36.0-36.9, adult (Z13.220) Screening cholesterol level (Z13.0) Screening for deficiency anemia (Z13.1) Screening for diabetes mellitus (Z13.228) Screening for metabolic disorder (Z13.29) Screening for thyroid disorder (Z13.21) Encounter for vitamin deficiency screening -- follow-up visit in 6 weeks for management of above interventions I spent a total of 65 minutes on the date of the service which included preparing to see the patient, [id number] patient care, completing clinical documentation, obtaining and/or reviewing separately obtained history, performing a medically appropriate examination, counseling and educating the pat ient/family/caregiver, and ordering medications, tests, or procedures. Viktoria Patten MD, FACOG, ALISEOM [facility] Instructions* Patient Instructions* Viktoria Marquez MD - 09/10/2023 10:06 AM EDT Images from the original note were not included. Weight Management: You have taken the initiative to become a healthier version of yourself and to decrease the risks that come with the diagnosis of obesity or being overweight. We are happy to help you along this journey but know this is a lifetime commitment to yourself. Losing just 3-10 % of your body weight can decrease your risks of many other serious diseases like diabetes, heart disease, osteoarthritis, hypertension, cancer and so many others. During this time you will have triumphs, setbacks and plateaus-your body will fight against you but we are here to give you the tools and the resources to continue to reach your goals. We recommend during this time that you track your weight daily or at least five times per week as well as tracking your nutrition. You may track your activity but do not use hitting your fitness goals as a reward system as this can derail your success. We recommend weekly physical activity of 150-200 min/week-although physical exercise can help with maintaining weight loss it adds only a little benefit for intermediate teacher weight loss success. However, exercise can have many other benefits including improving mental health and cardiovascular health. Do not feel overwhelmed- we will discuss this moreat your visits. Our time will be limited with each visit but we will try to touch on factors that are important to you and to your overall goals. We will try to set a goal at the end of each visit and then decide onwhat we want to accomplish with your upcoming visits. On your After Visit Summary (AVS), we will provide you with information that may be useful during this journey so please remember to read the information given. Check your AVS a few days after your appointment because we may have added more information specifically for you. Remember that if you are placed on medications, they are tools that can help you succeed but you must put in the work. Your nutrition will be the main factor. There are medications that work well forsome and not for others- so it may take time to find the right combination for your body's needs. Please remember that factors such as other health co-morbidities one might have, as well as insurance coverage, will play a factor in determining which medications you can take. Most of the newer medications that are all the craze ,injectables, may not be covered or will only be covered if you fail months of oral medications- so please be patient with the process. It would be beneficial for you to determine what your insurance covers as far as Anti-Obesity Medications (AOMs), Nutritional Counseling, behavioral intervention and weight loss surgery. Please call your health insurance prior to your first appointment and write down coverage for each of those therapies. Most importantly, remember that ultimately our goal is to help you get to a healthier weight which will decrease your overall health risks. We will work together as a team and try to reach your personalized goals as well. We appreciate that you have entrusted us with your health and know that we are committed to this process with you. Sincerely, Viktoria Gudino MD, FANY CUELLO & Marisol Willis, ALISA Obesity Obesity is a disease that affects nearly one-third of the adult [place] population (approximately 60 million). The number of overweight and obese Americans has continued to increase since 1959, a trend that is not slowing down. Today, 64.5 percent of adult Americans (about 127 million) are categorized as being overweight or obese. Each year, obesity causes at least 300,000 excess deaths in the [place] and healthcare costs of [place] adults with obesity amount to approximately $100 billion. (AOA) Obesity is a complex, multi-factorial chronic disease involving: Environmental (social and cultural) The tendency toward obesity is a result of our environment: lack of physical activity along with high-calorie, low-cost foods. Home, work, school, and even the community can inhibit a healthy lifestyle. Genetic (Hereditary plays a large role in determining how susceptible people are to overweight and obesity). Genes also influence how the body ramirez calories for energy and stores fat. Physiologic, metabolic, behavioral (eating too many calories while not getting enough exercise) andpsychological components. It is the second leading cause of preventable in the [place] Behavioral changes brought on by economic development, modernization and urbanization have been linked to therise in global obesity. Calculating BMI Body Mass Index (BMI) is a measurement tool used to determine excess body weight. Overweight is defined as a BMI of 25 or more, obesity is 30 or more, and severe obesity is 40 or more. You can visit www.nhlbi.nih.gov to estimate your BMI. Obesity Related Health Conditions The morbidity and mortality risk from being overweight is proportional to its degree. Individuals with morbid obesity, therefore, have the highest risk for developing numerous illnesses that often reduce mobility and quality of life due to their excess weight. In particular, type 2 diabetes, gallbladder disease and osteoarthritis have been found to increase concurrently with higher BMI. Prematuredeath, a 20-year shorter life span, has also been found in individuals with morbid obesity. All of the systems that make the body function are affected by morbid obesity. Type 2 diabetes Gallbladder disease and gallstones Liver disease Osteoarthritis, a disease in which the joints deteriorate. This is possibly the result of excess weight on the joints. Gout, another disease affecting the joints Pulmonary (breathing) problems, including sleep apnea in which a person can stop breathing for a short time during sleep Reproductive problems in women, including menstrual irregularities and infertility Gastroesophageal reflux/heartburn Hypertension Heart Disease Depression Psychological disorders/social impairments Urinary Stress Incontinence Obesity is also linked to higher rates of certain types of cancer. Obese men are more likely than non-obese men to from cancer of the colon, rectum, or prostate. Obese women are more likely than non-obese women to from cancer of the gallbladder, breast, uterus, cervix, or ovaries [email or web address] Nutrition - Eat primarily whole foods. Limit carbs, especially processed carbs. - Do not drink your calories - 30 grams of protein for breakfast decreases your hunger during the day by up to 40 % Premier Protein or generic 30 gm protein 1 gm sugar - Walk for 15 minutes immediately a meal. Meal replacements: Meal Replacements Plant-based protein bars Meal replacements. One option that works for some people is to use meal replacements, as in the DiRECT and Look AHEAD trials.The available options in Look AHEAD included shakes, bars, and meals from a variety of companies ([employer], HMR, Optifast, and Slimfast). The calorie content was 150 to 220 ca lories, depending on the product. People who used meal replacements 12 times a week instead of preparing their own meals lost about 11% of their weight in the first year, whereas those who used just two per week lost about 6% of their weight. Keep in mind, though, that people in the trial who used meal replacements also tended to consume a healthier diet over all; they were more likely to have met their goals for dietary fat, fruits and vegetables, and dairy foods, and to have cut back on sweets, than those who didn t use meal replacements. Similarly, in the DiRECT trial, participants consumed special nutritionally complete shakes and soups (the Counterweight-Plus program) for the first 12 weeks.If you opt for meal-replacement drinks, bars, or frozen entrees, here are some criteria to look for: calories, 150 to 300 fat, 3 to 10 grams protein, > 20 grams sugar < 5 g Meal replacements are typically fortified with vitamins and minerals and contain some fiber. Because they are calorie controlled, the amount of added sugars is usually minimal. If you want to try this approach to boost weight loss, ask your dietitian or another member of your health care team how to incorporate the replacements into your meal planning and discuss whether you might need to reduce your doses of diabetes medications to prevent hypoglycemia (low blood sugar) as you cut calories andlose weight. It is important to find a meal- replacement product that suits your taste. If you prefer not to consume processed foods, you can make your own portion-controlled versions. Note that meal replacements don t work for everyone. While some people like meal- replacement shakes, bars, and soups and find them to be a convenient way to sustain a reduced calorie intake over time, others don t feel satisfied drinking them and often end up simply adding them to what they d normally eat--which co uld lead to weight gain. What s more, some people have a hard time readjusting to eating real food after they stop using meal replacements. <15 gram carb fruit options Berries have the lowest sugar content 1/2 medium apple - 12.5 carbs 1/2 medium avocado - 6.5 gm carbs 1/2 medium banana - 15 carbs 1/2 cup blueberries - 11 carbs - may actually help you lose weight 1/2 cup fresh cherries -11 carbs 1 medium Kalpana -9 carbs 1/2 cup fresh cranberries - 6.5 carbs 1/2 c grapes - 15 carbs 1/2 medium grapefruit - 10.5 carbs 1/2 cup diced honeydew melon - 8 carbs 1 medium kiwi without skin - 11 carbs 1/2 cup sliced melody -14 carbs 1 medium nectarine - 15 carbs 1 medium orange -15.5 carbs 1 medium peach -14.5 carbs 1/2 cup fresh pineapple -11 carbs 1 medium plum -7.5 carbs 1 prune - 6 carbs 1/2 cup raspberries -7.5 carbs 1/2 c strawberries - 12.7 carbs 1 medium tangerine -12 carbs 1/2 cup diced watermelon - 6 carbs 5 (FIVE) gram carb vegetable options 1 cup raw OR cup cooked: Asparagus Butts sprouts Broccoli Brussel sprouts Cabbage Carrots Cauliflower Celery Lacon Eggplant Green beans Lettuce Peppers Snap peas Spaghetti squash Spinach Tomato Turnips Zucchini 15 gram carb vegetable options cup cooked corn or hominy corn on the cob, large (5 oz) cup cooked green peas 1 small potato or sweet potato cup cooked potato, plain cup cooked sweet potato, plain 1 cup winter squash (pumpkin, acorn, butternut) 1 cup marinara or pasta sauce - check label cup tomato juice cup tomato puree Beans, Seeds, Nuts cup cooked beans (kidney, hutchison, red, green, etc.) cup cooked lentils cup baked beans 4 tablespoons nut butter Grains Brown rice 1/2 c 5.5g protein 24 carb White long-grain rice 1/2 c 2g protein 22.5 carb Quinoa 1/2 c 4 gm complete protein 25 carb Oatmeal, old fashioned 1/2 c 5g protein 27g carb Protein - no carbs Egg 1 large - 6g Egg white 1 large 3.6g 3 oz is approximately the size of a deck of cards and equals 21 g protein so 4 oz is 28 gm protein Beef, Chicken, [place], Pork, [place] 1 oz 7g Fish, Tuna Fish 1 oz 7g (Starkist tuna packet 2.6 oz 17 gm protein) Seafood (Crabmeat, Shrimp, Lobster) 1 oz 6g Protein shakes (read labels) Premier Protein or generic [employer] Equate, [employer] High Performance- 30g protein & 1g carb - meal replacement Premier Protein plant protein powder - 25 gm protein, 0 suger/2 carb Vanilla and chocolate (not a meal replacement) Fairlife 30 gram protein - 30g protein & 3g carb BOOST Glucose Control Max 30g Protein Nutritional Drink - 30g protein & 1 carb - meal replacement Slimfast High Protein - 20g protein & 1g carb Ensure Max Protein Nutrition Shake 30g protein & 2 carb Protein AND carbs Beef/[place] Jerky 1 oz dried 10-15g protein - check carb count, can be high if sugar added Slim Kwasi - 6 gm protein and 4 net carb Great Value original turkey sausage sticks - 7 gm protein and 2 gm carb Stefano & Drew (at [employer]) Original smoked sausage sticks - 8 gm protein and 0 carb Imitation Crab Meat 1 oz - 2g protein & 4g carb Milk, skim 2% or 1% 8 oz - 8g protein & 12g carb Chinese yogurt Full Fat Chinese Yogurt 1 cup - 20.4g protein & 9.1g carb 2% Chinese Yogurt 1 cup - 22.7g protein & 9.1g carb 0% (fat-free) Chinese Yogurt - 1 cup 24g protein & 9.3g carb Aldi Protein Chinese yogurt single svg - 15g protein & 7g carb Chobani Zero Sugar single svg: - 11g protein & 5g carb Dannon Light + Fit 1 single svg - 12g protein & 9g carb Oikos Pro single svg - 20g protein & 8g carb Oikos Triple Zero Chinese Nonfat Yogurt 1 single svg - 15g protein & 7g carb :ratio, KETO Friendly Dairy Snack 1 single svg - 15g protein & 2g carb :ratio Protein 1 single svg - 25g protein & 8g carb Two Good Lowfat Chinese Yogurt, [place], Lower Sugar - 12g protein & 2g carb Cheese each oz Brie 5.9g protein & 0.1g carb Cheddar Cheese 7g protein & 0.4g carb Mozzarella Cheese 6.3g protein & 0.6g carb Raymon Cheese 6.7g protein & 0.7g carb Parmesan Cheese 10g protein & 0.9g carb Cream Cheese 1.7g protein & 1.2g carb Feta 4g protein & 1.2g carb Russian Cheese 7.6g protein & 1.5g carb Desai s Low Fat Cottage Cheese 1/2cup 12g protein & 4g carb Legumes Lentils cup 9g protein & 20g carb Loja beans cup 7g protein & 20g carb Kidney, Black, [place], Cannellini beans cup 8g protein & 20g carb Soybeans 1/2 c 14g complete protein & 8.5g carb Peanut butter, natural 2 Tbsp 7-8g protein & 4g net carbs, 190 calories PB2 powder 2 Tbsp 6g protein & 5g carb [place] milk, unsweetened 8 oz 1g protein & 2g carb Soy milk 8 oz 3.5g protein & 1.6g carb Tofu 1/2 cup 10g protein & 2.3g carb Nuts and Seeds per oz Pumpkin Seeds - 6.9g protein & 5g carb Almonds - 5.9g protein & 6.1g carb Burtrum Seeds - 5.8g protein & 5.6g carb Pistachios - 5.8g protein & 7.8g carb Cashews - 5.1g protein & 9.2g carb Walnuts - 4.3g protein & 3.8g carb Hazelnuts - 4.2g protein & 4.7g carb Yale Nuts - 4.0g protein & 3.4g carb Pecans - 2.6g protein & 3.9g carb Peanuts - 7g protein & 4.6g carb Hemp seeds 3 T/30 gms - 9.5 gm complete protein and 2.5 gm carb Why Is Protein So Important for Weight loss? consuming more protein not only reduces body weight but enhances body composition by decreasing fatmass while preserving fat-free mass During weight loss phase protein consumption (with normal kidney function) should be 1-1.6g proteinper Kilogram of body weight (1kg=2.2lbs) On average Women need to Aim for a minimum 90g protein per day Consuming higher protein can also prevent weight regain after weight loss Protein consumption increases hormones responsible for satiety (feeling full)- these include Gut hormones like Glucagon-like peptide-1 (GLP-1), Cholecystokinin (CCK), Peptide Tyrosine-Tyrosine (PYY) and decreasing the Gut hormone responsible for causing hunger Ghrelin Protein has an increased thermogenesis effect of food- which means it take more calories to break down protein when consumed compared to carbohydrates or fats Protein also prevents a losing lean mass during weight loss (lose more fat and preserve fat free mass) which helps to increase resting energy expenditure (resting metabolic rate) Every pound of muscle ramirez ~ 6 kcal per pound/day vs fat ramirez ~ 2kcal per pound/day Carbohydrates - Why do You Crave Them? Eating too many refined carbohyrdates (sugar beverages, pastries, bread, pizza) which raises your blood glucose levels and therefore releasing insulin which in turn causes increase in hunger Carbohydrates suppress Ghrelin quickly but does not maintain the suppression for very long therefore hunger returns more quickly Consuming carbohydrates leads to a release of Dopamine feel good hormone in our brain So how do you Curb these cravings? Eating Whole Foods with more fiber - High fiber carbs are absorbed and digested slowly so it does not impact blood sugar levels as much and will help in making you feel green for longer; fiber also is healthy for your gut bacteria and can help with constipation. Remember- carbohydrates are not the enemy but know what a proper serving size is, choose nutritiouscarbohydrates and space them out between meals. Always- eat your protein first followed by your non starchy vegetables followed by your carbohydrates- it will help your body with your glucose and insulin regulation Processed Foods vs Whole Foods- Impact on Weight: People who eat Ultra Processed food tend to consume about 500 calories more per day Ultra Processed foods are considered Calorie Dense so when a person feels full they have typically already over eaten and consumed more calories Whole Foods (unprocessed foods) tend to be more more filling and more Nutrient Dense Unprocessed foods can be more expensive and not realistic for everyone however when you have the choice to consume unprocessed vs Ultra processed foods always pick unprocessed. Why can't people stop eating Ultra Processed foods? They are economical and optimized for taste by [address] - they are designed to make you want to keep eating them- they feed common cravings and bypass the mechanisms that tell your brain you are full Benefits of eating Whole Foods and cutting out Ultra Processed Foods Increased concentration and focus (decreased brain fog), improved mood, better sleep, Decrease in fatigue, improvement in gut health, decreased inflammation, Likely WEIGHT LOSS Disrupted Sleep Linked to Weight Gain - YouTube How To Improve Your Sleep To Impact Your Weight Loss: [email or web address] Weight Loss and Sleep Updated February 11, 2020 Written by Colton Chavarria Medically Reviewed by Savi Fortune In This Article The Connection Between Sleep and Weight Sleep and Obesity Sleep During Weight Loss Maintaining a Healthy Relationship With Your Body Losing weight is challenging, and keeping weight off can be just as difficult. Although the medicalcommunity is still untangling the complicated relationship between sleep and body weight, several potential links have emerged that highlight the potential weight loss benefits of getting a good night s rest and the negative health impacts of sleep deprivation. The Connection Between Sleep and Weight Over the past several decades, the amount of time that Americans spend sleeping has steadily decreased1, as has the self-reported quality of that sleep. For much of the same time period, the average body mass index (BMI) of Americans increased2, reflecting a trend toward higher body weights and elevated rates of obesity. In response to these trends, many researchers began to hypothesize about potential connections between weight and sleep. Numerous studies have suggested that restricted sleep and poor sleep quality may lead to metabolic disorders, weight gain, and an increased risk of obesity and other chronic health conditions. While there is continuing debate within the medical community about the exact nature of this relationship, the existing research points to a positive correlation between good sleep and healthy body weight. There remains much to be discovered about the intricate details of how sleep and weight are connected. Several hypotheses offer paths for additional research with the hope that increasing our understanding of the relationship between weight and sleep will lead to reduced obesity and better weight-loss methods. Can Lack of Sleep Increase Appetite? One common hypothesis about the connection between weight and sleep involves how sleep affects appetite. While we often think of appetite as simply a matter of stomach grumbling, it s actually controlled by neurotransmitters, which are chemical messengers that allow neurons (nerve cells) to communicate with one another. The neurotransmitters ghrelin and leptin are thought to be central to appetite. Ghrelin promotes hunger, and leptin contributes to feeling full. The body naturally increases and decreases the levels of these neurotransmitters throughout the day, signaling the need to consume calories3. A lack of sleep may affect the body s regulation of these neurotransmitters. In one study, men who got 4 hours of sleep had increased ghrelin and decreased leptin compared to those who got 10 hours of sleep. This dysregulation of ghrelin and leptin may lead to increased appetite and diminished feelings of fullness in people who are sleep deprived. In addition, several studies have also indicated that sleep deprivation affects food preferences. Sleep-deprived individuals tend to choose foods that are high in calories and carbohydrates4. Other hypotheses regarding the connection between sleep and increased appetite involve the body s endocannabinoid system5 and orexin6, a neurotransmitter targeted by some sleep aids. Many researchers believe that the connection between sleep and dysregulation of neurotransmitters is complicated and additional studies are needed to further understand the neurobiological relationship. Does Sleep Increase Metabolism? Metabolism7 is a chemical process in which the body converts what we eat and drink into energy needed to survive. All of our collective activities, from breathing to exercising and everything in between, is part of metabolism. While activities like exercise can temporarily increase metabolism, sleep cannot8. Metabolism actually slows about 15% during sleep, reaching its lowest level in the morning 9. In fact, many studies have shown that sleep deprivation (whether due to self- induction, insomnia, untreated sleep apnea, or other sleep disorders) commonly leads to metabolic [id number]. Poor sleep is associated with increased oxidative stress, glucose (blood sugar) intolerance (a precursor todiabetes), and insulin resistance. Extra time spent awake may increase the opportunities to eat11, and sleeping less may disrupt circadian rhythms, leading to weight gain12. How is Sleep Related to Physical Activity? Losing sleep can result in having less energy for exercise and physical activity. Feeling tired canalso make sports and exercising less safe, especially activities like weightlifting and or those requiring balance. While researchers are still working to understand this [id number], it s well known that exercise is essential to maintaining weight loss and overall health. Getting regular exercise can improve sleep quality, especially if that exercise involves natural light. While even taking a short walk during the day may help improve sleep, more activity can have a more dramatic impact. Engaging in at least 150 minutes of moderate-intensity or 75 minutes of high-intensity exercise per week can improve daytime concentration and decrease daytime [id number]. Sleep and Obesity In children and adolescents, the link between not getting enough sleep and an increased risk of obesity is well-established, although the reason for this link is still being debated. Insufficient sleep in children can lead to metabolic irregularities as discussed earlier, skipping breakfast in the mornings, and increased intake of sweet, salty, fatty, and starchy foods15. In adults, the research is less clear. While a large analysis of past studies suggests that people getting less than 6 hours of sleep at night are more likely to be diagnosed as obese16, it s challenging for these studies to determine cause and effect. Obesity itself can increase the risk of developing conditions that interfere with sleep, like sleep apnea and depression. It s not clear if getting less sleep is the cause of obesity in these studies, if obesity is causing the participants to getless sleep, or perhaps a mix of both. Even though more studies are needed to understand this connection, experts encourage improving sleep quality when treating obesity in adults. Sleep During Weight Loss Getting adequate, quality sleep is an important part of a healthy weight loss plan. Most importantly, research has shown that losing sleep while dieting can reduce the amount of weight lost17 and encourage [id number]. Tips for Quality Sleep During Weight Loss There are many ways to improve sleep. Here are a few research-based tips for sleeping better when you re trying to lose weight: Keep a regular sleep schedule: Big swings in your sleep schedule or trying to catch up on sleep after a week of late nights can cause changes in metabolism and reduce insulin [id number], making iteasier for blood sugar to be elevated. Sleep in a dark room: Exposure to artificial light while sleeping, such as a TV or bedside lamp, isassociated with an increased risk of weight gain and xwkujky11. Don t eat right before bed: Eating late may reduce the success of weight loss [id number] Reduce Stress: Chronic stress may lead to poor sleep and weight gain in several ways, including eating to cope with negative adrxpsuy27 Be an Early Bird: People with late bedtimes may consume more calories and be at a higher risk for weight gain23. Early birds may be more likely to maintain weight loss when compared to night owls24. Maintaining a Healthy Relationship With Your Body Deciding if you should attempt to change your body weight is a personal decision best made with theguidance of your doctor. Don t take all the health and weight loss information you read glcuad70 atface value. Weight loss isn t appropriate for everyone and doesn t always mean better health. Remember that health is a lifelong journey that includes not only healthy habits but also having a healthy relationship with your body. If you re considering weight loss, the National Institutes of Health offers a helpful resource for choosing a safe weight loss [id number] Source National [place] of Diabetes and Digestive and Kidney DiseasesNIDDK research creates knowledge about and treatmentsfor diseases that are among the most chronic, costly, and consequential for patients, their families, and the Nation. niddk.nih.gov . https://www.sleepfoundation.org/physical-health/yjzesl-zwrv-nbc-sleep Sleep Hygiene Tips Set a sleep schedule and stick to it. Try to go to bed at night and awaken in the morning around the same times, even on weekends. This helps to regulate the body s sleep cycles and circadian rhythms. Try to exercise at some point in the day but avoid vigorous activity (running, fast dancing, high-intensity interval training) one hour before bedtime. Regular exercise of adequate intensity can promote muscle relaxation and deeper sleep later on. If you re in the habit of napping during the day, aim for a 10-20 minute power nap to achieve the goals of reduced fatigue and increased alertness. It s best to take naps in the early afternoon to avoid interference with nighttime sleep. Try to avoid large meals, heavy snacking,or alcohol 2-3 hours before bed. If you are sensitive to caffeine, try to avoid drinking caffeinated beverages 4-6 hours before bedtime. Stop using electronic devices an hour before bed, especially those emitting blue light such as smartphones, tablets, and televisions. Schedule before-bed activities to signal that you are winding down, such as changing into pajamas and brushing teeth. Create a quiet, dark, relaxing environment in your bedroom. Dim the lights and turn off your cell phone s sound and vibration modes if possible. Ensure a comfortable temperature, as feeling too hot or cold can disrupt sleep. Create calming bedtime rituals such as practicing deep breathing exercises, doing light yoga stretches, or listening to soothing relaxing music. If you awaken and can t return to sleep, don t stay in bed. Get up and do quiet relaxing activities, such as reading, until you feel tired enough to fall back asleep. Sleep Apnea and Weight Gain: 3 Facts You Should Know By Heavenly Oates, MPH, RD Does sleep apnea cause weight gain? According to experts, sleep apnea affects more than your sleep.It may also cause weight gain and prevent weight loss. Sleep apnea is a severe sleep disorder that causes a disrupted breathing pattern during sleep. Signs and symptoms of the condition include snoring and gasping for air while sleeping. According to [facility], sleep apnea affects 25% of men and almost 10% of women. But can the disorder cause weight gain? Here, experts offer their insights about the possible relationship between sleep apnea and weight gain. Sleep Restriction Can Increase Your Appetite One hypothesis about how sleep apnea can affect weight gain relies on two hormones called ghrelin and leptin. Leptin is meant to decrease your appetite, whereas ghrelin is intended to increase it. Sleep apnea patients have significantly higher ghrelin levels, the hormone that makes you feel hungry, and significantly lower leptin levels, the hormone that makes you feel full, Brea Freed, Ph.D., lead sleep specialist and neuroscientist at [facility], tells [employer] [facility]. This means that individuals with obstructive sleep apnea are more likely to feel hungry and consume more calories. A 2019 article published by [employer] notes that leptin resistance is often observed in obese individuals, which can lead to the intake of excessive calories and difficulties with weight loss. In addition, decreased ghrelin levels are commonly seen in individuals who are obese. However, the association between leptin and ghrelin levels regarding sleep apnea and weight gain in humans is still being studied. Sleep Loss Can Hinder Your Ability to Lose Weight According to the Centers for Disease Control and Prevention (CDC), adults between the ages of 18 and 60 need at least seven hours of sleep per night. However, if you re sleep-deprived, this may affect your ability to lose weight. Sleep loss from sleep apnea can also reduce your body's ability to lose weight efficiently. Studieshave shown that even when placed on low-calorie diets, individuals that are sleep deprived lost 55%less weight from fat than individuals that were on the same diet but had sufficient sleep, [place] says. According to a 2019 study published in the International Journal of Obesity, inconsistent sleep patterns or a shortened sleep duration can lower the likelihood of successful weight loss. Additionally, lack of sleep can lead to diminished or lack of impulse control, junk food cravings, and being tootired to exercise, which can prevent you from being motivated to lose weight. Weight Gain Can Increase Your Chances of Sleep Apnea Additionally, being obese can put you at a higher risk of developing sleep apnea. As the body gains weight, more tissue can be found on or around the throat. This makes apnea eventsmore common. Because the extra weight makes it more likely, the tissues in the soft palate will collapse, causing an apnea event, Omero Richmond DDS, a sleep specialist at [facility], [place] [facility]. According to a 2017 article published in Anesthesia and Analgesia, weight gain can cause an increase in fat distribution in the neck and waist specifically, which can subsequently contribute to the development of sleep apnea. In addition, [facility] observes that an increased neck circumference can narrow the airway, which can cause snoring and sleep apnea. https://www.[employer].com/sicuuiw-bi-bcrh/sleep-apnea/qggbp-bcxid-bmx-weight-gain HOW DOES CHRONIC STRESS AFFECT EATING PATTERNS? Chronic stress can affect the body s use of calories and nutrients in various ways. It raises the body s metabolic needs and increases the use and excretion of many nutrients. If one does not eat a nutritious diet, a deficiency may occur.Stress also creates a chain reaction of behaviors that can negatively affect eating habits, leading to other health problems down the road. Stress places a greater demand on the body for oxygen, energy, and nutrients. Yet people who experience chronic stress may crave comforting foods such as highly processed snacks or sweets, which can be high in unhealthy fats, sugar, and calories but low in micronutrients. People feeling stress may lack the time or motivation to prepare nutritious, balanced meals, or mayskip or forget to eat meals. Stress can disrupt sleep by causing global manager sleep or more frequent awakenings, which leads to fatigue during the day. In order to cope with daytime fatigue, people may use stimulants to increase energy such as with caffeine or high- calorie snack foods. The reverse may also be true that poor-qualitysleep is itself a stressor. Studies have found that sleep restriction causes a significant increasein cortisol levels. During acute stress, adrenaline suppresses the appetite.But with chronic stress, elevated levels ofcortisol may cause cravings, particularly for foods high in sugar, fat, and calories, which may then lead to weight gain. Cortisol favors the accumulation of fat in the belly area, also called central adiposity, which is associated with insulin resistance and an increased risk of type 2 diabetes, cardiovascular disease,and certain breast cancers.4,6-8 It also lowers levels of the hormone leptin (that promotes satiety) while increasing the hormone ghrelin (that increases appetite). https://cdn1.[facility].[place].edu/wp-content/uploads/sites//HeatlhyLivingGu jan09-86.1.pdf Foods that fight inflammation January 21, 2020 Doctors are learning that one of the best ways to reduce inflammation lies not in the medicine cabinet, but in the refrigerator. By following an anti- inflammatory diet you can fight off inflammation for good. What does an anti-inflammatory diet do? Your immune system becomes activated when your body recognizes anything that is foreign--such as an invading microbe, plant pollen, or chemical. This often triggers a process called inflammation. Intermittent bouts of inflammation directed at truly threatening invaders protect your health. However, sometimes inflammation persists, day in and day out, even when you are not threatened by aforeign invader. That's when inflammation can become your enemy. Many major diseases that plague us--including cancer, heart disease, diabetes, arthritis, depression, and Alzheimer's--have been linked to chronic inflammation. One of the most powerful tools to combat inflammation comes not from the pharmacy, but from the grocery store. Many experimental studies have shown that components of foods or beverages may have anti-inflammatory effects, says Dr. Heriberto Ortiz, professor of nutrition and epidemiology in the Department of Nutrition at the [employer]. Choose the right anti-inflammatory foods, and you may be able to reduce your risk of illness. Consistently pick the wrong ones, and you could accelerate the inflammatory disease process. Get simple tips to fight inflammation and stay healthy -- from [facility] experts. Protect yourself from the damage of chronic inflammation Click here to learn more Foods that cause inflammation Try to avoid or limit these foods as much as possible: refined carbohydrates, such as white bread and pastries Yoruba fries and other fried foods soda and other sugar-sweetened beverages red meat (burgers, steaks) and processed meat (hot dogs, sausage) margarine, shortening, and lard The health risks of inflammatory foods Not surprisingly, the same foods on an inflammation diet are generally considered bad for our health, including sodas and refined carbohydrates, as well as red meat and processed meats. Some of the foods that have been associated with an increased risk for chronic diseases such as type 2 diabetes and heart disease are also associated with excess inflammation, Dr. Ortiz says. It's not surprising, since inflammation is an important underlying mechanism for the development of these diseases. Unhealthy foods also contribute to weight gain, which is itself a risk factor for inflammation. Yetin several studies, even after researchers took obesity into account, the link between foods and inflammation remained, which suggests weight gain isn't the sole tow car driver. Some of the food components or ingredients may have independent effects on inflammation over and above increased caloric intake, Dr. Ortiz says. Anti-inflammatory foods An anti-inflammatory diet should include these foods: tomatoes olive oil green leafy vegetables, such as spinach, kale, and collards nuts like almonds and walnuts fatty fish like salmon, mackerel, tuna, and sardines fruits such as strawberries, blueberries, cherries, and oranges Benefits of anti-inflammatory foods On the flip side are beverages and foods that reduce inflammation, and with it, chronic disease, says Dr. Ortiz. He notes in particular fruits and vegetables such as blueberries, apples, and leafy greens that are high in natural antioxidants and polyphenols--protective compounds found in plants. Studies have also associated nuts with reduced markers of inflammation and a lower risk of cardiovascular disease and diabetes. Coffee, which contains polyphenols and other anti-inflammatory compounds, may protect against inflammation, as well. Anti-inflammatory diet To reduce levels of inflammation, aim for an overall healthy diet. If you're looking for an eating plan that closely follows the tenets of anti-inflammatory eating, consider the Mediterranean diet, which is high in fruits, vegetables, nuts, whole grains, fish, and healthy oils. In addition to lowering inflammation, a more natural, less processed diet can have noticeable effects on your physical and emotional health. A healthy diet is beneficial not only for reducing the risk of chronic diseases, but also for improving mood and overall quality of life, Dr. Ortiz says. Tips to reduce food cravings Aim to eat nutritionally balanced meals. Foods with protein and fiber provide longer-lasting satisfaction. Avoid long stretches of not eating. Eat a nutritious meal or snack every 3-4 hours. Waiting too long to eat because you are busy or distracted may only lead to stronger hunger when you do eat and therisk of overeating. Also keep in mind that if your bedtime is more than 4 hours after you ve finished dinner, you may feel hungry again; to avoid snacking late night which can disrupt sleep, try to go to bed earlier when possible. Avoid choosing hyperpalatable or ultraprocessed snacks that are high in sodium, fat, sugar, and calories but low in nutrition. These are the types of foods that trigger the brain reward pathways and cause cravings to eat more. Choose satisfying, less-processed snacks like fresh fruit, a handful of nuts, or a cup of low-sugar yogurt. Limit environmental cues to eat, such as scrolling through social media posts about food or [employer](online videos of people eating enormous quantities of decadent meals) and watching television cooking shows. In an office setting, detour away from the candy bowls and platters of bagels and treats that may be sitting in the break room. Food cravings are sometimes learned behaviors that are associated with an event or environment, such as craving potato chips while watching late-night television. If so, research suggests that it is possible to unlearn the behavior and reduce the craving by avoiding the food completely for an extended time. [25] In addition, you can try changing the association by changing your evening routine with a different activity like listening to an audiobook or podcast. Practice mindfulness when sensing a growing craving. Ask yourself if you are stressed, bored, angry? If so, try instead doing breathing exercises, talking a brisk 5-10 minute walk, listening to a meditation agueda or podcast, or playing a few favorite songs. If you can distract yourself from eating for about 5-7 minutes, the craving may subside. Learn more about mindful eating. Try other dopamine-inducing activities such as taking a walk in nature on a rc day, dancing, or watching a funny video and laughing aloud! How To Swap Sweet Treats This is the most important week yet. What the heck do you do when you want something sweet!??!! DO NOT: Focus on giving up your favorite treats. DO: Find new favorites without all the added sugar. The goal is not to just white knuckle it & force yourself to not eat sweets, but rather to findnew things to ADD & enjoy. 3 SWEET TOOTH HELPERS: 1) Natural Sugars Foods w/ natural sugar can help a sweet tooth while adding vitamins & minerals. examples: fresh fruit, unsweetened frozen fruit, plain 2% yogurt 2) Fats Fat is satisfying so it can give a quick pleasure fix without blood sugar spikes. examples: nut butter, coconut butter, nuts, seeds 3) Foods w/ Sweet Flavor Some foods have a sweet flavor on your taste buds, but don't actually have sugar. examples: cinnamon, cocoa powder/nibs, vanilla, unsweetened coconut flakes GET READY TO SUGAR SWAP! Breaking up with sugar doesn't mean the fun is over! PRODUCT SWAPS Restock your fav condiments & packaged goods to the no added sugar versions such as salad dressing, ketchup, BBQ sauce, hot sauce, pasta sauce, yogurt, oatmeal, plant milk & nut butter. PS: This doesn't mean artificially sweetened products, just ones with no added sugar. Check those labels. QUICKIE SWAPS Here are some of my favorite sugar swaps for when a craving hits: flavored creamer & sugar in coffee SWAP: coconut milk & cinnamon in coffee singh flavored yogurt SWAP: plain 2% yogurt w/ mashed berries chocolate chip cookie SWAP: stevia-sweetened dark chocolate apple cinnamon flavored oatmeal SWAP: oats w/ diced apple, cinnamon & almonds store bought protein bar SWAP: hard boiled egg ice cream SWAP: frozen banana slices w/ cocoa powder soda pop SWAP: sparkling water w/ shot of 100% fruit juice granola SWAP: DIY trail mix (chopped nuts, unsweetened coconut flakes, cocoa nibs) fruity candy SWAP: unsweetened dried melody kettle corn SWAP: popcorn drizzled w/ nut butter & cinnamon sundae SWAP: fruit topped w/ real whipped cream (shake whipping cream & vanilla in cold eugenio jar) peanut butter & jelly SWAP: strawberries dipped in nut butter mint sunday SWAP: plain 2% yogurt w/ peppermint stevia & cocoa nibs RECIPE SWAPS Here are some of my favorite sugar swap recipes w/ no added sugar: protein bites (recipe link) froyo bark (recipe link) chocolate zeeshan pudding (recipe link) chickpea cookie dough (recipe link) banana bread muffins (recipe link) 3-ingredient banana bread cookies (recipe link) pumpkin spice nice cream (recipe link) fruit sorbet (recipe link) freezer fudge (recipe link) chocolate magic shell (recipe link) FAQ Q: If I really want something sweet, can I use sweeteners? A: Yes. I recommend stevia or monk fruit since they are zero-calorie, naturally- based sweeteners. Use them only sparingly since they can keep you programmed to like foods with intense sweetness. Aim to avoid artificial sweeteners like you would find in pink (saccharin), blue (aspartame), and yellow(sucralose) packets. Q: Can I ever eat sugar again?? A: HELL YES! This isn't just about avoidance. It's about being awake. Making choices of when to enjoy sugar on your own terms. You controlling it & not the other way around. My favorite personal solution: SOCIAL sweets/treats/alcohol which is about eating in situations that bring SUREKHA. Sugar School Lesson 3: How To Swap Sweet Treats MONIQUE Velez ([employer]) [facility] of Present illness Narrative* Asmita Bhagat MD - 08/15/2023 11:08 AM EDT Meche Fountain is a 68 year old female who presents for problem visit for f/u vulvar itching. She has been feeling much better since using steroid taper. Stopped using it last week and no symptomst atthis time. No vaginal or vulvar bleeding. No other c/o. Does note she d/w her PCP and food production manager and they did recommend she discuss weight management OB History T0 L3 SAB0 IAB0 Ectopic0 Multiple0 Live Births0 Turning Lathe Tender History LMP: Postmenopausal Age at Menarche: Age at First : Age at Menopause: Turning Lathe Tender History Comments: Sexual Activity: Not Currently; Male Contraception: No contraception data on record PAST MEDICAL HISTORY Diagnosis Date Bronchitis Diverticulitis Edema leg Heart murmur Psoriasis Snoring Vertigo PAST SURGICAL HISTORY Procedure Laterality Date CHG DELIVERY x 3 COLONOSCOPY 2006 COLONOSCOPY FLX DX W/COLLJ SPEC WHEN PFRMD 07/24/2018 Colonoscopy TONSILLECTOMY HX FAMILY HISTORY Problem Relation Age of Onset Clotting Disorder Mother age 88 COPD Father smoker, age 80 No Known Problems Brother Heart Failure Maternal Grandmother No Known Problems Maternal Grandfather Diabetes Paternal Grandmother No Known Problems Paternal Grandfather Colon Cancer Maternal Aunt Social History Tobacco Use Smoking status: Never Smokeless tobacco: Never Vaping Use Vaping Use: Never used Substance Use Topics Alcohol use: Yes Comment: occasional Drug use: No Current Outpatient Medications Medication Sig albuterol HFA (VENTOLIN HFA) 90 mcg/actuation inhaler Inhale 2 Puffs as instructed every 4 hours asneeded for wheezing/shortness of breath. fluocinolone (SYNALAR) 0.025 % ointment Apply to affected area as directed. APPLY TO AFFECTED AREA THREE TIMES DAILY FOR 2 WEEKS THEN TWICE A DAY FOR TWO WEEKS THEN ONCE A DAY FOR A MONTH THEN PRN cyclobenzaprine (FLEXERIL) 10 mg tablet Take 1 tablet by mouth three times a day as needed. rosuvastatin (CRESTOR) 10 mg tablet Take 1 tablet by mouth daily at bedtime. Fish Oil-DHA-EPA 1,200-144-216 mg cap Take 2 capsules by mouth once daily. Cholecalciferol, Vitamin D3, 50 mcg (2,000 unit) cap Take by mouth. BIOTIN ORAL Take by mouth. vitamin B complex (B COMPLEX ORAL) Take by mouth. MULTIVITAMIN WITH MINERALS (MULTIVITAMIN & MINERAL FORMULA ORAL) Take by mouth. aspirin, enteric coated (ASPIRIN, ENTERIC COATED) 81 mg EC tablet Take 81 mg by mouth once each week. No current facility-administered medications for this visit. Allergies As of Date: 08/15/2023 Allergen Noted Reaction PENICILLINS 10/17/2015 Swelling Fully Assessed 06/16/2023 Allergies and current medication updated:Yes EXAM: There were no vitals taken for this visit. GENERAL: pleasant, female in no apparent distress PELVIC: normal Bartholin's glands, urethra, [place]'s glands, no vulvar lesions, no cervical lesions,physiologic discharge present, normal appearing perineal body and perianal region, cystocele 1st degree, rectocele 1st degree, atrophic flattened epithelium, external genitalia w/ some thin white paper like skin, no fissures, no hyperpigmentation, no raised lesions ASSESSMENT AND PLAN: Encounter Diagnosis ICD-10-CM 1. Vaginal irritation N89.8 lichen sclerosis-discussed with her waxing and waning nature of lichen sclerosis. Recommend that she use steroid as maintenance twice a week. May use 1-2 times a day for 1 to 2 weeks as needed for flares. Follow-up in 1 year or as needed. Patient is comfortable with the plan. Schedule with weight management at her request. Asmita Bhagat MD documented in this encounterAden[facility]02-12-[facility]24 Instructions* Patient Instructions* Elly Donahue MD - 06/16/2023 4:44 PM EST We will repeat an echocardiogram in Sept documented in this encounterAdena Fayette [facility]02-12-2024 History of Present illness Narrative* Elly Donahue MD - 06/16/2023 4:20 PM EST Images from the original note were not included. [facility] SECTION OF REGIONAL CARDIOLOGY Cardiology ([address]) [address] [facility] [id number] OUTPATIENT VISIT DATE 06/16/2023 PRIMARY CARE PHYSICIAN: Sterling [place] [address] REFERRING PHYSICIAN: Sterling Roca [facility] [id number] HISTORY OF PRESENT ILLNESS: Ms. Fountain is a 68 year old woman moderately severe aortic valve stenosis who presents for follow-up. She has dyspnea on exertion which is unchanged from prior. She has not had symptoms concerning for congestive heart failure including PND, orthopnea, or lower extremity edema. She had been taking h ydrochlorothiazide as a diuretic. However, she had blood work showed elevation in her creatinine and was taken off water pills. She has been trying to be more diligent with low-sodium diet. PAST MEDICAL HISTORY Diagnosis Date Bronchitis Diverticulitis Edema leg Heart murmur Psoriasis Snoring Vertigo PAST SURGICAL HISTORY Procedure Laterality Date CHG DELIVERY x 3 COLONOSCOPY 2006 COLONOSCOPY FLX DX W/COLLJ SPEC WHEN PFRMD 07/24/2018 Colonoscopy TONSILLECTOMY HX SOCIAL HISTORY Social History Tobacco Use Smoking status: Never Smokeless tobacco: Never Vaping Use Vaping Use: Never used Substance Use Topics Alcohol use: Yes Comment: occasional Drug use: No FAMILY HISTORY Problem Relation Age of Onset Clotting Disorder Mother age 88 COPD Father smoker, age 80 No Known Problems Brother Heart Failure Maternal Grandmother No Known Problems Maternal Grandfather Diabetes Paternal Grandmother No Known Problems Paternal Grandfather Colon Cancer Maternal Aunt ALLERGIES: ALLERGIES Allergen Reactions Penicillins Swelling MEDICATIONS: albuterol HFA (VENTOLIN HFA) 90 mcg/actuation inhaler^Inhale 2 Puffs as instructed every 4 hours asneeded for wheezing/shortness of breath.^Disp: 1 Each^Rfl: 1 fluocinolone (SYNALAR) 0.025 % ointment^Apply to affected area as directed. APPLY TO AFFECTED AREA THREE TIMES DAILY FOR 2 WEEKS THEN TWICE A DAY FOR TWO WEEKS THEN ONCE A DAY FOR A MONTH THEN PRN^Disp: 60 g^Rfl: 0 cyclobenzaprine (FLEXERIL) 10 mg tablet^Take 1 tablet by mouth three times a day as needed.^Disp: 30 tablet^Rfl: 0 rosuvastatin (CRESTOR) 10 mg tablet^Take 1 tablet by mouth daily at bedtime.^Disp: 90 tablet^Rfl: 3 Fish Oil-DHA-EPA 1,200-144-216 mg cap^Take 2 capsules by mouth once daily.^Disp: ^Rfl: Cholecalciferol, Vitamin D3, 50 mcg (2,000 unit) cap^Take by mouth.^Disp: ^Rfl: BIOTIN ORAL^Take by mouth.^Disp: ^Rfl: vitamin B complex (B COMPLEX ORAL)^Take by mouth.^Disp: ^Rfl: MULTIVITAMIN WITH MINERALS (MULTIVITAMIN & MINERAL FORMULA ORAL)^Take by mouth.^Disp: ^Rfl: aspirin, enteric coated (ASPIRIN, ENTERIC COATED) 81 mg EC tablet^Take 81 mg by mouth once each week.^Disp: ^Rfl: REVIEW OF SYSTEMS: Review of Systems Constitutional: Negative for chills, fever, malaise/fatigue and weight loss. HENT: Negative for hearing loss and sore throat. Eyes: Negative for blurred vision and double vision. Respiratory: Negative. Cardiovascular: Negative. Genitourinary: Negative for dysuria, frequency, hematuria and urgency. Musculoskeletal: Negative. Skin: Negative. Neurological: Negative for dizziness, seizures, loss of consciousness, weakness and headaches. Endo/Heme/Allergies: Negative for environmental allergies. Does not bruise/bleed easily. Psychiatric/Behavioral: Negative for depression. PHYSICAL EXAMINATION: BP 128/82 Pulse 85 Resp 16 Wt 198 lb (89.8kg) SpO2 95% General: Pleasant woman sitting appears comfortable no apparent distress. She is alert and orientedx3 HEENT: Carotid upstrokes are brisk bilaterally without bruits. No JVD Pulmonary: Lungs are clear no rales, wheezes, rhonchi Cardiovascular: Normal S1, S2 with regular rate and rhythm. Mid to late peaking crescendo decrescendo murmur right sternal border 3/6. A2 component second heart sound is well appreciated. Extremities: Warm, well-perfused, no lower extremity edema. 2+ distal pulses CARDIOVASCULAR MEDICINE TESTING: ECG in the office July 29, 2022: Normal sinus rhythm normal axis and intervals. No significant ST or T wave changes Coronary Artery Calcium Score 11/02/2018 LM: 0 LAD: 0 LCx: 0 RCA: 0 Echocardiogram 01/21/2023: - The left ventricle is normal in size. Left ventricular systolic function is normal. EF = 70 5% (2D biplane) Grade I left ventricular diastolic dysfunction. - The right ventricle is normal in size. Right ventricular systolic function is normal. - There is moderate aortic valve stenosis. AV area is 1.03 cm (0.54 cm /m ) by continuity, VTI. Thepeak gradient is 38 mmHg, the mean gradient is 21 mmHg and the dimensionless valve index is 0.38. Prior pk/mn gradients were 30/17 mmHg. - Exam was compared with the prior CC echocardiographic exam performed on 04/02/2022, the peak Aortic valve gradient has increased from 30 mm Hg to 38 mm Hg now. Echocardiogram 04/02/2022 - The left ventricle is small. Left ventricular systolic function is normal. EF = 71 5% (2D biplane) Normal left ventricular diastolic function. - The right ventricle is normal in size. Right ventricular systolic function is normal. - There is moderate aortic valve stenosis. AV area is 0.87 cm (0.44 cm /m ) by continuity, VTI. Thepeak gradient is 30 mmHg, the mean gradient is 17 mmHg and the dimensionless valve index is 0.32. Prior pk/mn gradients were 28/16 mmHg. - Exam was compared with the prior [facility] echocardiographic exam performed on 04/17/2021, no significant change. I have personally reviewed the Electrocardiogram, Laboratory Testing, and Echocardiogram. IMPRESSION: Ms. Fountain is a 68 year old woman with a history of hyperlipidemia and moderate aortic stenosis who presents for routine follow-up PLAN AND RECOMMENDATIONS: 1. Nonrheumatic aortic valve stenosis - ICD9: 424.1, ICD10: I35.0 (primary diagnosis) I reviewed her most recent echocardiogram with her during the office visit. Plan to repeat echocardiogram in January. - ECHO - PERFLUTREN LIPID MICROSPHERES 1.1 MG/ML INJECTION IN NS 10 ML - SODIUM CHLORIDE 0.9 % (FLUSH) INJECTION SYRINGE 2. Hyperlipidemia, mixed - ICD9: 272.2, ICD10: E78.2 Maintained on Crestor 10 mg daily. Fasting blood work from January was reviewed. LDL cholesterol 93 mg/dL Elly Donahue MD 1. Screening for ischemic heart disease - ICD9: V81.0, ICD10: Z13.6 (primary diagnosis) - ECG COMPLETE 2. Nonrheumatic aortic valve stenosis - ICD9: 424.1, ICD10: I35.0 I reviewed her echocardiograms with her during the office visit. I reviewed her echo from 2016, 2018, 2019, and 2021. She has had progressive worsening of her aortic valve disease. At present, she seems relatively asymptomatic. We will plan to repeat an echocardiogram this fall. I did discuss the possibility she would need aortic valve replacement within the next 3 to 5 years. Discussed the fact that she should continue to remain active monitor herself for symptoms of shortness of breath and dyspnea on exertion. Also encouraged dietary modification including low-sodium diet. 3. Hyperlipidemia, mixed - ICD9: 272.2, ICD10: E78.2 Most recent fasting blood work from March 2022 was reviewed. LDL cholesterol 158 mg/dL. I recommended starting Crestor 10 mg daily and repeating fasting blood work in 3 months. - ROSUVASTATIN 10 MG TABLET Elly Donahue MD documented in this encounterAdena [facility]02-12-2024 Instructions* Patient Instructions* Elenita Wang APRN.CNP - 06/16/2023 11:07 AM EST Albuterol as needed for cough/wheeze. Continue same medications. Follow-up w/ dermatology, as planned. documented in this encounterAdena [facility]02-12-2024 History of Present illness Narrative* Elenita Wang APRN.CNP - 06/16/2023 10:42 AM EST This is a 68 year old female who presents today with: Patient presents with: Recheck: 4 week follow up; c/o URI sx for over a week HISTORY OF PRESENT ILLNESS: Meche Fountain is a 68 year old female. Patient presents with: Recheck: 4 week follow up; c/o URI sx for over a week Pt presents today for 4 week follow-up. She reports that she had decreased kidney function. Stopped her HCTZ. Had repeat labs, and it normalized. She is doing well without the medication. She has been getting over URI. Has noticed some wheezing. Has used an inhaler in the past. No personal hx of asthma. No fevers/chills. Cough occasional productive -- mucus light. She has rash on the upper chest wall. She has had before. Has appt scheduled next week w/ derm. PAST MEDICAL HISTORY: PAST MEDICAL HISTORY Diagnosis Date Bronchitis Diverticulitis Edema leg Heart murmur Psoriasis Snoring Vertigo PAST SURGICAL HISTORY Procedure Laterality Date CHG DELIVERY x 3 COLONOSCOPY 2006 COLONOSCOPY FLX DX W/COLLJ SPEC WHEN PFRMD 07/24/2018 Colonoscopy TONSILLECTOMY HX ALLERGIES Penicillins MEDICATIONS Current Outpatient Medications Medication Sig fluocinolone (SYNALAR) 0.025 % ointment Apply to affected area as directed. APPLY TO AFFECTED AREA THREE TIMES DAILY FOR 2 WEEKS THEN TWICE A DAY FOR TWO WEEKS THEN ONCE A DAY FOR A MONTH THEN PRN cyclobenzaprine (FLEXERIL) 10 mg tablet Take 1 tablet by mouth three times a day as needed. rosuvastatin (CRESTOR) 10 mg tablet Take 1 tablet by mouth daily at bedtime. Fish Oil-DHA-EPA 1,200-144-216 mg cap Take 2 capsules by mouth once daily. Cholecalciferol, Vitamin D3, 50 mcg (2,000 unit) cap Take by mouth. BIOTIN ORAL Take by mouth. vitamin B complex (B COMPLEX ORAL) Take by mouth. MULTIVITAMIN WITH MINERALS (MULTIVITAMIN & MINERAL FORMULA ORAL) Take by mouth. aspirin, enteric coated (ASPIRIN, ENTERIC COATED) 81 mg EC tablet Take 81 mg by mouth once each week. Current Facility-Administered Medications Medication Dose Route Frequency perflutren lipid microspheres 1.3 mL in NaCl (PF) 0.9% 10 mL injection (DEFINITY) INTRAVENOUS DIRECTED PRN sodium chloride 0.9 % (flush) 10 mL (BD POSIFLUSH) 10 mL INTRAVENOUS DIRECTED PRN FAMILY HISTORY Problem Relation Age of Onset Clotting Disorder Mother age 88 COPD Father smoker, age 80 No Known Problems Brother Heart Failure Maternal Grandmother No Known Problems Maternal Grandfather Diabetes Paternal Grandmother No Known Problems Paternal Grandfather Colon Cancer Maternal Aunt Social History Tobacco Use Smoking status: Never Smokeless tobacco: Never Vaping Use Vaping Use: Never used Substance Use Topics Alcohol use: Yes Comment: occasional Drug use: No EXAM: BP 128/82 Pulse 85 Resp 16 SpO2 95% PHYSICAL EXAM: General Appearance: Well appearing, alert, in no acute distress, well-hydrated, well nourished.. Skin: Skin color, texture, turgor normal, erythematous macular/papular rash upper left chest wall. Head: Normocephalic, no masses, lesions, tenderness or abnormalities. Eyes: Anicteric sclera. Pupils are equally round and reactive to light. Extraocular movements are intact. Ears: External ears normal, canals clear. Normal TMs bilaterally. Oropharynx: Lips, mucosa, and tongue normal, teeth and gums normal, oropharynx normal. Neck: Supple, no adenopathy Lungs: Lungs clear to auscultation. No wheezing, rhonchi, rales.. Heart: RRR without murmur, gallop, or rubs. No ectopy. Neurologic: Gait normal. ASSESSMENT/PLAN: 1. Function kidney decreased - ICD9: 593.9, ICD10: N28.9 (primary diagnosis) Improved on recheck of labs. BP stable of thiazide. 2. Eczema, unspecified type - ICD9: 692.9, ICD10: L30.9 - discussed skin care of rash - follow up if symptoms persist or worsen. 3. URI, acute - ICD9: 465.9, ICD10: J06.9 Improving. Albuterol inhaler prn. Discussed treatment plan and patient voices understanding. Patient's questions answered appropriately. Medications and potential side effects were discussed and patient voices understanding. Return to the office as scheduled or as needed for worsening/no improvement. Elenita Wang APRN.PROPOSAL MANAGER documented in this encounterAdena [facility]11-18-2023 History of Present illness Narrative* Lexie Emmanuel APRN.ALISA - 03/22/2023 2:58 PM EST Patient came in with complaints of abdominal pain and diarrhea for 4 days. Patient does have a history of diverticulitis patient is tender throughout entire abdomen. Patient is extremely tender over the left lower quadrant. Patient has not had a flare recently. Due to pain and no recent diverticulitis flares patient is being referred to the emergency room for full evaluation. Patient was okay with this care plan and will take her self. documented in this encounterAdena [facility] Center11-16-2023 Miscellaneous Notes* Telephone Encounter - Beverley Peck LPN - 03/20/2023 1:34 PM EST Follow up from virtual visit. Can we get her set up with physical therapy. Ordered. documented in this encounterAdena [facility]09-21-2023 Miscellaneous Notes* Telephone Encounter - Kenia Rosas - 2023 10:49 AM EDT Notified via Jigsee[employer]. Kenia Rosas MA * Telephone Encounter - Kenia Rosas - 01/22/2023 2:45 PM EDT Attempted to contact patient. No answer, voicemail is full. Sent Walleptt message in result note. Will attempt to call again later. Kenia Rosas MA * Telephone Encounter - Deborah Horowitz RN - 01/22/2023 10:27 AM EDT ----- Message from Tatum Dotson APRN.CNP sent at 01/22/2023 10:24 AM EDT ----- Please call patient and notify her of echocardiogram results. Aortic valve parameters are moderate not severe enough for referral for a replacement yet. Please review echocardiogram in detail and symptoms at upcoming office visit with Dr. Donahue. Thank you! documented in this encounterAdena [facility] Center09-20-2023 Miscellaneous Notes* Result Encounter Note - Tatum Dotson APRN.CNP - 01/22/2023 10:24 AM EDT Please call patient and notify her of echocardiogram results. Aortic valve parameters are moderate not severe enough for referral for a replacement yet. Please review echocardiogram in detail and symptoms at upcoming office visit with Dr. Donahue. Thank you! documented in this encounterAdena [facility]09-15-2023 Miscellaneous Notes* Telephone Encounter - Selina Craft RN - 01/17/2023 1:53 PM EDT Attempted to call pt with below instructions. No answer and unable to leave message due to voicemail being full. MC message sent to pt. When pt returns call, please inform of below, help schedule echo, and close encounter. Thank you. Selina Craft RN * Telephone Encounter - Selina Craft RN - 01/17/2023 1:53 PM EDT Last/most recent echocardiogram was in March 2022 which revealed moderate aortic stenosis as faras gradients but valve area was severe. Since she reports experiencing an increase in symptoms, lets repeat an echocardiogram. If her parameters have worsened, I can expedite her care and have her referred to our TAVR clinic with Amber :) I placed an order for an echocardiogram so the results will come to me/cardiology. BNP also ordered. Please have pt complete echo and lab work. Thanks! Tatum Dotson, KESHA.PROPOSAL MANAGER documented in this encounterAdena [facility] Center09-15-2023 Miscellaneous Notes* Telephone Encounter - Sterling Coleman MD - 01/17/2023 8:51 AM EDT Can we triage this documented in this encounterAdena [facility] Center07-17-2023 History of Present illness Narrative* Sterling Coleman MD - 11/18/2022 7:00 PM EDT Patient presents with: Acute Visit HPI:This Team Access Model visit is a phone encounter. It required patient- provider interaction forthe medical decision making as documented below. Patient has elected to have a visit through distance medicine I have communicated my name and active licensure. The patient's identity and physical location wereverified at the time of this visit. Either the patient or their legal sales representative meats has been informed of the risks and benefits of -- and alternatives to -- treatment through a remote evaluation andconsents to proceed with the evaluation remotely. Has been having excess perspiration for a little while Has been even before the spring. Has been there for a while but getting worse. No weight loss. No itching. No changes in skin Hair might be thinner but unsure. No cough or chest discomfort No issues with urine. No recent chills. No flushing. No bowel or urine changes. She emotionally is stable. We discussed we could stop that in case it is contributing. MEDICATIONS: Current Outpatient Medications Medication Sig sertraline (ZOLOFT) 50 mg tablet Take 1 tablet by mouth once daily. hydroCHLOROthiazide 25 mg tablet Take 1 tablet by mouth once daily. As needed for edema rosuvastatin (CRESTOR) 10 mg tablet Take 1 tablet by mouth daily at bedtime. Fish Oil-DHA-EPA 1,200-144-216 mg cap Take 2 capsules by mouth once daily. Cholecalciferol, Vitamin D3, 50 mcg (2,000 unit) cap Take by mouth. BIOTIN ORAL Take by mouth. vitamin B complex (B COMPLEX ORAL) Take by mouth. MULTIVITAMIN WITH MINERALS (MULTIVITAMIN & MINERAL FORMULA ORAL) Take by mouth. aspirin, enteric coated (ASPIRIN, ENTERIC COATED) 81 mg EC tablet Take 81 mg by mouth once each week. Current Facility-Administered Medications Medication Dose Route Frequency perflutren lipid microspheres 1.3 mL in NaCl (PF) 0.9% 10 mL injection (DEFINITY) INTRAVENOUS DIRECTED PRN sodium chloride 0.9 % (flush) 10 mL (BD POSIFLUSH) 10 mL INTRAVENOUS DIRECTED PRN ALLERGIES: ALLERGIES Allergen Reactions Penicillins Swelling PAST MEDICAL HISTORY Diagnosis Date Bronchitis Diverticulitis Edema leg Heart murmur Psoriasis Snoring Vertigo PAST SURGICAL HISTORY Procedure Laterality Date G DELIVERY x 3 COLONOSCOPY 2006 COLONOSCOPY FLX DX W/COLLJ SPEC WHEN PFRMD 07/24/2018 Colonoscopy TONSILLECTOMY HX FAMILY HISTORY Problem Relation Age of Onset Clotting Disorder Mother age 88 COPD Father smoker, age 80 Colon Cancer Maternal Aunt Social History Tobacco Use Smoking status: Never Smokeless tobacco: Never Substance Use Topics Alcohol use: Yes Comment: occasional Drug use: No Reviewed current medications, allergies, past medical history, surgical history, family history andsocial history today. REVIEW OF SYSTEMS All other reviewed and negative other than HPI. HEALTH MAINTENANCE: Reviewed health maintenance issues today and recommended the following in detail. COVID-19 VACCINE(4 - Pfizer series) due on 04/17/2021 ADVANCE DIRECTIVE DISCUSSION due on 05/05/2022 VITALS: There were no vitals taken for this visit. Last 4 Encounter Wt Readings: Date: Wt: 08/15/2022 85.3 kg (188 lb) 07/29/2022 87.5 kg (193 lb) 03/26/2022 88.7 kg (195 lb 9.6 oz) 04/20/2021 86.6 kg (191 lb) PHYSICAL EXAMINATION: Patient is alert and oriented during visit. Answers appropriately. ASSESSMENT/PLAN: 1. Hyperhidrosis - ICD9: 705.21, ICD10: R61 (primary diagnosis) - rule out ssr related. Follow progress after tapering and stopping before doing additional work up. Start with basic labs. - TSH BLD - T4/FTI/T4U 2. Hyperlipidemia, mixed - ICD9: 272.2, ICD10: E78.2 - LIPID PANEL BASIC 3. Reactive depression - ICD9: 300.4, ICD10: F32.9 - as above. - CBC + DIFF - COMP METABOLIC PANEL Sterling Coleman I spent 12 minutes in the visit, with more than 50% of the total [id number]-[id number] time of the visit in counseling / coordination of care. documented in this encounterAdena Fayette [facility] Center06-28-2023 Miscellaneous Notes* Telephone Encounter - Lamar Aponte LPN - 10/30/2022 3:42 PM EDT Patient requests via [employer] refills as follows: Requested Prescriptions Pending Prescriptions Disp Refills sertraline (ZOLOFT) 50 mg tablet 30 tablet 5 Sig: Take 1 tablet by mouth once daily. hydroCHLOROthiazide 25 mg tablet 30 tablet 5 Sig: Take 1 tablet by mouth once daily. As needed for edema BRENDA: 03/26/22 NOV: None scheduled Last Refill: 03/26/22 # 30 5 refills Lamar Aponte LPN documented in this encounterAdena Fayette [facility] Center03-27-2023 Instructions* Patient Instructions* Elly Donahue MD - 07/29/2022 11:09 AM EDT We are starting Crestor 10 mg once per day Repeat fasting blood work in 3 months documented in this encounterAdena Fayette Medical Center03-27-2023 History of Present illness Narrative* Elly Donahue MD - 07/29/2022 10:40 AM EDT Images from the original note were not included. [facility] SECTION OF REGIONAL CARDIOLOGY Cardiology ([facility]) [address] [facility] [id number] OUTPATIENT VISIT DATE 07/29/2022 PRIMARY CARE PHYSICIAN: [place] [address] REFERRING PHYSICIAN: Sterling Roca [facility] [address] CHIEF COMPLAINT: Aortic valve stenosis HISTORY OF PRESENT ILLNESS: Ms. Fountain is a 67 year old woman with a history of aortic valve stenosis who is referred for evaluation. Patient denies overt symptoms of chest pain or pressure. She has noticed a slight decline inher functional capacity. Attributes most of that to her age. She has not noticed significant dyspnea on exertion. She denies symptoms concerning for congestive heart failure including PND and orthopnea. Has occasional swelling in her leg which typically occurs in the evening hours. She denies palpitations, lightheadedness, dizziness, or syncope. PAST MEDICAL HISTORY Diagnosis Date Bronchitis Diverticulitis Edema leg Heart murmur Psoriasis Snoring Vertigo PAST SURGICAL HISTORY Procedure Laterality Date CHG DELIVERY x 3 COLONOSCOPY 2007 COLONOSCOPY FLX DX W/COLLJ SPEC WHEN PFRMD 07/24/2018 Colonoscopy TONSILLECTOMY HX SOCIAL HISTORY Social History Tobacco Use Smoking status: Never Smokeless tobacco: Never Substance Use Topics Alcohol use: Yes Comment: occasional Drug use: No FAMILY HISTORY Problem Relation Age of Onset Clotting Disorder Mother age 88 COPD Father smoker, age 80 Colon Cancer Maternal Aunt ALLERGIES: ALLERGIES Allergen Reactions Penicillins Swelling MEDICATIONS: sertraline (ZOLOFT) 50 mg tablet^Take 1 tablet by mouth once daily.^Disp: 30 tablet^Rfl: 5 hydroCHLOROthiazide (HYDRODIURIL, ESIDRIX) 25 mg tablet^Take 1 tablet by mouth once daily. As needed for edema^Disp: 30 tablet^Rfl: 5 Fish Oil-DHA-EPA 1,200-144-216 mg cap^Take 2 capsules by mouth once daily.^Disp: ^Rfl: Cholecalciferol, Vitamin D3, 50 mcg (2,000 unit) cap^Take by mouth.^Disp: ^Rfl: BIOTIN ORAL^Take by mouth.^Disp: ^Rfl: vitamin B complex (B COMPLEX ORAL)^Take by mouth.^Disp: ^Rfl: MULTIVITAMIN WITH MINERALS (MULTIVITAMIN & MINERAL FORMULA ORAL)^Take by mouth.^Disp: ^Rfl: aspirin, enteric coated (ASPIRIN, ENTERIC COATED) 81 mg EC tablet^Take 81 mg by mouth once each week.^Disp: ^Rfl: rosuvastatin (CRESTOR) 10 mg tablet^Take 1 tablet by mouth daily at bedtime.^Disp: 90 tablet^Rfl: 3 REVIEW OF SYSTEMS: Review of Systems Constitutional: Negative for chills, fever, malaise/fatigue and weight loss. HENT: Negative for hearing loss and sore throat. Eyes: Negative for blurred vision and double vision. Respiratory: Negative. Cardiovascular: Negative. Genitourinary: Negative for dysuria, frequency, hematuria and urgency. Musculoskeletal: Negative. Skin: Negative. Neurological: Negative for dizziness, seizures, loss of consciousness, weakness and headaches. Endo/Heme/Allergies: Negative for environmental allergies. Does not bruise/bleed easily. Psychiatric/Behavioral: Negative for depression. PHYSICAL EXAMINATION: BP 120/70 Pulse 86 Wt 193 lb (87.5kg) SpO2 94% General: Pleasant woman sitting appears comfortable no apparent distress. She is alert and orientedx3 HEENT: Carotid upstrokes are brisk bilaterally without bruits. No JVD Pulmonary: Lungs are clear no rales, wheezes, rhonchi Cardiovascular: Normal S1, S2 with regular rate and rhythm. Mid to late peaking crescendo decrescendo murmur right sternal border 3/6. A2 component second heart sound is well appreciated. Extremities: Warm, well-perfused, no lower extremity edema. 2+ distal pulses CARDIOVASCULAR MEDICINE TESTING: ECG in the office July 29, 2022: Normal sinus rhythm normal axis and intervals. No significant ST or T wave changes Coronary Artery Calcium Score 11/02/2018 LM: 0 LAD: 0 LCx: 0 RCA: 0 Echocardiogram 04/02/2022 - The left ventricle is small. Left ventricular systolic function is normal. EF = 71 5% (2D biplane) Normal left ventricular diastolic function. - The right ventricle is normal in size. Right ventricular systolic function is normal. - There is moderate aortic valve stenosis. AV area is 0.87 cm (0.44 cm /m ) by continuity, VTI. Thepeak gradient is 30 mmHg, the mean gradient is 17 mmHg and the dimensionless valve index is 0.32. Prior pk/mn gradients were 28/16 mmHg. - Exam was compared with the prior CC echocardiographic exam performed on 04/17/2021, no significant change. I have personally reviewed the Electrocardiogram, Laboratory Testing, and Echocardiogram. IMPRESSION: Ms. Fountain is a 67 year old woman with a history of hyperlipidemia and moderate aortic stenosis referred for evaluation. PLAN AND RECOMMENDATIONS: 1. Screening for ischemic heart disease - ICD9: V81.0, ICD10: Z13.6 (primary diagnosis) - ECG COMPLETE 2. Nonrheumatic aortic valve stenosis - ICD9: 424.1, ICD10: I35.0 I reviewed her echocardiograms with her during the office visit. I reviewed her echo from 2016, 2018, 2019, and 2021. She has had progressive worsening of her aortic valve disease. At present, she seems relatively asymptomatic. We will plan to repeat an echocardiogram this fall. I did discuss the possibility she would need aortic valve replacement within the next 3 to 5 years. Discussed the fact that she should continue to remain active monitor herself for symptoms of shortness of breath and dyspnea on exertion. Also encouraged dietary modification including low-sodium diet. 3. Hyperlipidemia, mixed - ICD9: 272.2, ICD10: E78.2 Most recent fasting blood work from March 2022 was reviewed. LDL cholesterol 158 mg/dL. I recommended starting Crestor 10 mg daily and repeating fasting blood work in 3 months. - ROSUVASTATIN 10 MG TABLET Elly Donahue MD documented in this encounterA[facility]12[facility] Miscellaneous Notes* Telephone Encounter - Zeeshan Foster LPN - 04/22/2022 1:09 PM EST Pt notified. She verbalized understanding. Zeeshan Foster LPN * Telephone Encounter - Ginger Lin PA-C - 04/20/2022 10:22 AM EST Inconclusive mammo Please schedule: Telephone on 04/20/22 RADHA DIAGNOSTIC RT US BREAST LTD RT Thanks, Moiz Lin PA-C documented in this encounterAden[facility]11-29-2022 Miscellaneous Notes* Telephone Encounter - Elaine Meyer LPN - 04/02/2022 2:22 PM EST Patient notified. Verbalized understanding. Forwarding to have scheduled with cardiology. * Telephone Encounter - Sterling Coleman MD - 04/02/2022 1:57 PM EST Let her know echo is not getting worse but still shows moderate narrowing of her aortic valve. To be on the safe side I usually recommend having cardiology follow. documented in this encounterAden[facility]11-25-2022 Miscellaneous Notes* Telephone Encounter - Zeeshan Foster LPN - 03/29/2022 12:40 PM EST Low cholesterol diet placed in mail to pt. Zeeshan Foster LPN * Telephone Encounter - Sterling Coleman MD - 03/29/2022 12:01 PM EST Ok. Please send a low cholesterol diet. * Telephone Encounter - Coral Souza RN - 03/29/2022 11:13 AM EST Call placed to patient and provider message reviewed. Patient reports that she would like to try working on diet and exercise for a few months before starting a statin. Patient asking if provider would place order to recheck lipid panel in 3 months and if not improved at that time would consider statin. Pended lab per patient request. Coral Souza RN * Telephone Encounter - Sterling Coleman MD - 03/29/2022 11:02 AM EST Did not brass pickler her my chart message: Check below with her: Your labs are ok. Your cholesterol shows your bad cholesterol is still high. Your current heart disease risk calculation based on your cholesterol is high enough we could consider a statin medicine to reduce your risk of stroke and heart attack. Are you interested in trying one. Let me know. Dr Coleman documented in this encounterA[facility]11-22-2022 History of Past illness Narrative* Problem Noted Date Resolved Date Dyspareunia 03/26/2022 03/26/2022 Gynecological disease 03/26/2022 03/26/2022 Ectatic thoracic aorta 11/02/2018 2 Valvular heart disease 01/09/2017 1 Overview: Mild MR. ? - on echo 01/20 documented as of this encounter (statuses as of 03/26/2022) [facility] illness Narrative* Problem Noted Date Resolved Date Dyspareunia 03/26/2022 03/26/2022 Gynecological disease 03/26/2022 03/26/2022 Ectatic thoracic aorta 11/02/2018 2 Valvular heart disease 01/09/2017 1 Overview: Mild MR. ? - on echo 01/20 documented as of this encounter (statuses as of 03/27/2022) [facility] of [facility] illness Narrative* Problem Noted Date Resolved Date Dyspareunia 03/26/2022 03/26/2022 Gynecological disease 03/26/2022 03/26/2022 Ectatic thoracic aorta 11/02/2018 2 Valvular heart disease 01/09/2017 Overview: Mild MR. ? - on echo 01/20 documented as of this encounter (statuses as of 03/29/2022) [facility] illness Narrative* Problem Noted Date Resolved Date Dyspareunia 03/26/2022 03/26/2022 Gynecological disease 03/26/2022 03/26/2022 Ectatic thoracic aorta 11/02/2018 2 Valvular heart disease 01/09/2017 Overview: Mild MR. ? - on echo 01/20 documented as of this encounter (statuses as of 04/08/2022) [facility] Narrative* Problem Noted Date Resolved Date Dyspareunia 03/26/2022 03/26/2022 Gynecological disease 03/26/2022 03/26/2022 Ectatic thoracic aorta 11/02/2018 2 Valvular heart disease 01/09/2017 Overview: Mild MR. ? - on echo 01/20 documented as of this encounter (statuses as of 04/22/2022) [facility] Narrative* Problem Noted Date Resolved Date Dyspareunia 03/26/2022 03/26/2022 Gynecological disease 03/26/2022 03/26/2022 Ectatic thoracic aorta 11/02/2018 2 Valvular heart disease 01/09/2017 1 Overview: Mild MR. ? - on echo 01/20 documented as of this encounter (statuses as of 07/29/2022) [facility] Narrative* Problem Noted Date Resolved Date Dyspareunia 03/26/2022 03/26/2022 Gynecological disease 03/26/2022 03/26/2022 Ectatic thoracic aorta 11/02/2018 Valvular heart disease 01/09/2017 Overview: Mild MR. ? - on echo 01/20 documented as of this encounter (statuses as of 10/31/2022) [facility] Narrative* Problem Noted Date Diagnosed Date Resolved Date Dyspareunia 03/26/2022 03/26/2022 Gynecological disease 03/26/20222021 Ectatic thoracic aorta 11/02/201803/26 Valvular heart disease 01/09/201705/02 Overview: Mild MR. ? - on echo 01/20 documented as of this encounter (statuses as of 11/19/2022) [facility] Narrative* Problem Noted Date Diagnosed Date Resolved Date Dyspareunia 03/26/2022 03/26/2022 Gynecological disease 03/26/20222021 Ectatic thoracic aorta 11/02/201803/26 Valvular heart disease 01/09/201705/02 Overview: Mild MR. ? - on echo 01/20 documented as of this encounter (statuses as of 01/17/2023) [facility] Narrative* Problem Noted Date Diagnosed Date Resolved Date Dyspareunia 03/26/2022 03/26/2022 Gynecological disease 03/26/20222021 Ectatic thoracic aorta 11/02/201803/26 Valvular heart disease 01/09/201705/02 Overview: Mild MR. ? - on echo 01/20 documented as of this encounter (statuses as of 01/24/2023) [facility] Narrative* Problem Noted Date Diagnosed Date Resolved Date Dyspareunia 03/26/2022 03/26/2022 Gynecological disease 03/26/20222021 Ectatic thoracic aorta 11/02/201803/26 Valvular heart disease 01/09/201705/02 Overview: Mild MR. ? - on echo 01/20 documented as of this encounter (statuses as of 01/24/2023) [facility] Narrative* Problem Noted Date Diagnosed Date Resolved Date Dyspareunia 03/26/2022 03/26/2022 Gynecological disease 03/26/20222021 Ectatic thoracic aorta 11/02/201803/26 Valvular heart disease 01/09/201705/02 Overview: Mild MR. ? - on echo 01/20 documented as of this encounter (statuses as of 03/22/2023) [facility] Narrative* Problem Noted Date Diagnosed Date Resolved Date Dyspareunia 03/26/2022 03/26/2022 Gynecological disease 03/26/20222021 Ectatic thoracic aorta 11/02/201803/26 Valvular heart disease 01/09/201705/02 Overview: Mild MR. ? - on echo 01/20 documented as of this encounter (statuses as of 05/26/2023) [facility] Narrative* Problem Noted Date Diagnosed Date Resolved Date Dyspareunia 03/26/2022 03/26/2022 Gynecological disease 03/26/20222021 Ectatic thoracic aorta 11/02/201803/26 Valvular heart disease 01/09/201705/02 Overview: Mild MR. ? - on echo 01/20 documented as of this encounter (statuses as of 06/12/2023) [facility] Narrative* Problem Noted Date Diagnosed Date Resolved Date Dyspareunia 03/26/2022 03/26/2022 Gynecological disease 03/26/20222021 Ectatic thoracic aorta 11/02/201803/26 Valvular heart disease 01/09/201705/02 Overview: Mild MR. ? - on echo 01/20 documented as of this encounter (statuses as of 06/17/2023) [facility] Narrative* Problem Noted Date Diagnosed Date Resolved Date Dyspareunia 03/26/2022 03/26/2022 Gynecological disease 03/26/20222021 Ectatic thoracic aorta 11/02/201803/26 Valvular heart disease 01/09/201705/02 Overview: Mild MR. ? - on echo 01/20 documented as of this encounter (statuses as of 06/17/2023) [facility] Narrative* Problem Noted Date Diagnosed Date Resolved Date Dyspareunia 03/26/2022 03/26/2022 Gynecological disease 03/26/20222021 Ectatic thoracic aorta 11/02/201803/26 Valvular heart disease 01/09/201705/02 Overview: Mild MR. ? - on echo 01/20 documented as of this encounter (statuses as of 08/15/2023) [facility] of Present illness Narrative* Sterling Coleman MD - 03/26/2022 1:01 PM EST Patient presents with: Yearly Exam HPI: Patient presents today for office visit for yearly follow up. Would like discuss weaning Sertraline. Currently taking 50 mg daily. Mainly taking for sleep issuesand anxiety. Dx with stage 4 cancer and has started a clinical trial and things seems to begetting better. Moods have been better. Sleeping well now. Discussed waiting until spring or summer. Uses hctz four times a week. Some edema in ankles and hands. No changes from baseline. No episodes of vertigo. No chest pain. States upon waking up has to catch her breath. Does not happen all the time. Has occurred on and off for some time. Is not really dyspneic but has to take a deep breath. No cough or wheeze. Last echo about a year ago. MEDICATIONS: Current Outpatient Medications Medication Sig sertraline (ZOLOFT) 50 mg tablet Take 1 tablet by mouth once daily. hydroCHLOROthiazide (HYDRODIURIL, ESIDRIX) 25 mg tablet Take 1 tablet by mouth once daily. As needed for edema Fish Oil-DHA-EPA 1,200-144-216 mg cap Take 2 capsules by mouth once daily. Cholecalciferol, Vitamin D3, 50 mcg (2,000 unit) cap Take by mouth. BIOTIN ORAL Take by mouth. vitamin B complex (B COMPLEX ORAL) Take by mouth. MULTIVITAMIN WITH MINERALS (MULTIVITAMIN & MINERAL FORMULA ORAL) Take by mouth. aspirin, enteric coated (ASPIRIN, ENTERIC COATED) 81 mg EC tablet Take 81 mg by mouth once each week. Current Facility-Administered Medications Medication Dose Route Frequency perflutren lipid microspheres 1.3 mL in NaCl (PF) 0.9% 10 mL injection (DEFINITY) INTRAVENOUS DIRECTED PRN sodium chloride 0.9 % (flush) 10 mL (BD POSIFLUSH) 10 mL INTRAVENOUS DIRECTED PRN ALLERGIES: ALLERGIES Allergen Reactions Penicillins Swelling PAST MEDICAL HISTORY Diagnosis Date Bronchitis Diverticulitis Edema leg Heart murmur Psoriasis Snoring Vertigo PAST SURGICAL HISTORY Procedure Laterality Date CHG DELIVERY x 3 COLONOSCOPY 2006 COLONOSCOPY FLX DX W/COLLJ SPEC WHEN PFRMD 07/24/2018 Colonoscopy TONSILLECTOMY HX FAMILY HISTORY Problem Relation Age of Onset Clotting Disorder Mother age 88 COPD Father smoker, age 80 Colon Cancer Maternal Aunt Social History Tobacco Use Smoking status: Never Smokeless tobacco: Never Substance Use Topics Alcohol use: Yes Comment: occasional Drug use: No Reviewed current medications, allergies, past medical history, surgical history, family history andsocial history today. REVIEW OF SYSTEMS GI: Negative for change in bowel habit : Negative All other reviewed and negative other than HPI. HEALTH MAINTENANCE: Reviewed health maintenance issues today and recommended the following in detail. BONE DENSITY done COVID-19 VACCINE(4 - Booster for Pfizer series) due on 04/17/2021 ADVANCE DIRECTIVE DISCUSSION - on file INFLUENZA(1) due on 01/03/2022 MAMMOGRAM-next week. VITALS: BP 138/86 Pulse 82 Ht 154.9 cm (5' 1) Wt 88.7 kg (195 lb 9.6 oz) SpO2 97% BMI 36.96 kg/m Last 4 Encounter Wt Readings: Date: Wt: 04/20/2021 86.6 kg (191 lb) 03/15/2021 88.5 kg (195 lb) 03/08/2019 90.7 kg (200 lb) 12/17/2018 88.9 kg (196 lb) PHYSICAL EXAMINATION: General appearance: Well appearing, alert, in no acute distress, well-hydrated, well nourished. Skin: Skin color, texture, turgor normal, no suspicious rashes or lesions Head: Normocephalic, no masses, lesions, tenderness or abnormalities Eyes: Anicteric sclera. Pupils are equally round and reactive to light. Extraocular movements are intact. Lungs: Lungs clear to auscultation. No wheezing, rhonchi, rales Heart: RRR without murmur, gallop, or rubs. No ectopy Abdomen: Normal abdominal exam, Abdomen soft, non-tender. Bowel sounds normal. No masses, organomegaly Extremities: No deformities, edema, skin discoloration, clubbing or cyanosis. Good capillary refill. ASSESSMENT/PLAN: 1. Nonrheumatic aortic valve stenosis - ICD9: 424.1, ICD10: I35.0 (primary diagnosis) - call if any issues. Recheck echo. - ECHO - PERFLUTREN LIPID MICROSPHERES 1.1 MG/ML INJECTION IN NS 10 ML - SODIUM CHLORIDE 0.9 % (FLUSH) INJECTION SYRINGE 2. Encounter for immunization - ICD9: V03.89, ICD10: Z23 - INFLUENZA SEASONAL QUADRIVALENT HIGH DOSE AGE 65+ 3. Bilateral leg edema - ICD9: 782.3, ICD10: R60.0 - follow progress. 4. Hyperlipidemia, mixed - ICD9: 272.2, ICD10: E78.2 - await labs 5. Ectatic thoracic aorta (HCC) - ICD9: 447.71, ICD10: I77.810 - stable. - ECHO - PERFLUTREN LIPID MICROSPHERES 1.1 MG/ML INJECTION IN NS 10 ML - SODIUM CHLORIDE 0.9 % (FLUSH) INJECTION SYRINGE 6. Psoriasis - ICD9: 696.1, ICD10: L40.9 - sees [facility] 7. Reactive depression - ICD9: 300.4, ICD10: F32.9 - consider weaning and stopping in spring 8. Adjustment disorder, unspecified type - ICD9: 309.9, ICD10: F43.20 - SERTRALINE 50 MG TABLET Sterling Coleman MD documented in this encounterA[facility]10-31-2022 Miscellaneous Notes* Telephone Encounter - Laurence Lynch Ma - 03/04/2022 4:46 PM EDT Patient made aware of orders * Telephone Encounter - Sterling Coleman MD - 03/04/2022 4:34 PM EDT Placed. * Telephone Encounter - Nona Araujo - 03/04/2022 10:00 AM EDT PT scheduled would like full lab workup before her 03-26-22 appointment. Nona WILDER * Telephone Encounter - Ginger Lin PA-C - 03/01/2022 5:06 PM EDT Telephone on 02/28/22 RADHA SCREENING W RYAN DXA-AXIAL SKELETON Thanks, Moiz Lin PA-C * Telephone Encounter - Nohelia Wilder - 02/28/2022 11:48 AM EDT Patient calling to schedule several appointments but we currently have no orders. Patient requesting Bone density, mammography and lab orders. Once placed route to bead forming machine operator so we may call patient toschedule these test and Medicare Wellness appointment. documented in this encounterAden[facility]10-27-2022 Instructions* Patient Instructions* Laurence Lynch Ma - 02/28/2022 2:08 PM EDT BONE MINERAL DENSITY PATIENT INSTRUCTIONS Bone mineral density testing measures the amount of calcium in certain parts of your bones. This information determines how strong your bones are. The test is used to detect osteoporosis, a disease in which the bone's mineral content and density are low, increasing a person's risk of fractures. Thelumbar spine (lower back) and the hip are the skeletal sites usually examined. For the test, remember that: 1. You cannot take this test if you are . 2. Eat a normal diet on the day of the test. 3. Take your medications as you normally would. 4. DO NOT take calcium supplements (such as Tums) for 24 hours before the test. 5. On the day of the test, leave valuables (jewelry or credit cards) at home. 6. The test should be performed prior to oral, rectal or IV contrast studies, or at least 7 days after any of these studies. For the test, you may be asked to wear a hospital gown. You will lie on your back, on a padded table, in a comfortable position. Generally, you can resume your usual activities immediately. documented in this encounterA[facility]12-17-2021 History of Present illness Narrative* Smita Saenz RT(R) - 04/20/2021 2:20 PM EST Radiology Service Progress Note PATIENT NAME: Meche Fountain DATE OF SERVICE: April 20, 2021 TIME: 2:15 PM PATIENT IDENTITY VERIFICATION COMPLETED USING TWO (2) IDENTIFIERS: Name and Date of confirmedby patient verbally. FALL SCREENING: Has the patient had 2 falls in the last year or 1 fall with injury or currently using an Ambulatory Assistive Device (Walker, Cane, Wheelchair, Crutches, etc.)? No PATIENT GENDER DATA: Female. status: : No status: NO. PATIENT RELEVANT IMPLANT DATA REVIEWED: Yes RADIOLOGY DEPARTMENT: General X-ray: Exam(s) Completed: Lower Extremity X- Ray(s): Knee, AP / Lat / Tunne / Merchant Right and Wt. Bearing PERIPHERAL IV DATA: Not applicable SIGNED BY: RT Marika(R) April 20, 2021 2:15 PM documented in this encounterAden[facility]09-07-2017 History of Past illness Narrative* Problem Noted Date Resolved Date Valvular heart disease 01/09/2017 Overview: Mild MR. ? - on echo 01/20 documented as of this encounter (statuses as of 03/04/2022) [facility] note* Diagnosis Screening for osteoporosis- Primary Special screening for osteoporosis Asymptomatic menopause Encounter for screening for osteoporosis Special screening for osteoporosis Encounter for screening mammogram for malignant neoplasm of breast Other screening mammogram Well adult exam Routine general medical examination at a health care facility Hyperlipidemia, mixed Mixed hyperlipidemia documented [facility] this encounter [facility] Diagnosis Nonrheumatic aortic valve stenosis- Primary Aortic valve disorders Encounter for immunization Need for other specified prophylactic vaccination against single bacterial disease Bilateral leg edema Edema Hyperlipidemia, mixed Mixed hyperlipidemia Ectatic thoracic aorta (HCC) Thoracic aortic ectasia Psoriasis Other psoriasis Reactive depression Dysthymic disorder Adjustment disorder, unspecified type documented in this encounter [facility]* Diagnosis Hyperlipidemia, mixed- Primary Mixed hyperlipidemia documented in this encounter [facility]* Diagnosis Nonrheumatic aortic valve stenosis- Primary Aortic valve disorders documented in this encounter [facility]* Diagnosis Inconclusive mammography- Primary Inconclusive mammogram documented in this encounter [facility]* Diagnosis Screening for ischemic heart disease- Primary Nonrheumatic aortic valve stenosis Aortic valve disorders Hyperlipidemia, mixed Mixed hyperlipidemia documented in this encounter [facility]* Diagnosis Adjustment disorder, unspecified type Hyperlipidemia, mixed Mixed hyperlipidemia documented in this encounter [facility]* Diagnosis Hyperhidrosis- Primary Primary focal hyperhidrosis Hyperlipidemia, mixed Mixed hyperlipidemia Reactive depression Dysthymic disorder documented in this encounter [facility]* Diagnosis Nonrheumatic aortic valve stenosis- Primary Aortic valve disorders LARRY (dyspnea on exertion) Other dyspnea and respiratory abnormality documented in this encounter [facility]* Diagnosis Nonrheumatic aortic valve stenosis Aortic valve disorders [facility]* Diagnosis Left lower quadrant abdominal pain- Primary [facility]* Diagnosis Encounter for screening mammogram for breast cancer [facility]* Diagnosis Nonrheumatic aortic valve stenosis- Primary Aortic valve disorders Hyperlipidemia, mixed Mixed hyperlipidemia [facility]* Diagnosis Function kidney decreased- Primary Unspecified disorder of kidney and ureter Eczema, unspecified type URI, acute Acute upper respiratory infections of unspecified site [facility]* Diagnosis Vaginal irritation- Primary Unspecified noninflammatory disorder of vagina Lichen sclerosus 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 [facility]* Diagnosis Malaise and fatigue- Primary Other malaise and fatigue Hypersomnia, unspecified Hyperlipidemia, mixed Mixed hyperlipidemia Arthralgia, unspecified joint Snoring Other dyspnea and respiratory abnormality Nonrheumatic aortic valve stenosis Aortic valve disorders Class 2 severe obesity with serious comorbidity and body mass index (BMI) of 36.0 to 36.9 in adult, unspecified obesity type (HCC) Body mass index (BMI) 36.0-36.9, adult Screening cholesterol level Screening for lipoid disorders Screening for deficiency anemia Screening for other and unspecified deficiency anemia Screening for diabetes mellitus Screening for metabolic disorder Screening for thyroid disorder Encounter for vitamin deficiency screening Screening for other and unspecified endocrine, nutritional, metabolic, and immunity disorders [facility]* Diagnosis Elevated fasting glucose- Primary Impaired fasting glucose Hyperinsulinemia Other specified hypoglycemia Insulin resistance Dysmetabolic Syndrome X documented in this encounter [facility] [facility] Diagnosis Left sided sciatica Sciatica documented in this encounter [facility] Diagnosis Right knee pain, unspecified chronicity documented in this encounter [facility] Diagnosis Nonrheumatic aortic valve stenosis- Primary Aortic valve disorders Hyperlipidemia, mixed Mixed hyperlipidemia Aortic ectasia (HCC) Aortic ectasia, unspecified site documented in this encounter [facility]* Diagnosis Aortic ectasia (HCC) Aortic ectasia, unspecified site [facility] Diagnosis Hyperlipidemia, mixed Mixed hyperlipidemia [facility] Diagnosis Muscle strain of chest wall, initial encounter documented in this encounter [facility] note* Diagnosis Muscle strain of chest wall, initial encounter- Primary Dysuria Muscle strain of chest wall, initial encounter [facility]* Diagnosis Chest wall pain- Primary Painful respiration documented in this encounter [facility] note* Diagnosis Abnormal mammogram- Primary Abnormal mammogram, unspecified documented in this encounter [facility] note* Diagnosis Encounter for screening mammogram for breast cancer documented in this encounter [facility] note* Diagnosis Abnormal mammogram Abnormal mammogram, unspecified documented in this encounter [facility] note* Diagnosis Medicare annual wellness visit, subsequent- Primary Routine general medical examination at a [facility] facility Cardiac arrhythmia, unspecified cardiac arrhythmia type Obesity, Class II, BMI 35-39.9 Obesity, unspecified Hyperlipidemia, mixed Mixed hyperlipidemia Aortic ectasia (HCC) Aortic ectasia, unspecified site Nonrheumatic aortic valve stenosis Aortic valve disorders Psoriasis Other psoriasis Reactive depression Dysthymic disorder Encounter for screening examination for other mental health and behavioral disorders documented in this encounter [facility] note* Diagnosis Nonrheumatic aortic valve stenosis- Primary Aortic valve disorders Hyperlipidemia, mixed Mixed hyperlipidemia documented in this encounter [facility] noteNo assessment information availableWWilson Health Work Phone: Reason for referral (narrative)* Diagnostic Procedure Only (Routine) - Authorized Specialty Diagnoses / Procedures Referred By Contac t Referred To Contact [facility] Diagnoses Screening for osteoporosis Asymptomatic menopause Encounter for screening for osteoporosis Encounter for screening mammogram for malignant neoplasm of breast Procedures RADHA SCREENING W RYAN SCREENING DIGITAL BREAST TOMOSYNTHESIS BI SCREENING MAMMOGRAPHY BI 2-VIEW BREAST INC CAD Ginger Lin PA-C [address] [place] [address] [facility] [address] [place] [phone] Referral ID Status Reason Start Date Expiration Date Visits Requested Visits Authorized [id number] Authorized Auto-Generat ed Referral 2 03/30/2023 1 1 [facility] for referral (narrative)* Outpatient Procedure (Routine) - Authorized Specialty Diagnoses / Procedures Referred By Contac t Referred To [facility] Diagnoses Ectatic thoracic aorta (HCC) Nonrheumatic aortic valve stenosis Procedures ECHO ECHO TTHRC R-T 2D W/WOM-MODE COMPL SPEC&COLR Sterling Bowen MD [address] [place] [address] [facility] [place] [address] [place] [address] Referral ID Status Reason Start Date Expiration Date Visits Requested Visits Authorized [id number] Authorized Auto-Generat ed Referral 2 03/26/2023 1 1 [facility] for referral (narrative)* Diagnostic Procedure Only (Routine) - Pending Review Specialty Diagnoses / Procedures [facility] Ref[facility] To Contact [facility] Diagnoses Inconclusive mammography Procedures US BREAST LTD RT US BREAST UNI REAL TIME WITH IMAGE LIMITED Ginger Lin PA-C [address] [place] [address] [facility] [address] [place] [address] Referral ID Status Reason Start Date Expiration Date Visits Requested Visits Authorized [id number] Pending Review Auto-Generat ed Referral 2 05/20/2023 1 1 * Diagnostic Procedure Only (Routine) - Authorized Specialty Diagnoses / Procedures Referred By Contac t Referred To Contact [facility] Diagnoses Inconclusive mammography Procedures RADHA DIAGNOSTIC RT DIAGNOSTIC MAMMOGRAPHY COMPUTER-AIDED DETCJ UNI Ginger Lin PA-C [address] [place] [address] [facility] [address] [place] [address] Referral ID Status Reason Start Date Expiration Date Visits Requested Visits Authorized [id number] Authorized Auto-Generat ed Referral 2 05/20/2023 1 1 [facility] for referral (narrative)* Outpatient Procedure (Routine) - Closed Specialty Diagnoses / Procedures Referred By Contac t Referred To Contact [facility] [place] Diagnoses Screening for ischemic heart disease Procedures ECG COMPLETE ECG ROUTINE ECG W/LEAST 12 LDS W/I&R Elly Donahue MD [address] [place] [address] [facility] [place] [address] [place] [address] Referral ID Status Reason Start Date Expiration Date V isits Requested Visits Authorized [id number] Closed Auto-Generate d Referral 07/24/2022 07/24/2023 1 1 [facility] for referral (narrative)* Outpatient Procedure (Routine) - Pending Review Specialty Diagnoses / Procedures Referred By Contac t Referred To Contact [facility] [place] Diagnoses Nonrheumatic aortic valve stenosis Procedures ECHO ECHO TTHRC R-T 2D W/WOM-MODE COMPL SPEC&COLR D Tatum Dotson GAS SCRUBBER OPERATOR.PROPOSAL MANAGER [address] [place] [address] [facility] [address] [place] [address] Referral ID Status Reason Start Date Expiration Date Visits Requested Visits Authorized [id number] Pending Review Auto-Generat ed Referral 01/17/2023 01/17/2024 1 1 [facility] for referral (narrative)* Diagnostic Procedure Only (Routine) - Closed Specialty Diagnoses / Procedures Referred By Contac t Referred To Contact [facility] Diagnoses Encounter for screening mammogram for breast cancer Procedures RADHA SCREENING SCREENING MAMMOGRAPHY BI 2-VIEW BREAST INC CAD Sterling Coleman MD [address] [place] [address] [facility] [address] [place] [address] Referral ID Status Reason Start Date Expiration Date V isits Requested Visits Authorized [id number] Closed Auto-Generate d Referral 05/21/2023 06/19/2024 1 1 [facility] for referral (narrative)* Outpatient Procedure (Routine) - Pending Review Specialty Diagnoses / Procedures [facility] Referred To Contact [facility] Diagnoses Nonrheumatic aortic valve stenosis Procedures ECHO ECHO TTHRC R-T 2D W/WOM-MODE COMPL SPEC&COLR D Elly Donahue MD [address] [place] [address] [address] [place] [address] Referral ID Status Reason Start Date Expiration Date Visits Requested Visits Authorized [id number] Pending Review Auto-Generat ed Referral 01/26/2024 06/15/2024 1 1 [facility] for referral (narrative)* Diagnostic Procedure Only (Routine) - Pending Review Specialty Diagnoses / Procedures [facility] Referred To Contact [facility] [place] Diagnoses Malaise and fatigue Snoring Class 2 severe obesity with serious comorbidity and body mass index (BMI) of 36.0 to 36.9 in adult, unspecified obesity type (HCC) Hypersomnia, unspecified Procedures HOME SLEEP APNEA TEST (HSAT) SLEEP STD AIRFLOW HRT RATE&O2 SAT EFFORT UNATT Viktoria Marquez MD [address] [place] [address] [address] Referral ID Status Reason Start Date Expiration Date Visits Requested Visits Authorized [id number] Pending Review Auto-Generat ed Referral 09/10/2023 09/09/2024 1 1 * Consult, Test, Treat (Routine) - Authorized Specialty Diagnoses / Procedures [facility] Referred To Contact Diagnoses Malaise and fatigue Snoring Body mass index (BMI) 36.0-36.9, adult Class 2 severe obesity with serious comorbidity and body mass index (BMI) of 36.0 to 36.9 in adult, unspecified obesity type (HCC) Procedures CONSULT TO SLEEP MEDICINE - ADULT OFFICE/OUTPATIENT [facility] 60 MINUTES Viktoria Marquez MD [address] [place] [address] Referral ID Status Reason Start Date Expiration Date Visits Requested Visits Authorized [id number] Authorized PCP Requested Referral 09/10/2023 09/09/2024 1 1 [facility] for referral (narrative)* Diagnostic Procedure Only (Routine) - Closed Specialty Diagnoses / Procedures Referred By Saundra muñoz Referred To Contact [facility] Diagnoses Left sided sciatica Procedures XR LUMBAR GENERAL 3V AP/LAT/L5-S1 RADEX SPINE LUMBOSACRAL 2/3 VIEWS Sterling Coleman MD [address] [place] [address] [place] [address] Referral ID Status Reason Start Date Expiration Date V isits Requested Visits Authorized [id number] Closed Auto-Generate d Referral 03/20/2023 04/18/2024 1 1 [facility] for referral (narrative)* Diagnostic Procedure Only (Urgent) - Closed Specialty Diagnoses / Procedures Referred By Contac t Referred To Contact [facility] Diagnoses Right knee pain, unspecified chronicity Procedures XR KNEE GENERAL 4V AP BOTH/PA BOTH/LAT/MERC RIGHT KNEE AP-WGT/LAT/Lexie Bowers APRN.CNP [address] [place] [address] [place] [address] Referral ID Status Reason Start Date Expiration Date V isits Requested Visits Authorized [id number] Closed Auto-Generate d Referral 04/20/2021 05/20/2022 1 1 [facility] for referral (narrative)* Diagnostic Procedure Only (Routine) - New Request Specialty Diagnoses / Procedures Referred By Saundra muñoz Referred To Contact [facility] Diagnoses Abnormal mammogram Procedures US BREAST LTD LEFT US BREAST UNI REAL TIME WITH IMAGE LIMITED Asmita Bhagat MD [address] [place] [address] [facility] [address] [place] [phone] Referral ID Status Reason Start Date Expiration Date Visits Requested Visits Authorized [id number] New Request Auto-Generat ed Referral 06/07/2024 07/07/2025 1 1 * Diagnostic Procedure Only (Routine) - New Request Specialty Diagnoses / Procedures Referred By Saundra muñoz Referred To Contact [facility] Diagnoses Abnormal mammogram Procedures RADHA DIAGNOSTIC LEFT DIAGNOSTIC MAMMOGRAPHY COMPUTER-AIDED DETCJ UNI Asmita Bhagat MD [address] [place] [address] [facility] [address] [phone] Referral ID Status Reason Start Date Expiration Date Visits Requested Visits Authorized [id number] New Request Auto-Generat ed Referral 06/07/2024 07/07/2025 1 1 [facility] for referral (narrative)* Diagnostic Procedure Only (Routine) - Closed Specialty Diagnoses / Procedures Referred By Saundra muñoz Referred To Contact [facility] Diagnoses Encounter for screening mammogram for breast cancer Procedures RADHA SCREENING W RYAN SCREENING DIGITAL BREAST TOMOSYNTHESIS BI SCREENING MAMMOGRAPHY BI 2-VIEW BREAST INC CAD Asmita Bhagat MD [address] [place] [address] [facility] [address] [place] [address] Referral ID Status Reason Start Date Expiration Date V isits Requested Visits Authorized [id number] Closed Auto-Generate d Referral 05/29/2023 06/27/2024 1 1 [facility] for referral (narrative)No reason for referral information availableWWilson Health Work Phone: Reason for visit Narrative* Outpatient Procedure (Routine) - Closed Specialty Diagnoses / Procedures Referred By Saundra muñoz Referred To [facility] Diagnoses Nonrheumatic aortic valve stenosis Procedures ECHO ECHO TTHRC R-T 2D W/WOM-MODE COMPL SPEC&COLR D Tatum Dotson, GAS SCRUBBER OPERATOR.PROPOSAL MANAGER [address] [place] [address] [facility] [place] [address] [place] [address] Referral ID Status Reason Start Date Expiration Date V isits Requested Visits Authorized [id number] Closed Auto-Generate d Referral 01/17/2023 01/17/2024 1 1 [facility] for visit Narrative* Diagnostic Procedure Only (Routine) - Closed Specialty Diagnoses / Procedures [facility] Referred To Contact [facility]AG[facility] Diagnoses Left sided sciatica Procedures XR LUMBAR GENERAL 3V AP/LAT/L5-S1 RADEX SPINE LUMBOSACRAL 2/3 VIEWS Sterling Coleman MD [address] [place] [address] [place] [address] Referral ID Status Reason Start Date Expiration Date V isits Requested Visits Authorized [id number] Closed Auto-Generate d Referral 03/20/2023 04/18/2024 1 1 [facility] for visit Narrative* Diagnostic Procedure Only (Urgent) - Closed Specialty Diagnoses / Procedures [facility] Referred To Contact [facility] Diagnoses Right knee pain, unspecified chronicity Procedures XR KNEE GENERAL 4V AP BOTH/PA BOTH/LAT/MERC RIGHT KNEE AP-WGT/LAT/MERCGUSTAVOT Lexie Emmanuel, GAS SCRUBBER OPERATOR.PROPOSAL MANAGER [address] [place] [address] [place] [address] Referral ID Status Reason Start Date Expiration Date V isits Requested Visits Authorized [id number] Closed Auto-Generate d Referral 04/20/2021 05/20/2022 1 1 [facility] for visit Narrative* Diagnostic Procedure Only (Routine) - Closed Specialty Diagnoses / Procedures Referred By Saundra muñoz Referred To Contact [facility] Diagnoses Encounter for screening mammogram for breast cancer Procedures RADHA SCREENING W RYAN SCREENING DIGITAL BREAST TOMOSYNTHESIS BI SCREENING MAMMOGRAPHY BI 2-VIEW BREAST INC CAD Asmita Bhagat MD [address] [place] [address] [facility] [address] [place] [address] Referral ID Status Reason Start Date Expiration Date V isits Requested Visits Authorized [id number] Closed Auto-Generate d Referral 05/29/2023 06/27/2024 1 1 [facility] Diagnostic Procedure Only (Routine) - Closed Specialty Diagnoses / Procedures Referred By Saundra muñoz Referred To Contact [facility] Diagnoses Abnormal mammogram Procedures RADHA DIAGNOSTIC LEFT DIAGNOSTIC MAMMOGRAPHY COMPUTER-AIDED DETCJ UNI Asmita Bhagat MD [address] [place] [address] Phone: tel: fax: [facility] [address] [place] [address] Referral ID Status Reason Start Date Expiration Date V isits Requested Visits Authorized [id number] Closed Auto-Generate d Referral 06/07/2024 07/07/2025 1 1 [facility] Summary Purpose Family History Relationship Condition Age at Onset Recorded Date/T barrett grandmother Coronary artery disease Unknown father Coronary artery disease Unknown grandmother Diabetes mellitus Unknown Advance Directives Documents on File Type Date Recorded Patient Seat Joiner Chainstitch Expl anation Advance Directive(s) 07/24/2018 5:50 AM Documents on File Type Date Recorded Patient Seat Joiner Chainstitch Expl anation Advance Directive(s) 07/24/2018 5:50 AM Advance Directive Response Recorded Date/ Time Do you have a Healthcare Power of Dictating Machine Typist? No November 26, 2024 12:21pm Reason for Referral Specialty Diagnoses / Procedures Referred By Saundra muñoz Referred To Contact Cardiology Diagnoses Nonrheumatic aortic valve stenosis Procedures CONSULT TO CARDIOLOGY OFFICE/OUTPATIENT [facility] 60-74 MINUTES Sterling Coleman MD [address] [place] [address] Referral ID Status Reason Start Date Expiration Date Visits Requested Visits Authorized [id number] Authorized PCP Requested Referral 2 04/02/2023 1 1 Specialty Diagnoses / Procedures Referred By Contac t Referred To Contact CT IMAGING Diagnoses Aortic ectasia (HCC) Procedures CTA CHEST (NONGATED) W IVCON CT ANGIOGRAPHY CHEST W/CONTRAST/NONCONTRAST Elly Donahue MD [address] [place] [address] [place] [address] Referral ID Status Reason Start Date Expiration Date Visits Requested Visits Authorized [id number] Authorized Auto-Generat ed Referral 4 03/24/2025 1 1 Chief Complaint and Reason for Visit Chief Complaint Admit Date DIZZINESS, NAUSIA, VOMITING November 26, 2 025 4:24pm Additional Source Comments INFORMATION SOURCE (unrecogn ized section and content) DATE CREATED AUTHOR 10/24/2017 [facility] DATE CREATED AUTHOR AUTHOR'S ORGANIZ ATION 11/06/2021 [facility] DATE CREATED AUTHOR AUTHOR'S ORGANIZ ATION 06/14/2024 [facility] DATE CREATED AUTHOR AUTHOR'S ORGANIZ ATION 11/01/2024 [place] Source Comments (unrecognize d section and content) In the event this informatio n is protected by the Federal Confidentiality of Alcohol and Drug Abuse Patient Records regulations: The Federal rules restrict any use of the information to criminally investigate or prosecute any alcohol or drug abuse patient.[facility] the event this information is protected by the Federal Confidentiality of Alcohol and Drug Abuse Patient Records regulations: The Federal rules restrict any use of the information to criminally investigate or prosecute any alcohol or drug abuse patient.[facility] the event this information is protected by the Federal Confidentiality of Alcohol and Drug Abuse Patient Records regulations: The Federal rules restrict any use of the information to criminally investigate or prosecute any alcohol or drug abuse patient.[facility] the event this information is protected by the Federal Confidentiality of Alcohol and Drug Abuse Patient Records regulations: The Federal rules restrict any use of the information to criminally investigate or prosecute any alcohol or drug abuse patient.[facility] the event this information is protected by the Federal Confidentiality of Alcohol and Drug Abuse Patient Records regulations: The Federal rules restrict any use of the information to criminally investigate or prosecute any alcohol or drug abuse patient.[facility] the event this information is protected by the Federal Confidentiality of Alcohol and Drug Abuse Patient Records regulations: The Federal rules restrict any use of the information to criminally investigate or prosecute any alcohol or drug abuse patient.[facility] the event this information is protected by the Federal Confidentiality of Alcohol and Drug Abuse Patient Records regulations: The Federal rules restrict any use of the information to criminally investigate or prosecute any alcohol or drug abuse patient.[facility] Center[facility] the event this information is protected by the Federal Confidentiality of Alcohol and Drug Abuse Patient Records regulations: The Federal rules restrict any use of the information to criminally investigate or prosecute any alcohol or drug abuse patient.[facility] Center[facility] the event this information is protected by the Federal Confidentiality of Alcohol and Drug Abuse Patient Records regulations: The Federal rules restrict any use of the information to criminally investigate or prosecute any alcohol or drug abuse patient.[facility] Center[facility] the event this information is protected by the Federal Confidentiality of Alcohol and Drug Abuse Patient Records regulations: The Federal rules restrict any use of the information to criminally investigate or prosecute any alcohol or drug abuse patient.[facility] Center[facility] the event this information is protected by the Federal Confidentiality of Alcohol and Drug Abuse Patient Records regulations: The Federal rules restrict any use of the information to criminally investigate or prosecute any alcohol or drug abuse patient.[facility] Center[facility] the event this information is protected by the Federal Confidentiality of Alcohol and Drug Abuse Patient Records regulations: The Federal rules restrict any use of the information to criminally investigate or prosecute any alcohol or drug abuse patient.[facility] CenterIn the event this information is protected by the Federal Confidentiality of Alcohol and Drug Abuse Patient Records regulations: The Federal rules restrict any use of the information to criminally investigate or prosecute any alcohol or drug abuse patient.[facility] Center[facility] the event this information is protected by the Federal Confidentiality of Alcohol and Drug Abuse Patient Records regulations: The Federal rules restrict any use of the information to criminally investigate or prosecute any alcohol or drug abuse patient.[facility] Center[facility] the event this information is protected by the Federal Confidentiality of Alcohol and Drug Abuse Patient Records regulations: The Federal rules restrict any use of the information to criminally investigate or prosecute any alcohol or drug abuse patient.[facility] Center[facility] the event this information is protected by the Federal Confidentiality of Alcohol and Drug Abuse Patient Records regulations: The Federal rules restrict any use of the information to criminally investigate or prosecute any alcohol or drug abuse patient.[facility] Center[facility] the event this information is protected by the Federal Confidentiality of Alcohol and Drug Abuse Patient Records regulations: The Federal rules restrict any use of the information to criminally investigate or prosecute any alcohol or drug abuse patient.[facility] CenterIn the event this information is protected by the Federal Confidentiality of Alcohol and Drug Abuse Patient Records regulations: The Federal rules restrict any use of the information to criminally investigate or prosecute any alcohol or drug abuse patient.[facility] the event this information is protected by the Federal Confidentiality of Alcohol and Drug Abuse Patient Records regulations: The Federal rules restrict any use of the information to criminally investigate or prosecute any alcohol or drug abuse patient.[facility] CenterIn the event this information is protected by the Federal Confidentiality of Alcohol and Drug Abuse Patient Records regulations: The Federal rules restrict any use of the information to criminally investigate or prosecute any alcohol or drug abuse patient.[facility] CenterIn the event this information is protected by the Federal Confidentiality of Alcohol and Drug Abuse Patient Records regulations: The Federal rules restrict any use of the information to criminally investigate or prosecute any alcohol or drug abuse patient.[facility] the event this information is protected by the Federal Confidentiality of Alcohol and Drug Abuse Patient Records regulations: The Federal rules restrict any use of the information to criminally investigate or prosecute any alcohol or drug abuse patient.[facility] CenterIn the event this information is protected by the Federal Confidentiality of Alcohol and Drug Abuse Patient Records regulations: The Federal rules restrict any use of the information to criminally investigate or prosecute any alcohol or drug abuse patient.[facility] CenterIn the event this information is protected by the Federal Confidentiality of Alcohol and Drug Abuse Patient Records regulations: The Federal rules restrict any use of the information to criminally investigate or prosecute any alcohol or drug abuse patient.[facility] CenterIn the event this information is protected by the Federal Confidentiality of Alcohol and Drug Abuse Patient Records regulations: The Federal rules restrict any use of the information to criminally investigate or prosecute any alcohol or drug abuse patient.[facility] CenterIn the event this information is protected by the Federal Confidentiality of Alcohol and Drug Abuse Patient Records regulations: The Federal rules restrict any use of the information to criminally investigate or prosecute any alcohol or drug abuse patient.[facility] Center[facility] the event this information is protected by the Federal Confidentiality of Alcohol and Drug Abuse Patient Records regulations: The Federal rules restrict any use of the information to criminally investigate or prosecute any alcohol or drug abuse patient.[facility] CenterIn the event this information is protected by the Federal Confidentiality of Alcohol and Drug Abuse Patient Records regulations: The Federal rules restrict any use of the information to criminally investigate or prosecute any alcohol or drug abuse patient.[facility] CenterIn the event this information is protected by the Federal Confidentiality of Alcohol and Drug Abuse Patient Records regulations: The Federal rules restrict any use of the information to criminally investigate or prosecute any alcohol or drug abuse patient.[facility] CenterIn the event this information is protected by the Federal Confidentiality of Alcohol and Drug Abuse Patient Records regulations: The Federal rules restrict any use of the information to criminally investigate or prosecute any alcohol or drug abuse patient.[facility] CenterIn the event this information is protected by the Federal Confidentiality of Alcohol and Drug Abuse Patient Records regulations: The Federal rules restrict any use of the information to criminally investigate or prosecute any alcohol or drug abuse patient.[facility] CenterIn the event this information is protected by the Federal Confidentiality of Alcohol and Drug Abuse Patient Records regulations: The Federal rules restrict any use of the information to criminally investigate or prosecute any alcohol or drug abuse patient.[facility] CenterIn the event this information is protected by the Federal Confidentiality of Alcohol and Drug Abuse Patient Records regulations: The Federal rules restrict any use of the information to criminally investigate or prosecute any alcohol or drug abuse patient.[facility] CenterIn the event this information is protected by the Federal Confidentiality of Alcohol and Drug Abuse Patient Records regulations: The Federal rules restrict any use of the information to criminally investigate or prosecute any alcohol or drug abuse patient.[facility] CenterIn the event this information is protected by the Federal Confidentiality of Alcohol and Drug Abuse Patient Records regulations: The Federal rules restrict any use of the information to criminally investigate or prosecute any alcohol or drug abuse patient.[facility] CenterIn the event this information is protected by the Federal Confidentiality of Alcohol and Drug Abuse Patient Records regulations: The Federal rules restrict any use of the information to criminally investigate or prosecute any alcohol or drug abuse patient.[facility] CenterIn the event this information is protected by the Federal Confidentiality of Alcohol and Drug Abuse Patient Records regulations: The Federal rules restrict any use of the information to criminally investigate or prosecute any alcohol or drug abuse patient.[facility] CenterIn the event this information is protected by the Federal Confidentiality of Alcohol and Drug Abuse Patient Records regulations: The Federal rules restrict any use of the information to criminally investigate or prosecute any alcohol or drug abuse patient.[facility] CenterIn the event this information is protected by the Federal Confidentiality of Alcohol and Drug Abuse Patient Records regulations: The Federal rules restrict any use of the information to criminally investigate or prosecute any alcohol or drug abuse patient.[facility] CenterIn the event this information is protected by the Federal Confidentiality of Alcohol and Drug Abuse Patient Records regulations: The Federal rules restrict any use of the information to criminally investigate or prosecute any alcohol or drug abuse patient.[facility] CenterIn the event this information is protected by the Federal Confidentiality of Alcohol and Drug Abuse Patient Records regulations: The Federal rules restrict any use of the information to criminally investigate or prosecute any alcohol or drug abuse patient.[facility] Reason for Visit (unrecogniz ed section and content) Reason Comments Orders Reason Comments Yearly Exam Reason Comments Results Reason Comments Results Reason Comments Results Reason Comments Consult Specialty Diagnoses / Procedures Referred By Contac t Referred To Contact Cardiology Diagnoses Nonrheumatic aortic valve stenosis Procedures CONSULT TO CARDIOLOGY OFFICE/OUTPATIENT [facility] 60-74 MINUTES Sterling Coleman MD [address] [place] [address] Referral ID Status Reason Start Date Expiration Date V isits Requested Visits Authorized [id number] Closed PCP Requested Referral 04/02/2022 04/02/2023 1 1 Reason Onset Date Comments Refill Request 10/30/2022 Reason Comments Acute Visit Reason Comments Orders Reason Comments Abdominal Pain With diarrhea x 4 da ys Reason Comments Appointment Reason Comments Established Patient Follow-Up Reason Comments Recheck 4 week follow up; c/ o URI sx for over a week Reason Comments Follow Up Reason Onset Date Comments Weight Management Weight Management 09/10/2023 Reason Onset Date Comments Refill Request 12/05/2023 Reason Comments Follow Up Specialty Diagnoses / Procedures Referred By Contac t Referred To Contact CT IMAGING Diagnoses Aortic ectasia (HCC) Procedures CTA CHEST (NONGATED) W IVCON CT ANGIOGRAPHY CHEST W/CONTRAST/NONCONTRAST Elly Donahue MD [address] [place] [address] [place] [address] Referral ID Status Reason Start Date Expiration Date V isits Requested Visits Authorized [id number] Closed Auto-Generate d Referral 02/23/2024 03/24/2025 1 1 Reason Onset Date Comments Refill Request 03/29/2024 Reason Comments Back Pain Reason Onset Date Comments Population Health Navigation Outreach 06/16/2024 [facility] Reason Comments Medicare Wellness Exam Reason Comments billing issues from July 26/2025 visit Care Teams (unrecognized sec tion and content) Contract Implementation Analyst Relationship Specialty Start Date End Date Sterling Coleman MD [address] [facility] [place] [address] PCP - General Family Medicine 01/13/17 Contract Implementation Analyst Relationship Specialty Start Date End Date Sterling Coleman MD [address] [facility] [place] [address] PCP - General Family Medicine 01/13/17 Contract Implementation Analyst Relationship Specialty Start Date End Date Sterling Coleman MD [address] [facility] [place] [address] PCP - General Family Medicine 01/13/17 Contract Implementation Analyst Relationship Specialty Start Date End Date Sterling Coleman MD [address] [facility] [place] [place] [address] PCP - General Family Medicine 01/13/17 Contract Implementation Analyst Relationship Specialty Start Date End Date Sterling Coleman MD [address] [facility] [place] [place] [address] PCP - General Family Medicine 01/13/17 Contract Implementation Analyst Relationship Specialty Start Date End Date Sterling Coleman MD [address] [facility] [place] [place] [address] PCP - General Family Medicine 01/13/17 Contract Implementation Analyst Relationship Specialty Start Date End Date Sterling Coleman MD [address] [facility] [place] [place] [address] PCP - General Family Medicine 01/13/17 Contract Implementation Analyst Relationship Specialty Start Date End Date Sterling Coleman MD [address] [facility] [place] [place] [address] PCP - General Family Medicine 01/13/17 Contract Implementation Analyst Relationship Specialty Start Date End Date Sterling Coleman MD [address] [place] [address] PCP - General Family Medicine 01/13/17 Contract Implementation Analyst Relationship Specialty Start Date End Date Sterling Coleman MD [address] [place] [address] PCP - General Family Medicine 01/13/17 Contract Implementation Analyst Relationship Specialty Start Date End Date Sterling Coleman MD [address] [place] [address] PCP - General Family Medicine 01/13/17 Contract Implementation Analyst Relationship Specialty Start Date End Date Sterling Coleman MD [address] [place] [address] PCP - General Family Medicine 01/13/17 Contract Implementation Analyst Relationship Specialty Start Date End Date Sterling Coleman MD [address] [place] [address] PCP - General Family Medicine 01/13/17 Contract Implementation Analyst Relationship Specialty Start Date End Date Sterling Coleman MD [address] [place] [address] PCP - General Family Medicine 01/13/17 Contract Implementation Analyst Relationship Specialty Start Date End Date Sterling Coleman MD [address] [place] [address] PCP - General Family Medicine 01/13/17 Contract Implementation Analyst Relationship Specialty Start Date End Date Sterling Coleman MD [address] [place] [address] PCP - General Family Medicine 01/13/17 Contract Implementation Analyst Relationship Specialty Start Date End Date Sterling Coleman MD [address] [facility] [place] [address] PCP - General Family Medicine 01/13/17 Contract Implementation Analyst Relationship Specialty Start Date End Date Sterling Coleman MD [address] [facility] [place] [address] PCP - General Family Medicine 01/13/17 Contract Implementation Analyst Relationship Specialty Start Date End Date Sterling Coleman MD [address] [place] [address] PCP - General Family Medicine 01/13/17 Contract Implementation Analyst Relationship Specialty Start Date End Date Sterling Coleman MD [address] [place] [address] PCP - General Family Medicine 01/13/17 Contract Implementation Analyst Relationship Specialty Start Date End Date Sterling Coleman MD [address] [facility] [place] [address] PCP - General Family Medicine 01/13/17 Contract Implementation Analyst Relationship Specialty Start Date End Date Sterling Coleman MD [address] [facility] [place] [address] PCP - General Family Medicine 01/13/17 Contract Implementation Analyst Relationship Specialty Start Date End Date Sterling Coleman MD [address] [facility] [place] [place] [address] PCP - General Family Medicine 01/13/17 Contract Implementation Analyst Relationship Specialty Start Date End Date Sterling Coleman MD [address] [place] [address] PCP - General Family Medicine 01/13/17 Contract Implementation Analyst Relationship Specialty Start Date End Date Sterling Coleman MD [address] [facility] [place] [address] PCP - General Family Medicine 01/13/17 Elenita Wang APRN.PROPOSAL MANAGER [address] [facility] [place] [address] [facility] 04/12/24 Elaine Trevino GAS SCRUBBER OPERATOR.PROPOSAL MANAGER [address] [facility] [place] [address] [employer] [facility] Medicine 04/12/24 Contract Implementation Analyst Relationship Specialty Start Date End Date Sterling Coleman MD [address] [facility] [place] [address] PCP - General Family Medicine 01/13/17 Elenita Wang GAS SCRUBBER OPERATOR.PROPOSAL MANAGER [address] [facility] [place] [address] [facility] 04/12/24 Elaine Trevino GAS SCRUBBER OPERATOR.PROPOSAL MANAGER [address] [facility] [place] [address] [facility] 04/12/24 Contract Implementation Analyst Relationship Specialty Start Date End Date Sterling Coleman MD [address] [facility] [place] [address] PCP - General Family Medicine 01/13/17 Elenita Wang APRN.PROPOSAL MANAGER [address] [facility] [place] [address] [facility] 04/12/24 Elaine Trevino GAS SCRUBBER OPERATOR.PROPOSAL MANAGER [address] [place] [address] [facility] 04/12/24 Contract Implementation Analyst Relationship Specialty Start Date End Date Sterling Coleman MD [address] [place] [address] PCP - General Family Medicine 01/13/17 Elenita Wang, GAS SCRUBBER OPERATOR.PROPOSAL MANAGER [address] [place] [address] [facility] 04/12/24 Elaine Trevino GAS SCRUBBER OPERATOR.PROPOSAL MANAGER [address] [place] [address] [facility] Contract Implementation Analyst Relationship Specialty Start Date End Date Sterling Coleman MD [address] [place] [address] PCP - General Family Medicine 01/13/17 Elenita Wang, GAS SCRUBBER OPERATOR.PROPOSAL MANAGER [address] [place] [address] [facility] 04/12/24 Elaine Trevino GAS SCRUBBER OPERATOR.PROPOSAL MANAGER [address] [place] [address] [facility] 04/12/24 Contract Implementation Analyst Relationship Specialty Start Date End Date Sterling Coleman MD [address] [place] [address] PCP - General Family Medicine 01/13/17 Elenita Wang, GAS SCRUBBER OPERATOR.PROPOSAL MANAGER [address] [place] [address] [facility] 04/12/24 Elaine Trevino GAS SCRUBBER OPERATOR.PROPOSAL MANAGER [address] [facility] [place] [address] [facility]/12[facility]24 Contract Implementation Analyst Relationship Specialty Start Date End Date Sterling Coleman MD [address] [facility] [address] [phone] PCP - General Family Medicine 01/13/17 Elenita Wang GAS SCRUBBER OPERATOR.PROPOSAL MANAGER [address] [facility] [place] [address] [facility] 04/12/24 Elaine Trevino GAS SCRUBBER OPERATOR.PROPOSAL MANAGER [address] [place] [address] [facility] 04/12/24 Contract Implementation Analyst Relationship Specialty Start Date End Date Sterling Coleman MD [address] [place] [address] PCP - General Family Medicine 01/13/17 Elenita Wang, GAS SCRUBBER OPERATOR.PROPOSAL MANAGER [address] [facility] [place] [address] [facility] 04/12/24 Elaine Trevino GAS SCRUBBER OPERATOR.PROPOSAL MANAGER [address] [place] [address] [facility] 04/12/24 Contract Implementation Analyst Relationship Specialty Start Date End Date Sterling Coleman MD [address] [facility] [place] [address] [phone] PCP - General Family Medicine 01/13/17 Elenita Wang, GAS SCRUBBER OPERATOR.PROPOSAL MANAGER [address] [place], [place] [id number] [facility] 04/12/24 Elaine Trevino GAS SCRUBBER OPERATOR.PROPOSAL MANAGER [address] [place], [place] [address] [facility] 04/12/24 Contract Implementation Analyst Relationship Specialty Start Date End Date Sterling Coleman MD [address] [place], [place] [address] PCP - [facility] 01/13/17 Elenita Wang APRN.PROPOSAL MANAGER [address] [place], [place] [address] [facility] 04/12/24 Elaine Trevino GAS SCRUBBER OPERATOR.PROPOSAL MANAGER [address] [place], [place] [id number] [facility] 04/12/24 Team Status: Active Member Role/Relationship Status Dates Dr. Sterling Coleman MD Primary Care Provider Active Team Status: Active Member Role/Relationship Status Dates Dr. Sterling Coleman MD Primary Care Provider Active Start: November 26, 2024 Dr. Sebastian Amaro DO Emergency Provider Active Start: November 26, 2024 Dr. Erika Tierney MD Admit Provider Active Star t: November 26, 2024 Dr. Erika Tierney MD Attending Provider Active Start: November 26, 2024 Goals (unrecognized section and content) Goals may be documented in a n alternate section FOR RECORDS PERTAINING TO PATIENTS WHO ARE OR HAVE BEEN ENROLLED IN A CHEMICAL DEPENDENCY/SUBSTANCEABUSE PROGRAM, SOME INFORMATION MAY BE OMITTED. This clinical summary was aggregated from multiple sources. Caution should be exercised in using it in the provision of clinical care. This summary normalizes information from multiple sources, and as a consequence, information in this document may materially change the coding, format and clinical context of patient data. In addition, data may be omitted in some cases. CLINICAL DECISIONS SHOULD BE BASED ON THE PRIMARY CLINICAL RECORDS. [facility] [employer] [facility]. provides no warranty or guarantee of the accuracy or completeness of information in this document.
--- OUTSIDE RECORDS SUMMARY | 2024-11-26 20:22 | XMS RPT_ITS | CCD ---
Author Organization [facility] Care Team Providers Care Lna Name Role Phone Mela Albrecht MD Unavailable [phone] SENDY PALACIO Unavailable Unavailable STERLING COLEMAN Unavailable Unavailable Virginia ALVAREZ, Sterling Mena Primary Care Provider Sterling Coleman MD Primary Care Provider Sterling Coleman MD Primary Care Provider Kathleen ELECTRICAL ENGINEERING PROFESSOR.TOPOGRAPHICAL FIELD ASSISTANT, Elenita Unavailable Suppan ELECTRICAL ENGINEERING PROFESSOR.TOPOGRAPHICAL FIELD ASSISTANT, Elaine A Unavailable [phone] ASMITA BHAGAT Referring Unavailable VIRGINIA, STERLING Mena [...] Unavailable VIRGINIA, STERLING Mena Primary Care Unavailable VIRGIINA, STERLING Mena Primary Care Unavailable ASMITA BHAGAT Referring Unavailable Virginia , Dr. Katz Primary Care Provider [phone] Dr. Sebastian Amaro DO Emergency Provider Niall ALVAREZ, Dr. James Admit Provider Niall ALVAREZ, Dr. James Attending Provider Allergies Allergy Classification Reported Allergen(s) Allergy Type Date of Onset Reaction(s) Facility (20 sources) Penicillins; Translations: [PENICILLINS] Drug Allergy 10-17-2015 [facility] (4 sources) Penicillins Drug Allergy 10-17-2015 [facility] (1 source) Penicillin G Drug Allergy 11-26-2024 [facility] Comment on above: [facility] Medications Current Medications Medication Drug Class(es) Dates Sig (Normalized) Sig (Original) [id number] 200 actuat albuterol 0.09 mg/actuat metered dose [...] Sig (Normalized) Sig (Original) B Complex With P-Fgzmiikde-Dy capsule (1 source) Start: 04-03-2021 End: 11-26-2024 B Complex With N-Szdfjgdcy-Oa capsule Discontinued NMA PO April 03, 2021 [...] Comment on above: Take 1 tablet by [facility] three times a day as needed. estradiol 0.1 mg/ml vaginal cream (1 source) Estrogen Start: 017 End: Estradiol (Estrace) 0.01 % (0.1 mg/gram) cream Discontinued 0 VAGINAL .COMPLEX 42.5 30 3 April 14, 2017 1:00am August 11, 2017 12:00am August 12, 2017 12:06am fingertip amount VAGINAL nightly x 2 weeks, then 2-3x weekly for maintenance fluocinolone acetonide 0.01859 mg/mg topical ointment (20 sources) Corticosteroid Start: [...] on above: Take 2 tablets by mo [facility] every 6 hours as needed (dizziness). Take [...] 14, 2017 1:00am April 03, 2021 2:10pm Calera-3 Fatty Acids (Fish Oil Concentrate) 1,000 mg capsule (1 source) Start: 04-03-20 End: 11-27-19 take 1 capsule by mouth once daily Calera-3 Fatty Acids (Fish Oil Concentrate) 1,000 mg [...] Comment on above: Take 1 tablet by jarrte once daily. 125 ml sodium chloride 9 [...] Auto (Unsp spec) [#/Vol] 1.27 10*3/uL 0.83-4.51 [facility] Absolute neutrophil countOrd ered By: Sebastian Amaro on 11-26-2024 Neutrophils (Bld) [#/Vol] 8.0 10*3/uL High 2.0-7.7 [facility] Activated partial thrombopla stin time (aPTT) in platelet poor plasma by coagulation aOrdered By: Sebastian Amaro on 11-26-2024 aPTT Coag (PPP) [Time] 24.3 s 24.1-36.2 [facility] Anion gap in Serum or Plasma Ordered By: Sebastian Amaro on 11-26-2024 Anion gap [Moles/Vol] 14 mmol/L 5-15 [facility] Automated lymphocyte count a s percentage of total leukocytesOrdered By: Sebastian Amaro on 11-26-2024 Lymphocytes/100 WBC Auto (Unsp spec) 12.7 % Low 19-41 [facility] BUN/creatinine ratioOrdered By: Sebastian Amaro on 11-26-2024 Urea nitrogen/Creatinine [Mass ratio] 23.3 mg/mg High 10-20 [facility] Basophil percentageOrdered B y: Sebastian Amaro on 11-26-2024 Basophils/100 WBC (Bld) 0.5 % 0-1 [facility] Carbon dioxide, total [Moles /volume] in Central venous bloodOrdered By: Sebastian Amaro on 11-26-2024 CO2 [Moles/Vol] 23.5 mmol/L 21.0-32.0 [facility] Chloride assayOrdered By: Rolando Amaro on 11-26-2024 Chloride [Moles/Vol] 100 mmol/L 98-108 [facility] Eosinophil percentageOrdered By: Sebastian Amaro on 11-26-2024 Eosinophils/100 WBC (Bld) 1.8 % 0-5 [facility] Erythrocyte distribution wid th ratioOrdered By: Sebastian Amaro on 11-26-2024 Erythrocyte distribution width (RBC) [Ratio] 12.4 % 11.6-14.6 [facility] Erythrocyte distribution wid th standard deviationOrdered By: Sebastian Amaro on 11-26-2024 Erythrocyte distribution width (RBC) [Ratio] 39.8 fl 35.1-43.9 [facility] Glomerular filtration rate ( GFR) estimation/1.73 sq m using serum, plasma, or whole bOrdered By: Sebastian Amaro on 11-26-2024 GFR/1.73 sq M.predicted among non-blacks MDRD (S/P/Bld) [Vol rate/Area] 69 mL/min/{1.73_m2} >60 [facility] Comment on above: mL/min/1.73m2 CKD-EP I Creatinine Equation (2020) Hematocrit Auto (Bld) [Volum e fraction]Ordered By: Sebastian Amaro on 11-26-2024 Hematocrit (Bld) [Volume fraction] 41.6 % 37-47 [facility] Hemoglobin measurementOrdere d By: Sebastian Aamro on 11-26-2024 Hemoglobin (Bld) [Mass/Vol] 13.7 g/dL 12.0-15.0 [facility] Immature granulocytes/100 WB C Auto (Bld)Ordered By: Sebastian Amaro on 11-26-2024 Immature granulocytes/100 WBC (Bld) 0.400 % 0.0-0.9 [facility] Comment on above: IG% - Immature Granu locytes (promyelocytes, myelocytes and metamyelocytes) > 1% indicates that a LEFT SHIFT is Present. International normalized rat io (INR) calculationOrdered By: Sebastian Amaro on 11-26-2024 INR Coag (Bld) [Relative time] 1.0 {INR} [facility] MCV (mean corpuscular volume ) determinationOrdered By: Sebastian Amaro on 11-26-2024 MCV (RBC) [Entitic vol] 87.4 fL 81-99 [facility] Mean corpuscular hemoglobin (MCH) determinationOrdered By: Sebastian Amaro on 11-26-2024 MCH (RBC) [Entitic mass] 28.8 pg 27.0-32.0 [facility] Mean corpuscular hemoglobin concentration (MCHC) determinationOrdered By: Sebastian Amaro on 11-26-2024 MCHC (RBC) [Mass/Vol] 32.9 g/dL 32-36 [facility] Mean platelet volume determi nationOrdered By: Sebastian Amaro on 11-26-2024 Platelet mean volume (Bld) [Entitic vol] 8.6 fL 6.2-12.0 [facility] Monocyte percentageOrdered B y: Sebastian Amaro on 11-26-2024 Monocytes/100 WBC (Bld) 5.2 % 0-10 [facility] Neutrophil percentageOrdered By: Sebastian Amaro on 11-26-2024 Neutrophils/100 WBC (Bld) 79.4 % High 47-70 [facility] Nucleated red blood cell per centageOrdered By: Sebastian Amaro on 11-26-2024 Nucleated RBC/100 WBC (Bld) [Ratio] 0 % 0-5 [facility] Platelet countOrdered By: Rolando Amaro on 11-26-2024 Platelets (Bld) [#/Vol] 240 10*3/uL 150-450 [facility] Potassium measurement (mass/ volume)Ordered By: Sebastian Amaro on 11-26-2024 Potassium (Unsp spec) [Mass/Vol] 4.3 mmol/L 3.3-5.1 [facility] Prothrombin timeOrdered By: Sebastian Amaro on 11-26-2024 PT Coag (PPP) [Time] 13.1 s 11.7-14.9 [facility] RBC Auto (Bld) [#/Vol]Ordere d By: Sebastian Amaro on 11-26-2024 RBC (Bld) [#/Vol] 4.76 10*6/uL 4.2-5.4 [facility] Serum creatinine measurement (mass/volume)Ordered By: Sebastian Amaro on 11-26-2024 Creatinine [Mass/Vol] 0.90 mg/dL 0.70-1.20 [facility] Serum glucose measurement (m ass/volume)Ordered By: Sebastian Amaro on 11-26-2024 Glucose [Mass/Vol] 97 mg/dL 70-99 [facility] Serum or plasma calcium jose urement (mass/volume)Ordered By: Sebastian Amaro on 11-26-2024 Calcium [Mass/Vol] 9.9 mg/dL 7.6-11.0 [facility] Serum or plasma urea nitroge n measurement (mass/volume)Ordered By: Sebastian Aamro on 11-26-2024 Urea nitrogen [Mass/Vol] 21 mg/dL High 4-19 [facility] Sodium levelOrdered By: Rody Amaro on 11-26-2024 Sodium [Moles/Vol] 137 mmol/L 133-145 [facility] Troponin T.cardiac [Mass/vol ume] in Serum or Plasma by High sensitivity methodOrdered By: Sebastian Amaro on 11-26-2024 Troponin T.cardiac High sensitivity method [Mass/Vol] 6 ng/L <14 [facility] Troponin T.cardiac High sensitivity method [Mass/Vol] 7 ng/L <14 [facility] White blood cell (WBC) count Ordered By: Sebastian Amaro on 11-26-2024 WBC (Bld) [#/Vol] 10.0 10*3/uL 4.4-11.0 [facility] MECHE FOUNTAIN ([id number]) 1955 F Date Time Provider Department 11/01/24 STERLING COLEMAN [facility] During your visit today, we recorded the following information about you: Ariana Lennon LPN 11/01/2024 8:40 AM Signed Patient/Family calling with additional questions regarding financials and billing. Patient/Family directed in the following manner: For financial questions about an upcoming service, contact Patient Director Hris by calling toll-free at [phone] and request to speak with a house supervisor. For questions regarding a medical bill for a past / post service, contact a Casino Banker by calling toll-free at [phone] and request to speak with a house supervisor. Patient/Family verbalized understanding. Allergies As of 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] 05/02/2021 Dyspareunia [WGA2546] 03/26/2022 03/26/2022 Gynecological disease [N94.9] 03/26/2022 03/26/2022 Stress incontinence in female [N39.3] 03/26/2022 Perspiration-excessi ve [R61] 08/03/2022 Diagnosed: 04/30/2023 Left sided sciatica [M54.32] 05/07/2023 Obesity, Class II, BMI 35-39.9 [E66.812] 07/26/2024 Encounter Status:Closed by ARIANA LENNON on 11/01/24 [facility] 09-20-2024 [facility] Office Visit ([facility]) MECHE FOUNTAIN ([id number]) 1955 F Date Time Provider Department 09/20/24 10:40 AM ELLY DONAHUE During your visit today, we recorded the following information about you: Pulse Respiration Blood pressure Weight 81/minute 14/minute 138/60 89.9 kg Height 1.549 m Elly Donahue MD 09/20/2024 12:06 PM Signed [facility] Cardiology (Melchor Guerrerotowconstanza Riley) [address] [facility] [id number] OUTPATIENT VISIT DATE 09/19/2024 PRIMARY CARE PHYSICIAN: Sterling Coleman [address] [place] [address] REFERRING PHYSICIAN: Sterling Coleman [address] [facility] [address] HISTORY OF PRESENT ILLNESS: Ms. Fountain is [...] right ventricle (more content not included)... [facility] ([facility]) MECHE FOUNTAIN ([id number]) 1955 F Date Time Provider Department 08/30/24 [facility] During your visit today, we recorded 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] 05/02/2021 Dyspareunia [DET7600] 03/26/2022 03/26/2022 Gynecological disease [N94.9] 03/26/2022 03/26/2022 Stress incontinence in female [N39.3] 03/26/2022 Perspiration-excessi ve [R61] 08/03/2022 Diagnosed: 04/30/2023 Left sided sciatica [M54.32] 05/07/2023 Obesity, Class II, BMI 35-39.9 [E66.812] 07/26/2024 Encounter Status:Closed by STERLING COLEMAN on 09/02/24 Normal [facility] CBC W Auto Differential pane l (Bld)on 08-04-2024 Basophils (Bld) [#/Vol] 0.11 10*3/uL High <0.11 [facility] Comment on above: Order Comment: Speci men Type: BLOOD SPECIMENOrdering Facility: [facility] Address: [address] [place] [address] Performed By: #### 5 7021-8 ####[facility] [id number] [place] [address] [place] Basophils/100 WBC (Bld) 1.3 % Normal C [facility] Comment on above: Order Comment: Speci men Type: BLOOD SPECIMENOrdering Facility: [facility] Address: [address] [place] [address] Performed By: #### 5 7021-8 ####[facility] [id number] [place] [address] [place] Differential cell count method Nom (Bld) Auto Normal [facility] Comment on above: Order Comment: Speci men Type: BLOOD SPECIMENOrdering Facility: [facility] Address: [address] [place] [address] Performed By: #### 5 7021-8 ####[facility] [id number] [address], [facility] [place] Eosinophils (Bld) [#/Vol] 0.26 10*3/uL Normal <0.46 [facility] Comment on above: Order Comment: Speci men Type: BLOOD SPECIMENOrdering Facility: [facility] Address: [address] [place] [address] Performed By: #### 5 7021-8 ####[facility] [id number] [facility] [address], [place] [address] [place] Eosinophils/100 WBC (Bld) 3.1 % Normal [facility] Comment on above: Order Comment: Speci men Type: BLOOD SPECIMENOrdering Facility: [facility] Address: [address] [place] [address] Performed By: #### 5 7021-8 ####[facility] [id number] [facility] [address], [facility] [place] Erythrocyte distribution width (RBC) [Ratio] 12.5 % Normal 11.5-15.0 [facility] Comment on above: Order Comment: Speci men Type: BLOOD SPECIMENOrdering Facility: [facility] Address: [address] [place] [address] Performed By: #### 5 7021-8 ####[facility] [id number] [facility] [address] [place] [address] [place] Hematocrit (Bld) [Volume fraction] 43.6 % Normal 36.0-46.0 [facility] Comment on above: Order Comment: Speci men Type: BLOOD SPECIMENOrdering Facility: [facility] Address: [address] [place] [address] Performed By: #### 5 7021-8 ####[facility] [id number] [facility] [address] [place] Hemoglobin (Bld) [Mass/Vol] 14.4 g/dL Normal 11.5-15.5 [facility] Comment on above: Order Comment: Speci men Type: BLOOD SPECIMENOrdering Facility: [facility] Address: [address] [place] [address] Performed By: #### 5 7021-8 ####[facility] [id number] [place] [address] [place] Immature granulocytes (Bld) [#/Vol] 0.03 10*3/uL Normal <0.10 [facility] Comment on above: Order Comment: Speci men Type: BLOOD SPECIMENOrdering Facility: [facility] Address: [address] [place] [address] Performed By: #### 5 7021-8 ####[facility] [id number] [place] [address] [place] Immature granulocytes/100 WBC (Bld) 0.4 % Normal [facility] Comment on above: Order Comment: Speci men Type: BLOOD SPECIMENOrdering Facility: [facility] Address: [address] [place] [address] Performed By: #### 5 7021-8 ####[facility] [id number] [place] [address] [place] Lymphocytes (Bld) [#/Vol] 2.34 10*3/uL Normal 1.00-4.00 [facility] Comment on above: Order Comment: Speci men Type: BLOOD SPECIMENOrdering Facility: [facility] Address: [address] [place] [address] Performed By: #### 5 7021-8 ####[facility] [id number] [place] [address] [place] Lymphocytes/100 WBC (Bld) 28.1 % Normal [facility] Comment on above: Order Comment: Speci men Type: BLOOD SPECIMENOrdering Facility: [facility] Address: [address] [place] [address] Performed By: #### 5 7021-8 ####[facility] [id number] [place] [address] [place] [facility] MCH (RBC) [Entitic mass] 29.6 pg Normal 26.0-34.0 [facility] Comment on above: Order Comment: Speci men Type: BLOOD SPECIMENOrdering Facility: [facility] Address: [address] [place] [address] Performed By: #### 5 7021-8 ####[facility] [id number] [place] [address] [place] MCHC (RBC) [Mass/Vol] 33.0 g/dL Normal 30.5-36.0 [facility] Comment on above: Order Comment: Speci men Type: BLOOD SPECIMENOrdering Facility: [facility] Address: [address] [place] [address] Performed By: #### 5 7021-8 ####[facility] [id number] [place] [address] [place] MCV (RBC) [Entitic vol] 89.7 fL Normal 80.0-100.0 C [facility] Comment on above: Order Comment: Speci men Type: BLOOD SPECIMENOrdering Facility: [facility] Address: [address] [place] [address] Performed By: #### 5 7021-8 ####[facility] [id number] [place] [address] [place] Monocytes (Bld) [#/Vol] 0.56 10*3/uL Normal <0.87 [facility] Comment on above: Order Comment: Speci men Type: BLOOD SPECIMENOrdering Facility: [facility] Address: [address] [place] [address] Performed By: #### 5 7021-8 ####[facility] [id number] [place] [address] [place] Monocytes/100 WBC (Bld) 6.7 % Normal [facility] Comment on above: Order Comment: Speci men Type: BLOOD SPECIMENOrdering Facility: [facility] Address: [address] [place] [address] Performed By: #### 5 7021-8 ####[facility] [id number] [place] [address] [place] Neutrophils (Bld) [#/Vol] 5.02 10*3/uL Normal 1.45-7.50 [facility] Comment on above: Order Comment: Speci men Type: BLOOD SPECIMENOrdering Facility: [facility] Address: [address] [place] [address] Performed By: #### 5 7021-8 ####[facility] [id number] [place] [address] [place] Neutrophils/100 WBC (Bld) 60.4 % Normal [facility] Comment on above: Order Comment: Speci men Type: BLOOD SPECIMENOrdering Facility: [facility] Address: [address] [place] [address] Performed By: #### 5 7021-8 ####[facility] [id number] [place] [address] [place] Nucleated RBC (Bld) [#/Vol] 10*3/uL Normal <0.01 [facility] Comment on above: Order Comment: Speci men Type: BLOOD SPECIMENOrdering Facility: [facility] Address: [address] [place] [address] Performed By: #### 5 7021-8 ####[facility] [id number] [place] [address] [place] Nucleated RBC/100 WBC (Bld) [Ratio] 0.0 /100 WBC Normal [facility] Comment on above: Order Comment: Speci men Type: BLOOD SPECIMENOrdering Facility: [facility] Address: [address] [place] [address] Performed By: #### 5 7021-8 ####[facility] [id number] [address] [address] [place] Platelet mean volume (Bld) [Entitic vol] 9.2 fL Normal 9.0-12.7 [facility] Comment on above: Order Comment: Speci men Type: BLOOD SPECIMENOrdering Facility: [facility] Address: [address] [place] [address] Performed By: #### 5 7021-8 ####[facility] [id number] [place] [address] [place] Platelets (Bld) [#/Vol] 297 10*3/uL Normal 150-400 [facility] Comment on above: Order Comment: Speci men Type: BLOOD SPECIMENOrdering Facility: [facility] Address: [address] [place] [address] Performed By: #### 5 7021-8 ####[facility] [id number] [place] [address] [place] RBC (Bld) [#/Vol] 4.86 10*6/uL Normal 3.90-5.20 [facility] Comment on above: Order Comment: Speci men Type: BLOOD SPECIMENOrdering Facility: [facility] Address: [address] [place] [address] Performed By: #### 5 7021-8 ####[facility] [id number] [address] [address] [place] WBC (Bld) [#/Vol] 8.32 10*3/uL Normal 3.70-11.00 [facility] Comment on above: Order Comment: Speci men Type: BLOOD SPECIMENOrdering Facility: [facility] Address: [address] [place] [address] Performed By: #### 5 7021-8 ####[facility] [id number] [address] [address] [place] Comprehensive metabolic 2000 panelon 08-04-2024 Albumin [Mass/Vol] 4.6 g/dL Normal 3.9-4.9 [facility] Comment on above: Order Comment: Speci men Type: BLOOD SPECIMENOrdering Facility: [facility] Address: [address] [place] [address] Performed By: #### 3 016-3, 15960-7, 19304-7 ####[facility] [id number] [place] [id number] [place] ALP [Catalytic activity/Vol] 75 U/L Normal 34-123 [facility] Comment on above: Order Comment: Speci men Type: BLOOD SPECIMENOrdering Facility: [facility] Address: [address] [place] [address] Performed By: #### 3 016-3, 94250-6, 74227-7 ####[facility] [id number] [place] [address] [place] ALT [Catalytic activity/Vol] 17 U/L Normal 7-38 [facility] Comment on above: Order Comment: Speci men Type: BLOOD SPECIMENOrdering Facility: [facility] Address: [address] [place] [address] Performed By: #### 3 016-3, 71853-6, 70679-5 ####[facility] [id number] [address] [address] [place] Anion gap [Moles/Vol] 10 mmol/L Normal 8-15 [facility] Comment on above: Order Comment: Speci men Type: BLOOD SPECIMENOrdering Facility: [facility] Address: [address] [place], [place] [address] Performed By: #### 3 016-3, 25796-2, 91122-4 ####[facility] [id number] [address] [place] [address] [place] AST [Catalytic activity/Vol] 22 U/L Normal 13-35 [facility] Comment on above: Order Comment: Speci men Type: BLOOD SPECIMENOrdering Facility: [facility] Address: [address] [place] [address] Performed By: #### 3 016-3, 75899-4, 36759-2 ####[facility] [id number] [address] [address] [place] Bilirubin [Mass/Vol] 0.5 mg/dL Normal 0.2-1.3 [facility] Comment on above: Order Comment: Speci men Type: BLOOD SPECIMENOrdering Facility: [facility] Address: [address] [place] [address] Performed By: #### 3 016-3, 11629-3, 85681-0 ####[facility] [id number] [place] [address] [place] Calcium [Mass/Vol] 9.8 mg/dL Normal 8.5-10.2 [facility] Comment on above: Order Comment: Speci men Type: BLOOD SPECIMENOrdering Facility: [facility] Address: [address] [place] [address] Performed By: #### 3 016-3, 00476-0, 54046-1 ####[facility] [id number] [address] [address] [place] Chloride [Moles/Vol] 104 mmol/L Normal 98-107 [facility] Comment on above: Order Comment: Speci men Type: BLOOD SPECIMENOrdering Facility: [facility] Address: [address] [place] [address] Performed By: #### 3 016-3, 20738-1, 64641-9 ####[facility] [id number] [place] [address] [place] CO2 [Moles/Vol] 26 mmol/L Normal 22-30 [facility] Comment on above: Order Comment: [place] men Type: BLOOD SPECIMENOrdering Facility: [facility] Address: [address] [place] [address] Performed By: #### 3 016-3, 94844-3, 21918-1 ####[facility] [id number] [place] [id number] [place] Creatinine [Mass/Vol] 0.90 mg/dL Normal 0.58-0.96 [facility] Comment on above: Order Comment: Speci men Type: BLOOD SPECIMENOrdering Facility: [facility] Address: [address] [place] [address] Performed By: #### 3 016-3, 53654-3, ####[facility] [id number] [place] [address] [place] [facility] Creatinine and Glomerular filtration rate.predicted panel (S/P/Bld) 69 mL/min/1.73m??? Normal >=60 [facility] Comment on above: Order Comment: Bhakti lim Type: BLOOD SPECIMENOrdering Facility: [facility] Address: [address] [place] [address] Result Comment: Latisha mated Glomerular Filtration Rate [...] actual GFR. Performed By: #### 3 016-3, 08669-9, ####[facility] [id number] [place] [id number] [place] Glucose [Mass/Vol] 92 mg/dL Normal 74-99 [facility] Comment on above: Order Comment: Speci men Type: BLOOD SPECIMENOrdering Facility: [facility] Address: [address] [place] [address] Result Comment: The British Diabetes Association (ADA) provides guidance for cutoff [...] Standards of Medical Care in Diabetes 2016, British Diabetes Association. Diabetes Care. 2016.39(Suppl 1). Performed By: #### 3 016-3, 20031-7, 58629-0 ####[facility] [id number] [place] [address] [place] Potassium [Moles/Vol] 4.8 mmol/L Normal 3.7-5.1 [facility] Comment on above: Order Comment: Bhakti lim Type: BLOOD SPECIMENOrdering Facility: [facility] Address: [address] [place] [address] Performed By: #### 3 016-3, 91601-1, ####[facility] [id number] [place] [id number] [place] Protein [Mass/Vol] 7.4 g/dL Normal 6.3-8.0 [facility] Comment on above: Order Comment: Bhakti carina Type: BLOOD SPECIMENOrdering Facility: [facility] Address: [address] [place] [address] Performed By: #### 3 016-3, 59484-4, 16028-4 ####[facility] [id number] [address] [address] [place] Sodium [Moles/Vol] 140 mmol/L Normal 136-144 [facility] Comment on above: Order Comment: Speci men Type: BLOOD SPECIMENOrdering Facility: [facility] Address: [address] [place] [address] Performed By: #### 3 016-3, 18692-3, 31122-9 ####[facility] [id number] [address] [address] [place] Urea nitrogen [Mass/Vol] 17 mg/dL Normal 7-21 [facility] Comment on above: Order Comment: Speci men Type: BLOOD SPECIMENOrdering Facility: [facility] Address: [address] [place] [address] Performed By: #### 3 016-3, 58039-3, 41950-2 ####[facility] [id number] [address] [address] [place] Lipid 1996 panelon 5 Cholesterol [Mass/Vol] 175 mg/dL Normal <200 [facility] Comment on above: Order Comment: Speci men Type: BLOOD SPECIMENOrdering Facility: [facility] Address: [address] [place] [address] Result Comment: <200 mg/dL, Desirable 200-239 mg/dL, Borderline high >239 mg/dL, High Performed By: #### 3 016-3, 00451-6, 46890-9 ####[facility] [id number] [address] [address] [place] Cholesterol in HDL [Mass/Vol] 51 mg/dL Normal >39 [facility] Comment on above: Order Comment: Speci men Type: BLOOD SPECIMENOrdering Facility: [facility] Address: [address] [place] [address] Result Comment: 40-5 9 mg/dL, Acceptable >59 mg/dL, High: Negative risk factor for coronary heart disease <40 mg/dL, Low: Positive risk factor for coronary heart disease Performed By: #### 3 016-3, 95268-4, 10535-0 ####[facility] [id number] [place] [address] [place] Cholesterol in LDL [Mass/Vol] 99 mg/dL Normal <100 [facility] Comment on above: Order Comment: Speci men Type: BLOOD SPECIMENOrdering Facility: [facility] Address: [address] [place] [address] Result Comment: <100 mg/dL, Optimal 100-129 mg/dL, Near optimal/above optimal 130-159 mg/dL, Borderline high 160-189 mg/dL, High >189 mg/dL, Very high Secondary prevention optimal LDL Cholesterol levels are recommended to be < 70 mg/dL Performed By: #### 3 016-3, 25176-8, 28553-8 ####[facility] [id number] [address] [place] Cholesterol in LDL/Cholesterol in HDL [Mass ratio] 1.94 {ratio} Normal <2.54 [facility] Comment on above: Order Comment: Speci men Type: BLOOD SPECIMENOrdering Facility: [facility] Address: [address] [place] [address] Result Comment: Refe rence: 1. National Cholesterol Education Program ATP III Guideline At-A-Glance Quick Desk Reference: National Heart, Lung, and Blood [place]. National Institutes of Health. 2001: NIH Publication No. 01-3305. 2. An International Atherosclerosis Society position paper: global recommendations for the management of dyslipidemia: executive summary, Atherosclerosis. 2014: 232(2):410-413. Performed By: #### 3 016-3, 04563-0, 67042-3 ####[facility] [id number] [place] [address] [place] Cholesterol in VLDL [Mass/Vol] 25 mg/dL Normal <30 [facility] Comment on above: Order Comment: Tachoi men Type: BLOOD SPECIMENOrdering Facility: [facility] Address: [address] [place] [address] Performed By: #### 3 016-3, 23887-7, 49985-1 ####[facility] [id number] [place] [address] [place] Cholesterol non HDL [Mass/Vol] 124 mg/dL Normal <130 [facility] Comment on above: Order Comment: Speci men Type: BLOOD SPECIMENOrdering Facility: [facility] Address: [address] [place] [address] Result Comment: <130 mg/dL, Optimal 130-159 mg/dL, Near optimal/above optimal 160-189 mg/dL, Borderline high 190-219 mg/dL, High >219 mg/dL, Very high Secondary prevention optimal non HDL Cholesterol levels are recommended to be <100 mg/dL Performed By: #### 3 016-3, 99926-1, 75931-0 ####[facility] [id number] [place] [address] [place] Cholesterol.total/Choles terol in HDL [Mass ratio] 3.43 {ratio} Normal <5.10 [facility] Comment on above: Order Comment: Speci men Type: BLOOD SPECIMENOrdering Facility: [facility] Address: [address] [place] [address] Performed By: #### 3 016-3, 93527-9, 85771-8 ####[facility] [id number] [address] [place] FASTING TIME 13 hrs Normal [facility] Comment on above: Order Comment: Speci men Type: BLOOD SPECIMENOrdering Facility: [facility] Address: [address] [place] [address] Performed By: #### 3 016-3, 29400-2, 91381-2 ####[facility]IA [id number] [place] [address] [place] Triglyceride [Mass/Vol] 126 mg/dL Normal <150 [facility] Comment on above: Order Comment: Speci men Type: BLOOD SPECIMENOrdering Facility: [facility] Address: [address] [place] [address] Result Comment: <150 mg/dL, Normal 150-199 mg/dL, Borderline high 200-499 mg/dL, High >499 mg/dL, Very high Performed By: #### 3 016-3, 66778-3, 79365-6 ####[facility] [id number] [place] [address] [facility] TSH SerPl-aCncon 08-04-2024 TSH Qn 2.410 m[IU]/L Normal 0.270-4.200 [facility] Comment on above: Order Comment: Speci men Type: BLOOD SPECIMENOrdering Facility: [facility] Address: [address] [place] [address] Performed By: #### 3 016-3, 47841-4, 78552-7 ####[facility] [id number] [address] CNOVon 07-26-2024 CNOV Office Visit (FAMPWS) MECHE FOUNTAIN ([id number]) 1955 Date Time Provider Department 07/26/24 1:00 [...] General (Family Medicine) Elenita Wang APRN.ALISA as Hi Lo Driver (Family Medicine) Elaine Trevino APRN.ALISA as Hi Lo Driver (Family Medicine) Outside specialists seen: Dr Donahue, cardiology. [facility]. Luciano Oneill, Dermatology Dr Holley, business analysis specialist. Medical/Family history review Reviewed and updated problem [...] review all the medicines you take, even jkgr-tfs-zjyespt medicines. As you get older, the way [...] make yo (more content not included)... Normal [facility] ECG COMPLETEon 07-26-2024 ECG COMPLETE Ventricular Rate : 79 BPM Atrial Rate : 79 BPM P-R Interval : 192 ms QRS Duration : 88 ms Q-T Interval : 394 ms QTC Calculation(Bazett) : 451 ms Calculated P [place] : 54 degrees Calculated R [place] : 16 degrees Calculated T [place] : 31 degrees NORMAL SINUS RHYTHM NORMAL ECG Confirmed by FARHANA EVANS M.D. ([id number]) on 07/27/2024 12:53:30 PM NAME : MECHE FOUNTAIN PID : [id number] : 1955 Gender : Female Race : ORD : [id number] Procedure Date : Jul 26 2024 13:51:01 Edit Date : Jul 27 2024 12:53:32 Diagnosis: NORMAL SINUS RHYTHM NORMAL ECG Confirmed by FARHANA EVANS M.D. ([id number]) on 07/27/2024 12:53:30 PM Test Reason : I49.9 Cardiac arrhythmia, unspecified cardiac arrhythmia type Location : 185 : [facility] Overread By : FARHANA EVANS M.D. Edited By : FARHANA EVANS M.D. Referred By : , Acquired by : Edy CAMPO [facility] DBT Breast - left diagnostic for implanton [...] Keila Rea M.D. Electronically signed on: 06/12/2024 Mutuel Cashier: SURESH Transcribe Date/Time: Jun 12 2024 8:12A Dictated by : KEILA REA MD This examination was interpreted and the report reviewed and electronically signed by: KEILA REA MD on Jun 12 2024 9:26AM [facility] * * *Final Report* * * DATE OF EXAM: Jun 12 2024 8:20AM VIVIENNE 0628 - RADHA JOSÉ MIGUEL W RYAN LT / PROCEDURE REASON: R92.8-Abnormal mammogram * * * * Physician Interpretation * * * * [place] [address] [place] [id number] #[id number] - [facility] BRIANNAG W RYAN LT #[id number] - [facility] US BREAST LTD LT HISTORY: 69-year-old woman [...] no suspicious findings in the imaged area. [facility] Provider, [facility] [place] - 06/12/2024 * * *Final Report* * * DATE OF EXAM: Jun 12 2024 8:20AM [facility] 0628 - [facility] DIAG W RYAN LT / PROCEDURE REASON: R92.8-Abnormal mammogram * * * * Physician Interpretation * * * * [place] [address] #[id number] - [facility] DIAG W RYAN LT #[id number] - [facility] US BREAST LTD LT HISTORY: 69-year-old woman [...] Keila Rea M.D. Electronically signed on: 06/12/2024 Mutuel Cashier: SURESH Transcriluis Date/Time: Jun 12 2024 8:12A Dictated by : KEILA REA MD This examination was interpreted and the report reviewed and electronically signed by: KEILA REA MD on Jun 12 2024 9:26AM [facility] Radiology Study observation (narrative) [facility] RADHA DAVIS LTon 025 RADHA DAVIS LT * * *Final Report* * * DATE OF EXAM: Jun 12 2024 8:20AM VIVI[facility] 0628 - RADHA DAVIS LT / PROCEDURE REASON: R92.8-Abnormal mammogram * * * * Physician Interpretation * * * * [place] [address] #[id number] - [facility] JOSÉ MIGUEL DAVIS LT #[id number] - [facility] US BREAST LTD LT HISTORY: 69-year-old woman [...] Keila Rea M.D. Electronically signed on: 06/12/2024 Mutuel Cashier: SURESH Transcribe Date/Time: Jun 12 2024 8:12A Dictated by : KEILA REA MD This examination was interpreted and the report reviewed and electronically signed by: KEILA REA MD on Jun 12 2024 9:26AM EST [id number] CN Normal [facility] US BREAST LTD LTon 06-12 [facility] US BREAST LTD LT * * *Final Report* * * DATE OF EXAM: Jun 12 2024 8:57AM MDU 0593 - [facility] US BREAST LTD LT / PROCEDURE REASON: R92.8-Abnormal mammogram * * * * Physician Interpretation * * * * [place] [id number] #[id number] - [facility] DIAG W RYAN LT #[id number] - [facility] Certus BREAST LTD LT HISTORY: 69-year-old woman recalled [...] Keila Rea M.D. Electronically signed on: 06/12/2024 Mutuel Cashier: SURESH Transcriluis Date/Time: Jun 12 2024 8:47A Dictated by : KEILA REA MD This examination was interpreted and the report reviewed and electronically signed by: KEILA REA MD on Jun 12 2024 9:26AM EST [id number] [facility] No Panel InformationOrdered By: Cc Provider on 06-12-2024 [facility] Breast - left limitedon 0 06-12-2024 IMPRESSION: [...] Keila Rea M.D. Electronically signed on: 06/12/2024 Mutuel Cashier: SURESH Transcriluis Date/Time: Jun 12 2024 8:47A Dictated by : KEILA REA MD This examination was interpreted and the report reviewed and electronically signed by: KEILA REA MD on Jun 12 2024 9:26AM [facility] * * *Final Report* * * DATE OF EXAM: Jun 12 2024 8:57AM 0593 - [facility] Certus BREAST LTD LT / PROCEDURE REASON: R92.8-Abnormal mammogram * * * * Physician Interpretation * * * * [place] [address] #[id number] - [facility] JOSÉ MIGUEL DAVIS LT #[id number] - [facility] Certus BREAST LTD LT HISTORY: 69-year-old woman recalled [...] no suspicious findings in the imaged area. [facility] Provider, [facility] [place] - 06/12/2024 * * *Final Report* * * DATE OF EXAM: Jun 12 2024 8:57AM [facility] [place] - [facility] Certus BREAST LTD LT / PROCEDURE REASON: R92.8-Abnormal mammogram * * * * Physician Interpretation * * * * [place] [id number] #[id number] - [facility] JOSÉ MIGUEL MARTINO LT #[id number] - [facility] US BREAST LTD LT HISTORY: 69-year-old woman [...] Keila Rea M.D. Electronically signed on: 06/12/2024 Mutuel Cashier: SURESH Transcribe Date/Time: Jun 12 2024 8:47A Dictated by : KEILA REA MD This examination was interpreted and the report reviewed and electronically signed by: KEILA REA MD on Jun 12 2024 9:26AM [facility]ative[facility] DBT Breast - bilateral scree berenicen 06-07-2024 [...] Lizzy Crum M.D. Electronically signed on: 06/07/2024 Mutuel Cashier: SURESH Transcriluis Date/Time: Jun 07 2024 8:23A Dictated by: LIZZY CRUM MD This examination was interpreted and the report reviewed and electronically signed by: LIZZY CRUM MD on Jun 07 2024 12:55PM [facility] DIVISION OF RADIOLOGY * * *Final Report* * * DATE OF EXAM: Jun 07 2024 8:50AM [facility] 0582 - RADHA SCREENING W RYAN / PROCEDURE REASON: Encounter for screening mammogram for breast cancer * * * * Physician Interpretation * * * * RESULT: [place] [address] [place] [address] #[id number] - [facility] SCREENING W RYAN HISTORY: 69 year-old patient [...] the right breast. DIVISION OF RADIOLOGY Provider, [facility] [place] - 06/07/2024 * * *Final Report* * * DATE OF EXAM: Jun 07 2024 8:50AM [facility] 0582 - [facility] SCREENING W RYAN / PROCEDURE REASON: Encounter for screening mammogram for breast cancer * * * * Physician Interpretation * * * * RESULT: [place] [address] #[id number] - [facility] SCREENING W RYAN HISTORY: 69 year-old patient [...] Lizzy Crum M.D. Electronically signed on: 06/07/2024 Mutuel Cashier: SURESH Transcribe Date/Time: Jun 07 2024 8:23A Dictated by: LIZZY CRUM MD This examination was interpreted and the report reviewed and electronically signed by: LIZZY CRUM MD on Jun 07 2024 12:55PM EST [facility] Radiology Study observation (narrative) [facility] DBT Breast - bilateral scree ningOrdered By: Ccf Provider on 06-07-2024 [facility] RADHA SCREENING W TOMOon 06-07 RADHA SCREENING W RYAN * * *Final Report* * * DATE OF EXAM: Jun 07 2024 8:50AM [facility] 0582 - RADHA SCREENING W RYAN / PROCEDURE REASON: Encounter for screening mammogram for breast cancer * * * * Physician Interpretation * * * * RESULT: [place] [address] #[id number] - RADHA SCREENING W RYAN HISTORY: 69 [...] Lizzy Crum M.D. Electronically signed on: 06/07/2024 Mutuel Cashier: SURESH Transcribe Date/Time: Jun 07 2024 8:23A Dictated by: LIZZY CRUM MD This examination was interpreted and the report reviewed and electronically signed by: LIZZY CRUM MD on Jun 07 2024 12:55PM EST [id number] CN Normal [facility] CNOVon 06-01-2024 CNOV Office Visit (FAMPWS) MECHE FOUNTAIN ([id number]) 1955 F Date Time Provider Department 06/01/24 1:20 PM [facility] visit today, we recorded [...] xray 3) Follow up in 2 weeks Elaine Trevino APRN.CNP 06/01/2024 2:42 PM Signed Addended by: ELAINE TREVINO on: 06/01/2024 02:42 PM Modules accepted: Orders Allergies As of (more content not included)... Normal [facility] 06-01-2024 CNPN Telephone ([facility]) MECHE FOUNTAIN ([id number]) 1955 F Date Time Provider Department 06/01/24 [facility] During your visit today, we recorded the following information about you: Elaine Trevino, KESHA.TOPOGRAPHICAL FIELD ASSISTANT 06/01/2024 2:54 PM Signed Please let pt. 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] 05/02/2021 Dyspareunia [MGO6829] 03/26/2022 03/26/2022 Gynecological disease [N94.9] 03/26/2022 03/26/2022 [...] Status:Closed by SANDRA LOVE on 06/01/24 Normal [facility] UA DIP, URINE (POC)on 2024 BILIRUBIN UA (POCT) Negative Negative [facility] CLARITY UA (POCT) [facility] COLOR UA (POCT) Yellow [facility] GLUCOSE UA (POCT) Negative Negative mg/dL [facility] Hemoglobin Ql (U) Negative Negative [facility] KETONE UA (POCT) Negative Negative mg/dL [facility] LEUKOCYTES UA (POCT) Negative Negative [facility] NITRITE UA (POCT) Negative Negative [facility] PH UA (POCT) 5.0 4.5 - 8.0 [facility] Protein Ql (U) Negative Negative mg/dL [facility] SPECIFIC GRAVITY UA (POCT) >=1.030 1.005 - 1.030 [facility] UROBILINOGEN UA (POCT) 0.2 Hillary l E.U./dL [facility] Location:[facility], [address] [place] [address], [place], [place], [id number] [place] [address] POINT OF CARE [facility] XR CHEST 2V FRONTAL/LATon XR [...] tissues: Unremarkable. IMPRESSION: No acute radiographic abnormality. Mutuel Cashier: Exhibition A Transcribe Date/Time: Jun 01 2024 2:14P Dictated by : JUAN FERNANDEZ MD This examination was interpreted and the report reviewed and electronically signed by: JUAN FERNANDEZ MD on Jun 01 2024 2:14PM EST [id number] CN Normal [facility] XR Chest PA and Lateralon IMPRESSION: No acute radiographic abnormality. Mutuel Cashier: CHAGO Transcribe Date/Time: Jun 01 2024 2:14P Dictated by : JUAN FERNANDEZ MD This examination was interpreted and the report reviewed and electronically signed by: JUAN FERNANDEZ MD on Jun 01 2024 2:14PM [facility] DIVISION OF RADIOLOGY * * *Final Report* [...] soft tissues: Unremarkable. DIVISION OF RADIOLOGY Provider, [facility] [place] - 06/01/2024 * * *Final Report* * [...] Unremarkable. IMPRESSION IMPRESSION: No acute radiographic abnormality. Mutuel Cashier: PSCB Transcribe Date/Time: Jun 01 2024 2:14P Dictated by : JUAN FERNANDEZ MD This examination was interpreted and the report reviewed and electronically signed by: JUAN FERNANDEZ MD on Jun 01 2024 2:14PM EST [facility] Radiology Study observation (narrative) Cal white [facility] XR Chest PA and LateralOrder ed By: Ccf Provider on 06-01-2024 [facility] CTA CHEST (GATED) W IVCONon 11-08-2024 CTA CHEST (GATED) W IVCON * * *Final Report* * * DATE OF EXAM: Mar 12 2024 4:23PM [facility] [place] - CTA CHEST (GATED) W IVCON [...] AORTIC DIMENSIONS: AORTIC ROOT: 2.6 cm measured dczim-vi-wbvby mid ASCENDING THORACIC AORTA: 3.2 cm mid AORTIC ARCH: 2.7 cm mid DESCENDING THORACIC AORTA: 2.3 cm limited upper ABDOMEN: unremarkable BONES and SOFT TISSUES: unremarkable, within limitations of the current study Slot Shift Supervisor (topogram) images: No additional findings. IMPRESSION: STUDY LIMITATIONS: Step artifact.. The thoracic aorta is normal in course, caliber, and contours. Mutuel Cashier: CHAGO Transcribe Date/Time: Mar 12 2024 4:29P Dictated by : MARINO PEREZ, This examination was interpreted and the report reviewed and electronically signed by: MARINO PEREZ, on Mar 12 2024 4:42PM EST [id number] CN Normal [facility] CTA Chest vessels W contrast Briana 03-12-2024 IMPRESSION: STUDY LIMITATIONS: Step artifact.. The thoracic aorta is normal in course, caliber, and contours. Mutuel Cashier: [facility] CORBINCristiano Transcribe Date/Time: Mar 12 2024 4:29P Dictated by : MARINO PEREZ, This examination was interpreted and the report reviewed and electronically signed by: MARINO PEREZ, on Mar 12 2024 4:42PM EST [facility] * * *Final Report* * * DATE OF EXAM: Mar 12 2024 4:23PM [facility] [place] - CTA CHEST (GATED) W IVCON [...] AORTIC DIMENSIONS: AORTIC ROOT: 2.6 cm measured jlozu-vp-ytfyt mid ASCENDING THORACIC AORTA: 3.2 cm mid AORTIC ARCH: 2.7 cm mid DESCENDING THORACIC AORTA: 2.3 cm limited upper ABDOMEN: unremarkable BONES and SOFT TISSUES: unremarkable, within limitations of the current study Slot Shift Supervisor (topogram) images: No additional findings. [facility] Provider, [facility] [place] - 03/12/2024 * * *Final Report* * * DATE OF EXAM: Mar 12 2024 4:23PM [facility] [place] - CTA CHEST (GATED) W IVCON [...] AORTIC DIMENSIONS: AORTIC ROOT: 2.6 cm measured dbtzp-sw-buayi mid ASCENDING THORACIC AORTA: 3.2 cm mid AORTIC ARCH: 2.7 cm mid DESCENDING THORACIC AORTA: 2.3 cm limited upper ABDOMEN: unremarkable BONES and SOFT TISSUES: unremarkable, within limitations of the current study Slot Shift Supervisor (topogram) images: No additional findings. IMPRESSION IMPRESSION: STUDY LIMITATIONS: Step artifact.. The thoracic aorta is normal in course, caliber, and contours. Mutuel Cashier: CHAGO Transcribe Date/Time: Mar 12 2024 4:29P Dictated by : MARINO PEREZ, This examination was interpreted and the report reviewed and electronically signed by: MARINO PEREZ, on Mar 12 2024 4:42PM [facility] Radiology Study observation (narrative) Cal white [facility] CTA Chest vessels W contrast IVOrdered By: Ccf Provider on 03-12-2024 [facility] NURSING PROGon 03-12-2024 NURSING PROG HNO ID: [id number] Author: LUCAS MARR RN Service: Nursing Author [...] March 12, 2024 TIME: 4:08 PM Normal [facility] CREATININE BLDon 03-01-2024 Creatinine [Mass/Vol] 0.85 mg/dL Normal 0.58-0.96 [facility] Comment on above: Order Comment: Speci men Type: BLOOD SPECIMENOrdering Facility: [facility] Address: [address] [place] [address] Performed By: #### C RET1 ####[facility] [id number] [place] [address] [place] Creatinine and Glomerular filtration rate.predicted panel (S/P/Bld) 74 mL/min/1.73m??? Normal >=60 [facility] Comment on above: Order Comment: Speci men Type: BLOOD SPECIMENOrdering Facility: [facility] Address: [address] [place] [address] Result Comment: Latisha mated Glomerular Filtration Rate [...] actual GFR. Performed By: #### C RET1 ####[facility] LAB[facility] [id number] [facility] [id number] [place] [address] STATES OF [place] CNOVon 02-23-2024 CNOV Office Visit (CAWSTR) MECHE FOUNTAIN ([id number]) 1955 F Date Time Provider Department 02/23/24 11:00 AM ELLY DONAHUE During your visit today, we recorded the following information about you: Temperature Pulse Blood pressure Weight 98.1 degrees 88/minute 122/77 89.8 kg Elly Donahue MD 02/23/2024 11:37 AM Signed [facility] SE[facility]IONAL CARDIOLOGY Cardiology ([address]) [address] [facility] [id number] OUTPATIENT VISIT DATE 06/16/2023 PRIMARY CARE PHYSICIAN: Sterling [place] [address] REFERRING PHYSICIAN: Sterling Roca [facility] [address] HISTORY OF PRESENT ILLNESS: Ms. Fountain is [...] no lo (more content not included)... Normal [facility] ECHOon 02-09-2024 Echocardiography Echocardiography Report: Transthoracic Echo [facility] Date of service: 02/09/2024 1:03:31 PM HEALTH COACH Ordering physician: ELLY DONAHUE Indication: Routine surveillance of moderate or severe valvular stenosis (>1yr) Technologist: Liya Benavides [facility] Interpreting physician: Malcolm Valdes DO PATIENT: Name: [...] * * Final * * * CC [facility] Image : [id number] DynamicsSISUID Normal [facility] POLYSOMNOGRAM (PSG)/HOME SLE EP APNEA TEST (HSAT)on 12-26-2023 POLYSOMNOGRAM (PSG)/HOME SLEEP APNEA TEST (HSAT) [facility] Sleep Disorders Center at [address], [address], [place] [address] ; Home Sleep Apnea Test (HSAT) Study Report Name: MECHE FOUNTAIN Date of Study: 12/26/2023 CC#: [id number] Age: 68 (: 1955) ESS: 10/26 Neck [...] unattended Type III, minimum of 4 parameters (04328) Procedure: This study was performed using a Type III ambulatory PSG device and was unattended. The patient was instructed on proper use of the device by a registered technologist infectious disease. The monitored parameters included heart rate, oxygen [...] By: Darvin Barrientos (01/01/2024 3:04:49 PM) Normal [facility] RADHA SCREENINGon 05-22-2023 [facility] XR Lumbar spine 3 Viewson IMPRESSION: 1. Mild to moderate lumbar spondylosis. Mutuel Cashier: PSCB Transcribe Date/Time: Mar 22 2023 11:51A Dictated by : FABIAN THOMPSON MD This examination was interpreted and the report reviewed and electronically signed by: FABIAN THOMPSON MD on Mar 22 2023 11:51AM [facility] DIVISION OF RADIOLOGY * * *Final Report* [...] facet arthrosis . DIVISION OF RADIOLOGY Provider, [facility] [place] - 03/22/2023 * * *Final Report* * [...] IMPRESSION: 1. Mild to moderate lumbar spondylosis. Mutuel Cashier: CHAGO Transcribe Date/Time: Mar 22 2023 11:51A Dictated by : FABIAN THOMPSON MD This examination was interpreted and the report reviewed and electronically signed by: FABIAN THOMPSON MD on Mar 22 2023 11:51AM EST [facility] XR Lumbar spine 3 ViewsOrder ed By: Ccf Provider on 03-22-2023 [facility] XR Lumbar spine 3 Viewson Radiology Study observation (narrative) [facility] ECHOon 01-21-2023 [facility] Orthopedic Visit Reporton Orthopedic Visit Report [facility] [address] [place] [address] OFFICE VISIT Date of Service: 05/14/21 MR#: [id number] Acct: [id number] Name: АЛЕКСАНДРMECHE Shelbie Rep #: [id number] : 1955 Provider: ANA Merritt Age/Sex: 66/F [place] [facility] Status: Signed Intake Intake Visit Reasons: [...] [Rx Confirmed 05/14/21] B complex with vitamin L-rudpzpbur-lfum capsule cap PO 04/03/21 [History Confirmed 05/14/21] biotin 1 mg capsule 1 mg PO DAILY 04/03/21 [History Confirmed 05/14/21] omega-3 fatty acids 1,000 mg capsule 1,000 mg PO DAILY 04/03/21 [History Confirmed 05/14/21] sertraline 50 mg tablet 50 mg PO DAILY 04/03/21 [History Confirmed 05/14/21] meloxicam 15 mg tablet 15 mg PO DAILY #21 tab 05/14/21 [Rx Confirmed 05/14/21] [facility] Medical History (Updated 05/14/21 @ 13:01 by [...] knee: Sta (more content not included)... Normal [facility] XR Knee - right 4 Viewson [...] Impression: 1. No acute fracture or dislocation. Mutuel Cashier: [facility] Transcribe Date/Time: Apr 20 2021 2:33P Dictated by : USMAN TAYLOR MD This examination was interpreted and the report reviewed and electronically signed by: USMAN TAYLOR MD on Apr 20 2021 2:35PM EST DIVISION OF RADIOLOGY Provider, [facility] [place] - 04/20/2021 * * *Final Report* * [...] Impression: 1. No acute fracture or dislocation. Mutuel Cashier: [facility] Transcribe Date/Time: Apr 20 2021 2:33P Dictated by : USMAN TAYLOR MD This examination was interpreted and the report reviewed and electronically signed by: USMAN TAYLOR MD on Apr 20 2021 2:35PM EST [facility] Radiology Study observation (narrative) [facility] XR Knee - right 4 ViewsOrder ed By: [facility] Provider on 04-20-2021 [facility] Cardiology Nurse Office Visit Reporton 04-03-2021 Cardiology Nurse Office Visit Report [facility] [address] [place] [address] OFFICE VISIT Date of Service: 04/03/21 MR#: [id number] Acct: [id number] Name: MECHE FOUNTAIN Rep #: [id number] : 1955 Provider: Dr. Heide Varela DO Age/Sex: 66/F [place] 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 Is patient in pain?: No Allergies penicillin G Allergy (Mild, Verified 04/03/21 13:10) hives Medications hydrochlorothiazide 25 mg tablet 25 mg PO QDAY 04/14/17 [History Confirmed 04/03/21] multivitamin,tx-iron -minerals 1 tab PO DAILY 08/17/18 [History Confirmed 04/03/21] clobetasol 0.05 % topical ointment 1 applic TOPICAL QHS #30 g 02/03/20 [Rx Confirmed 04/03/21] B complex with vitamin C-dzykfaemo-uopx capsule cap PO 04/03/21 [History Confirmed 04/03/21] [...] acute distress, well developed and well groomed HENLA Head: normal to inspection and normocephalic Ears: hearing grossly normal bilaterally and external ears normal Nose: external nose normal Face and sinus: normal facial exam Neck Neck: normal visual inspection, full ROM and no lymphadenopathy Thyroid: thyroid normal Chest Chest palpat (more content not included)... Normal [facility] SCRN MAMM (CAD)W/RYAN BILATo n 03-19-2021 SCRN MAMM (CAD)W/RYAN BILAT [facility] Imaging Services [address] [place] [address] SCRN MAMM (CAD)W/RYAN BILAT MR#: [id number] Acct: [id number] Name: MECHE FOUNTAIN Rep #: [id number] : 1955 F 66 From: Dusty olivier MD PCP: Dr. Sterling Coleman MD Status: [facility] Study: SCRN MAMM (CAD)W/RYAN BILAT Date of Exam: 03/05 09/22 Exam# [id number] Ordering Dr: Mela Albrecht MAMMOGRAPHY - BILATERAL [...] delay biopsy of a clinically suspicious abnormality. [id number] Electronically Signed: Dusty Bajwa MD at 13:07 EST , Service support , CC: Dr. Mela Albrecht MD; Dr. Sterling Coleman MD Mutuel Cashier: Signed [facility] ED PROVIDERon 07-19-2017 [facility]oding OP/ED Report Normal [facility] OSUHIMCACENCSUMon 07-19-2017 [facility] HIM CAC Encounter Summary Report [facility] Microbiology: Culture, Urine on 04-16-2017 GE use only - for LinkLogic import when terms are not otherwise specified . Invalid Interpretation Code [facility] Vital Signs Date Time Vital Sign Value Performing Clinician Odalys rowley 11-26-2024 15:00-0400 Diastolic blood pressure 67 mm[Hg] Dr. Sterling Coleman MD Work Phone: [facility] 11-26-2024 15:00-0400 Heart rate 87 /min Dr. Sterling Coleman MD Work Phone: [facility] 11-26-2024 15:00-0400 Respiratory rate 24 /min Dr. Sterling Coleman MD Work Phone: [facility] 11-26-2024 15:00-0400 SaO2% (BldA) [Mass fraction] 94 % Dr. Sterling Coleman MD Work Phone: [facility] 11-26-2024 15:00-0400 Systolic blood pressure 149 mm[Hg] Dr. Sterling Coleman MD Work Phone: [facility] 11-26-2024 14:06-0400 Body temperature 98 [degF] Dr. Sterling Coleman MD Work Phone: [facility] 11-26-2024 11:52-0400 Body mass index (BMI) [Ratio] 37.8 kg/m2 Dr. Sterling Coleman MD Work Phone: [facility] 11-26-2024 11:34-0400 Body weight 90.[address] Sterling Coleman MD Work Phone: [facility] 11-26-2024 11:32-0400 Body height 154.[address] Sterling Coleman MD Work Phone: [facility] 09-20-2024 10:42-0400 Body height 154.9 cm Elly Donahue MD Work Phone: [facility] 09-20-2024 10:42-0400 Body mass index (BMI) [Ratio] 37.45 kg/m2 Elly Donahue MD Work Phone: [facility] 09-20-2024 10:42-0400 Body weight 89.9 kg Elly Donahue MD Work Phone: [facility] 09-20-2024 10:42-0400 Diastolic blood pressure 60 mm[Hg] Elly Donahue MD Work Phone: [facility] 09-20-2024 10:42-0400 Heart rate 81 /min Elly Donahue MD Work Phone: [facility] 09-20-2024 10:42-0400 Respiratory rate 14 /min Elly Donahue MD Work Phone: [facility] 09-20-2024 10:42-0400 SaO2% (BldA) [Mass fraction] 98 % Elly Donahue MD Work Phone: [facility] 09-20-2024 10:42-0400 Systolic blood pressure 138 mm[Hg] Elly Donahue MD Work Phone: [facility] 07-26-2024 13:13-0400 Body mass index (BMI) [Ratio] 37.41 kg/m2 Sterling Coleman MD Work Phone: [facility] 07-26-2024 13:13-0400 Body weight 89.81 kg Sterling Coleman MD Work Phone: [facility] 07-26-2024 13:13-0400 Diastolic blood pressure 60 mm[Hg] Sterling Coleman MD Work Phone: [facility] 07-26-2024 13:13-0400 Heart rate 87 /min Sterling Coleman MD Work Phone: [facility] 07-26-2024 13:13-0400 SaO2% (BldA) [Mass fraction] 98 % Sterling Coleman MD Work Phone: [facility] 07-26-2024 13:13-0400 Systolic blood pressure 122 mm[Hg] Sterling Coleman MD Work Phone: [facility] 06-01-2024 13:16-0500 Body mass index (BMI) [Ratio] 37.22 kg/m2 Elaine Suppan ELECTRICAL ENGINEERING PROFESSOR.TOPOGRAPHICAL FIELD ASSISTANT Work Phone: [facility] 06-01-2024 13:16-0500 Body weight 89.36 kg Elaine Suppan ELECTRICAL ENGINEERING PROFESSOR.TOPOGRAPHICAL FIELD ASSISTANT Work Phone: [facility] 06-01-2024 13:16-0500 Diastolic blood pressure 68 mm[Hg] Elaine Suppan ELECTRICAL ENGINEERING PROFESSOR.TOPOGRAPHICAL FIELD ASSISTANT Work Phone: [facility] 06-01-2024 13:16-0500 Heart rate 94 /min Elaine Suppan ELECTRICAL ENGINEERING PROFESSOR.TOPOGRAPHICAL FIELD ASSISTANT Work Phone: [facility] 06-01-2024 13:16-0500 SaO2% (BldA) [Mass fraction] 95 % Elaine Suppan ELECTRICAL ENGINEERING PROFESSOR.TOPOGRAPHICAL FIELD ASSISTANT Work Phone: [facility] 06-01-2024 13:16-0500 Systolic blood pressure 122 mm[Hg] Elaine Suppan ELECTRICAL ENGINEERING PROFESSOR.TOPOGRAPHICAL FIELD ASSISTANT Work Phone: [facility] 02-23-2024 11:29-0400 Body mass index (BMI) [Ratio] 37.41 kg/m2 Elly Donahue MD Work Phone: [facility] 02-23-2024 11:29-0400 Body temperature 98.1 [degF] Elly Donahue MD Work Phone: [facility] 02-23-2024 11:290400 Body weight 89.81 kg Elly Donahue MD Work Phone: [facility] 02-23-2024 11:290400 Diastolic blood pressure 77 mm[Hg] Elly Donahue MD Work Phone: [facility] 02-23-2024 11:29-0400 Heart rate 88 /min Elly Donahue MD Work Phone: [facility] 02-23-2024 11:29-0400 SaO2% (BldA) [Mass fraction] 100 % Elly Donahue MD Work Phone: [facility] 02-23-2024 11:290400 Systolic blood pressure 122 mm[Hg] Elly Donahue MD Work Phone: [facility] 09-10-2023 10:06-0400 Body height 154.9 cm Viktoria Gudino MD Work Phone: [facility] 09-10-2023 10:06-0400 Body mass index (BMI) [Ratio] 36.84 kg/m2 Viktoria Gudino MD Work Phone: [facility] 09-10-2023 10:06-0400 Body weight 88.45 kg Viktoria Gudino MD Work Phone: [facility] 09-10-2023 10:06-0400 Diastolic blood pressure 72 mm[Hg] Viktoria Gudino MD Work Phone: [facility] 09-10-2023 10:06-0400 Heart rate 84 /min Viktoria Gudino MD Work Phone: [facility] 09-10-2023 10:06-0400 SaO2% (BldA) [Mass fraction] 96 % Viktoria Gudino MD Work Phone: [facility] 09-10-2023 10:06-0400 Systolic blood pressure 124 mm[Hg] Viktoria Gudino MD Work Phone: [facility] 08-15-2023 11:10-0400 Body weight 89.36 kg Asmita Bhagat MD Work Phone: [facility] 08-15-2023 11:10-0400 Diastolic blood pressure 68 mm[Hg] Asmita Bhagat MD Work Phone: [facility] 08-15-2023 11:10-0400 Systolic blood pressure 122 mm[Hg] Asmita Bhagat MD Work Phone: [facility] 06-16-2023 16:27-0500 Body weight 89.81 kg Elly Donahue MD Work Phone: [facility] 06-16-2023 16:27-0500 Diastolic blood pressure 82 mm[Hg] Elly Donahue MD Work Phone: [facility] 06-16-2023 16:27-0500 Heart rate 85 /min Elly Donahue MD Work Phone: [facility] 06-16-2023 16:27-0500 Respiratory rate 16 /min Elly Donahue MD Work Phone: [facility] 06-16-2023 16:27-0500 SaO2% (BldA) [Mass fraction] 95 % Elly Donahue MD Work Phone: [facility] 06-16-2023 16:27-0500 Systolic blood pressure 128 mm[Hg] Elly Donahue MD Work Phone: [facility] 06-16-2023 10:40-0500 Diastolic blood pressure 82 mm[Hg] Elenita Wang ELECTRICAL ENGINEERING PROFESSOR.TOPOGRAPHICAL FIELD ASSISTANT Work Phone: [facility] 06-16-2023 10:40-0500 Heart rate 85 /min Elenita Wang ELECTRICAL ENGINEERING PROFESSOR.TOPOGRAPHICAL FIELD ASSISTANT Work Phone: [facility] 06-16-2023 10:40-0500 Respiratory rate 16 /min Elenita Wang ELECTRICAL ENGINEERING PROFESSOR.TOPOGRAPHICAL FIELD ASSISTANT Work Phone: [facility] 06-16-2023 10:40-0500 SaO2% (BldA) [Mass fraction] 95 % Elenita Wang ELECTRICAL ENGINEERING PROFESSOR.TOPOGRAPHICAL FIELD ASSISTANT Work Phone: [facility] 06-16-2023 10:40-0500 Systolic blood pressure 128 mm[Hg] Elenita Wang ELECTRICAL ENGINEERING PROFESSOR.TOPOGRAPHICAL FIELD ASSISTANT Work Phone: [facility] 03-22-2023 14:58-0500 Body temperature 97.7 [degF] Lexie Emmanuel APRN.TOPOGRAPHICAL FIELD ASSISTANT Work Phone: [facility] 03-22-2023 14:58-0500 Body weight 89.81 kg Lexie Emmanuel APRN.TOPOGRAPHICAL FIELD ASSISTANT Work Phone: [facility] 03-22-2023 14:58-0500 Diastolic blood pressure 80 mm[Hg] Lexie Emmanuel APRN.TOPOGRAPHICAL FIELD ASSISTANT Work Phone: [facility] 03-22-2023 14:58-0500 Heart rate 87 /min Lexie Emmanuel APRN.TOPOGRAPHICAL FIELD ASSISTANT Work Phone: [facility] 03-22-2023 14:58-0500 Respiratory rate 18 /min Lexie Emmanuel APRN.TOPOGRAPHICAL FIELD ASSISTANT Work Phone: [facility] 03-22-2023 14:58-0500 SaO2% (BldA) [Mass fraction] 96 % Lexie Emmanuel APRN.TOPOGRAPHICAL FIELD ASSISTANT Work Phone: [facility] 03-22-2023 14:58-0500 Systolic blood pressure 142 mm[Hg] Lexie Emmanuel APRN.TOPOGRAPHICAL FIELD ASSISTANT Work Phone: [facility] 07-29-2022 10:40-0400 Body weight 87.54 kg Elly Donahue MD Work Phone: [facility] 07-29-2022 10:40-0400 Diastolic blood pressure 70 mm[Hg] Elly Donahue MD Work Phone: [facility] 07-29-2022 10:40-0400 Heart rate 86 /min Elly Donahue MD Work Phone: [facility] 07-29-2022 10:40-0400 SaO2% (BldA) [Mass fraction] 94 % Elly Donahue MD Work Phone: [facility] 07-29-2022 10:40-0400 Systolic blood pressure 120 mm[Hg] Elly Donahue MD Work Phone: [facility] 03-26-2022 13:01-0500 Body height 154.9 cm Sterling Coleman MD Work Phone: [facility] 03-26-2022 13:01-0500 Body weight 88.72 kg Sterling Coleman MD Work Phone: [facility] 03-26-2022 13:01-0500 Diastolic blood pressure 86 mm[Hg] Sterling Coleman MD Work Phone: [facility] 03-26-2022 13:01-0500 Heart rate 82 /min Sterling Coleman MD Work Phone: [facility] 03-26-2022 13:01-0500 SaO2% (BldA) [Mass fraction] 97 % Sterling Coleman MD Work Phone: [facility] 03-26-2022 13:01-0500 Systolic blood pressure 138 mm[Hg] Sterling Coleman MD Work Phone: [facility] Encounters Encounter Date Encounter Type Care Provider Facility Start: 11-26-2024 Evaluation and management of inpatient Dr. Erika Tierney MD -Progressive Care Unit Work Phone: Start: 11-26-[address] Manjinder Coleman MD Work Phone: -Progressive Care Unit Start: 11-01-2024 End: 11-01-2024 Telephone encounter Sterling Coleman MD Work Phone: [facility] Comment on above: billing issues from July 26/2025 visit Start: 09-20-2024 End: 09-20-2024 Patient encounter procedure Elly Donahue MD Work Phone: Cardiology Comment on above: Nonrheumatic aortic valve stenosis (Primary Dx); Hyperlipidemia, mixed Start: 09-20-2024 End: 09-20-2024 ambulatory ELLY DONAHUE Facility:[facility] Start: 08-30-2024 End: 09-02-2024 Telephone encounter Sterling Coleman MD Work Phone: [facility] [place] Comment on above: Results Start: 08-05-2024 End: 10-05-2024 Follow-up encounter Sterling Coleman MD Work Phone: Pulmonology [facility] Start: 08-04-2024 End: 08-04-2024 ambulatory STERLING COLEMAN Facility:[facility] Start: 07-26-2024 End: 07-26-2024 ambulatory STERLING COLEMAN Facility:[facility] Start: 07-26-2024 End: 07-26-2024 Patient encounter procedure Sterling Coleman MD Work Phone: [facility] Comment on above: Medicare annual well ness visit, subsequent (Primary Dx); Cardiac arrhythmia, unspecified cardiac arrhythmia type; Obesity, Class II, BMI 35-39.9; Hyperlipidemia, mixed; Aortic ectasia (HCC); Nonrheumatic aortic valve stenosis; Psoriasis; Reactive depression; Encounter for screening examination for other mental health and behavioral disorders Start: 06-16-2024 End: 06-16-2024 ambulatory Taylor Mendiola MA [facility] Start: 06-16-2024 End: 06-16-2024 Patient encounter procedure Taylor Mendiola MA [facility] Comment on above: Population Health Na vigation Outreach (BRENDON ROCHE [facility]) Start: 06-12-2024 ambulatory ASMITA Mckenzie ity:[facility] Start: 06-12-2024 End: 06-12-2024 Subsequent hospital visit by physician Screen/Diagnostic Mammo 1 [facility] Work Phone: Mammography Comment on above: Abnormal mammogram [ R92.8] Start: 06-07-2024 End: 06-07-2024 Orders Only Asmita Bhagat MD Work Phone: Mammogram Comment on above: Abnormal mammogram ( Primary Dx) Encounter for screen ing mammogram for breast cancer [Z12.31] Start: 06-01-2024 End: 06-01-2024 ambulatory ELAINE A SUPPAN Facility:[facility] Start: 06-01-2024 End: 06-01-2024 Subsequent hospital visit by physician [facility] Work Phone: Radiology Comment on above: Muscle strain of el[address] wall, initial encounter [S29.011A] Start: 06-01-2024 End: 06-01-2024 Telephone encounter Elaine A Suppan ELECTRICAL ENGINEERING PROFESSOR.TOPOGRAPHICAL FIELD ASSISTANT Work Phone: Family [facility] [place] Start: 06-01-2024 End: 06-01-2024 Office outpatient visit 15 minutes Elaine A Suppan ELECTRICAL ENGINEERING PROFESSOR.TOPOGRAPHICAL FIELD ASSISTANT Work Phone: [facility] [place] Comment on above: Muscle strain of elida st wall, initial encounter (Primary Dx); Dysuria Start: 06-01-2024 End: 06-01-2024 ambulatory ELAINE A SUPPAN Facility:[facility] Start: 03-29-2024 End: 03-29-2024 Refill Elly Donahue MD Work Phone: Cardiology Comment on above: Refill Request Start: 03-12-2024 ambulatory ELLY DONAHUE [facility] Start: 03-12-2024 End: 03-12-2024 Subsequent hospital visit by physician [facility] Start: 03-01-2024 End: 03-01-2024 ambulatory STERLING COLEMAN Facility:[facility] Start: 02-23-2024 End: 02-23-2024 ambulatory ELLY DONAHUE Facility:[facility] Start: 02-23-2024 End: 02-23-2024 Patient encounter procedure Elly Donahue MD Work Phone: Cardiology Comment on above: Nonrheumatic aortic valve stenosis (Primary Dx); Hyperlipidemia, mixed; Aortic ectasia (HCC) Start: 02-09-2024 End: 02-09-2024 ambulatory ELLY DONAHUE Facility:[facility] Start: 12-25-2023 End: 12-26-2023 ambulatory STERLING COLEMAN Facility:[facility] Start: 12-05-2023 Refill Asmita bose MD Work [...] Office outpatient visit 15 minutes Elenita Wang APRN.TOPOGRAPHICAL FIELD ASSISTANT Work Phone: Family [facility] Comment on above: Function kidney decr eased (Primary Dx); Eczema, unspecified type; URI, acute Start: 05-21-2023 ambulatory Sterling Coleman MD Work Phone: Internal Medicine [facility] [place] Start: 03-22-2023 End: 03-22-2023 Patient encounter procedure Lexie Emmanuel APRN.TOPOGRAPHICAL FIELD ASSISTANT Work Phone: [facility] Comment on above: Left lower quadrant abdominal pain (Primary Dx) Start: 03-20-2023 Telephone encounter Sterling Coleman MD Work Phone: [facility] [place] Comment on above: Appointment Start: 03-20-2023 End: 03-20-2023 Subsequent hospital visit by physician [facility] [place] Work Phone: Radiology Comment on above: Left sided sciatica [M54.32] Start: 01-22-2023 Telephone encounter Tatum Dotson APRN.TOPOGRAPHICAL FIELD ASSISTANT Work Phone: Cardiology Comment on above: Results Start: 01-21-2023 End: 01-21-2023 Patient encounter procedure Echocardiogram Wstr Work Phone: Cardiology Comment on above: Nonrheumatic aortic valve stenosis Start: 01-17-2023 Telephone encounter Tatum Dotson APRN.TOPOGRAPHICAL FIELD ASSISTANT Work Phone: Cardiology Comment on above: Orders Start: 01-15-2023 ambulatory Elly carrillo MD Work Phone: Cardiology Comment on above: Shortness of breath Start: 11-18-2022 End: 11-18-2022 ambulatory Sterling Coleman MD Work Phone: Family [facility] [place] Comment on above: Hyperhidrosis (Prima ry Dx); Hyperlipidemia, mixed; Reactive depression Start: 11-18-2022 End: 11-18-2022 Telemedicine consultation with patient Sterling Coleman MD Work Phone: [facility] [place] Start: 10-30-2022 Refill Sterling Coleman MD Work Phone: [facility] [place] Comment on above: Refill Request Start: 07-29-2022 End: 07-29-2022 Patient encounter procedure Elly Donahue MD Work Phone: Cardiology Comment on above: Screening for ischem ic heart disease (Primary Dx); Nonrheumatic aortic valve stenosis; Hyperlipidemia, mixed Start: 04-20-2022 Telephone encounter M Malcolm Lin PA-C Work Phone: [facility] [place] Comment on above: Results Start: 04-02-2022 Telephone encounter Sterling Coleman MD Work Phone: Family [facility] [place] Comment on above: Results Start: 03-29-2022 Telephone encounter Sterling Coleman MD Work Phone: [facility] [place] Comment on above: Results Start: 03-27-2022 ambulatory Sterling Coleman MD Work Phone: [facility] [place] Comment on above: labs Start: 03-27-2022 E-mail encounter fro m caregiver Sterling Coleman MD Work Phone: [facility] [place] Start: 03-26-2022 End: 03-26-2022 Patient encounter procedure Sterling Coleman MD Work Phone: [facility] [place] Comment on above: Nonrheumatic aortic valve stenosis (Primary Dx); Encounter for immunization; Bilateral leg edema; Hyperlipidemia, mixed; Ectatic thoracic aorta (HCC); Psoriasis; Reactive depression; Adjustment disorder, unspecified type Start: 02-28-2022 Patient encounter status Sterling Coleman MD Work Phone: [facility] [place] Start: 02-28-2022 Telephone encounter Sterling Coleman MD Work Phone: [address] [place] [address] Comment on above: Orders Start: 04-20-2021 End: 04-20-2021 Subsequent hospital visit by physician [facility] [place] Work Phone: Radiology Comment on above: Right knee pain, uns pecified chronicity [M25.561] Start: 07-19-2017 End: 07-19-2017 [facility] Procedures Date Procedure Procedure Detail Performing Clinician [...] exam ches t 2 views Elaine Trevino ELECTRICAL ENGINEERING PROFESSOR.TOPOGRAPHICAL FIELD ASSISTANT Work Phone: Start: 06-01-2024 Urnls dip stick/tabl et rgnt auto w/o microscopy Elaine Trevino ELECTRICAL ENGINEERING PROFESSOR.TOPOGRAPHICAL FIELD ASSISTANT Work Phone: Start: 03-12-2024 Ct angiography chest w/contrast/noncontrast Elly Donahue MD Work Phone: Start: 09-12-2023 Lipid 1996 panel - S jg or Plasma Viktoria Gudino MD Work Phone: Start: 03-20-2023 Radex spine lumbosac ral 2/3 views Sterling Coleman MD Work Phone: Start: 01-21-2023 Echo tthrc r-t 2d w/wom-mode compl spec&colr d Tatum E Nila ELECTRICAL ENGINEERING PROFESSOR.TOPOGRAPHICAL FIELD ASSISTANT Work Phone: Start: 01-17-2023 Lipid 1996 panel - S jg or Plasma Echocardiogram [facility]str Work Phone: Start: 04-18-2022 Mammography RAFY Lin PA-C Work Phone: Start: 03-26-2022 INFLUENZA SEASONAL QUADRIVALENT HIGH DOSE AGE 65+ Sterling Coleman MD Work Phone: Start: 03-26-2022 Lipid 1996 panel - S jg or Plasma Elly Donahue MD Work Phone: Start: 04-20-2021 Radiologic exam knee complete 4/more views Lexie Emmanuel APRN.TOPOGRAPHICAL FIELD ASSISTANT Work Phone: Start: 03-19-2021 Mammography Sterling Cameron MD Work Phone: Start: 07-24-2018 Colonoscopy Sterling Cameron MD Work Phone: Plan of Treatment Date Care Activity Detail Author Start: 2030 RSV Vaccine (1 - 1-d ose 75+ series) RSV Vaccine (1 - 1-dose 75+ series) [facility] Start: 08-04-2029 Lipid panel Lipid Screening [facility] Start: 09-11-2028 Lipid panel Lipid Screening [facility] Start: 07-24-2028 Colonoscopy COLONOSCOPY [facility] Start: 07-24-2028 COLORECTAL CANCER SCREENING COLORECTAL CANCER SCREENING [facility] Start: 07-24-2028 Screening for malign ant neoplasm of colon [facility] Start: 01-18-2028 Lipid 1996 panel - S jg or Plasma Lipid Screening [facility] Start: 01-18-2028 Lipid panel Lipid Screening [facility] Start: 08-05-2027 Diabetes Screening Diabetes Screenin [facility] Start: 03-26-2027 Lipid 1996 panel - S jg or Plasma Lipid Screening [facility] Start: 03-26-2027 LIPID SCREEN LIPID SCREEN [facility] Start: 09-11-2026 Diabetes Screening Diabetes Screenin g [facility] Start: 08-29-2026 Urine microalbumin profile [facility] Start: 05-22-2026 Diabetes Screening Diabetes Screenin g [facility] Start: 03-16-2026 LIPID SCREEN LIPID SCREEN [facility] Start: 12-16-2025 Diabetes Screening Diabetes Screenin g [facility] Start: 08-01-2025 End: 08-01-2025 Patient encounter procedure 08/01/2025 10:00 AM EDT Office Visit [facility] [place] [address] [place] [address] Sterling Coleman MD [address] [place] [address] wellness [facility] [place] Comment on above: wellness Start: 07-26-2025 Anxiety Screening Anxiety Screening [facility] Start: 07-26-2025 Covid-19 Vaccine () Covid-19 Vaccine () [facility] Comment on above: Postponed from 01/03 (Declined at this time) Start: 07-26-2025 Medicare Annual Well ness Visit Medicare Annual Wellness Visit [facility] Start: 06-12-2025 Pneumococcal Vaccine : 50+ (3 of 3 - PCV20 or PCV21) Pneumococcal Vaccine: 50+ (3 of 3 - PCV20 or PCV21) [facility] Start: 06-12-2025 Pneumococcal Vaccine : 65+ (3 - PPSV23 or PCV20) Pneumococcal Vaccine: 65+ (3 - PPSV23 or PCV20) [facility] Start: 06-12-2025 Pneumococcal Vaccine : 65+ (3 of 3 - PPSV23 or PCV20) Pneumococcal Vaccine: 65+ (3 of 3 - PPSV23 or PCV20) [facility] Start: 06-07-2025 Screening for malign ant neoplasm of breast Mammogram Screening [facility] Start: 05-16-2025 End: 05-16-2025 Patient encounter procedure 05/16/2025 10:40 AM EST Office Visit Cardiology [address] [place] [address] Elly Donahue MD [address] [place] [address] 6 month follow up Cardiology Comment on above: 6 month follow up Start: 03-26-2025 DIABETES SCREEN DIABETES SCREEN [facility] Start: 01-28-2025 End: 01-28-2025 Patient encounter procedure 01/28/2025 9:40 AM EDT Office Visit Cardiology [place] [address] [place] [address] Nonrheumatic aortic valve stenosis [I35.0] Cardiology Comment on above: Nonrheumatic aortic valve stenosis [I35.0] Start: 01-03-2025 End: 09-20-2025 Echocardiography ECHO Cardiology Routine Nonrheumatic aortic valve stenosis Expected: 01/03/2025, Expires: 09/20/2025 [facility] Work Phone: Comment on above: Expected: 01/03/2025 , Expires: 09/20/2025 Start: 01-03-2025 Influenza vaccination Influenz a Vaccine (Season Ended) [facility] Start: 11-26-2024 Admission procedure [facility] Start: 11-26-2024 Hospital admission, emergency, from emergency room, medical nature [facility] Start: 11-26-2024 Oxygen therapy [facility] Start: 11-26-2024 [facility] Start: 11-16-2024 Pneumococcal Vaccine : 65+ (3 - PPSV23 or PCV20) Pneumococcal Vaccine: 65+ (3 - PPSV23 or PCV20) [facility] Start: 11-16-2024 PNEUMOCOCCAL: 65+ (#3) PNEUMOCOCCAL: 65+ (#3) [facility] Start: 11-16-2024 PNEUMOCOCCAL: 65+ (3 - PPSV23 if available, else PCV20) PNEUMOCOCCAL: 65+ (3 - PPSV23 if available, else PCV20) [facility] Start: 11-16-2024 PNEUMOCOCCAL: 65+ (3 - PPSV23 or PCV20) PNEUMOCOCCAL: 65+ (3 - PPSV23 or PCV20) [facility] Start: 11-01-2024 Influenza vaccination Influenza Vacc ine (#1) [facility] Comment on above: Postponed from 01/03 (Declined at this time) Start: 09-20-2024 End: 09-20-2024 Patient encounter procedure Cardiology Comment on above: Follow up Start: 07-26-2024 End: 10-25-2024 CBC W Auto Differential panel - Blood COMPLETE BLOOD COUNT AND DIFFERENTIAL Lab Routine Hyperlipidemia, mixed Cardiac arrhythmia, unspecified cardiac arrhythmia type Expected: 07/26/2024, Expires: 10/25/2024 [facility] Comment on above: Expected: 07/26/2024 , Expires: 10/25/2024 Start: 07-26-2024 End: 10-25-2024 Comprehensive metabolic 2000 panel - Serum or Plasma COMPREHENSIVE METABOLIC PANEL Lab Routine Hyperlipidemia, mixed Cardiac arrhythmia, unspecified cardiac arrhythmia type Expected: 07/26/2024, Expires: 10/25/2024 [facility] Comment on above: Expected: 07/26/2024 , Expires: 10/25/2024 Start: 07-26-2024 End: 10-25-2024 Lipid 1996 panel - Serum or Plasma LIPID PANEL, FASTING Lab Routine Hyperlipidemia, mixed Expected: 07/26/2024, Expires: 10/25/2024 [facility] Comment on above: Expected: 07/26/2024 , Expires: 10/25/2024 Start: 07-26-2024 End: 10-25-2024 Thyrotropin [Units/volume] in Serum or Plasma THYROID STIMULATING HORMONE Lab Routine Hyperlipidemia, mixed Cardiac arrhythmia, unspecified cardiac arrhythmia type Expected: 07/26/2024, Expires: 10/25/2024 [facility] Comment on above: Expected: 07/26/2024 , Expires: 10/25/2024 Start: 07-26-2024 End: 07-26-2024 Patient encounter procedure 07/26/2024 1:00 PM EDT Office Visit Family [facility] [place] [address] [facility] [place] [id number] Sterling Coleman MD [address] [facility] [place] [id number] MEDICARE WELLNESS Family [facility] [place] Comment on above: MEDICARE WELLNESS Start: 06-15-2024 End: 06-15-2024 Patient encounter procedure 06/15/2024 3:20 PM EST Office Visit Family [facility] [place] [address] [facility] [place] [address] Elaine Trevino APRN.TOPOGRAPHICAL FIELD ASSISTANT [address] [facility] [place] [id number] 2 week chest pain f/u [facility] [place] Comment on above: 2 week chest pain f/ u Start: 06-07-2024 End: 06-07-2024 Patient encounter procedure 06/07/2024 8:30 AM EST Appointment Mammogram [address] [place] [address] MAMMO [facility] Mammogram Comment on above: MAMMO W YRAN Start: 05-31-2024 End: 05-31-2024 Patient encounter procedure 05/31/2024 11:10 AM EST Office Visit OB/Gynecology [address] [place] [address] Asmita Bhagat MD [address] [place] [address] F/ u Lichen Sclerosis OB/Gynecology Comment on above: F/ u Lichen Sclerosi s Start: 05-31-2024 End: 05-31-2024 Patient encounter procedure 05/31/2024 9:10 AM EST Appointment Mammogram [address] [place] [address] MAMMO W RYAN Mammogram Comment on above: MAMMO W RYAN Start: 05-22-2024 Screening for malign ant neoplasm of breast Mammogram Screening [facility] Start: 05-05-2024 Advance Directive Discussion Advance Directive Discussion [facility] Start: 04-30-2024 Screening for malign ant neoplasm of colon Fecal Occult Blood [facility] Start: 03-16-2024 DIABETES SCREEN DIABETES SCREEN [facility] Start: 03-08-2024 End: 03-08-2024 Patient encounter procedure 03/08/2024 3:00 PM EST Appointment Cat Scan [address] [place] [address] Aortic ectasia (HCC) [I77.819] Cat Scan Comment on above: Aortic ectasia (HCC) [I77.819] Start: 03-01-2024 End: 03-01-2024 ambulatory 03/01/2024 9:00 AM EDT Results Only [place] [facility] [address] [place] [address] [facility] Start: 02-23-2024 End: 05-24-2024 CREATININE BLD CREATININE BLD Lab Routine Aortic ectasia (HCC) Expected: 02/23/2024, Expires: 05/24/2024 [facility] Comment on above: Expected: 02/23/2024 , Expires: 05/24/2024 Start: 02-23-2024 End: 02-23-2024 Patient encounter procedure 02/23/2024 11:00 AM EDT Office Visit Cardiology [address] [place] [id number] Elly Donahue MD [address] [place], [place] [id number] Follow up Cardiology Comment on above: Follow up Start: 02-09-2024 End: 02-09-2024 Patient encounter procedure 02/09/2024 1:00 PM EDT Office Visit Cardiology [address] [place], [place] [id number] echo Cardiology Comment on above: echo Start: 01-26-2024 End: 06-16-2024 Echocardiography ECHO Cardiology Routine Nonrheumatic aortic valve stenosis Expected: 01/26/2024, Expires: 06/16/2024 [facility] Work Phone: Comment on above: Expected: 01/26/2024 , Expires: 06/16/2024 Start: 01-04-2024 Covid-19 Vaccine ( season) Covid-19 Vaccine () [facility] Start: 01-04-2024 Covid-19 Vaccine ( season) Covid-19 Vaccine ( season) [facility] Start: 01-04-2024 Influenza vaccination C [facility] Start: 12-12-2023 End: 12-12-2023 Patient encounter procedure 12/12/2023 10:00 AM EDT Office Visit Neurology [address] [place] [address] [employer] - Redeployment confirmed 10/29 [id number] Comment on above: [employer] - Redeployment confirmed 10/29 [id number] Start: 10-20-2023 End: 10-20-2023 Patient encounter procedure 10/20/2023 8:10 AM EDT Office Visit OB/Gynecology [address] [place] [address] Viktoria Marquez MD [address] [place] [address] weight management follow up OB/Gynecology Comment on above: weight management fo llow up Start: 09-26-2023 End: 09-26-2023 Patient encounter procedure 09/26/2023 10:00 AM EDT Office Visit Neurology [address] [place] [address] [facility]sat Neurology Comment on above: hsat Start: 09-12-2023 End: 09-12-2023 ambulatory 09/12/2023 9:15 AM EDT Results Only [place] [facility] [address] [place] [address] Encounter for vitamin deficiency screening [Z13.21] [facility] Comment on above: Encounter for vitami n deficiency screening [Z13.21] Start: 09-10-2023 End: 12-10-2023 25-hydroxyvitamin D3 [Mass/volume] in Serum or Plasma VITAMIN D 25 HYDROXY Lab Routine Encounter for vitamin deficiency screening Body mass index (BMI) 36.0-36.9, adult Expected: 09/10/2023, Expires: 12/10/2023 [facility] Work Phone: Comment on above: Expected: 09/10/2023 , Expires: 12/10/2023 Start: 09-10-2023 End: 12-10-2023 CBC panel - Blood by Automated count COMPLETE BLOOD COUNT Lab Routine Screening for deficiency anemia Expected: 09/10/2023, Expires: 12/10/2023 [facility] Comment on above: Expected: 09/10/2023 , Expires: 12/10/2023 Start: 09-10-2023 End: 12-10-2023 Comprehensive metabolic 2000 panel - Serum or Plasma COMPREHENSIVE METABOLIC PANEL Lab Routine Screening for diabetes mellitus Screening for metabolic disorder Expected: 09/10/2023, Expires: 12/10/2023 [facility] Comment on above: Expected: 09/10/2023 , Expires: 12/10/2023 Start: 09-10-2023 End: 12-10-2023 Hemoglobin A1c in Blood HEMOGLOBIN A1C Lab Routine Screening for diabetes mellitus Expected: 09/10/2023, Expires: 12/10/2023 [facility] Comment on above: Expected: 09/10/2023 , Expires: 12/10/2023 Start: 09-10-2023 End: 12-10-2023 Insulin [Units/volume] in Serum or Plasma INSULIN ASSAY BLOOD Lab Routine Screening for diabetes mellitus Expected: 09/10/2023, Expires: 12/10/2023 [facility] Comment on above: Expected: 09/10/2023 , Expires: 12/10/2023 Start: 09-10-2023 End: 12-10-2023 Lipid 1996 panel - Serum or Plasma LIPID PANEL BASIC Lab Routine Screening cholesterol level Expected: 09/10/2023, Expires: 12/10/2023 [facility] Comment on above: Expected: 09/10/2023 , Expires: 12/10/2023 Start: 09-10-2023 End: 12-10-2023 Thyrotropin [Units/volume] in Serum or Plasma THYROID STIMULATING HORMONE Lab Routine Screening for thyroid disorder Expected: 09/10/2023, Expires: 12/10/2023 [facility] Comment on above: Expected: 09/10/2023 , Expires: 12/10/2023 Start: 05-21-2023 End: 07-21-2023 Lipid 1996 panel - Serum or Plasma LIPID PANEL BASIC Lab Routine Hyperlipidemia, mixed Expected: 05/21/2023, Expires: 07/21/2023 [facility] Work Phone: Comment on above: Expected: 05/21/2023 , Expires: 07/21/2023 Start: 05-05-2023 Advance Directive Discussion Advance Directive Discussion [facility] Start: 04-18-2023 Mammography [facility] Start: 01-17-2023 End: 03-19-2023 Natriuretic peptide.B prohormone N-Terminal [Mass/volume] in Serum or Plasma [facility] Work Phone: Comment on above: Expected: 01/17/2023 , Expires: 03/19/2023 Start: 01-03-2023 Covid-19 Vaccine () Covid-19 Vaccine () [facility] Start: 01-03-2023 Influenza vaccination [facility] Start: 11-18-2022 End: 01-18-2023 CBC W Auto Differential panel - Blood CBC + DIFF Lab Routine Reactive depression Expected: 11/18/2022, Expires: 01/18/2023 [facility] Work Phone: Comment on above: Expected: 11/18/2022 , Expires: 01/18/2023 Start: 11-18-2022 End: 01-18-2023 Comprehensive metabolic 2000 panel - Serum or Plasma COMP METABOLIC PANEL Lab Routine Reactive depression Expected: 11/18/2022, Expires: 01/18/2023 [facility] Work Phone: Comment on above: Expected: 11/18/2022 , Expires: 01/18/2023 Start: 11-18-2022 End: 01-18-2023 T4/FTI/T4U T4/FTI/T4U Lab Routine Hyperhidrosis Expected: 11/18/2022, Expires: 01/18/2023 [facility] Work Phone: Comment on above: Expected: 11/18/2022 , Expires: 01/18/2023 Start: 11-18-2022 End: 01-18-2023 Thyrotropin [Units/volume] in Serum or Plasma TSH BLD Lab Routine Hyperhidrosis Expected: 11/18/2022, Expires: 01/18/2023 [facility] Work Phone: Comment on above: Expected: 11/18/2022 , Expires: 01/18/2023 Start: 06-29-2022 End: 08-29-2022 Lipid 1996 panel - Serum or Plasma LIPID PANEL BASIC Lab Routine Hyperlipidemia, mixed Expected: 06/29/2022, Expires: 08/29/2022 [facility] Work Phone: Comment on above: Expected: 06/29/2022 , Expires: 08/29/2022 Start: 05-05-2022 ADVANCE DIRECTIVE DISCUSSION ADVANCE DIRECTIVE DISCUSSION [facility] Start: 03-19-2022 Mammography MAMMOGRAM [facility] Start: 03-04-2022 End: 03-04-2023 CBC W Auto Differential panel - Blood CBC + DIFF Lab Routine Hyperlipidemia, mixed Expected: 03/04/2022, Expires: 03/04/2023 [facility] Work Phone: Comment on above: Expected: 03/04/2022 , Expires: 03/04/2023 Start: 03-04-2022 End: 03-04-2023 Comprehensive metabolic 2000 panel - Serum or Plasma COMP METABOLIC PANEL Lab Routine Hyperlipidemia, mixed Expected: 03/04/2022, Expires: 03/04/2023 [facility] Work Phone: Comment on above: Expected: 03/04/2022 , Expires: 03/04/2023 Start: 03-04-2022 End: 03-04-2023 Lipid 1996 panel - Serum or Plasma LIPID PANEL BASIC Lab Routine Hyperlipidemia, mixed Expected: 03/04/2022, Expires: 03/04/2023 [facility] Work Phone: Comment on above: Expected: 03/04/2022 , Expires: 03/04/2023 Start: 01-03-2022 Influenza vaccination INFLUENZA (#1) [facility] Start: 05-05-2021 ADVANCE DIRECTIVE DISCUSSION ADVANCE DIRECTIVE DISCUSSION [facility] Start: 04-17-2021 COVID-19 VACCINE (4 - Booster for Pfizer series) COVID-19 VACCINE (4 - Booster for Pfizer series) [facility] Start: 04-17-2021 COVID-19 VACCINE (4 - Pfizer series) COVID-19 VACCINE (4 - Pfizer series) [facility] Start: 01-24-2020 BONE DENSITY BONE DENSITY [facility] Start: 2015 RSV Vaccine (1 - 1-d ose 60+ series) RSV Vaccine (1 - 1-dose 60+ series) [facility] Start: 01-24-2000 COLOGUARD (FIT-DNA) COLOGUARD (FIT-D NA) [facility] Start: 01-24-[address] COLONOGRAPHY [facility] Start: 01-24-2000 FECAL OCCULT BLOOD FECAL OCCULT BLOO D [facility] Start: 01-24-2000 Screening for malign ant neoplasm of colon [facility] Start: 01-24-2000 SIGMOIDOSCOPY SIGMOIDOSCOPY [facility] Start: 1973 Anxiety Screening Anxiety Screening [facility] End: 03-24-2025 CTA Chest vessels W contrast IV CTA CHEST (NONGATED) W IVCON Radiology Routine Aortic ectasia (HCC) 1 Occurrences starting 02/23/2024 until 03/24/2025 [facility] Work Phone: Comment on above: 1 Occurrences starti ng 02/23/2024 until 03/24/2025 End: 05-20-2023 Diagnostic mammography computer-aided detcj uni RADHA DIAGNOSTIC RT Radiology Routine Inconclusive mammography 1 Occurrences starting 04/20/2022 until 05/20/2023 [facility] Work Phone: Comment on above: 1 Occurrences starti ng 04/20/2022 until 05/20/2023 End: 03-30-2023 Dxa bone density study 1/> sites axial skel DXA-AXIAL SKELETON Radiology Routine Screening for osteoporosis Asymptomatic menopause 1 Occurrences starting 03/01/2022 until 03/30/2023 [facility] Work Phone: Comment on above: 1 Occurrences starti ng 03/01/2022 until 03/30/2023 End: 07-25-2023 ECG COMPLETE ECG COMPLETE ECG Routine Screening for ischemic heart disease 1 Occurrences starting 07/24/2022 until 07/25/2023 [facility] Work Phone: Comment on above: 1 Occurrences starti ng 07/24/2022 until 07/25/2023 ECG COMPLETE ECG COMPLETE ECG Routine Cardiac arrhythmia, unspecified cardiac arrhythmia type 07/26/2024 1:51 PM EDT [facility] End: 03-26-2023 Echocardiography ECHO Cardiology Routine Ectatic thoracic aorta (HCC) Nonrheumatic aortic valve stenosis 1 Occurrences starting 03/26/2022 until 03/26/2023 [facility] Work Phone: Comment on above: 1 Occurrences starti ng 03/26/2022 until 03/26/2023 End: 01-18-2024 Echocardiography ECHO Cardiology Routine Nonrheumatic aortic valve stenosis 1 Occurrences starting 01/17/2023 until 01/18/2024 [facility] Work Phone: Comment on above: 1 Occurrences starti ng 01/17/2023 until 01/18/2024 End: 09-09-2024 HOME SLEEP APNEA TEST (HSAT) HOME SLEEP APNEA TEST (HSAT) Procedures Routine Malaise and fatigue Snoring Class 2 severe obesity with serious comorbidity and body mass index (BMI) of 36.0 to 36.9 in adult, unspecified obesity type (HCC) Hypersomnia, unspecified 1 Occurrences starting 09/10/2023 until 09/09/2024 [facility] Comment on above: 1 Occurrences starti ng 09/10/2023 until 09/09/2024 End: 03-30-2023 RADHA SCREENING W RYAN RADHA SCREENING W RYAN Radiology Routine Screening for osteoporosis Asymptomatic menopause Encounter for screening for osteoporosis Encounter for screening mammogram for malignant neoplasm of breast 1 Occurrences starting 03/01/2022 until 03/30/2023 [facility] Work Phone: Comment on above: 1 Occurrences starti ng 03/01/2022 until 03/30/2023 End: 07-07-2025 MG Breast - left Diagnostic for implant RADHA DIAGNOSTIC LEFT Radiology Routine Abnormal mammogram 1 Occurrences starting 06/07/2024 until 07/07/2025 [facility] Work Phone: Comment on above: 1 Occurrences starti ng 06/07/2024 until 07/07/2025 OUTSIDE VENDOR CARDI AC OUTPATIENT EXTENDED RHYTHM RECORDING (WITHOUT TELEMETRY) OUTSIDE VENDOR CARDIAC OUTPATIENT EXTENDED RHYTHM RECORDING (WITHOUT TELEMETRY) Holter Routine Cardiac arrhythmia, unspecified cardiac arrhythmia type Ordered: 07/26/2024 [facility] Work Phone: Comment on above: Ordered: 07/26/2024 Troponin T.cardiac [Mass/volume] in Serum or Plasma by High sensitivity method [facility] UA DIP, URINE (POC) UA DIP, URIN E (POC) Lab Routine Dysuria Ordered: 06/01/2024 [facility] Comment on above: Ordered: 06/01/2024 Urinalysis complete panel - Urine URINALYSIS, WITH MICROSCOPIC Lab Routine Dysuria Ordered: 06/01/2024 [facility] Work Phone: Comment on above: Ordered: 06/01/2024 End: 07-07-2025 US Breast - left limited US BREAST LTD LEFT Radiology Routine Abnormal mammogram 1 Occurrences starting 06/07/2024 until 07/07/2025 [facility] Comment on above: 1 Occurrences starti ng 06/07/2024 until 07/07/2025 End: 05-20-2023 Us breast uni real time with image limited US BREAST LTD RT Radiology Routine Inconclusive mammography 1 Occurrences starting 04/20/2022 until 05/20/2023 [facility] Work Phone: Comment on above: 1 Occurrences starti ng 04/20/2022 until 05/20/2023 [facility] Immunizations Immunization Date Immunization Notes Care Provider Britta [facility] 03-26-2022 influenza, high-dose , quadrivalent vaccine (FLUZONE HIGH DOSE QUADRIVALENT) Sterling Coleman MD Work Phone: [facility] 03-26-2022 influenza virus vacc ine, unspecified formulation Elly Donahue MD Work Phone: [facility] 03-15-2021 influenza, high-dose , quadrivalent vaccine (FLUZONE HIGH DOSE QUADRIVALENT) Sterling Coleman MD Work Phone: [facility] 02-20-2021 COVID-19 original vaccine, age 12+ yr, monovalent ([employer] - PURPLE TOP) Sterling Coleman MD Work Phone: [facility] 08-01-2020 Covid (Pfizer) Dr. Sterling winter MD Work Phone: [facility] 07-11-2020 Covid (Pfizer) Dr. Sterling winter MD Work Phone: [facility] 06-12-2020 pneumococcal conjuga te vaccine, 13 valent Sterling Coleman MD Work Phone: [facility] 06-12-2020 zoster vaccine recombinant Sterling Coleman MD Work Phone: [facility] 01-03-2020 influenza, injectabl e, quadrivalent, preservative free Sterling Coleman MD Work Phone: [facility] 01-03-2020 influenza, seasonal, injectable Sterling Coleman MD Work Phone: [facility] Work Phone: 01-03-2020 zoster vaccine recombinant Sterling Coleman MD Work Phone: [facility] Work Phone: 11-17-2019 pneumococcal polysaccharide vaccine, 23 valent Sterling Coleman MD Work Phone: [facility] 11-17-2019 zoster vaccine recombinant Sterling Coleman MD Work Phone: [facility] 12-28-2016 influenza, injectabl e, quadrivalent, contains preservative Sterling Coleman MD Work Phone: [facility] 12-28-2016 influenza, injectabl e, quadrivalent, preservative free Sterling Coleman MD Work Phone: [facility] 12-28-2016 zoster vaccine, live Sterling Coleman MD Work Phone: [facility] 08-29-2016 tetanus toxoid, redu jason diphtheria toxoid, and acellular pertussis vaccine, adsorbed Sterling Coleman MD Work Phone: [facility] Work Phone: 03-23-2015 influenza, seasonal, injectable Sterling Coleman MD Work Phone: [facility] 09-07-2008 tetanus toxoid, redu jason diphtheria toxoid, and acellular pertussis vaccine, adsorbed Sterling Coleman MD Work Phone: [facility] Work Phone: Payers Date Payer Category Payer Medicare [id number] 2020 Private Health Insurance MMO MED ICARE SUPPLEMENT [id number] 2020 Unknown MMO MMO MEDICARE SUPPLEMENT [id number] 2020-Present [phone] [address] [place] [address] Indemnity [id number] 2020 Medicare [id number] 2020 Unknown [id number] Social History Date Type Detail Facility Start: 10-17-2015 End: 11-26-2024 Tobacco smoking status NHIS Never smoked tobacco [facility] Start: 10-17-2015 End: 03-26-2022 Tobacco use and exposure Smokeless tobacco non-user [facility] Start: 04-20-2021 End: 09-20-2024 Alcohol intake Current drinker of alcohol (finding) [facility] Start: 01-09-2017 Alcohol Comment [facility] Start: 1955 Sex Assigned At Female C [facility] Start: 03-21-2021 End: 03-26-2022 Exposure to SARS-CoV-2 (event) Not sure [facility] Start: 11-18-2022 End: 07-26-2024 History of Social function [facility] Start: 11-18-2022 End: 07-26-2024 Social connection and isolation panel [facility] Do you belong to any clubs or organizations such as confucianist groups, unions, fraternal or athletic groups, or school groups? No [facility] Are you now , , , , never or living with a partner? [facility] How often to you hav e a drink containing alcohol? Monthly or less [facility] How many standard dr inks containing alcohol do you have on a typical day? 1 or 2 [facility] How often do you hav e 6 or more drinks on 1 occasion? Never [facility] How hard is it for y ou to pay for the very basics like food, housing, medical care, and heating Not hard at all [facility] Do you feel stress - tense, restless, nervous, or anxious, or unable to sleep at night because your mind is troubled all the time - these days [OSQ] To some extent [facility] (I/We) worried wheth er (my/our) food would run out before (I/we) got money to buy more. Never true [facility] Start: 05-10-2021 Gender identity Identifies as female gender (finding) [facility] Do you feel stress - tense, restless, nervous, or anxious, or unable to sleep at night because your mind is troubled all the time - these days [OSQ] Rather much [facility] Functional Status Date Assessment Result Facility 07-26-2024 Total score [AUDIT-C] 1 07/27/19 11:10 AM EDT UserKelly [facility] 07-26-2024 Within the last year , have you been humiliated or emotionally abused in other ways by your partner or ex-partner? No 07/26/2024 11:10 AM EDT UserKelly [facility] 07-26-2024 Within the last year , have you been afraid of your partner or ex-partner? No 07/26/2024 11:10 AM EDT UserKelly [facility] 07-26-2024 Within the last year , have you been raped or forced to have any kind of sexual activity by your partner or ex-partner? No 07/26/2024 11:10 AM EDT UserKelly [facility] 07-26-2024 Within the last year , have you been kicked, hit, slapped, or otherwise physically hurt by your partner or ex-partner? No 07/26/2024 11:10 AM EDT User, Mychart No [facility] 07-26-2024 How often to you hav e a drink containing alcohol? Monthly or less 07/26/2024 11:10 AM EDT User, Mychart Monthly or less [facility] 07-26-[address] inks containing alcohol do you have on a typical day? 1 or 2 07/26/2024 11:10 AM EDT User, Mychart 1 or 2 [facility] 07-26-2024 How often do you hav e 6 or more drinks on 1 occasion? Never 07/26/2024 11:10 AM EDT User, Mychart Never [facility] Mental Status Date Assessment Result Facility 11-26-2024 Cognitive function Voice/Name [facility] Work Phone: Clinical Notes 01-09-2017 to 11-26-2024 Note Date & Type Note Facility 11-26-2024 Radiology Diagnostic study note [facility] Imaging Services [address] [place] [address] Chest PA and Lateral MR#: [id number] Acct: [id number] Name: MECHE FOUNTAIN Rep #: [id number] : 1955 F 69 From: Melia Poe MD PCP: Dr. Sterling Coleman MD Status: REG E R Study:Chest PA and Lateral Date of Exam: 11/26/24 Exam# [id number] Ordering Dr: Cristo Amaro DO PROCEDURE: CHEST PA AND LATERAL 11/26/2024 REASON FOR EXAM: DIZZY TECHNIQUE: CHEST PA AND LATERAL COMPARISON: None FINDINGS: Hardware: EKG leads are present. Heart: Normal Mediastinum: Normal Lungs: Clear Bones: Degenerative changes are identified within the thoracic spine. RAD/Chest PA and Lateral IMPRESSION: No acute abnormality Reading Location: [id number] CC: Dr. Sebastian Amaro DO; Dr. Sterling Coleman MD ~ Mutuel Cashier: Signed [facility] 11-26-2024 Discharge summary [facility] 11-26-2024 Discharge summary Note Date/Time November 26, 2024 2:57pm [facility] Medical Records Department [address] [place] [address] Emergency Department Summary 11/26/24 MR#: [id number] Acct: [id number] Name: MECHE FOUNTAIN Rep #:[id number] : 1955 69 From: Sebastian Amaro DO [...] around 10:40 AM thismorning she was at [employer] and noted that while in the store [...] follow commands knew that she was at [facility] the year is 2024. NIH of [...] 79.4 H Lymph % (Auto) 12.7 L [place] % (Auto) 5.2 Eos % (Auto) 1.8 [...] physician, Dr. Amaro at12:07 PM Reading Location: [facility] Head/Neck CTA 11/26/24 11:53 IMPRESSION: 1. No aneurysm or stenosis seen. 2. No large vessel occlusion. 3. Incidental thyroid nodule at the isthmus. Recommend nonemergent outpatient ultrasound of the thyroid gland. Reading Location: [facility] Discharge Plan Triage Chief Complaint: Dizziness ED Provider: Sebastian Amaro Dx/Rx/DC Orders Clinical Impression: Dizziness, Nausea & vomiting, History of aortic stenosis Prescriptions: No Action rosuvastatin 10 mg tablet 10 mg PO QHS aspirin 81 mg tablet,delayed release (DR/EC) 81 mg PO DAILY Primary Care Provider: Sterling Coleman Referrals: Sterling Coleman MD [Primary Care Provider] - Print Language: Hungarian Disposition Disposition: Acute Care Hospital [facility] What to do if you have Problems For any increased pain, shortness of breath, bleeding, nausea or vomiting, chestpain, or any unexpected problems, contact your Primary Care Provider. Call [facility] ([phone]) or report to the closest Emergency Room. Call 911 if necessary. 11/26/24 0669 <Electronically signed by Sebastian Amaro DO> Cosigner Signature (if applicable): CC: Dr. Sterling Coleman MD ~ Signed [facility] Work Phone: 1(899) 853-408307-25-2025 Radiology Diagnostic study note [facility] Imaging Services [address] [place] [address] STROKE CTA Head AND Neck W/Con MR#: [id number] Acct: [id number] Name: MECHE FOUNTAIN Rep #: [id number] : 1955 F 69 From: Melia Poe MD PCP: Dr. Sterling Coleman MD Status: REG E R Study:STROKE CTA Head AND Neck W/Con Date of Exam: 11/26/24 Exam# [id number] Ordering Dr: Cristo Amaro DO PROCEDURE: STROKE [...] Posterior cerebral arteries: Hypoplastic/aplastic P1 segments. origin septic tank cleaner. Other major branches of the posterior circulation: [...] ultrasound of the thyroid gland. Reading Location: [id number] CC: Dr. Sebastian Amaro DO; Dr. Sterling Coleman MD ~ Mutuel Cashier: Signed [facility]07-25-2025 Radiology Diagnostic study note [facility] Imaging Services [address] [place] [id number] STROKE Brain/Head without Cont MR#: [id number] Acct: [id number] Name: MECHE FOUNTAIN Rep #: [id number] : 1955 F 69 From: Melia Poe MD PCP: Dr. Sterling Coleman MD Status: REG E R Study:STROKE Brain/Head without Cont Date of Exam: 11/26/24 Exam# [id number] Ordering Dr: Cristo Amaro DO PROCEDURE: STROKE [...] physician, Dr. Amaro at12:07 PM Reading Location: [id number] CC: Dr. Sebastian Amaro DO; Dr. Sterling Coleman MD ~ Mutuel Cashier: Signed [facility]06-30-2025 Telephone encounter Note* Telephone Encounter - Ariana Lennon LPN - 11/01/2024 8:36 AM EDT Patient/Family calling with additional questions regarding financials and billing. Patient/Family directed in the following manner: For financial questions about an upcoming service, contact Patient Director Hris by calling toll-free at [phone] and request to speak with a house supervisor. For questions regarding a medical bill for a past / post service, contact a Casino Banker by calling toll-free at [phone] and request to speak with a house supervisor. Patient/Family verbalized understanding. [facility]06-30-2025 Miscellaneous Notes* Telephone Encounter - Ariana Lennon LPN - 11/01/2024 8:36 AM EDT Patient/Family calling with additional questions regarding financials and billing. Patient/Family directed in the following manner: For financial questions about an upcoming service, contact Patient Director Hris by calling toll-free at [phone] and request to speak with a house supervisor. For questions regarding a medical bill for a past / post service, contact a Casino Banker by calling toll-free at [phone] and request to speak with a house supervisor. Patient/Family verbalized understanding. documented in this encounterUniversity Hospitals [facility]05-19-2025 Instructions* Patient Instructions* Elly Donahue MD - 09/20/2024 11:00 AM EDT We will repeat an echocardiogram in Sept documented in this encounterUniversity Hospitals [facility]point Medical Center05-19-2025 History of Present illness Narrative* Elly Donahue MD - 09/20/2024 10:40 AM EDT Images from the original note were not included. [facility] SECTION OF REGIONAL CARDIOLOGY Cardiology ([facility]) [address] [facility] [id number] OUTPATIENT VISIT DATE 09/19/2024 PRIMARY CARE PHYSICIAN: [place] [address] REFERRING PHYSICIAN: Sterling Roca [facility] [address] HISTORY OF PRESENT ILLNESS: Ms. Fountain is [...] by mouth daily at bedtime. Fish Oil-DHA-EPA 1,200-234-216 mg cap Take 2 capsules by mouth [...] mg/dL Elly Donahue MD documented in this encounterUniversity Hospitals Tripoint Medical Center05-19-2025 NoteHNO ID: [id number] Author: ELLY DONAHUE MD Service: ? Author Type: Physician Type: Progress Notes Filed: 09/20/2024 12:06 Note Text: [facility] SE[facility] REGIONAL CARDIOLOGY Cardiology ([address]) [address] [facility] [address] OUTPATIENT VISIT DATE 09/19/2024 PRIMARY CARE PHYSICIAN: [place] [address] REFERRING PHYSICIAN: Sterling Roca Lorimor Osvaldo [facility] [address] HISTORY OF PRESENT ILLNESS: Ms. Fountain is [...] Prior pk/mn gradients were (more content not included)...[facility]03-24-2025 NoteHNO ID: [id number] Author: STERLING COLEMAN MD Service: ? Author [...] ICD10: Z13.39 - ANXIETY SCREENING Sterling Coleman, [facility]03-24-2025 History of Present illness Narrative* Sterling Coleman [...] PCP - General (Family Medicine) Elenita Wang APRN.TOPOGRAPHICAL FIELD ASSISTANT as Hi Lo Driver (Family Medicine) Elaine Trevino APRN.CNP as Hi Lo Driver (Family Medicine) Outside specialists seen: Dr Donahue, cardiology. [facility]. [facility] [place], Dermatology Dr Holley, business analysis specialist. Medical/Family history review Reviewed and updated problem [...] provided Sterling Coleman MD documented in this encounterUniversity Hospitals Tripoint Medical Center03-24-2025 NoteHNO ID: [id number] Author: STERLING COLEMAN MD Service: ? Author [...] PCP - General (Family Medicine) Elenita Wang, KESHA.TOPOGRAPHICAL FIELD ASSISTANT as Hi Lo Driver (Family Medicine) Elaine Trevino APRN.CNP as Hi Lo Driver (Family Medicine) Outside specialists seen: Dr Dnoahue, cardiology. [facility]. Luciano Oneill, Dermatology Dr Holley, business analysis specialist. Medical/Family history review Reviewed and updated problem [...] - Personalized prevention plan provided Sterling Coleman [facility]03-24-2025 Instructions* Patient Instructions* Sterling Coleman MD - [...] review all the medicines you take, even jsco-org-yglngjn medicines. As you get older, the way [...] have certain medical conditions. documented in this encounterUniversity Hospitals Tripoint Medical Center03-24-2025 NoteHNO ID: [id number] Author: LIBORIO WILSON MD Service: ? Author [...] were present. Ventricular Bigeminy and Trigeminy were present.[facility]02-12-2025 NoteHNO ID: [id number] Author: TAYLOR MENDIOLA MA Service: ? Author Type: Power Project Manager Type: Progress Notes Filed: 06/16/2024 13:03 Note [...] Annual Wellness Visit Flu Vaccine 07/26/2024 in [facility] with [place], STERLING J - MEDICARE WELLNESS 09/20/2024 in [facility] with ELLY DONAHUE - Follow up HCC related Navigation Signature: Taylor Mendiola MA June 16, 2024 12:56 [facility]02-12-2025 History of Present illness Narrative* Taylor Mendiola [...] Annual Wellness Visit Flu Vaccine 07/26/2024 in [facility] with STERLING COLEMAN - MEDICARE WELLNESS 09/20/2024 in [facility] with ELLY DONAHUE - Follow up HCC related Navigation Signature: Taylor Mendiola MA June 16, 2024 12:56 PM documented in this encounterUniversity Hospitals Tripoint Medical Center02-12-2025 NotePatient Outreach (NETNAV) MECHE FOUNTAIN ([id number]) 1955 F Date Time Provider Department 06/16/24 [...] Wellness Visit Flu Vaccine 07/26/2024 in [facility] with STERLING COLEMAN - MEDICARE WELLNESS 09/20/2024 in [facility] with ELLY DONAHUE - Follow up 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] 05/02/2021 Dyspareunia [[id number]] 03/26/2022 03/26/2022 Gynecological disease [N94.9] 03/26/2022 03/26/2022 Stress incontinence in female [N39.3] 03/26/2022 Perspiration-excessive [R61] 08/03/2022 Diagnosed: 04/30/2023 Left sided sciatica [M54.32] 05/07/2023 Encounter Status:Closed by TAYLOR MENDIOLA on 06/16/24[facility]02-08-2025 History of Present illness Narrative* Raymond Mckeon [...] PATIENT PRESENTS WITH AN IMPLANTABLE OR ATTACHED BOBBIN MARKER: No RADIOLOGY DEPARTMENT: Mammography PERIPHERAL IV DATA: Not applicable SIGNED BY: Yue CAICEDO June 12, 2024 8:21 AM * [...] PATIENT PRESENTS WITH AN IMPLANTABLE OR ATTACHED BOBBIN MARKER: No RADIOLOGY DEPARTMENT: Ultrasound PERIPHERAL IV DATA: Not applicable SIGNED BY: FRANCIA Mendoza June 12, 2024 8:57 AM documented in this encounterUniversity Hospitals Tripoint Medical Center02-08-2025 NoteHNO ID: [id number] Author: CHASE ROMEO CT Service: Radiology Author [...] PATIENT PRESENTS WITH AN IMPLANTABLE OR ATTACHED BOBBIN MARKER: No RADIOLOGY DEPARTMENT: Ultrasound PERIPHERAL IV DATA: Not applicable SIGNED BY: FRANCIA Mendoza June 12, 2024 8:57 AMBrown Memorial [id number] NoteHNO ID: [id number] Author: RAYMOND MCKEON RT(R) Service: Radiology Author [...] PATIENT PRESENTS WITH AN IMPLANTABLE OR ATTACHED BOBBIN MARKER: No RADIOLOGY DEPARTMENT: Mammography PERIPHERAL IV DATA: Not applicable SIGNED BY: Yue CAICEDO June 12, 2024 8:21 AMBrown Memorial [id number] History of Present illness Narrative* Eliseo Campos [...] PATIENT PRESENTS WITH AN IMPLANTABLE OR ATTACHED BOBBIN MARKER: No RADIOLOGY DEPARTMENT: Mammography PERIPHERAL IV DATA: Not applicable SIGNED BY: Judd Lynch June 07, 2024 8:51 AM documented in this encounterUniversity Hospitals Tripoint Medical Center02-03-2025 NoteHNO ID: [id number] Author: EILSEO CAMPOS Mammo Tech Service: ? Author Type: [...] PATIENT PRESENTS WITH AN IMPLANTABLE OR ATTACHED BOBBIN MARKER: No RADIOLOGY DEPARTMENT: Mammography PERIPHERAL IV DATA: Not applicable SIGNED BY: Judd Lynch Revver June 07, 2024 8:51 [facility]01-28-2025 Telephone encounter Note* Telephone Encounter - Sandra Love MA - 06/01/2024 3:10 PM EST Pt informed Sandra Love MA [facility]01-28-2025 Miscellaneous Notes* Telephone Encounter - [...] x day as needed. documented in this encounterUniversity Hospitals Tripoint Medical Center01-28-2025 Telephone encounter Note * Telephone Encounter - Elaine Trevino APRN.CNP - 06/01/2024 2:52 PM EST Please let pt. Know that chest xray was normal.. I am sending methocarbamol (mild muscle relaxant) in to her pharmacy to help with the knots. May take up to 3 x day as needed. [facility]01-28-2025 Note* Addendum Note - Elaine Trevino APRN.CNP - 06/01/2024 2:42 PM ESTAddended by: ELAINE TREVINO on: 06/01/2024 02:42 PM Modules accepted: Orders [facility]01-28-2025 Miscellaneous Notes* Addendum Note - Elaine Trevion APRN.CNP - 06/01/2024 2:42 PM ESTAddended by: ELAINE TREVINO on: 06/01/2024 02:42 PM Modules accepted: Orders documented in this encounterUniversity Hospitals Tripoint Medical Center01-28-2025 History of Present illness Narrative* [...] PATIENT PRESENTS WITH AN IMPLANTABLE OR ATTACHED BOBBIN MARKER: No RADIOLOGY DEPARTMENT: General X-ray: Exam(s) Completed: Chest X-Ray PERIPHERAL IV DATA: Not applicable SIGNED BY: Chitra Dupree June 01, 2024 2:04 PM documented in this encounterUniversity Hospitals Tripoint Medical Center01-28-2025 NoteHNO ID: [id number] Author: EUNICE AMADOR Tech Service: ? Author [...] PATIENT PRESENTS WITH AN IMPLANTABLE OR ATTACHED BOBBIN MARKER: No RADIOLOGY DEPARTMENT: General X-ray: Exam(s) Completed: Chest X-Ray PERIPHERAL IV DATA: Not applicable SIGNED BY: Chitra Dupree June 01, 2024 2:04 [facility]01-28-2025 Instructions* Patient Instructions* Elaine Trevino APRN.CNP - 06/01/2024 1:45 PM EST 1) Urinalysis today- Provider collect 2) Chest xray 3) Follow up in 2 weeks documented in this encounterUniversity Hospitals Tripoint Medical Center01-28-2025 NoteHNO ID: [id number] Author: ELAINE TREVINO APRN.CNP Service: ? Author [...] as needed for worsening/no improvement. Elaine Trevino APRN.[facility]01-28-[facility] History of Present illness Narrative* Elaine Trevino [...] improvement. Elaine Trevino APRN.ALISA documented in this encounterUniversity Hospitals Tripoint Medical Center11-08-2024 History of Present illness Narrative* [...] PATIENT PRESENTS WITH AN IMPLANTABLE OR ATTACHED BOBBIN MARKER: No RADIOLOGY DEPARTMENT: CT; Exam(s) Completed: Cardiac PERIPHERAL IV DATA: Site assessment: Clean,Dry and Intact, Site disposition Discontinued SIGNED BY: TECHNOLOGIST Dinorah March 12, 2024 4:19 PM documented in this encounterUniversity Hospitals Tripoint Medical Center11-08-2024 NoteHNO ID: [id number] Author: LAURENCE DREW TECHNOLOGIST Service: Radiology Author [...] PATIENT PRESENTS WITH AN IMPLANTABLE OR ATTACHED BOBBIN MARKER: No RADIOLOGY DEPARTMENT: CT; Exam(s) Completed: Cardiac PERIPHERAL IV DATA: Site assessment: Clean,Dry and Intact, Site disposition Discontinued SIGNED BY: TECHNOLOGIST Dinorah March 12, 2024 4:19 PMBrown [facility] [id number] Nurse Note* Lucas Marr RN - 03/12/2024 [...] DATE: March 12, 2024 TIME: 4:08 PM [facility]11-08-2024 Nurse Note* Lucas Marr RN [...] 2024 TIME: 4:08 PM documented in this encounterUniversity Hospitals Tripoint Medical Center10-21-2024 Instructions* Patient Instructions* Elly Donahue MD - 02/23/2024 11:24 AM EDT We are going to repeat a CT scan You need blood work the week prior documented in this encounterUniversity Hospitals Tripoint Medical Center10-21-2024 History of Present illness Narrative* Elly Donahue MD - 02/23/2024 11:00 AM EDT Images from the original note were not included. [facility] SECTION OF REGIONAL CARDIOLOGY Cardiology ([address] [place] ) [address] [facility] [address] OUTPATIENT VISIT DATE 06/16/2023 PRIMARY CARE PHYSICIAN: Sterling Coleman [address] [place] [address] REFERRING PHYSICIAN: Sterling Coleman [address] [facility] [address] HISTORY OF PRESENT ILLNESS: Ms. Fountain is [...] BLD Elly Donahue MD documented in this encounterUniversity Hospitals Tripoint Medical Center10-21-2024 NoteHNO ID: [id number] Author: ELLY DONAHUE MD Service: ? Author Type: Physician Type: Progress Notes Filed: 02/23/2024 11:37 Note Text: [facility] SECTION [facility] REGIONAL CARDIOLOGY Cardiology ([address]) [address] [facility] [id number] OUTPATIENT VISIT DATE 06/16/2023 PRIMARY CARE PHYSICIAN: [place] [address] REFERRING PHYSICIAN: Sterling Roca [facility] [address] HISTORY OF PRESENT ILLNESS: Ms. Fountain is [...] 0 RCA: 0 Echocardiogram (more content not included)...[facility] 12-29-2023 NoteHNO ID: [id number] Author: ?, ?, ? Service: ? Author Type: ? Type: Progress Notes Filed: 12/29/2023 09:50 Note Text: Sleep Study Check-In Documentation Date: December 29, 2023 Name: Meche Fountain Comments: HST was returned in working order with all sleep questionnaires Leila EliProm[facility]08-22-2024 NoteHNO ID: [id number] Author: ?, ?, ? Service: ? Author Type: ? Type: Progress Notes Filed: 12/25/2023 17:18 Note Text: Nomad# , date shipped out 12/25/23 [employer] BOTH WAYS Tracking mailout: [phone] [id number] Tracking return: [id number] [id number]08-02-2024 Telephone encounter Note* Telephone Encounter - Beverley [...] return to twice weekly Beverley Archer RN [facility]08-02-2024 Miscellaneous Notes* Telephone Encounter - [...] weekly Beverley Archer RN documented in this encounterUniversity Hospitals Tripoint Medical Center05-28-2024 History of Present illness Narrative* Betty Akins - 09/30/2023 4:27 PM EDT Sleep Study Check-In Documentation Date: September 30, 2023 Name: Meche Fountain Comments: HST was returned in working order with all sleep questionnaires Betty Akins * Betty Akins - 09/25/2023 4:45 PM EDT Nomad # [id number] , date shipped out 09-25-23 [employer] Ex only Tracking mailout: [phone] [id number] Tracking return: [id number] * Vikas Humphries III, PhD - 09/19/2023 3:02 PM EDT September 19, 2023 Standing PSG Orders signed in the last 90 days None Future PSG Orders signed in the last 90 days Ordered Auth. provider CONSULT TO SLEEP MEDICINE - ADULT [[id number]] 09/10/23 Viktoria Marquez MD Assoc. diagnoses: Malaise and fatigue [R53.81, R53.83], Snoring [R06.83], Body mass index (BMI) 36.0-36.9, adult [Z68.36], Class 2 severe obesity with serious comorbidity and body mass index (BMI) of36.0 to 36.9 in adult, unspecified obesity type (HCC) [E66.01, Z68.36] Q: Does consulting provider have [facility] access?: A: Yes HOME SLEEP APNEA TEST (HSAT) [[id number]] 09/10/23 Viktoria Marquez MD Assoc. diagnoses: Malaise [...] from Viktoria Price MD , a B. [facility] Staff. Visit prep complete. Comments :No The sleep study is scheduled for 09/24. Insurance: Payor: MEDICARE / Plan: MEDICARE A AND B / Product Type: Medicare / Payer/Plan Subscr Sex Relation Sub. Ins. ID Effective Group Num 1. MEDICARE - [place]* MECHE FOUNTAIN 1955 Female Self [id number] 01/04/20 [address] [address] 2. MMO - MMO MED* MECHE FOUNTAIN 1955 Female Self [id number] 01/[birth year]/20 [address] Luli Barraza documented in this encounterUniversity Hospitals Tripoint Medical Center05-14-2024 Telephone encounter Note * Telephone Encounter - Savi Geiger LPN - 09/16/2023 4:46 PM EDT Pt sent Getix message re: current insurance information to submit PA for Mounjaro. Will await further response from pt. Savi Geiger LPN' [facility]05-14-2024 Miscellaneous Notes* Telephone Encounter - Savi Geiger LPN - 09/16/2023 4:46 PM EDT Pt sent Getix message re: current insurance information to submit PA for Mounjaro. Will await further response from pt. Savi Geiger LPN' documented in this encounterUniversity Hospitals Tripoint Medical Center05-13-2024 Telephone encounter Note * Telephone Encounter - Heide Meléndez RN - 09/15/2023 9:51 AM EDT Patient notified. Heide Meléndez RN [facility]05-13-2024 Miscellaneous Notes* Telephone Encounter - [...] appointment. Sent to rosemarie documented in this encounterUniversity Hospitals Tripoint Medical Center05-13-2024 Telephone encounter Note * Telephone Encounter - Viktoria Marquez MD - 09/15/2023 8:05 AM EDT Please call and notify patient that she has elevated fasting glucose as well as significantly elevate insulin level. I would like to try to get Injectable medication covered- will try mounjaro. Very important that she decrease her carbohydrates as we discussed at appointment. 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 - Last Wt 09/10/23 : 195 lb [...] diet:unhealthy snacking, excessive cravings, and evening snacking. Lead Assembler of impaired eating habits:mindlessness , emotion, and [...] intervention is the best and most appropriate halfway therapeutic option. -- We discussed several strategies [...] and cardiovascular exercise is the best intermediate frame tender plan. An overall goal of 150-200 minutesper [...] which included preparing to see the patient, qrjc-kg-ugly patient care, completing clinical documentation, obtaining and/or reviewing separately obtained history, performing a medically appropriate examination, counseling and educating the pat ient/family/caregiver, and ordering medications, tests, or procedures. Viktoria Patten MD, FACOG, ALISEOM documented in this encounterUniversity Hospitals Tripoint Medical Center05-08-2024 Instructions* Patient Instructions* Viktoria Marquez [...] adds only a little benefit for intermediate frame tender weight loss success. However, exercise can have [...] that affects nearly one-third of the adult [place] population (approximately 60 million). The number of overweight and obese Americans has continued to increase since 1959, a trend that is not slowing down. Today, 64.5 percent of adult Americans (about 127 million) are categorized as being overweight or obese. Each year, obesity causes at least 300,000 excess deaths in the [place] and healthcare costs of [place] adults with obesity amount to approximately $100 [...] the gallbladder, breast, uterus, cervix, or ovaries https://.[facility]/health/diseases/50678-ksghqq-povjayxjob-lcfocqf-n ducation Nutrition - Eat primarily whole foods. [...] and meals from a variety of companies ([employer], HMR, Optifast, and Slimfast). The calorie content [...] Broccoli Brussel sprouts Cabbage Carrots Cauliflower Celery [place]wood Eggplant Green beans Lettuce Peppers Snap peas [...] oz is 28 gm protein Beef, Chicken, [place], Pork, Bermudez 1 oz 7g Fish, Tuna [...] protein & 2 carb Protein AND carbs Beef/[place] Jerky 1 oz dried 10-15g protein - [...] oz - 8g protein & 12g carb Peruvian yogurt Full Fat Peruvian Yogurt 1 cup - 20.4g protein & 9.1g carb 2% Peruvian Yogurt 1 cup - 22.7g protein & 9.1g carb 0% (fat-free) Peruvian Yogurt - 1 cup 24g protein & 9.3g carb Aldi Protein Peruvian yogurt single svg - 15g protein & 7g carb Chobani Zero Sugar single svg: - 11g protein & 5g carb Dannon Light + Fit 1 single svg - 12g protein & 9g carb Oikos Pro single svg - 20g protein & 8g carb Oikos Triple Zero Peruvian Nonfat Yogurt 1 single svg - 15g protein & 7g carb :ratio, KETO Friendly Dairy Snack 1 single svg - 15g protein & 2g carb :ratio Protein 1 single svg - 25g protein & 8g carb Two Good Lowfat Peruvian Yogurt, [place], Lower Sugar - 12g protein & 2g carb Cheese each oz Brie 5.9g protein & 0.1g carb Cheddar Cheese 7g protein & 0.4g carb Mozzarella Cheese 6.3g protein & 0.6g carb Raymon Cheese 6.7g protein & 0.7g carb Parmesan Cheese 10g protein & 0.9g carb Cream Cheese 1.7g protein & 1.2g carb Feta 4g protein & 1.2g carb Palestinian Cheese 7.6g protein & 1.5g carb Desai s Low Fat Cottage Cheese 1/2cup 12g protein & 4g carb Legumes Lentils cup 9g protein & 20g carb Loja beans cup 7g protein & 20g carb Kidney, Black, Sawmill, Cannellini beans cup 8g protein & 20g carb Soybeans 1/2 c 14g complete protein & 8.5g carb Peanut butter, natural 2 Tbsp 7-8g protein & 4g net carbs, 190 calories PB2 powder 2 Tbsp 6g protein & 5g carb [place] milk, unsweetened 8 oz 1g protein & 2g carb Soy milk 8 oz 3.5g protein & 1.6g carb Tofu 1/2 cup 10g protein & 2.3g carb Nuts and Seeds per oz Pumpkin Seeds - 6.9g protein & 5g carb Almonds - 5.9g protein & 6.1g carb Furman Seeds - 5.8g protein & 5.6g carb Pistachios - 5.8g protein & 7.8g carb Cashews - 5.1g protein & 9.2g carb Walnuts - 4.3g protein & 3.8g carb Hazelnuts - 4.2g protein & 4.7g carb [employer] Nuts - 4.0g protein & 3.4g carb [...] are economical and optimized for taste by [employer] - they are designed to make you [...] Your Sleep To Impact Your Weight Loss: https://aroundtheway.com/ep42/ Weight Loss and Sleep Updated February 11, [...] other sleep disorders) commonly leads to metabolic zwavlutnxsyss47. Poor sleep is associated with increased oxidative [...] researchers are still working to understand this algufsswen47, it s well known that exercise is [...] can improve daytime concentration and decrease daytime qnayybgcwy10. Sleep and Obesity In children and adolescents, [...] the amount of weight lost17 and encourage qvtvebfbqg12. Tips for Quality Sleep During Weight Loss There are many ways to improve sleep. Here are a few research-based tips for sleeping better when you re trying to lose weight: Keep a regular sleep schedule: Big swings in your sleep schedule or trying to catch up on sleep after a week of late nights can cause changes in metabolism and reduce insulin hvluoaitfte98, making iteasier for blood sugar to be elevated. Sleep in a dark room: Exposure to artificial light while sleeping, such as a TV or bedside lamp, isassociated with an increased risk of weight gain and kisxpqj61. Don t eat right before bed: Eating late may reduce the success of weight loss wfgoyasx36 Reduce Stress: Chronic stress may lead to poor sleep and weight gain in several ways, including eating to cope with negative gkfycbrb60 Be an Early Bird: People with late [...] health and weight loss information you read atface value. Weight loss isn t appropriate for everyone and doesn t always mean better health. Remember that health is a lifelong journey that includes not only healthy habits but also having a healthy relationship with your body. If you re considering weight loss, the National Institutes of Health offers a helpful resource for choosing a safe weight loss ccqjtni01aTyvteuk Source National [place] of Diabetes and Digestive and Kidney DiseasesNIDDK research creates knowledge about and treatmentsfor diseases that are among the most chronic, costly, and consequential for patients, their families, and the Nation. niddk.nih.gov . https://www.sleepfoundation.org/physical-health/vastjd-zezq-kiv-sleep Sleep Hygiene Tips Set a sleep schedule [...] gasping for air while sleeping. According to [facility], sleep apnea affects 25% of [...] Ph.D., lead sleep specialist and neuroscientist at [facility], tells [employer] Connect to Care. This means [...] the development of sleep apnea. In addition, [facility] observes that an increased neck circumference can narrow the airway, which can cause snoring and sleep apnea. https://www.[employer].com/hycuvpi-zu-aaiy/sleep-apnea/jbozw-fejve-wfh-weight-gain HOW DOES CHRONIC STRESS AFFECT EATING PATTERNS? [...] meals. Stress can disrupt sleep by causing marine design engineer sleep or more frequent awakenings, which leads [...] increasing the hormone ghrelin (that increases appetite). https://cdn1.[facility].[place].edu/wp-content/uploads/sites//HeatlhyLivingGu kku78-04.1.pdf Foods that fight inflammation January 21, 2020 [...] in the Department of Nutrition at the [employer]. Choose the right anti-inflammatory foods, and you may be able to reduce your risk of illness. Consistently pick the wrong ones, and you could accelerate the inflammatory disease process. Get simple tips to fight inflammation and stay healthy -- from [facility] experts. Protect yourself from the damage of chronic inflammation Click here to learn more Foods that cause inflammation Try to avoid or limit these foods as much as possible: refined carbohydrates, such as white bread and pastries Slovenian fries and other fried foods soda and [...] which suggests weight gain isn't the sole jukebox route driver. Some of the food components or [...] through social media posts about food or [employer](online videos of people eating enormous quantities of [...] How To Swap Sweet Treats MONIQUE Velez (Physitrack) documented in this encounterUniversity Hospitals Tripoint Medical Center04-12-2024 History of Present illness Narrative* [...] Does note she d/w her PCP and lithographer helper and they did recommend she discuss weight management OB History T0 L3 SAB0 IAB0 Ectopic0 Multiple0 Live Births0 Sleeve Machine Tender History LMP: Postmenopausal Age at Menarche: Age at First : Age at Menopause: Sleeve Machine Tender History Comments: Sexual Activity: Not Currently; [...] apparent distress PELVIC: normal Bartholin's glands, urethra, Fordoche's glands, no vulvar lesions, no cervical lesions,physiologic [...] request. Asmita Bhagat MD documented in this encounterUniversity Hospitals Tripoint Medical Center02-12-2024 Instructions* Patient Instructions* Elly Donahue MD - 06/16/2023 4:44 PM EST We will repeat an echocardiogram in Sept documented in this encounterUniversity Hospitals Tripoint Medical Center02-12-2024 History of Present illness Narrative* Elly Donahue MD - 06/16/2023 4:20 PM EST Images from the original note were not included. [facility]STITUTE SECTION OF REGIONAL CARDIOLOGY Cardiology ([address]) [address] [facility] [id number] OUTPATIENT VISIT DATE 06/16/2023 PRIMARY CARE PHYSICIAN: Sterling [place] [address] REFERRING PHYSICIAN: Sterling Roca [facility] [address] HISTORY OF PRESENT ILLNESS: Ms. Fountain is [...] TABLET Elly Donahue MD documented in this encounterUniversity Hospitals Tripoint Medical Center02-12-2024 Instructions* Patient Instructions* Elenita Wang APRN.CNP - 06/16/2023 11:07 AM EST Albuterol as needed for cough/wheeze. Continue same medications. Follow-up w/ dermatology, as planned. documented in this encounterUniversity Hospitals Tripoint Medical Center02-12-2024 History of Present illness Narrative* [...] as needed for worsening/no improvement. Elenita Wang APRN.TOPOGRAPHICAL FIELD ASSISTANT documented in this encounterUniversity Hospitals Tripoint Medical Center11-18-2023 History of Present illness Narrative* [...] will take her self. documented in this encounterUniversity Hospitals Tripoint Medical Center11-16-2023 Miscellaneous Notes* Telephone Encounter - Beverley Peck LPN - 03/20/2023 1:34 PM EST Follow up from virtual visit. Can we get her set up with physical therapy. Ordered. documented in this encounterUniversity Hospitals Tripoint Medical Center09-21-2023 Miscellaneous Notes* Telephone Encounter - Kenia Rosas - 2023 10:49 AM EDT Notified via [employer]. Kenia Rosas MA * Telephone Encounter - Kenia Rosas - 01/22/2023 2:45 PM EDT Attempted to contact patient. No answer, voicemail is full. Sent [employer] message in result note. Will attempt to [...] Dr. Donahue. Thank you! documented in this encounterUniversity Hospitals Tripoint Medical Center09-20-2023 Miscellaneous Notes* Result Encounter Note - Tatum Dotson APRN.CNP - 01/22/2023 10:24 AM EDT Please call patient and notify her of echocardiogram results. Aortic valve parameters are moderate not severe enough for referral for a replacement yet. Please review echocardiogram in detail and symptoms at upcoming office visit with Dr. Donahue. Thank you! documented in this encounterUniversity Hospitals Tripoint Medical Center09-15-2023 Miscellaneous Notes* Telephone Encounter - [...] echo and lab work. Thanks! Tatum Dotson, KESHA.TOPOGRAPHICAL FIELD ASSISTANT documented in this encounterUniversity Hospitals Tripoint Medical Center09-15-2023 Miscellaneous Notes* Telephone Encounter - Sterling Coleman MD - 01/17/2023 8:51 AM EDT Can we triage this documented in this encounterUniversity Hospitals Tripoint Medical Center07-17-2023 History of Present illness Narrative* [...] visit. Either the patient or their legal termite control representative has been informed of the risks and [...] with more than 50% of the total hrjk-fj-uxel time of the visit in counseling / coordination of care. documented in this encounterUniversity Hospitals Tripoint Medical Center06-28-2023 Miscellaneous Notes* Telephone Encounter - Lamar Aponte LPN - 10/30/2022 3:42 PM EDT Patient requests via [employer] refills as follows: Requested Prescriptions Pending Prescriptions Disp Refills sertraline (ZOLOFT) 50 mg tablet 30 tablet 5 Sig: Take 1 tablet by mouth once daily. hydroCHLOROthiazide 25 mg tablet 30 tablet 5 Sig: Take 1 tablet by mouth once daily. As needed for edema BRENDA: 03/26/22 NOV: None scheduled Last Refill: 03/26/22 # 30 5 refills Lamar Aponte LPN documented in this encounterUniversity Hospitals Tripoint Medical Center03-27-2023 Instructions* Patient Instructions* Elly Donahue MD - 07/29/2022 11:09 AM EDT We are starting Crestor 10 mg once per day Repeat fasting blood work in 3 months documented in this encounterUniversity Hospitals Tripoint Medical Center03-27-2023 History of Present illness Narrative* Elly Donahue MD - 07/29/2022 10:40 AM EDT Images from the original note were not included. [facility] SECTION OF REGIONAL CARDIOLOGY Cardiology ([facility]) [address] [facility] [id number] OUTPATIENT VISIT DATE 07/29/2022 PRIMARY CARE PHYSICIAN: [place] [address] REFERRING PHYSICIAN: Sterling Roca [facility] [address] CHIEF COMPLAINT: Aortic valve stenosis HISTORY OF [...] TABLET Elly Donahue MD documented in this encounterUniversity Hospitals Tripoint Medical Center12-19-2022 Miscellaneous Notes* Telephone Encounter - Zeeshan Foster LPN - 04/22/2022 1:09 PM EST Pt notified. She verbalized understanding. Zeeshan Foster LPN * Telephone Encounter - Ginger Lin PA-C - 04/20/2022 10:22 AM EST Inconclusive mammo Please schedule: Telephone on 04/20/22 [facility] RT US BREAST LTD RT Thanks, Moiz Lin PA-C documented in this encounterUniversity Hospitals Tripoint Medical Center11-29-2022 Miscellaneous Notes* Telephone Encounter - [...] recommend having cardiology follow. 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 Your cholesterol shows your bad cholesterol is still high. Your current heart disease risk calculation based on your cholesterol is high enough we could consider a statin medicine to reduce your risk of stroke and heart attack. Are you interested in trying one. Let me know. Dr Coleman documented in this encounterUniversity Hospitals Tripoint Medical Center11-22-2022 History of Past illness Narrative* Problem Noted Date Resolved Date Dyspareunia 03/26/2022 03/26/2022 Gynecological disease 03/26/2022 03/26/2022 Ectatic thoracic aorta 11/02/2018 2 Valvular heart disease 01/09/2017 1 Overview: Mild MR. ? - on echo 01/20 documented as of this encounter (statuses as of 03/26/2022) [facility]11-[facility]22 History of Past illness Narrative* Problem Noted Date Resolved Date Dyspareunia 03/26/2022 03/26/2022 Gynecological disease 03/26/2022 03/26/2022 Ectatic thoracic aorta 11/02/2018 2 Valvular heart disease 01/09/2017 1 Overview: Mild MR. ? - on echo 01/20 documented as of this encounter (statuses as of 03/27/2022) [facility]11-[facility] History of Past illness Narrative* Problem Noted Date Resolved Date Dyspareunia 03/26/2022 03/26/2022 Gynecological disease 03/26/2022 03/26/2022 Ectatic thoracic aorta 11/02/2018 2 Valvular heart disease 01/09/2017 Overview: Mild MR. ? - on echo 01/20 documented as of this encounter (statuses as of 03/29/2022) [facility] History of Past illness Narrative* Problem Noted Date Resolved Date Dyspareunia 03/26/2022 03/26/2022 Gynecological disease 03/26/2022 03/26/2022 Ectatic thoracic aorta 11/02/2018 2 Valvular heart disease 01/09/2017 Overview: Mild MR. ? - on echo 01/20 documented as of this encounter (statuses as of 04/08/2022) [facility] History of Past illness Narrative* Problem Noted Date Resolved Date Dyspareunia 03/26/2022 03/26/2022 Gynecological disease 03/26/2022 03/26/2022 Ectatic thoracic aorta 11/02/2018 2 Valvular heart disease 01/09/2017 Overview: Mild MR. ? - on echo 01/20 documented as of this encounter (statuses as of 04/22/2022) [facility] History of Past illness Narrative* Problem Noted Date Resolved Date Dyspareunia 03/26/2022 03/26/2022 Gynecological disease 03/26/2022 03/26/2022 Ectatic thoracic aorta 11/02/2018 2 Valvular heart disease 01/09/2017 1 Overview: Mild MR. ? - on echo 01/20 documented as of this encounter (statuses as of 07/29/2022) [facility] History of Past illness Narrative* Problem Noted Date Resolved Date Dyspareunia 03/26/2022 03/26/2022 Gynecological disease 03/26/2022 03/26/2022 Ectatic thoracic aorta 11/02/2018 Valvular heart disease 01/09/2017 Overview: Mild MR. ? - on echo 01/20 documented as of this encounter (statuses as of 10/31/2022) [facility] History of Past illness Narrative* Problem Noted Date Diagnosed Date Resolved Date Dyspareunia 03/26/2022 03/26/2022 Gynecological disease 03/26/20222021 Ectatic thoracic aorta 11/02/201803/26 Valvular heart disease 01/09/201705/02 Overview: Mild MR. ? - on echo 01/20 documented as of this encounter (statuses as of 11/19/2022) [facility] History of Past illness Narrative* Problem Noted Date Diagnosed Date Resolved Date Dyspareunia 03/26/2022 03/26/2022 Gynecological disease 03/26/20222021 Ectatic thoracic aorta 11/02/201803/26 Valvular heart disease 01/09/201705/02 Overview: Mild MR. ? - on echo 01/20 documented as of this encounter (statuses as of 01/17/2023) [facility] History of Past illness Narrative* Problem Noted Date Diagnosed Date Resolved Date Dyspareunia 03/26/2022 03/26/2022 Gynecological disease 03/26/20222021 Ectatic thoracic aorta 11/02/201803/26 Valvular heart disease 01/09/201705/02 Overview: Mild MR. ? - on echo 01/20 documented as of this encounter (statuses as of 01/24/2023) [facility] History of Past illness Narrative* Problem Noted Date Diagnosed Date Resolved Date Dyspareunia 03/26/2022 03/26/2022 Gynecological disease 03/26/20222021 Ectatic thoracic aorta 11/02/201803/26 Valvular heart disease 01/09/201705/02 Overview: Mild MR. ? - on echo 01/20 documented as of this encounter (statuses as of 01/24/2023) [facility] History of Past illness Narrative* Problem Noted Date Diagnosed Date Resolved Date Dyspareunia 03/26/2022 03/26/2022 Gynecological disease 03/26/20222021 Ectatic thoracic aorta 11/02/201803/26 Valvular heart disease 01/09/201705/02 Overview: Mild MR. ? - on echo 01/20 documented as of this encounter (statuses as of 03/22/2023) [facility] History of Past illness Narrative* Problem Noted Date Diagnosed Date Resolved Date Dyspareunia 03/26/2022 03/26/2022 Gynecological disease 03/26/20222021 Ectatic thoracic aorta 11/02/201803/26 Valvular heart disease 01/09/201705/02 Overview: Mild MR. ? - on echo 01/20 documented as of this encounter (statuses as of 05/26/2023) [facility] History of Past illness Narrative* Problem Noted Date Diagnosed Date Resolved Date Dyspareunia 03/26/2022 03/26/2022 Gynecological disease 03/26/20222021 Ectatic thoracic aorta 11/02/201803/26 Valvular heart disease 01/09/201705/02 Overview: Mild MR. ? - on echo 01/20 documented as of this encounter (statuses as of 06/12/2023) [facility] History of Past illness Narrative* Problem Noted Date Diagnosed Date Resolved Date Dyspareunia 03/26/2022 03/26/2022 Gynecological disease 03/26/20222021 Ectatic thoracic aorta 11/02/201803/26 Valvular heart disease 01/09/201705/02 Overview: Mild MR. ? - on echo 01/20 documented as of this encounter (statuses as of 06/17/2023) [facility] History of Past illness Narrative* Problem Noted Date Diagnosed Date Resolved Date Dyspareunia 03/26/2022 03/26/2022 Gynecological disease 03/26/20222021 Ectatic thoracic aorta 11/02/201803/26 Valvular heart disease 01/09/201705/02 Overview: Mild MR. ? - on echo 01/20 documented as of this encounter (statuses as of 06/17/2023) [facility] History of Past illness Narrative* Problem Noted Date Diagnosed Date Resolved Date Dyspareunia 03/26/2022 03/26/2022 Gynecological disease 03/26/20222021 Ectatic thoracic aorta 11/02/201803/26 Valvular heart disease 01/09/201705/02 Overview: Mild MR. ? - on echo 01/20 documented as of this encounter (statuses as of 08/15/2023) [facility] History of Present illness Narrative* [...] TABLET Sterling Coleman MD [facility] Miscellaneous Notes* Telephone Encounter - [...] and lab orders. Once placed route to mail weigher so we may call patient toschedule these test and Medicare Wellness appointment. [facility] Instructions* Patient Instructions* Laurence Lynch [...] your usual activities immediately. documented [facility] encounter[facility] History of Present illness Narrative* [...] 20, 2021 2:15 PM documented in this encounter[facility] History of Past illness Narrative* Problem Noted Date Resolved Date Valvular heart disease 01/09/2017 Overview: Mild MR. ? - on echo 01/20 documented as of this encounter (statuses as of 03/04/2022) [facility] note* Diagnosis Screening for osteoporosis- Primary Special screening for osteoporosis Asymptomatic menopause Encounter for screening for osteoporosis Special screening for osteoporosis Encounter for screening mammogram for malignant neoplasm of breast Other screening mammogram Well adult exam Routine general medical examination at a health care facility Hyperlipidemia, mixed Mixed hyperlipidemia [facility] this [facility] Diagnosis Nonrheumatic aortic valve stenosis- Primary Aortic valve disorders Encounter for immunization Need for other specified prophylactic vaccination against single bacterial disease Bilateral leg edema Edema Hyperlipidemia, mixed Mixed hyperlipidemia Ectatic thoracic aorta (HCC) Thoracic aortic ectasia Psoriasis Other psoriasis Reactive depression Dysthymic disorder Adjustment disorder, unspecified type documented [facility] this encounter [facility]* Diagnosis Hyperlipidemia, mixed- Primary Mixed hyperlipidemia [facility] this [facility]* Diagnosis Nonrheumatic aortic valve stenosis- Primary Aortic valve disorders documented [facility] this [facility]* Diagnosis Inconclusive mammography- Primary Inconclusive mammogram documented [facility] this [facility]* Diagnosis Screening for ischemic heart disease- Primary Nonrheumatic aortic valve stenosis Aortic valve disorders Hyperlipidemia, mixed Mixed hyperlipidemia documented [facility] this [facility]* Diagnosis Adjustment disorder, unspecified type Hyperlipidemia, mixed Mixed hyperlipidemia documented [facility] this [facility]* Diagnosis Hyperhidrosis- Primary Primary focal hyperhidrosis Hyperlipidemia, mixed Mixed hyperlipidemia Reactive depression Dysthymic disorder documented [facility] this encounter [facility]* Diagnosis Nonrheumatic aortic valve stenosis- Primary Aortic valve disorders LARRY (dyspnea on exertion) Other dyspnea and respiratory abnormality documented [facility] this encounter [facility]* Diagnosis Nonrheumatic aortic valve stenosis Aortic valve disorders [facility] Diagnosis Left lower quadrant abdominal pain- Primary [facility] Diagnosis Encounter for screening mammogram for breast cancer [facility] Diagnosis Nonrheumatic aortic valve stenosis- Primary Aortic valve disorders Hyperlipidemia, mixed Mixed hyperlipidemia [facility] Diagnosis Function kidney decreased- Primary Unspecified disorder of kidney and ureter Eczema, unspecified type URI, acute Acute upper respiratory infections of unspecified site [facility]* Diagnosis Vaginal irritation- Primary Unspecified noninflammatory disorder of vagina Lichen sclerosus 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 [facility]* Diagnosis Malaise and fatigue- Primary [...] and immunity disorders [facility] Diagnosis Elevated fasting glucose- Primary Impaired fasting glucose Hyperinsulinemia Other specified hypoglycemia Insulin resistance Dysmetabolic Syndrome X documented [facility] this encounter [facility]* Diagnosis Left sided sciatica Sciatica documented in this encounter [facility]* Diagnosis Right knee pain, unspecified chronicity documented [facility] this [facility]* Diagnosis Nonrheumatic aortic valve stenosis- Primary Aortic valve disorders Hyperlipidemia, mixed Mixed hyperlipidemia Aortic ectasia (HCC) Aortic ectasia, unspecified site documented in this encounter [facility]* Diagnosis Aortic ectasia (HCC) Aortic ectasia, unspecified site [facility]* Diagnosis Hyperlipidemia, mixed Mixed hyperlipidemia [facility] Diagnosis Muscle strain of chest wall, initial encounter documented in this encounter [facility] note* Diagnosis Muscle strain of chest wall, initial encounter- Primary Dysuria Muscle strain of chest wall, initial encounter [facility]* Diagnosis Chest wall pain- Primary Painful respiration documented in this encounter [facility] note* Diagnosis Abnormal mammogram- Primary Abnormal mammogram, unspecified documented in this encounter [facility] note* Diagnosis Encounter for screening mammogram for breast cancer documented in this encounter [facility] note* Diagnosis Abnormal mammogram Abnormal mammogram, unspecified documented in this encounter [facility] note* Diagnosis Medicare annual wellness visit, subsequent- Primary Routine general medical examination at a [facility] facility Cardiac arrhythmia, unspecified cardiac arrhythmia type Obesity, Class II, BMI 35-39.9 Obesity, unspecified Hyperlipidemia, mixed Mixed hyperlipidemia Aortic ectasia (HCC) Aortic ectasia, unspecified site Nonrheumatic aortic valve stenosis Aortic valve disorders Psoriasis Other psoriasis Reactive depression Dysthymic disorder Encounter for screening examination for other mental health and behavioral disorders documented in this encounter [facility] note* Diagnosis Nonrheumatic aortic valve stenosis- Primary Aortic valve disorders Hyperlipidemia, mixed Mixed hyperlipidemia documented in this encounter [facility] noteNo assessment information availableWKing's Daughters [facility] [place] Work Phone: Reason for referral (narrative)* Diagnostic [...] 2-VIEW BREAST INC CAD Ginger Lin PA-C [address] [place] [address] [facility] [address] [place] [phone] Referral ID Status Reason Start Date Expiration Date Visits Requested Visits Authorized [id number] Authorized Auto-Generat ed Referral 2 03/30/2023 1 1 [facility] for referral (narrative)* Outpatient Procedure (Routine) - Authorized Specialty Diagnoses / Procedures Referred By Contac t Referred To [facility] Diagnoses Ectatic thoracic aorta (HCC) Nonrheumatic aortic valve stenosis Procedures ECHO ECHO TTHRC R-T 2D W/WOM-MODE COMPL SPEC&COLR Sterling Bowen MD [address] [place] [address] [facility] [place] [address] [place] [address] Referral ID Status Reason Start Date Expiration Date Visits Requested Visits Authorized [id number] Authorized Auto-Generat ed Referral 2 03/26/2023 1 1 [facility] for referral (narrative)* Diagnostic Procedure Only (Routine) - Pending Review Specialty Diagnoses / Procedures [facility] Ref[facility] To Contact [facility] Diagnoses Inconclusive mammography Procedures US BREAST LTD RT US BREAST UNI REAL TIME WITH IMAGE LIMITED Ginger Lin PA-C [address] [place] [address] [facility] [address] [place] [address] Referral ID Status Reason Start Date Expiration Date Visits Requested Visits Authorized [id number] Pending Review Auto-Generat ed Referral 2 05/20/2023 1 1 * Diagnostic Procedure Only (Routine) - Authorized Specialty Diagnoses / Procedures Referred By Contac t Referred To Contact [facility] Diagnoses Inconclusive mammography Procedures RADHA DIAGNOSTIC RT DIAGNOSTIC MAMMOGRAPHY COMPUTER-AIDED DETCJ UNI Ginger Lin PA-C [address] [place] [address] [facility] [address] [place] [address] Referral ID Status Reason Start Date Expiration Date Visits Requested Visits Authorized [id number] Authorized Auto-Generat ed Referral 2 05/20/2023 1 1 [facility] for referral (narrative)* Outpatient Procedure (Routine) - Closed Specialty Diagnoses / Procedures Referred By Contac t Referred To Contact [facility] [place] Diagnoses Screening for ischemic heart disease Procedures ECG COMPLETE ECG ROUTINE ECG W/LEAST 12 LDS W/I&R Elly Donahue MD [address] [place] [address] [facility] [place] [address] [place] [address] Referral ID Status Reason Start Date Expiration Date V isits Requested Visits Authorized [id number] Closed Auto-Generate d Referral 07/24/2022 07/24/2023 1 1 [facility] for referral (narrative)* Outpatient Procedure (Routine) - Pending Review Specialty Diagnoses / Procedures Referred By Contac t Referred To Contact [facility] [place] Diagnoses Nonrheumatic aortic valve stenosis Procedures ECHO ECHO TTHRC R-T 2D W/WOM-MODE COMPL SPEC&COLR D Tatum Dotson ELECTRICAL ENGINEERING PROFESSOR.TOPOGRAPHICAL FIELD ASSISTANT [address] [place] [address] [facility] [address] [place] [address] Referral ID Status Reason Start Date Expiration Date Visits Requested Visits Authorized [id number] Pending Review Auto-Generat ed Referral 01/17/2023 01/17/2024 1 1 [facility] for referral (narrative)* Diagnostic Procedure Only (Routine) - Closed Specialty Diagnoses / Procedures Referred By Contac t Referred To Contact [facility] Diagnoses Encounter for screening mammogram for breast cancer Procedures RADHA SCREENING SCREENING MAMMOGRAPHY BI 2-VIEW BREAST INC CAD Sterling Coleman MD [address] [place] [address] [facility] [address] [place] [address] Referral ID Status Reason Start Date Expiration Date V isits Requested Visits Authorized [id number] Closed Auto-Generate d Referral 05/21/2023 06/19/[address] [facility] for referral (narrative)* Outpatient Procedure (Routine) - Pending Review Specialty Diagnoses / Procedures [facility] Referred To Contact [facility] Diagnoses Nonrheumatic aortic valve stenosis Procedures ECHO ECHO TTHRC R-T 2D W/WOM-MODE COMPL SPEC&COLR D Elly Donahue MD [address] [place] [address] [place] [id number] [place] [address] Referral ID Status Reason Start Date Expiration Date Visits Requested Visits Authorized [id number] Pending Review Auto-Generat ed Referral 01/26/2024 06/15/[address] [facility] for referral (narrative)* Diagnostic Procedure Only (Routine) - Pending Review Specialty Diagnoses / Procedures [facility] Referred To Contact [facility] [place] Diagnoses Malaise and fatigue Snoring Class 2 severe obesity with serious comorbidity and body mass index (BMI) of 36.0 to 36.9 in adult, unspecified obesity type (HCC) Hypersomnia, unspecified Procedures HOME SLEEP APNEA TEST (HSAT) SLEEP STD AIRFLOW HRT RATE&O2 SAT EFFORT UNATT Viktoria Marquez MD [address] [place] [address] [address] Referral ID Status Reason Start Date Expiration Date Visits Requested Visits Authorized [id number] Pending Review Auto-Generat ed Referral 09/10/2023 09/09/2024 1 1 * Consult, Test, Treat (Routine) - Authorized Specialty Diagnoses / Procedures [facility] Referred To Contact Diagnoses Malaise and fatigue Snoring Body mass index (BMI) 36.0-36.9, adult Class 2 severe obesity with serious comorbidity and body mass index (BMI) of 36.0 to 36.9 in adult, unspecified obesity type (HCC) Procedures CONSULT TO SLEEP MEDICINE - ADULT OFFICE/OUTPATIENT [facility] 60 MINUTES Viktoria Marquez MD [address] [place] [address] Referral ID Status Reason Start Date Expiration Date Visits Requested Visits Authorized [id number] Authorized PCP Requested Referral 09/10/2023 09/09/2024 1 1 [facility] for referral (narrative)* Diagnostic Procedure Only (Routine) - Closed Specialty Diagnoses / Procedures Referred By Saundra muñoz Referred To Contact X[facility] IMAGING Diagnoses Left sided sciatica Procedures XR LUMBAR GENERAL 3V AP/LAT/L5-S1 RADEX SPINE LUMBOSACRAL 2/3 VIEWS Sterling Coleman MD [address] [place] [address] [place] [address] Referral ID Status Reason Start Date Expiration Date V isits Requested Visits Authorized [id number] Closed Auto-Generate d Referral 03/20/2023 04/18/2024 1 1 [facility] for referral (narrative)* Diagnostic Procedure Only (Urgent) - Closed Specialty Diagnoses / Procedures Referred By Contac t Referred To Contact X[facility] IMAG[facility] Diagnoses Right knee pain, unspecified chronicity Procedures XR KNEE GENERAL 4V AP BOTH/PA BOTH/LAT/MERC RIGHT KNEE AP-WGT/LAT/Lexie Bowers APRN.CNP [address] [place] [address] [place] [address] Referral ID Status Reason Start Date Expiration Date V isits Requested Visits Authorized [id number] Closed Auto-Generate d Referral 04/20/2021 05/20/2022 1 1 [facility] for referral (narrative)* Diagnostic Procedure Only (Routine) - New Request Specialty Diagnoses / Procedures Referred By Saundra muñoz Referred To Contact [facility] Diagnoses Abnormal mammogram Procedures US BREAST LTD LEFT US BREAST UNI REAL TIME WITH IMAGE LIMITED Asmita Bhagat MD [address] [place] [address] [facility] [address] [email or web address] [id number] Referral ID Status Reason Start Date Expiration Date Visits Requested Visits Authorized [id number] New Request Auto-Generat ed Referral 06/07/2024 07/07/2025 1 1 * Diagnostic Procedure Only (Routine) - New Request Specialty Diagnoses / Procedures Referred By Saundra muñoz Referred To Contact [facility] Diagnoses Abnormal mammogram Procedures RADHA DIAGNOSTIC LEFT DIAGNOSTIC MAMMOGRAPHY COMPUTER-AIDED DETCJ UNI Asimta Bhagat MD [address] [place] [address] [facility] [address] [place] [id number] Referral ID Status Reason Start Date Expiration Date Visits Requested Visits Authorized [id number] New Request Auto-Generat ed Referral 06/07/2024 07/07/2025 1 1 [facility] for referral (narrative)* Diagnostic Procedure Only (Routine) - Closed Specialty Diagnoses / Procedures Referred By Saundra muñoz Referred To Contact [facility] Diagnoses Encounter for screening mammogram for breast cancer Procedures RADHA SCREENING W RYAN SCREENING DIGITAL BREAST TOMOSYNTHESIS BI SCREENING MAMMOGRAPHY BI 2-VIEW BREAST INC CAD Asmita Bhagat MD [address] [place] [address] [facility] [address] [email or web address] [address] Referral ID Status Reason Start Date Expiration Date V isits Requested Visits Authorized [id number] Closed Auto-Generate d Referral 05/29/2023 06/27/2024 1 1 [facility] for referral (narrative)No reason for referral information availableWKing's Daughters [facility] [place] Work Phone: Reason for visit Narrative* Outpatient Procedure (Routine) - Closed Specialty Diagnoses / Procedures Referred By Saundra muñoz Referred To [facility] Diagnoses Nonrheumatic aortic valve stenosis Procedures ECHO ECHO TTHRC R-T 2D W/WOM-MODE COMPL SPEC&COLR D Tatum Dotson, ELECTRICAL ENGINEERING PROFESSOR.TOPOGRAPHICAL FIELD ASSISTANT [address] [place] [address] [facility] [place] [address] [place] [address] Referral ID Status Reason Start Date Expiration Date V isits Requested Visits Authorized [id number] Closed Auto-Generate d Referral 01/17/2023 01/17/2024 1 1 [facility] for visit Narrative* Diagnostic Procedure Only (Routine) - Closed Specialty Diagnoses / Procedures [facility] Referred To Contact X[facility] Diagnoses Left sided sciatica Procedures XR LUMBAR GENERAL 3V AP/LAT/L5-S1 RADEX SPINE LUMBOSACRAL 2/3 VIEWS Sterling Coleman MD [address] [place] [address] [place] [address] Referral ID Status Reason Start Date Expiration Date V isits Requested Visits Authorized [id number] Closed Auto-Generate d Referral 03/20/2023 04/18/2024 1 1 [facility] for visit Narrative* Diagnostic Procedure Only (Urgent) - Closed Specialty Diagnoses / Procedures [facility] Referred To Contact X[facility] Diagnoses Right knee pain, unspecified chronicity Procedures XR KNEE GENERAL 4V AP BOTH/PA BOTH/LAT/MERC RIGHT KNEE AP-WGT/LAT/MERCGUSTAVOT Lexie Emmanuel, ELECTRICAL ENGINEERING PROFESSOR.TOPOGRAPHICAL FIELD ASSISTANT [address] [place] [address] [place] [address] Referral ID Status Reason Start Date Expiration Date V isits Requested Visits Authorized [id number] Closed Auto-Generate d Referral 04/20/2021 05/20/2022 1 1 [facility] for visit Narrative* Diagnostic Procedure Only (Routine) - Closed Specialty Diagnoses / Procedures Referred By Sanudra muñoz Referred To Contact [facility] Diagnoses Encounter for screening mammogram for breast cancer Procedures RADHA SCREENING W RYAN SCREENING DIGITAL BREAST TOMOSYNTHESIS BI SCREENING MAMMOGRAPHY BI 2-VIEW BREAST INC CAD Asmita Bhagat MD [address] [place] [address] [facility] [address] [place] [address] Referral ID Status Reason Start Date Expiration Date V isits Requested Visits Authorized [id number] Closed Auto-Generate d Referral 05/29/2023 06/27/2024 1 1 [facility]* Diagnostic Procedure Only (Routine) - Closed Specialty Diagnoses / Procedures Referred By Saundra muñoz Referred To Contact [facility] Diagnoses Abnormal mammogram Procedures RADHA DIAGNOSTIC LEFT DIAGNOSTIC MAMMOGRAPHY COMPUTER-AIDED DETCJ UNI Asmita Bhagat MD [address] [place] [address] Phone: tel: fax: [facility] [address] [place] [address] Referral ID Status Reason Start Date Expiration Date V isits Requested Visits Authorized [id number] Closed Auto-Generate d Referral 06/07/2024 07/07/2025 1 1 [facility] Summary Purpose Family History Relationship Condition Age at Onset Recorded Date/T barrett grandmother Coronary artery disease Unknown father Coronary artery disease Unknown grandmother Diabetes mellitus Unknown Advance Directives Documents on File Type Date 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 No November 26, 2024 12:21pm Reason for Referral Specialty Diagnoses / Procedures Referred By Saundra muñoz Referred To Contact Cardiology Diagnoses Nonrheumatic aortic valve stenosis Procedures CONSULT TO CARDIOLOGY OFFICE/OUTPATIENT [facility] MDM 60-74 MINUTES Sterling Coleman MD [address] [place] [address] Referral ID Status Reason Start Date Expiration Date Visits Requested Visits Authorized [id number] Authorized PCP Requested Referral 2 04/02/2023 1 1 Specialty Diagnoses / Procedures Referred By Contac t Referred To Contact CT IMAGING Diagnoses Aortic ectasia (HCC) Procedures CTA CHEST (NONGATED) W IVCON CT ANGIOGRAPHY CHEST W/CONTRAST/NONCONTRAST Elly Donahue MD [address] [place] [address] [place] [address] Referral ID Status Reason Start Date Expiration Date Visits Requested Visits Authorized [id number] Authorized Auto-Generat ed Referral 4 03/24/2025 1 1 Chief Complaint and Reason for Visit Chief Complaint Admit Date DIZZINESS, NAUSIA, VOMITING November 26, 2 025 4:24pm Additional Source Comments INFORMATION SOURCE (unrecogn ized section and content) DATE CREATED AUTHOR 10/24/2017 [facility] DATE CREATED AUTHOR AUTHOR'S ORGANIZ ATION 11/06/2021 [facility] DATE CREATED AUTHOR AUTHOR'S ORGANIZ ATION 06/14/2024 [facility] DATE CREATED AUTHOR AUTHOR'S ORGANIZ ATION 11/01/2024 [facility] Source Comments (unrecognize d section and content) In the event this informatio n is protected by the Federal Confidentiality of Alcohol and Drug Abuse Patient Records regulations: The Federal rules restrict any use of the information to criminally investigate or prosecute any alcohol or drug abuse patient.[facility] CenterIn the event this information is protected by the Federal Confidentiality of Alcohol and Drug Abuse Patient Records regulations: The Federal rules restrict any use of the information to criminally investigate or prosecute any alcohol or drug abuse patient.[facility] CenterIn the event this information is protected by the Federal Confidentiality of Alcohol and Drug Abuse Patient Records regulations: The Federal rules restrict any use of the information to criminally investigate or prosecute any alcohol or drug abuse patient.[facility] CenterIn the event this information is protected by the Federal Confidentiality of Alcohol and Drug Abuse Patient Records regulations: The Federal rules restrict any use of the information to criminally investigate or prosecute any alcohol or drug abuse patient.[facility] CenterIn the event this information is protected by the Federal Confidentiality of Alcohol and Drug Abuse Patient Records regulations: The Federal rules restrict any use of the information to criminally investigate or prosecute any alcohol or drug abuse patient.[facility] CenterIn the event this information is protected by the Federal Confidentiality of Alcohol and Drug Abuse Patient Records regulations: The Federal rules restrict any use of the information to criminally investigate or prosecute any alcohol or drug abuse patient.[facility] CenterIn the event this information is protected by the Federal Confidentiality of Alcohol and Drug Abuse Patient Records regulations: The Federal rules restrict any use of the information to criminally investigate or prosecute any alcohol or drug abuse patient.[facility] CenterIn the event this information is protected by the Federal Confidentiality of Alcohol and Drug Abuse Patient Records regulations: The Federal rules restrict any use of the information to criminally investigate or prosecute any alcohol or drug abuse patient.[facility] CenterIn the event this information is protected by the Federal Confidentiality of Alcohol and Drug Abuse Patient Records regulations: The Federal rules restrict any use of the information to criminally investigate or prosecute any alcohol or drug abuse patient.[facility] CenterIn the event this information is protected by the Federal Confidentiality of Alcohol and Drug Abuse Patient Records regulations: The Federal rules restrict any use of the information to criminally investigate or prosecute any alcohol or drug abuse patient.[facility] CenterIn the event this information is protected by the Federal Confidentiality of Alcohol and Drug Abuse Patient Records regulations: The Federal rules restrict any use of the information to criminally investigate or prosecute any alcohol or drug abuse patient.[facility] CenterIn the event this information is protected by the Federal Confidentiality of Alcohol and Drug Abuse Patient Records regulations: The Federal rules restrict any use of the information to criminally investigate or prosecute any alcohol or drug abuse patient.[facility] CenterIn the event this information is protected by the Federal Confidentiality of Alcohol and Drug Abuse Patient Records regulations: The Federal rules restrict any use of the information to criminally investigate or prosecute any alcohol or drug abuse patient.[facility] CenterIn the event this information is protected by the Federal Confidentiality of Alcohol and Drug Abuse Patient Records regulations: The Federal rules restrict any use of the information to criminally investigate or prosecute any alcohol or drug abuse patient.[facility] CenterIn the event this information is protected by the Federal Confidentiality of Alcohol and Drug Abuse Patient Records regulations: The Federal rules restrict any use of the information to criminally investigate or prosecute any alcohol or drug abuse patient.[facility] CenterIn the event this information is protected by the Federal Confidentiality of Alcohol and Drug Abuse Patient Records regulations: The Federal rules restrict any use of the information to criminally investigate or prosecute any alcohol or drug abuse patient.[facility] CenterIn the event this information is protected by the Federal Confidentiality of Alcohol and Drug Abuse Patient Records regulations: The Federal rules restrict any use of the information to criminally investigate or prosecute any alcohol or drug abuse patient.[facility] CenterIn the event this information is protected by the Federal Confidentiality of Alcohol and Drug Abuse Patient Records regulations: The Federal rules restrict any use of the information to criminally investigate or prosecute any alcohol or drug abuse patient.[facility] the event this information is protected by the Federal Confidentiality of Alcohol and Drug Abuse Patient Records regulations: The Federal rules restrict any use of the information to criminally investigate or prosecute any alcohol or drug abuse patient.[facility] CenterIn the event this information is protected by the Federal Confidentiality of Alcohol and Drug Abuse Patient Records regulations: The Federal rules restrict any use of the information to criminally investigate or prosecute any alcohol or drug abuse patient.[facility] CenterIn the event this information is [...] any alcohol or drug abuse patient.[facility] CenterIn the event this information is protected by the Federal Confidentiality of Alcohol and Drug Abuse Patient Records regulations: The Federal rules restrict any use of the information to criminally investigate or prosecute any alcohol or drug abuse patient.[facility] CenterIn the event this information is protected by the Federal Confidentiality of Alcohol and Drug Abuse Patient Records regulations: The Federal rules restrict any use of the information to criminally investigate or prosecute any alcohol or drug abuse patient.[facility] CenterIn the event this information is protected by the Federal Confidentiality of Alcohol and Drug Abuse Patient Records regulations: The Federal rules restrict any use of the information to criminally investigate or prosecute any alcohol or drug abuse patient.[facility] CenterIn the event this information is protected by the Federal Confidentiality of Alcohol and Drug Abuse Patient Records regulations: The Federal rules restrict any use of the information to criminally investigate or prosecute any alcohol or drug abuse patient.[facility] CenterIn the event this information is protected by the Federal Confidentiality of Alcohol and Drug Abuse Patient Records regulations: The Federal rules restrict any use of the information to criminally investigate or prosecute any alcohol or drug abuse patient.[facility] CenterIn the event this information is protected by the Federal Confidentiality of Alcohol and Drug Abuse Patient Records regulations: The Federal rules restrict any use of the information to criminally investigate or prosecute any alcohol or drug abuse patient.[facility] CenterIn the event this information is protected by the Federal Confidentiality of Alcohol and Drug Abuse Patient Records regulations: The Federal rules restrict any use of the information to criminally investigate or prosecute any alcohol or drug abuse patient.[facility] CenterIn the event this information is protected by the Federal Confidentiality of Alcohol and Drug Abuse Patient Records regulations: The Federal rules restrict any use of the information to criminally investigate or prosecute any alcohol or drug abuse patient.[facility] CenterIn the event this information is protected by the Federal Confidentiality of Alcohol and Drug Abuse Patient Records regulations: The Federal rules restrict any use of the information to criminally investigate or prosecute any alcohol or drug abuse patient.[facility] CenterIn the event this information is protected by the Federal Confidentiality of Alcohol and Drug Abuse Patient Records regulations: The Federal rules restrict any use of the information to criminally investigate or prosecute any alcohol or drug abuse patient.[facility] CenterIn the event this information is protected by the Federal Confidentiality of Alcohol and Drug Abuse Patient Records regulations: The Federal rules restrict any use of the information to criminally investigate or prosecute any alcohol or drug abuse patient.[facility] CenterIn the event this information is protected by the Federal Confidentiality of Alcohol and Drug Abuse Patient Records regulations: The Federal rules restrict any use of the information to criminally investigate or prosecute any alcohol or drug abuse patient.[facility] CenterIn the event this information is protected by the Federal Confidentiality of Alcohol and Drug Abuse Patient Records regulations: The Federal rules restrict any use of the information to criminally investigate or prosecute any alcohol or drug abuse patient.[facility] CenterIn the event this information is protected by the Federal Confidentiality of Alcohol and Drug Abuse Patient Records regulations: The Federal rules restrict any use of the information to criminally investigate or prosecute any alcohol or drug abuse patient.[facility] CenterIn the event this information is protected by the Federal Confidentiality of Alcohol and Drug Abuse Patient Records regulations: The Federal rules restrict any use of the information to criminally investigate or prosecute any alcohol or drug abuse patient.[facility] CenterIn the event this information is protected by the Federal Confidentiality of Alcohol and Drug Abuse Patient Records regulations: The Federal rules restrict any use of the information to criminally investigate or prosecute any alcohol or drug abuse patient.[facility] CenterIn the event this information is protected by the Federal Confidentiality of Alcohol and Drug Abuse Patient Records regulations: The Federal rules restrict any use of the information to criminally investigate or prosecute any alcohol or drug abuse patient.[facility] CenterIn the event this information is protected by the Federal Confidentiality of Alcohol and Drug Abuse Patient Records regulations: The Federal rules restrict any use of the information to criminally investigate or prosecute any alcohol or drug abuse patient.[facility] CenterIn the event this information is protected by the Federal Confidentiality of Alcohol and Drug Abuse Patient Records regulations: The Federal rules restrict any use of the information to criminally investigate or prosecute any alcohol or drug abuse patient.[facility] Reason for Visit (unrecogniz ed section and content) Reason Comments Orders Reason Comments Yearly Exam Reason Comments Results Reason Comments Results Reason Comments Results Reason Comments Consult Specialty Diagnoses / Procedures Referred By Contac t Referred To Contact Cardiology Diagnoses Nonrheumatic aortic valve stenosis Procedures CONSULT TO CARDIOLOGY OFFICE/OUTPATIENT [facility] 60-74 MINUTES Sterlnig Coleman MD [address] [place] [address] Referral ID Status Reason Start Date Expiration Date V isits Requested Visits Authorized [id number] Closed PCP Requested Referral 04/02/2022 04/02/2023 1 [...] MD [address] [place] [address] [place] [address] Referral ID Status Reason Start Date Expiration Date V isits Requested Visits Authorized [id number] Closed Auto-Generate d Referral 02/23/2024 03/24/2025 1 1 Reason Onset Date Comments Refill Request 03/29/2024 Reason Comments Back Pain Reason Onset Date Comments Population Health Navigation Outreach 06/16/2024 [facility] [facility] Reason Comments Medicare Wellness Exam Reason Comments billing issues from July 26/2025 visit Care Teams (unrecognized sec tion and content) Lna Relationship Specialty Start Date End Date Sterling Coleman MD [address] [facility] [place] [address] PCP - General Family Medicine 01/13/17 Lna Relationship Specialty Start Date End Date Sterling Coleman MD [address] [facility] [place] [address] PCP - General Family Medicine 01/13/17 Lna Relationship Specialty Start Date End Date Sterling Coleman MD [address] [facility] [place] [address] PCP - General Family Medicine 01/13/17 Lna Relationship Specialty Start Date End Date Sterling Coleman MD [address] [facility] [place] [address] PCP - General Family Medicine 01/13/17 Lna Relationship Specialty Start Date End Date Sterling Coleman MD [address] [facility] [place] [address] PCP - General Family Medicine 01/13/17 Lna Relationship Specialty Start Date End Date Sterling Coleman MD [address] [facility] [place] [address] PCP - General Family Medicine 01/13/17 Lna Relationship Specialty Start Date End Date Sterling Coleman MD [address] [facility] [place] [address] PCP - General Family Medicine 01/13/17 Lna Relationship Specialty Start Date End Date Sterling Coleman MD [address] [facility] [place] [address] PCP - General Family Medicine 01/13/17 Lna Relationship Specialty Start Date End Date Sterling Coleman MD [address] [place] [address] PCP - General Family Medicine 01/13/17 Lna Relationship Specialty Start Date End Date Sterling Coleman MD [address] [place] [address] PCP - General Family Medicine 01/13/17 Lna Relationship Specialty Start Date End Date Sterling Coleman MD [address] [place] [address] PCP - General Family Medicine 01/13/17 Lna Relationship Specialty Start Date End Date Sterling Coleman MD [address] [place] [address] PCP - General Family Medicine 01/13/17 Lna Relationship Specialty Start Date End Date Sterling Coleman MD [address] [place] [address] PCP - General Family Medicine 01/13/17 Lna Relationship Specialty Start Date End Date Sterling Coleman MD [address] [place] [address] PCP - General Family Medicine 01/13/17 Lna Relationship Specialty Start Date End Date Sterling Coleman MD [address] [place] [address] PCP - General Family Medicine 01/13/17 Lna Relationship Specialty Start Date End Date Sterling Coleman MD [address] [place] [address] PCP - General Family Medicine 01/13/17 Lna Relationship Specialty Start Date End Date Sterling Coleman MD [address] [facility] [place] [address] PCP - General Family Medicine 01/13/17 Lna Relationship Specialty Start Date End Date Sterling Coleman MD [address] [facility] [place] [address] PCP - General Family Medicine 01/13/17 Lna Relationship Specialty Start Date End Date Sterling Coleman MD [address] [place] [address] PCP - General Family Medicine 01/13/17 Lna Relationship Specialty Start Date End Date Sterling Coleman MD [address] [place] [address] PCP - General Family Medicine 01/13/17 Lna Relationship Specialty Start Date End Date Sterling Coleman MD [address] [facility] [place] [address] PCP - General Family Medicine 01/13/17 Lna Relationship Specialty Start Date End Date Sterling Coleman MD [address] [facility] [place] [address] PCP - General Family Medicine 01/13/17 Lna Relationship Specialty Start Date End Date Sterling Coleman MD [address] [facility] [place] [address] PCP - General Family Medicine 01/13/17 Lna Relationship Specialty Start Date End Date Sterling Coleman MD [address] [place] [address] PCP - General Family Medicine 01/13/17 Lna Relationship Specialty Start Date End Date Sterling Coleman MD [address] [place] [address] PCP - General Family Medicine 01/13/17 Elenita Wang APRN.TOPOGRAPHICAL FIELD ASSISTANT [address] [facility] [place] [place] [address] [facility] [employer] [facility] Family Medicine 04/12/24 Elaine Trevino ELECTRICAL ENGINEERING PROFESSOR.TOPOGRAPHICAL FIELD ASSISTANT [address] [place] [address] Hi Lo Driver [facility] Medicine 04/12/24 Lna Relationship Specialty Start Date End Date Sterling Coleman MD [address] [place] [address] PCP - General Family Medicine 01/13/17 Elenita Wang ELECTRICAL ENGINEERING PROFESSOR.TOPOGRAPHICAL FIELD ASSISTANT [address] [facility] [place] [place] [address] Hi Lo Driver Family Medicine 04/12/24 Elaine Trevino ELECTRICAL ENGINEERING PROFESSOR.TOPOGRAPHICAL FIELD ASSISTANT [address] [place] [address] Hi Lo Driver Family Medicine 04/12/24 Lna Relationship Specialty Start Date End Date Sterling Coleman MD [address] [place] [address] PCP - General Family Medicine 01/13/17 Elenita Wang APRN.TOPOGRAPHICAL FIELD ASSISTANT [address] [facility] [place] [place] [address] Hi Lo Driver Family Medicine 04/12/24 Elaine Trevino ELECTRICAL ENGINEERING PROFESSOR.TOPOGRAPHICAL FIELD ASSISTANT [address] [place] [address] Hi Lo Driver Family [facility] 04/12/24 Lna Relationship Specialty Start Date End Date Sterling Coleman MD [address] [place] [address] PCP - General Family Medicine 01/13/17 Elenita Wang, ELECTRICAL ENGINEERING PROFESSOR.TOPOGRAPHICAL FIELD ASSISTANT [address] [place] [address] Hi Lo Driver Family Medicine 04/12/24 Elaine Trevino ELECTRICAL ENGINEERING PROFESSOR.TOPOGRAPHICAL FIELD ASSISTANT [address] [place] [address] [facility] 04/[facility] Lna Relationship Specialty Start Date End Date Sterling Coleman MD [address] [place] [address] PCP - General Family Medicine 01/13/17 Elenita Wang, ELECTRICAL ENGINEERING PROFESSOR.TOPOGRAPHICAL FIELD ASSISTANT [address] [place] [address] Hi Lo Driver Family Medicine 04/12/24 Elaine Trevino ELECTRICAL ENGINEERING PROFESSOR.TOPOGRAPHICAL FIELD ASSISTANT [address] [place] [address] Hi Lo Driver Family Medicine 04/12/24 Lna Relationship Specialty Start Date End Date Sterling Coleman MD [address] [place] [address] PCP - General Family Medicine 01/13/17 Elenita Wagn, ELECTRICAL ENGINEERING PROFESSOR.TOPOGRAPHICAL FIELD ASSISTANT [address] [place] [address] [facility] Lo [facility] Family Medicine 04/12/24 Elaine Trevino ELECTRICAL ENGINEERING PROFESSOR.TOPOGRAPHICAL FIELD ASSISTANT [address] [place] [address] [facility] 04/12/24 Lna Relationship Specialty Start Date End Date Sterling Coleman MD [address] [facility] [place] [place] [address] [phone] PCP - General Family Medicine 01/13/17 Elenita Wang ELECTRICAL ENGINEERING PROFESSOR.TOPOGRAPHICAL FIELD ASSISTANT [address] [place] [address] [facility] 04/12/24 Elaine Trevino ELECTRICAL ENGINEERING PROFESSOR.TOPOGRAPHICAL FIELD ASSISTANT [address] [facility] [place] [address] [facility] 04/12/24 Lna Relationship Specialty Start Date End Date Sterling Coleman MD [address] [facility] [place] [address] PCP - General Family Medicine 01/13/17 lEenita Wang, ELECTRICAL ENGINEERING PROFESSOR.TOPOGRAPHICAL FIELD ASSISTANT [address] [place] [address] [facility] Medicine 04/12/24 Elaine Trevino ELECTRICAL ENGINEERING PROFESSOR.TOPOGRAPHICAL FIELD ASSISTANT [address] [facility] [place] [address] [facility] Medicine 04/12/24 Lna Relationship Specialty Start Date End Date Sterling Coleman MD [address] [facility] [place], [place] [address] [phone] PCP - General Family Medicine 01/13/17 Elenita Wang, ELECTRICAL ENGINEERING PROFESSOR.TOPOGRAPHICAL FIELD ASSISTANT [address] [place], [place] [address] [facility] 04/12/24 Elaine Trevino ELECTRICAL ENGINEERING PROFESSOR.TOPOGRAPHICAL FIELD ASSISTANT [address] [place], [place] [address] [facility] 04/12/24 Lna Relationship Specialty Start Date End Date Sterling Coleman MD [address] [place], [place] [address] PCP - [facility] 01/13/17 Elenita Wang APRN.TOPOGRAPHICAL FIELD ASSISTANT [address] [place], [place] [address] [facility] 04/12/24 Elaine Trevino ELECTRICAL ENGINEERING PROFESSOR.TOPOGRAPHICAL FIELD ASSISTANT [address] [place], [place] [id number] [facility] 04/12/24 Team Status: Active Member Role/Relationship Status [...] BE BASED ON THE PRIMARY CLINICAL RECORDS. [facility]. provides no warranty or guarantee of the accuracy or completeness of information in this document.
[2024-11-26 21:06] LABS: Troponin T High Sens 4 HR < 6 ng/L (<=14)
[2024-11-27 03:00] VITALS: BP 107/58; PULSE 79; RESP 16; TEMP 36.6; O2SAT 97
[2024-11-27 06:23] LABS: Hematocrit 39.7 % (37-47); Hemoglobin 13.2 g/dL (12.0-15.0); Immature Granulocytes Count 0.030 X10^3/uL (0.0-0.0); Mean Corp Hgb Conc 33.2 g/dL (32-36); Mean Corpuscular Volume 88.0 fL (81-99); Mean Platelet Vol. 8.7 fl (6.2-12.0); NRBC Flagged by Analyzer 0 % (0-5); Platelet Count 241 K/mm3 (150-450); RBC Distribution Width CV 12.6 % (11.6-14.6); RBC Distribution Width SD 40.6 fl (35.1-43.9); Red Blood Count 4.51 M/mm3 (4.2-5.4); White Blood Count 7.4 K/mm3 (4.4-11.0)
[2024-11-27 06:48] LABS: Anion Gap 12 (5-15); BUN 16 mg/dL (4-19); BUN/Creat Ratio 16.5 RATIO (10-20); Calcium,Total 9.2 mg/dL (7.6-11.0); Carbon Dioxide 22.6 mmol/L (21.0-32.0); Chloride 105 mmol/L (98-108); Cholesterol 141 mg/dL (<=200); Estimated Creatinine Clearance 56.79 ml/min (50-250); Glucose 99 mg/dL (70-99); Low Density Lipoprotein Calc. 76 mg/dL; Potassium 4.3 mmol/L (3.3-5.1); Triglycerides 68 mg/dL; Very Low Density Lipoprotein 14 mg/dL (5-40); cholesterol:hdl ratio screen 2.75
[2024-11-27 08:04] VITALS: O2SAT 94
[2024-11-27 08:18] VITALS: BP 108/48; PULSE 68; RESP 18; TEMP 36.7; O2SAT 96
--- NOTE | 2024-11-27 10:03 | CON.PCM.NE_ITS ---
Assessment and Plan: Neuro Assessment/Plan CESIA FOUNTAIN, is a 69-year-old woman with history of vertigo and aortic stenosis presented to [facility] ED 11/26/2024 with episode of lightheadedness, nausea vomiting, lightheadedness. She had been in her usual health until earlier when she was at [employer] and she became lightheaded and weak all over and about to pass out, was able to get to her car and she called her who came to get her. She went home and vomited few times so she came to [facility] ER. She has history of Vertigo and spinning but that did not happen yesterday. Her symptoms resolved after getting to the ER. No tingling, numbness, headache, focal weakness, blurry vision Endorses not hydrating well for the past few days preceeding MRI brain with no acute findings Unsure of etiology could be related to dehydration and aortic stenosis Exam and imaging looks good No further workup from neurology perspective I personally attended this patient and spent a total time of 45 minutes evaluating this patient including clinical assessment, review of chart, medical history imaging, and determining appropriate treatment and workup. HPI Consult Data Date of Consult: 11/27/24 HPI Narrative HPI Narrative: CESIA FOUNTAIN, is a 69-year-old female history of vertigo and aortic stenosis presented to [facility] ED 11/26/2024 with episode of lightheadedness, nausea vomiting, lightheadedness. She had been in her usual health until earlier when she was at [employer] and she became lightheaded and weak all over and about to pass out, was able to get to her car and she called her who came to get her. She went home and vomited few times so she came to [facility] ER. She has history of Vertigo and spinning but that did not happen yesterday. Her symptoms resolved after getting to the ER. The whole episode lasted for about 2-3 hours No tingling, numbness, headache, focal weakness, blurry vision She says she went swimming Friday, she was in the pool for 5 hours, she has been very tired since then, not hydrating well, so she is wondering if it is related to that In the ED patient vitally stable, orthostats negative CTH and CTA head and neck with no acute process or LVO MRI brain with no acute findings Exam performed with help of the MONISHA at the site alert oriented following commands No dysarthria EOMI, no nystagmus face symmetric, facial sensation intact Neck turning intact, tongue midline Motor: All extremities antigravity Coordination: FTN intact bilaterally PFSH Medical History Aortic stenosis Vertigo Stress incontinence in female Lichen sclerosus Heart murmur Home Medications ?Medication ?Instructions ?Recorded ?Last Taken ?Type aspirin 81 mg tablet,delayed 81 mg PO DAILY heart heal th 11/26/24 11/25/24 History release rosuvastatin 10 mg tablet 10 mg PO QHS cholesterol 11/25/24 History Allergy/AdvReac Type Severity Reaction Status Date / Time penicillin G Allergy Mild hives Verified 11/26/24 11:34 Family History Grandmother CAD (coronary artery disease) Father CAD (coronary artery disease) Grandmother Diabetes Surgical History History of section Social History Smoking Status: Never smoker alcohol intake: current details: social substance use type: does not use caffeine: Yes what type of physical activity do you participate in: walking seatbelt use: always do you feel safe at home: Yes additional social history: Samson- both are retired Vital Signs Vital Signs Vital Signs: 11/26/24 11:32 11/26/24 11:52 11/26/24 11:52 Temperature 98 F Temperature Source Oral Pulse Rate 82 78 Pulse Rate [Lying] Pulse Rate [Sitting (for 1 minute prior to obtaining)] Pulse Rate [Standing (for 1 minute prior to obtaining)] Pulse Strength Respiratory Rate 18 15 Respiratory Effort Respiratory Depth Respiratory Pattern Blood Pressure 149/63 H 135/78 H Blood Pressure [Lying] Blood Pressure [Sitting (for 1 minute prior to obtaining)] Blood Pressure [Standing (for 1 minute prior to obtaining)] Blood Pressure Mean 91 97 Blood Pressure Mean [Lying] Blood Pressure Mean [Sitting (for 1 minute prior to obtaining)] Blood Pressure Mean [Standing (for 1 minute prior to obtaining)] Blood Pressure Source Blood Pressure Position Blood Pressure Location Pulse Ox 95 97 98 Oxygen Delivery Method Room Air Room Air Room Air 11/26/24 12:22 11/26/24 12:30 11/26/24 12:49 Temperature Temperature Source Pulse Rate 84 77 Pulse Rate [Lying] 82 Pulse Rate [Sitting (for 1 minute prior to obtaining)] 81 Pulse Rate [Standing (for 1 minute prior to obtaining)] 80 Pulse Strength Respiratory Rate 19 H 15 Respiratory Effort Respiratory Depth Respiratory Pattern Blood Pressure 157/65 H 143/75 H Blood Pressure [Lying] 143/75 H Blood Pressure [Sitting (for 1 minute prior to obtaining)] 168/90 H Blood Pressure [Standing (for 1 minute prior to obtaining)] 160/89 H Blood Pressure Mean 95 97 Blood Pressure Mean [Lying] 97 Blood Pressure Mean [Sitting (for 1 minute prior to obtaining)] 116 Blood Pressure Mean [Standing (for 1 minute prior to obtaining)] 112 Blood Pressure Source Blood Pressure Position Blood Pressure Location Pulse Ox 98 95 Oxygen Delivery Method Room Air Room Air 11/26/24 13:00 11/26/24 13:00 11/26/24 13:30 Temperature Temperature Source Pulse Rate 79 77 77 Pulse Rate [Lying] Pulse Rate [Sitting (for 1 minute prior to obtaining)] Pulse Rate [Standing (for 1 minute prior to obtaining)] Pulse Strength Respiratory Rate 19 H 14 19 H Respiratory Effort Respiratory Depth Respiratory Pattern Blood Pressure 122/58 H 122/58 H 136/105 H Blood Pressure [Lying] Blood Pressure [Sitting (for 1 minute prior to obtaining)] Blood Pressure [Standing (for 1 minute prior to obtaining)] Blood Pressure Mean 79 79 115 Blood Pressure Mean [Lying] Blood Pressure Mean [Sitting (for 1 minute prior to obtaining)] Blood Pressure Mean [Standing (for 1 minute prior to obtaining)] Blood Pressure Source Blood Pressure Position Blood Pressure Location Pulse Ox 98 99 96 Oxygen Delivery Method Room Air Room Air 11/26/24 14:06 11/26/24 15:00 11/26/24 17:00 Temperature 98 F 98.7 F Temperature Source Oral Pulse Rate 77 87 80 Pulse Rate [Lying] Pulse Rate [Sitting (for 1 minute prior to obtaining)] Pulse Rate [Standing (for 1 minute prior to obtaining)] Pulse Strength Respiratory Rate 19 H 24 H 16 Respiratory Effort Respiratory Depth Respiratory Pattern Blood Pressure 136/105 H 149/67 H 128/61 H Blood Pressure [Lying] Blood Pressure [Sitting (for 1 minute prior to obtaining)] Blood Pressure [Standing (for 1 minute prior to obtaining)] Blood Pressure Mean 115 94 83 Blood Pressure Mean [Lying] Blood Pressure Mean [Sitting (for 1 minute prior to obtaining)] Blood Pressure Mean [Standing (for 1 minute prior to obtaining)] Blood Pressure Source Monitor Blood Pressure Position Semi-Fowlers Blood Pressure Location Left Arm Pulse Ox 96 94 93 Oxygen Delivery Method Room Air Room Air 11/26/24 21:00 11/26/24 22:00 11/26/24 22:00 Temperature Temperature Source Pulse Rate 86 Pulse Rate [Lying] Pulse Rate [Sitting (for 1 minute prior to obtaining)] Pulse Rate [Standing (for 1 minute prior to obtaining)] Pulse Strength Normal (2+) Respiratory Rate Respiratory Effort Respiratory Depth Respiratory Pattern Blood Pressure Blood Pressure [Lying] Blood Pressure [Sitting (for 1 minute prior to obtaining)] Blood Pressure [Standing (for 1 minute prior to obtaining)] Blood Pressure Mean Blood Pressure Mean [Lying] Blood Pressure Mean [Sitting (for 1 minute prior to obtaining)] Blood Pressure Mean [Standing (for 1 minute prior to obtaining)] Blood Pressure Source Blood Pressure Position Blood Pressure Location Pulse Ox 93 Oxygen Delivery Method Room Air 11/26/24 22:00 11/26/24 23:00 11/27/24 03:00 Temperature 98.2 F 98.2 F 97.8 F Temperature Source Oral Oral Oral Pulse Rate 86 86 79 Pulse Rate [Lying] Pulse Rate [Sitting (for 1 minute prior to obtaining)] Pulse Rate [Standing (for 1 minute prior to obtaining)] Pulse Strength Respiratory Rate 16 16 16 Respiratory Effort Respiratory Depth Respiratory Pattern Blood Pressure 128/82 H 128/82 H 107/58 L Blood Pressure [Lying] Blood Pressure [Sitting (for 1 minute prior to obtaining)] Blood Pressure [Standing (for 1 minute prior to obtaining)] Blood Pressure Mean 97 97 74 Blood Pressure Mean [Lying] Blood Pressure Mean [Sitting (for 1 minute prior to obtaining)] Blood Pressure Mean [Standing (for 1 minute prior to obtaining)] Blood Pressure Source Monitor Monitor Monitor Blood Pressure Position Semi-Fowlers Semi-Fowlers Semi-Fowlers Blood Pressure Location Left Arm Left Arm Right Arm Pulse Ox 96 96 97 Oxygen Delivery Method Room Air Room Air Room Air 11/27/24 03:13 11/27/24 08:04 11/27/24 08:18 Temperature 98.0 F Temperature Source Temporal Pulse Rate 68 Pulse Rate [Lying] Pulse Rate [Sitting (for 1 minute prior to obtaining)] Pulse Rate [Standing (for 1 minute prior to obtaining)] Pulse Strength Respiratory Rate 18 Respiratory Effort Normal Respiratory Depth Normal Respiratory Pattern Normal Blood Pressure 108/48 L Blood Pressure [Lying] Blood Pressure [Sitting (for 1 minute prior to obtaining)] Blood Pressure [Standing (for 1 minute prior to obtaining)] Blood Pressure Mean 68 Blood Pressure Mean [Lying] Blood Pressure Mean [Sitting (for 1 minute prior to obtaining)] Blood Pressure Mean [Standing (for 1 minute prior to obtaining)] Blood Pressure Source Monitor Blood Pressure Position Supine Blood Pressure Location Right Forearm Pulse Ox 94 96 Oxygen Delivery Method Room Air Room Air Room Air 11/27/24 08:19 Temperature Temperature Source Pulse Rate Pulse Rate [Lying] Pulse Rate [Sitting (for 1 minute prior to obtaining)] Pulse Rate [Standing (for 1 minute prior to obtaining)] Pulse Strength Normal (2+) Respiratory Rate Respiratory Effort Respiratory Depth Respiratory Pattern Blood Pressure Blood Pressure [Lying] Blood Pressure [Sitting (for 1 minute prior to obtaining)] Blood Pressure [Standing (for 1 minute prior to obtaining)] Blood Pressure Mean Blood Pressure Mean [Lying] Blood Pressure Mean [Sitting (for 1 minute prior to obtaining)] Blood Pressure Mean [Standing (for 1 minute prior to obtaining)] Blood Pressure Source Blood Pressure Position Blood Pressure Location Pulse Ox Oxygen Delivery Method Weight Weight: 90.9 kg Body Mass Index (BMI) 37.8 EEG Results Procedure Details EEG Procedure Details: CESIA FOUNTAIN is a 69 year old F with a past medical history of , who presents for evaluation of Electroencephalogram on DATE at TIME Lab / Micro Data 11/27/24 05:50 11/27/24 05:50 Labs: Laboratory Results - last 24 hr 11/26/24 12:07: POC Glucose 92 11/26/24 13:10: WBC 10.0, RBC 4.76, Hgb 13.7, Hct 41.6, MCV 87.4, MCH 28.8, MCHC 32.9, RDW Std Deviation 39.8, RDW Coeff of Viktoria 12.4, Plt Count 240, MPV 8.6, Immature Gran % (Auto) 0.400, Neut % (Auto) 79.4 H, Lymph % (Auto) 12.7 L, Mcmullen % (Auto) 5.2, Eos % (Auto) 1.8, Baso % (Auto) 0.5, Absolute Neuts (auto) 8.0 H, Absolute Lymphs (auto) 1.27, Nucleated RBC % 0, PT 13.1, INR 1.0, APTT 24.3, Sodium 137, Potassium 4.3, Chloride 100, Carbon Dioxide 23.5, Anion Gap 14, BUN 21 H, Creatinine 0.90, Estim Creat Clear Calc 60.57, Est GFR (MDRD) Non-Af 69, B UN/Creatinine Ratio 23.3 H, Glucose 97, Calcium 9.9, Troponin T High Sens 7 11/26/24 15:20: Troponin T Hi Sens 2 Hr 6 11/26/24 20:13: Troponin T Hi Sens 4Hr < 6 11/27/24 05:50: WBC 7.4, RBC 4.51, Hgb 13.2, Hct 39.7, MCV 88.0, MCH 29.3, MCHC 33.2, RDW Std Deviation 40.6, RDW Coeff of Viktoria 12.6, Plt Count 241, MPV 8.7, Immature Gran % (Auto) 0.400, Neut % (Auto) 55.2, Lymph % (Auto) 32.9, Mcmullen % (Auto) 6.1, Eos % (Auto) 4.2, Baso % (Auto) 1.2 H, Absolute Neuts (auto) 4.1, Absolute Lymphs (auto) 2.44, Nucleated RBC % 0, Sodium 140, Potassium 4.3, Chloride 105, Carbon Dioxide 22.6, Anion Gap 12, BUN 16, Creatinine 0.96, Estim Creat Clear Calc 56.79, Est GFR (MDRD) Non-Af 64, BUN/Creatinine Ratio 16.5, Glucose 99, Calcium 9.2, Triglycerides 68, Cholesterol 141, LDL Cholesterol, Calc 76, VLDL Cholesterol 14, HDL Cholesterol 51, Cholesterol/HDL Ratio 2.75, TSH 1.890 Imaging Radiology Impression Brain CT 11/26/24 11:52 IMPRESSION: No evidence of hemorrhage or acute stroke at this time. The findings and impression were called to the ordering physician, Dr. Amaro at 12:07 PM Reading Location: [facility] Head/Neck CTA 11/26/24 11:53 IMPRESSION: 1. No aneurysm or stenosis seen. 2. No large vessel occlusion. 3. Incidental thyroid nodule at the isthmus. Recommend nonemergent outpatient ultrasound of the thyroid gland. Reading Location: [facility] Chest X-Ray 11/26/24 14:04 IMPRESSION: No acute abnormality Reading Location: [facility] Brain MRI 11/26/24 17:22 IMPRESSION: No acute infarct or other significant abnormality. Normal brain MRI for patient's age. Reading Location: [facility] Active Medications Active Medications Active Medications: Current Medications Generic Name Dose Route Start Last Admin Trade Name Freq PRN Reason Stop Dose Admin Acetaminophen 650 mg 11/26/24 17:22 Acetaminophen 325 Mg Tablet PO Q6H PRN PRN Pain 1-10 Or Fever >100.7 Albuterol Sulfate 2.5 mg 11/26/24 17:22 Albuterol 2.5 Mg/3 Ml Vial.Neb. INHALATION Q2H PRN PRN SOB &/OR WHEEZING Aspirin 81 mg 11/27/24 08:00 11/27/24 08:15 Aspirin 81 Mg Tab.Chew PO 81 mg BREAKFAST ANGELIC Administration Atorvastatin Calcium 80 mg 11/26/24 22:00 11/26/24 22:09 Atorvastatin Calcium 80 Mg Tablet PO 80 mg QHS ANGELIC Administration Hydralazine HCl 5 mg 11/26/24 17:22 Hydralazine 20 Mg/Ml Vial IV 11/27/24 17:23 Q30M PRN maintain BP parameters with HR <60 Sodium Chloride 250 mls @ 15 mls/hr 11/26/24 17:00 IV .[id number] PRN Saline Flush Labetalol HCl 10 - 20 mg 11/26/24 17:22 Labetalol 20 Mg/4 Ml Vial IV 11/27/24 17:23 Q10M PRN PRN maintain BP parameters with HR >/=60 Melatonin 10 mg 11/26/24 17:22 Melatonin 3 Mg Tablet PO QHS PRN PRN INSOMNIA Ondansetron HCl 4 mg 11/26/24 17:17 Ondansetron 4 Mg/2 Ml Vial IV Q8H PRN PRN NAUSEA/VOMITING Senna/Docusate Sodium 2 tablet 11/26/24 17:22 Senna/Docusate Sodium 1 Tablet PO BID PRN PRN Constipation Sodium Chloride 10 - 40 ml 11/26/24 17:00 0.9% Saline Lock 10 Ml Syringe IV UD PRN SALINE FLUSH NIHSS NIHSS Nursing Documentation NIHSS Nursing Documentation: NIHSS: Ischemic Stroke/TIA Start: 11/26/24 17:23 Text: For PCU Patients: NIH and Neuro Check every 4 Status: Complete hours, PRN and with change in RN caregiver. Freq: [id number] Protocol: Activity Type Activity Date Activity User E-sign Co-sign Detail Recorded Client Recorded Date Recorded By Document 11/26/24 23:00 DANELLE [id number] 11/26/24 23:55 DANELLE 11/26/24 23:00 NIH Stroke Scale [NIHSS] A score of 0 is normal or asymptomatic . Total possible score is 42. Inpatient: RN or Physician to activate a stroke alert for onset of new stroke symptoms or with NIHSS increase >/= 3 points. Following change in neurological status, NIHSS will be performed per physician order or more frequently PRN. -1a. Level of Consciousness 0 - Alert; keenly responsive -1b. LOC Questions 0 - Answers BOTH questions correctly -1c. LOC Commands 0 - Performs BOTH tasks correctly -2. Best Gaze 0 - Normal -3. Visual 0 - No visual loss -4. Facial Palsy 0 - Normal symmetrical movements -5a. Left Arm 0 - No drift; arm holds 90 ( or 45) degrees for full 10 seconds -5b. Right Arm 0 - No drift; arm holds 90 ( or 45) degrees for full 10 seconds -6a. Left Leg 0 - No drift; leg holds 30- degree position for full 5 seconds -6b. Right Leg 0 - No drift; leg holds 30- degree position for full 5 seconds -7. Limb Ataxia 0 - Absent -8. Sensory 0 - Normal; no sensory loss -9. Best Language 0 - No aphasia; normal -10. Dysarthria 0 - Normal -11. Extinction and Inattention 0 - No abnormality -Total 0 Query Text:A score of 0 is normal or asymptomatic. Total possible score is 42 . ED: Notify Physician for NIHSS increase by > / = 3 points. Inpatient: RN or Physician to activate a stroke alert for NIHSS increase of > / = 3 points.
--- NOTE | 2024-11-27 10:53 | DCINST_ITS ---
Discharge Instructions DC O2, CPAP, BIPAP needs Home O2 Discharge instructions: No Dressing / Incision Discharge Activity: Return to Normal Activity Dressing / Incision Call your doctor if you observe: Fever of 101 or Higher, Shortness of breath, Dizziness, Fainting spells, Swelling in the ankles, Chest pain and Increased palpitations (irregular heartbeat) Follow Up Care Test Results: Test results from this visit will be discussed in further detail at your follow- up appointment, if applicable. Discharge Plan Admission Admit Date/Time: 11/26/24 16:24 Attending Provider: Elgin Garcia Primary Care Provider: Sterling Giles Consulting Providers: Gus Navarro; Gonzalo Ferrera; Kalie Mcgarry; Marilou Medina; Flory Gayle; Christiano Agosto; Yanira Glez; Jackson West; Cholo Haney; Panda Bland; Diann Montes; Justin Olivas; Zakiya Huerta; Brianne Russell; Arsalan Zapata; Chidi Sharma; Marta Mccollum; Denzel Davis; Justine Ruvalcaba; Norberto Mcclure; Erika Tierney Discharge Orders/Prescriptions Prescriptions: Continued rosuvastatin 10 mg tablet 10 mg PO QHS aspirin 81 mg tablet,delayed release (DR/EC) 81 mg PO DAILY Referrals / Follow Up: Sterling Giles MD [Primary Care Provider] - Within 1 Week Disposition Disposition (needs filled in before D/C Order can be placed): Home, Self Care
[2024-11-27 11:26] VITALS: BP 122/78; PULSE 84; RESP 18; TEMP 37; O2SAT 98
[2024-11-27 11:29] VITALS: BMI 37.8
--- NOTE | 2024-11-27 12:12 | PCM.DC.SUM ---
Providers Date of Admission: 11/26/24 Primary Care Physician: Dr. Sterling Giles MD Consultations 11/26/24 17:23 Consult: Tele-Neurology Routine Consulting Provider: [facility] Reason for Consult: Acute Ischemic Stroke/TIA EMERGENT Consult: No MD Notified: Yes Date Notified: 11/26/24 Time Notified: 17:45 Method of Notification: Answering Service Nursing Unit Staff Notify [facility] of Tele-Neurology Consult: Yes Reason For Visit: DIZZINESS, NAUSIA, VOMITING Diagnosis Discharge Diagnosis (1) Dizziness: Status: Acute Code(s): R42 - Dizziness and giddiness (2) Nausea & vomiting: Status: Acute Code(s): R11.2 - Nausea with vomiting, unspecified Medications at Discharge Home Medications aspirin 81 mg tablet,delayed release 81 mg PO DAILY heart health 11/26/24 rosuvastatin 10 mg tablet 10 mg PO QHS cholesterol 11/26/24 Hospital Course Operations None Procedures 2-D Echocardiogram Summary of Care Provided Minutes Spent on Discharge: 36 Hospital Course: Per HPI: CESIA FOUNTAIN, is a 69-year-old female history of vertigo and aortic stenosis presented to [facility] ED 11/26/2024 with episode of dizziness, nausea vomiting, lightheadedness. She had been in her usual health until earlier when she was at [facility] and she became dizzy and lightheaded and nauseous around 10:0 a.m., was able to get to her car but was very off balance and unsteady on her feet had multiple episodes of vomiting ultimately prompting her to come to the ED. She has a history of vertigo previously but this does not feel like that. In the ED patient vitally stable, orthostats negative, lab work overall unrevealing chest x-ray no acute process. Patient was a stroke alert as there was concern for posterior stroke. CT brain and CTA head and neck with no acute process. Teleneurology evaluated and suspected this could have been due to symptomatic aortic stenosis versus CVA and recommended admission for cardiac and stroke workup. Hospitalist contacted for mission. Patient evaluated bedside in reported history as above, nausea is improving, no longer feeling dizzy or off-balance. Hospital Course: 1. Lightheadedness and dizziness in the setting of aortic stenosis?69-year-old female presented to the hospital after going to [employer] with her granddaughter and she is became unsteady and lightheaded. Unclear as to the etiology as MRI is negative for stroke. She does have a history of aortic stenosis and she is getting echocardiograms every 6 months with her next one being scheduled for January. Echocardiogram here demonstrates mild to moderate aortic stenosis with a gradient of 19 mmHg, EF of 70% with stage I diastolic dysfunction. She feels much better today and would like to go home, I discussed with her plans for discharge and she expressed understanding of the risks and benefits of going home and would like to go home today. No changes to her current home medications, will recommend follow-up with her primary care doctor in 3 to 5 days and with her order make up clerk. Physical Exam Narrative General: Alert, Oriented x3, Cooperative, No apparent distress HEENT: Atraumatic, PERRLA, EOMI, Normocephalic Oral: Moist Mucosa Neck: Supple, No JVD Lungs: Clear to auscultation, Normal air movement, No rhonchi, No wheeze, No rales Cardiovascular: Regular rate, Regular Rhythm, Normal S1, Normal S2, AMA Abdomen: Soft, Non Tender, Non-Distended, No Hepato-splenomegaly Extremities: No edema, Capillary Refill Less than 3 Seconds Skin: No rashes, No breakdown Musculoskeletal: No Tenderness to Palpation of Joints or Extremities Neurological: No focal neurological deficits, Motor Exam 5/5 strength throughout, Sensory exam intact to light touch and pain Psych/Mental Status: Normal Affect, Appropriate Weight / BMI Weight Weight: 200 lb 6.403 oz Body Mass Index (BMI) 37.8 ABG / Lab / Microbiology Data 11/27/24 05:50 11/27/24 05:50 Laboratory: Laboratory Results - last 24 hr 11/26/24 12:07: POC Glucose 92 11/26/24 15:20: Troponin T Hi Sens 2 Hr 6 11/26/24 20:13: Troponin T Hi Sens 4Hr < 6 11/27/24 05:50: WBC 7.4, RBC 4.51, Hgb 13.2, Hct 39.7, MCV 88.0, MCH 29.3, MCHC 33.2, RDW Std Deviation 40.6, RDW Coeff of Viktoria 12.6, Plt Count 241, MPV 8.7, Immature Gran % (Auto) 0.400, Neut % (Auto) 55.2, Lymph % (Auto) 32.9, Ida % (Auto) 6.1, Eos % (Auto) 4.2, Baso % (Auto) 1.2 H, Absolute Neuts (auto) 4.1, Absolute Lymphs (auto) 2.44, Nucleated RBC % 0, Sodium 140, Potassium 4.3, Chloride 105, Carbon Dioxide 22.6, Anion Gap 12, BUN 16, Creatinine 0.96, Estim Creat Clear Calc 56.79, Est GFR (MDRD) Non-Af 64, BUN/Creatinine Ratio 16.5, Glucose 99, Calcium 9.2, Triglycerides 68, Cholesterol 141, LDL Cholesterol, Calc 76, VLDL Cholesterol 14, HDL Cholesterol 51, Cholesterol/HDL Ratio 2.75, TSH 1.890 Radiography Diagnostic Testing: Radiology Impression Chest X-Ray 11/26/24 14:04 IMPRESSION: No acute abnormality Reading Location: [facility] Brain MRI 11/26/24 17:22 IMPRESSION: No acute infarct or other significant abnormality. Normal brain MRI for patient's age. Reading Location: [facility] Echocardiogram 11/26/24 17:23 Interpretation Summary Normal LV size. The left ventricular ejection fraction is 70 %. Stage 1 diastolic dysfunction. Mild focal aortic valve calcification. Mild to moderate aortic stenosis. Mean aortic valve gradient 19 mmHg. Ordering Physician: Erika Tierney Referring Physician: Sterling Giles Performed By: Maryan Nixon RDCS, RVT D/C Instructions Call your doctor if you observe: Fever of 101 or Higher, Shortness of breath, Dizziness, Fainting spells, Swelling in the ankles, Chest pain and Increased palpitations (irregular heartbeat) DC O2, CPAP, BIPAP Needs Home O2 Discharge instructions: No Meaningful Use Info Meaningful Use Meaningful Use Diagnoses (Choose all that apply): None applicable Discharge Plan Admission Admit Date/Time: 11/26/24 16:24 Attending Provider: Elgin Garcia Primary Care Provider: Sterling Giles Consulting Providers: Gus Navarro; Gonzalo Ferrera; Kalie Mcgarry; Marilou Medina; Flory Gayle; Christiano Agosto; Yanira Glez; Jackson West; Cholo Haney; Panda Bland; Diann Montes; Justin Olivas; Zakiya Huerta; Brianne Russell; Arsalan Zapata; Chidi Sharma; Marta Mccollum; Denzel Davis; Justine Ruvalcaba; Norberto Mclcure; Erika Tierney Discharge Orders/Prescriptions Prescriptions: Continued rosuvastatin 10 mg tablet 10 mg PO QHS aspirin 81 mg tablet,delayed release (DR/EC) 81 mg PO DAILY Referrals / Follow Up: Sterling Giles MD [Primary Care Provider] - Within 1 Week Disposition Disposition (needs filled in before D/C Order can be placed): Home, Self Care Charges/Coding Visit Charges Inpatient E&M: 28639 Disch Hosp >30min
== END 2024-11-27 13:53 | disposition home or self-care (01) ==
LOC: ED 14:57 → PCU 16:30
PROVIDERS: Admitting Provider Internal Medicine; Emergency Provider Emergency Medicine; PCP Family Medicine; Visit Provider Family Medicine
DX: R42 Dizziness and giddiness (principal); R11.2 Nausea with vomiting, unspecified; Z79.82 Long term (current) use of aspirin; Z79.899 Other long term (current) drug therapy; E04.1 Nontoxic single thyroid nodule; I08.3 Combined rheumatic disorders of mitral, aortic and tricuspid valves; I49.8 Other specified cardiac arrhythmias
CPT/HCPCS: 36415; 70450; 70496; 70498; 70551; 71046; 80048; 80061; 82962; 84443; 84484; 85025; 85610; 85730; 92610; 93005; 93306; 94762; 96374; 99221; 99285; Q9967; A4216; G0378; J2405

== ENCOUNTER 2025-01-14 16:19 | Emergency (ER) | payer MEDICARE, OTHER, SELFPAY ==
[2025-01-14 16:20] VITALS: BP 138/87; PULSE 83; RESP 18; TEMP 36; O2SAT 92
[2025-01-14 17:48] VITALS: BMI 38.5
[2025-01-14 18:20] VITALS: BP 136/69; PULSE 71; RESP 19; O2SAT 99
[2025-01-14 18:54] LABS: Anion Gap 16 (5-15); BUN 16 mg/dL (4-19); BUN/Creat Ratio 18.3 RATIO (10-20); Calcium,Total 9.7 mg/dL (7.6-11.0); Carbon Dioxide 22.6 mmol/L (21.0-32.0); Chloride 103 mmol/L (98-108); Estimated Creatinine Clearance 63.24 ml/min (50-250); Glucose 113 mg/dL (70-99); Potassium 4.1 mmol/L (3.3-5.1)
--- NOTE | 2025-01-14 20:23 | EX.ED.DYSGE1 ---
HPI History of Present Illness Chief Complaint: Dizziness Detail of Chief Complaint: Patient presents with abrupt onset of vertigo nausea. She has had problems Informant: patient Onset/Context/Timing Onset: Month(s) Context: Sudden Onset Timing: Intermittent Quality: History of vestibular neuritis Location: Right ear Current Severity: Mild Maximum Severity: Moderate Worsened by: There is a positional component Relieved by: Nothing Associated Symptoms Associated Symptoms: Nausea vomiting, unsteady gait Narrative Narrative: Patient is a 69-year-old woman. She was admitted this summer and has extensive workup which included CT, CTA, MRI. She has been diagnosed with vestibular neuritis. She is only on meclizine. She is not on prednisone. She denies double vision, loss of vision or change in her vision. She does have problems with hearing ringing or ears. This is chronic. She denies trouble with speech or swallowing. She denies neck pain or neck stiffness presently. She denies cardiac respiratory symptoms. Her only GI symptoms are nausea and vomiting. She denies any urologic symptoms. She denies paresthesia, anesthesia or motor weakness upper or lower extremity. Prior similar symptoms: Yes Recent Illness/Hospitalization: Yes PFSH PFSH Medical History Hyperlipemia Aortic stenosis Vertigo Stress incontinence in female Lichen sclerosus Heart murmur Home Medications ?Medication ?Instructions ?Recorded ?Last Taken ?Type aspirin 81 mg tablet,delayed 81 mg PO DAILY heart health 11/26/24 11/25/24 History release rosuvastatin 10 mg tablet 10 mg PO QHS cholesterol 11/26/24 11/25/24 History ondansetron 4 mg disintegrating 4 mg PO Q8H PRN PRN Nausea #10 tabs 01/14/25 Unknown Rx tablet prednisone 10 mg tablet 10 mg PO UD #33 tabs 01/14/25 Unknown Rx Allergy/AdvReac Type Severity Reaction Status Date / Time penicillin G Allergy Mild hives Verified 11/26/24 11:34 Penicillins Allergy Hives Verified 01/14/25 16:20 Family History Grandmother CAD (coronary artery disease) Father CAD (coronary artery disease) Grandmother Diabetes Surgical History History of section Social History household members: spouse housing: house Smoking Status: Never smoker alcohol intake: current details: social substance use type: does not use caffeine: Yes what type of physical activity do you participate in: walking seatbelt use: always do you feel safe at home: Yes additional social history: Samson- both are retired ROS ROS ED Constitutional Constitutional ED: Denies chills, fever(s), subjective or sweats Eyes Eyes: Denies blurry vision, change in vision or diplopia ENT ENT ED: Denies ear pain, rhinorrhea or sore throat Cardiovascular Cardiovascular: Denies chest pain, orthopnea, palpitations, paroxysmal nocturnal dyspnea or racing heartbeat Respiratory/Chest Respiratory/Chest: Denies cough, dyspnea, dyspnea on exertion, orthopnea or paroxysmal nocturnal dyspnea Gastrointestinal Gastrointestinal: Reports nausea and vomiting; Denies abdominal pain or diarrhea Genitourinary Genitourinary ED: Denies dysuria, hematuria or urinary frequency Musculoskeletal Musculoskeletal: Denies arthralgias, myalgias or neck pain Neurologic Neurologic: Reports other Details: Problems with balance ; Denies paresthesias or weakness Psychiatric Psychiatric: Denies anxiety or depression Endocrine Endocrinology: Denies cold intolerance or heat intolerance Hematologic/Lymphatic Hematologic/Lymphatic: Reports systems reviewed and no addt'l complaints, except as documented EXAM Physical Exam Const Vital Signs: 01/14/25 16:20 01/14/25 18:20 Temperature 96.8 F L Temperature Source Temporal Pulse Rate 83 71 Respiratory Rate 18 19 H Blood Pressure 138/87 H 136/69 H Blood Pressure Mean 104 91 Pulse Ox 92 99 Oxygen Delivery Method Room Air Room Air Positive well nourished and well developed Constitutional Narrative: BMI is 38.5. General Appearance ED: well developed and NAD; Negative for pallor HEENT Reports moist mucous membranes HEENT Narrative: Head is atraumatic normocephalic. Ears normal. TMs normal. Nares patent. Uvula midline. No deviation of protrusion. Posterior pharynx is normal Eyes PERRL and EOMs intact bilaterally Eyes Narrative: Horizontal nystagmus with fast component to the right. General Eye ED: Negative for pale conjunctiva or scleral icterus Neck no lymphadenopathy, supple and no JVD Chest Wall inspection of chest normal and palpation of chest normal Resp normal respiratory effort and clear to auscultation bilaterally Cardio regular rate, regular rhythm, S1 normal heart sound, S2 normal heart sound and no murmurs Extremity normal to inspection General Extremety ED: Negative for edema or tenderness General Extremity: Negative for edema Neuro oriented x3, CN's II-XII intact bilaterally and no sensory deficits noted Neuro Narrative: There is no dysmetria. [id number] is normal. There is no Babinski sign noted right or left. There is no clonus noted. Sensorium / Orientation: alert Motor Exam: strength 5/5 throughout Psych mental status grossly normal Skin no rashes or lesions noted, no wounds and skin turgor normal General Skin Exam: elasticity normal; Negative for jaundice or pallor MDM MDM MDM Narrative Medical decision making narrative: With patient having unilateral nystagmus abrupt onset of nausea vomiting and a nonfocal neurologic exam other than her problems with gait her findings are consistent with vestibular neuritis. Since she had a full workup a couple of months ago and no etiology was found in my opinion imaging is not needed at this time. Patient is only on meclizine. She will receive 10 of Decadron in the emergency department and discharged with burst of steroids. She also received antiemetic she is still complaining of nausea. Will obtain electrolyte panel. This was assess her sodium CO2 anion gap predominantly. History & Record Review Additional record(s) reviewed:: Prior inpatient record (Records when she was admitted and had a negative workup which included CT, CTA and MRI.) Lab Data Attestation: I reviewed the patient's lab results. Lab results narrative: Unremarkable. Glucose slight elevated 113. Anion gap is 16 with a normal CO2. Labs: Laboratory Results - last 24 hr 01/14/25 17:50 Sodium 141 Potassium 4.1 Chloride 103 Carbon Dioxide 22.6 Anion Gap 16 H BUN 16 Creatinine 0.87 Estim Creat Clear Calc 63.24 Est GFR (MDRD) Non-Af 72 BUN/Creatinine Ratio 18.3 Glucose 113 H Calcium 9.7 Treatment and Re-Evaluation :: Patient was reassessed at 2021. She is improved. She is able to walk. She did receive 10 of Decadron in the emergency department. 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 ondansetron 4 mg tablet,disintegrating 4 mg PO Q8H PRN PRN (Reason: Nausea) Qty: 10 0RF No Action rosuvastatin 10 mg tablet 10 mg PO QHS aspirin 81 mg tablet,delayed release (DR/EC) 81 mg PO DAILY Primary Care Provider: Sterling Giles Referrals: Sterling Giles MD [Primary Care Provider] - 1 Week if not improving Activity Restrictions/Additional Instructions: There is no home-going instructions for vestibular neuritis. Since you are aware of what this is if you have any questions I would recommend looking it up on the Internet. Print Language: Angolan Disposition Disposition: Home, Self Care
[2025-01-14 20:34] VITALS: BP 139/61; PULSE 80; RESP 18; TEMP 36.6; O2SAT 96
== END 2025-01-14 21:01 | disposition home or self-care (01) ==
PROVIDERS: Emergency Provider Emergency Medicine; PCP Family Medicine; Visit Provider Emergency Medicine
DX: H81.22 Vestibular neuronitis, left ear (principal); R11.2 Nausea with vomiting, unspecified; R03.0 Elevated blood-pressure reading, without diagnosis of hypertension; E78.5 Hyperlipidemia, unspecified; Z79.899 Other long term (current) drug therapy
CPT/HCPCS: 80048; 96374; 96375; 99283; A4216; J2405